=== PATIENT | female | born 1970 | race Two or more races ===

== ENCOUNTER → 2020-08-06 14:47 | Outpatient (BNVA) | payer MEDICARE, MEDICAID, SELFPAY | PROVIDERS: PCP Internal Medicine; Visit Provider Obstetrics & Gynecology | DX: Z76.89 Persons encountering health services in other specified circumstances (principal) ==

== ENCOUNTER 2021-05-04 13:27 | Outpatient (REF) | payer OTHER, SELFPAY ==
--- NOTE | ~2021-05-04 | XR_ITS ---
EXAMINATION: XR CHEST CLINICAL INFORMATION: Cough. COMPARISON: 09/19/2015 chest radiographs. TECHNIQUE: 2 views of the chest were obtained. FINDINGS: Mild linear markings are seen in the left midlung. The lungs otherwise clear. The heart and mediastinal structures are unremarkable. XR/XR chest 2V IMPRESSION: Mild linear atelectasis versus scarring in the left midlung.
[2021-05-04 16:30] LABS: MANUAL DIFF FLAG NO
[2021-05-04 16:41] LABS: Basophils Percent Auto 0.3 % (0-2); Eosinophils Absolute Auto 0.1 X10*3/uL (0.0-0.4); Eosinophils Percent Auto 1.8 % (0-4); Hematocrit 34.9 % (37-47); Hemoglobin 11.1 g/dl (12.0-16.0); Imm Gran Abs Auto 0.03 X10*3/uL (0.00-0.03); Imm Gran Pct Auto 0.4 % (0.0-0.4); Lymphocytes Absolute Auto 1.5 X10*3/uL (1.2-4.9); Lymphocytes Percent Auto 21.8 % (20-40); Mean Corpuscular HGB Conc 31.8 g/dl (31.0-35.0); Mean Corpuscular Hemoglobin 28.9 pg (27.0-33.0); Mean Corpuscular Volume 90.9 fL (80-98); Mean Platelet Volume 10.5 fL (9.4-12.3); Monocytes Absolute Auto 0.9 X10*3/uL (0.1-1.2); Monocytes Percent Auto 12.7 % (2-11); Neutrophils Absolute Auto 4.5 X10*3/uL (2.0-8.3); Platelet Count 225 X10*3/uL (160-400); Red Blood Count 3.84 X10*6/uL (4.20-5.50); White Blood Count 7.1 X10*3/uL (4.8-10.8)
[2021-05-04 16:56] LABS: Glucose Urine UA NEG (NEG); Leukocyte Esterase Urine NEG (NEG); Nitrite Urine NEG (NEG); Specific Gravity - Urine >= 1.030 (1.005-1.025); Urine Blood 1+ (NEG); Urine Ketones NEG (NEG); Urine Protein 2+ MG/DL (NEG-TRACE)
[2021-05-04 17:01] LABS: Color Urine YELLOW
[2021-05-04 17:02] LABS: Appearance Urine HAZY
[2021-05-04 17:06] LABS: Alanine Aminotransferase 13 U/L (0-31); Albumin Level 4.6 g/dL (3.5-5.0); Alkaline Phosphatase 77 U/L (39-117); Anion Gap 14 (12-20); Aspartate Amino Transferase 12 U/L (5-31); Bilirubin Total 0.3 mg/dL (0.0-1.0); Blood Urea Nitrogen 29 mg/dL (9-16); Calcium 9.2 mg/dL (8.4-10.2); Carbon Dioxide 22 mmol/L (22-29); Chloride 109 mmol/L (96-108); Cholesterol 184 mg/dL; Estimated Glomerular Filt Rate 31; Glucose Fasting 106 mg/dL (60-99); HDL Cholesterol 38 mg/dL; LDL Cholesterol Calculated 103 mg/dl; Potassium 4.3 mmol/L (3.3-5.1); Sodium 141 mmol/L (135-145); Total Protein 8.1 g/dL (6.5-8.0); Triglycerides 218 mg/dL
[2021-05-04 17:22] LABS: Bacteria Urine 3+ /LPF; Granular Casts Urine 0-2 /LPF; Mucus Urine TRACE /LPF; Squamous Epithelial Cell Urine 2+ /LPF
[2021-05-04 17:27] LABS: TSH reflex Free T4 1.08 uIU/mL (0.32-4.0); Vitamin D 25-OH Total 22.6 ng/mL (>30)
== END 2021-05-04 13:28 | disposition home or self-care (01) ==
LOC: HO.HMGCX 13:27
PROVIDERS: PCP Internal Medicine; Visit Provider Nurse Practitioner Family
DX: Z00.00 Encounter for general adult medical examination without abnormal findings (principal); R05 Cough; I10 Essential (primary) hypertension; E55.9 Vitamin D deficiency, unspecified; E78.2 Mixed hyperlipidemia
CPT/HCPCS: 36415; 71046; 80053; 80061; 81001; 81003; 82306; 84443; 85025

== ENCOUNTER 2021-05-06 11:16 | Outpatient (REF) | payer OTHER, SELFPAY | END 2021-05-06 11:17 | disposition home or self-care (01) | LOC: HO.LAB 11:16 | PROVIDERS: Visit Provider Nurse Practitioner Family | DX: Z20.822 Contact with and (suspected) exposure to COVID-19 (principal); R05 Cough; J02.9 Acute pharyngitis, unspecified | CPT/HCPCS: U0003; U0005 ==

== ENCOUNTER 2022-02-12 10:31 | Outpatient (REF) | payer OTHER, SELFPAY ==
[2022-02-12 15:19] LABS: CT PCR NOT DETECTED (Not Detect.); NG PCR NOT DETECTED (Not Detect.)
[2022-02-15 16:57] LABS: HPV mRNA E6/E7 rflx Not Detected (Not Detected)
== END 2022-02-12 10:32 | disposition home or self-care (01) ==
LOC: HO.LAB 10:31
PROVIDERS: Visit Provider Advanced Practice Midwife
DX: Z01.419 Encounter for gynecological examination (general) (routine) without abnormal findings (principal); Z11.51 Encounter for screening for human papillomavirus (HPV); Z20.2 Contact with and (suspected) exposure to infections with a predominantly sexual mode of transmission
CPT/HCPCS: 87491; 87591; 87624; 88142

== ENCOUNTER 2022-03-07 14:57 | Outpatient (REF) | payer OTHER, SELFPAY ==
--- NOTE | ~2022-03-07 | MM_ITS ---
EXAMINATION: MM SCREENING DIGITAL BREAST TOMOSYNTHESIS, BILATERAL CLINICAL INFORMATION: Screening. Asymptomatic. The lifetime risk of breast cancer based on the Tyrer-Cuzick Model is 6%. COMPARISON: Mammography: 11/17/2018, and prior exams dating back to 06/17/2012. TECHNIQUE: Digital breast tomosynthesis is performed in both the craniocaudal and mediolateral oblique views along with computer-aided detection (CAD). Synthesized 2D images are generated from the tomosynthesis. Additional left cleavage view is provided. FINDINGS: There are scattered areas of fibroglandular density (ACR BI-RADS breast composition Category b). There are no significant masses, abnormal calcifications, or other abnormalities. Parenchymal pattern is similar to prior studies. No developing density. MM/MM tomosynthesis screening BI IMPRESSION: No mammographic evidence of malignancy. ASSESSMENT: BI-RADS 1: Negative RECOMMENDATION: Routine annual mammography screening. This patient's information was entered into a reminder system with a target due date for their next mammogram.
== END 2022-03-07 14:58 | disposition home or self-care (01) ==
LOC: HO.MAMMO 14:57
PROVIDERS: Visit Provider Internal Medicine
DX: Z12.31 Encounter for screening mammogram for malignant neoplasm of breast (principal)
CPT/HCPCS: 77063; 77067

== ENCOUNTER 2022-03-29 09:44 | Outpatient (REF) | payer OTHER, SELFPAY ==
[2022-03-29 09:52] LABS: MANUAL DIFF FLAG NO
[2022-03-29 10:46] LABS: Basophils Absolute Auto 0.1 X10*3/uL (0.0-0.2); Basophils Percent Auto 0.6 % (0-2); Eosinophils Absolute Auto 0.3 X10*3/uL (0.0-0.4); Eosinophils Percent Auto 2.9 % (0-4); Hematocrit 31.9 % (37.0-47.0); Imm Gran Abs Auto 0.05 X10*3/uL (0.00-0.03); Imm Gran Pct Auto 0.5 % (0.0-0.4); Lymphocytes Absolute Auto 2.6 X10*3/uL (1.2-4.9); Mean Corpuscular HGB Conc 31.3 g/dl (31.0-35.0); Mean Corpuscular Hemoglobin 27.5 pg (27.0-33.0); Mean Corpuscular Volume 87.6 fL (80.0-98.0); Mean Platelet Volume 10.1 fL (9.4-12.3); Monocytes Absolute Auto 0.8 X10*3/uL (0.1-1.2); Monocytes Percent Auto 8.4 % (2-11); Neutrophils Absolute Auto 5.8 x10*3/uL (2.0-8.3); Neutrophils Percent Auto 60.6 % (45-73); Platelet Count 268 X10*3/uL (160-400); Red Blood Count 3.64 X10*6/uL (4.20-5.50); Red Cell Distribution Width 14.6 % (11.0-16.0); White Blood Count 9.5 X10*3/uL (4.8-10.8)
[2022-03-29 10:51] LABS: Appearance Urine HAZY; Color Urine YELLOW; Glucose Urine UA NEG (NEG); Leukocyte Esterase Urine NEG (NEG); Nitrite Urine NEG (NEG); PH 5.5 (5.0-8.0); Specific Gravity - Urine >= 1.030 (1.005-1.025); UACC Culture Trigger NO; Urine Blood 1+ (NEG); Urine Ketones NEG (NEG); Urine Protein 2+ MG/DL (NEG-TRACE)
[2022-03-29 11:06] LABS: Bacteria Urine TRACE /LPF; Squamous Epithelial Cell Urine 2+ /LPF; WBC Urine 0-2 /HPF (0-4)
[2022-03-29 11:23] LABS: Alanine Aminotransferase 16 U/L (0-31); Albumin Level 4.2 g/dL (3.5-5.0); Alkaline Phosphatase 88 U/L (39-117); Anion Gap 13 (12-20); Aspartate Amino Transferase 12 U/L (5-31); Bilirubin Total < 0.2 mg/dL (0.0-1.0); Blood Urea Nitrogen 39 mg/dL (9-16); Calcium 8.9 mg/dL (8.4-10.2); Carbon Dioxide 18 mmol/L (22-29); Chloride 113 mmol/L (96-108); Cholesterol 174 mg/dL; Estimated Glomerular Filt Rate 36; Glucose Fasting 125 mg/dL (60-99); HDL Cholesterol 40 mg/dL; LDL Cholesterol Calculated 74 mg/dl; Potassium 4.1 mmol/L (3.3-5.1); Sodium 140 mmol/L (135-145); Total Protein 7.3 g/dL (6.5-8.0); Triglycerides 303 mg/dL
[2022-03-29 11:23] LABS: Creatinine Urine 133.97 mg/dL
[2022-03-29 11:38] LABS: Microalbum/Creatinine Ratio Ur 971.1 ug/mg cr
[2022-03-29 11:43] LABS: TSH reflex Free T4 2.44 uIU/mL (0.32-4.0); Vitamin D 25-OH Total 15.2 ng/mL (>30)
== END 2022-03-29 09:45 | disposition home or self-care (01) ==
LOC: HO.LAB 09:44
PROVIDERS: PCP Internal Medicine; Visit Provider Internal Medicine
DX: Z00.00 Encounter for general adult medical examination without abnormal findings (principal); I12.9 Hypertensive chronic kidney disease with stage 1 through stage 4 chronic kidney disease, or unspecified chronic kidney disease; N18.9 Chronic kidney disease, unspecified; E55.9 Vitamin D deficiency, unspecified; E78.00 Pure hypercholesterolemia, unspecified
CPT/HCPCS: 36415; 80053; 80061; 81001; 82043; 82306; 84443; 85025

== ENCOUNTER 2022-09-09 15:47 | Emergency (ER) | payer OTHER, SELFPAY ==
[2022-09-09 19:09] VITALS: BP 151/71; PULSE 74; RESP 19; TEMP 36.4; O2SAT 96; BMI 43.2
[2022-09-09 20:31] VITALS: BP 158/85; PULSE 70; RESP 18; TEMP 36.4; O2SAT 95
--- NOTE | 2022-09-09 20:35 | PC.NURSE ---
pt retriaged, cont'd left eye swelling, pt reports left eye is also itchy and has been watery. denies any pain at this time.
--- NOTE | 2022-09-09 21:11 | ED.EYEPROB ---
HPI - Eye Problem General Chief complaint: Eye Problems Stated complaint: L eye swelling Time Seen by Provider: 09/09/22 20:48 Source: patient Mode of arrival: ambulatory Limitations: no limitations History of Present Illness HPI Narrative: 52-year-old female past pertinent medical history of morbid obesity, vitamin-D deficiency, hypertension since to the emergency department today with left eye swelling this for the past 5 days. Patient notices swelling 1st thing on Thursday morning associated symptoms include ocular pruritus, headache ( no dizziness, vision changes, trauma, not on thinners, feels like typical, frontal pressure), watery discharge, and chills. Patient reports blurry vision in the morning only when she has watery and crusty discharge from her eyes. Patient reports left eyelid feels stuck shut in the morning. No other visual changes, no pain w/ eye movements. No known sick contacts. Has been using tea bags and warm compresses on left eye, has helped with sense of relief. Patient denies insect bites or trauma. Denies chance of intra-ocular foreign body. No history of glaucoma. Denies chest pain, shortness of breath, sore throat, cough, otorrhea, otalgia, nausea, vomiting, diarrhea, lumbar back pain, weakness, numbness or tingling in the extremities. Has never experienced anything like this before. Patient doesnt wear contacts only reading glasses Related Data Previous Rx's Medication Instructions Recorded blood pressure monitor (Blood #1 ea 01/15/22 Pressure Kit) hydrocortisone-pramoxine 1 %-1 % 1 appl CO BID-TID PRN itching #30 01/15/22 rectal cream grams witch timmy 50 % topical pads 1 pad topical BID-TID PRN skin 01/15/22 (Hemorrhoidal (witch timmy)) irritation #100 ea calcium carbonate 600 mg-vitamin 2 tab PO DAILY #180 tabs 01/16/22 D3 10 mcg (400 unit) tablet amlodipine 10 mg tablet 10 mg PO DAILY 90 days #90 tabs 03/28/22 hydrochlorothiazide 25 mg tablet 25 mg PO QAM 90 days #90 tabs 03/28/22 losartan 100 mg tablet 100 mg PO DAILY 90 days #90 tabs 03/28/22 erythromycin 5 mg/gram (0.5 %) eye 1 appl ophthalmic (eye) DAILY #3.5 09/09/22 ointment grams Allergies Allergy/AdvReac Type Severity Reaction Status Date / Time No Known Allergies Allergy Verified 09/09/22 19:09 Review of Systems Review of Systems: Constitutional : No Weight loss, No Fever, No Chills, No Fatigue, No Malaise ENT/Mouth : No sore throat, No Rhinorrhea Eyes: No Eye Pain, + left eyelid swelling, + left eyelid erythema, - conjunctiva injection Cardiovascular : No Chest Pain, No SOB, No Dyspnea on Exertion, No Orthopnea, No Edema, No Palpitations Respiratory : No Cough, No Sputum, No Wheezing Gastrointestinal : No Nausea, No Vomiting, No Diarrhea, No Constipation, No abdominal Pain, No Hematochezia, No Melena Genitourinary : No Dysuria, No Urinary Frequency, No Hematuria, Musculoskeletal : No joint pain, No Myalgias, No Joint Swelling Skin : No Skin Lesions, No rash Neuro : No Weakness, No Numbness, No Dizziness, No Headache Psych : No Anxiety/Panic, No Depression All other systems reviewed and are negative Yes all other systems are reviewed and are negative [facility] Past Medical History Attestation statement: The following information was validated with the patient. Source: old records reviewed and nursing notes reviewed Medical History (Updated 09/09/22 @ 21:26 by SHAYY Cortez) Anxiety and depression Benign essential hypertension Hypertension Impaired fasting glucose Mixed hyperlipidemia Morbid obesity with BMI of 40.0-44.9, adult Sleep apnea Vitamin D deficiency Surgical History History of endometrial ablation History of tubal ligation Family History Family History Sister Cervical cancer Mother Hypertension Father History of stroke Diabetes Social History Social History Housing: Apartment Alcohol intake: current Alcohol intake frequency: a few times a month Patient Tobacco Use Status: Current someday Tobacco user Tobacco use type: Cigarette e-Cigarette/Vaping Use: Never Used Second Hand Smoke Exposure: No Advance Directives: No service: No Current occupational status: disabled Current occupational exposures/hazards: No Gender identity: Female Cognitive needs: No Hearing needs: No Vision needs: No Physical Exam Vital Signs: Vital Signs: Last Vital Signs Temp 97.6 F 09/09/22 20:31 Pulse 70 09/09/22 20:31 Resp 18 09/09/22 20:31 BP 158/85 H 09/09/22 20:31 Pulse Ox 95 09/09/22 20:31 O2 Del Method 09/09/22 20:31 BMI result Body Mass Index 43.2 vss Appearance: Alert.? Oriented X3.? No acute distress.? Head: Normocephalic, atraumatic, no step-offs or deformities Eyes: Pupils equal, round and reactive to light.? No injection of left conjunctiva. Extra ocular movements intact. Erythema and edema to left eyelid w/ tenderness. EOMI and painfree. Fluro stain: normal no uptake, negative sidels sign, no corneal ulcers or abrasions CVS: Normal heart rate and rhythm.? Pulses normal.? Respiratory: No respiratory distress.? Breath sounds normal.? Abdomen: Soft and nontender.? Skin: Skin warm and dry.? Normal skin color.? Normal skin turgor.? Extremities: No lower extremity edema.? No calf ttp. 5/5 strength to bilateral upper and lower extremities Neuro: Oriented X 3.? No motor deficit.? No sensory deficit. CN 2-12 intact. [id number], nose to finger intact. DTRs intact bilaterally. Ambulating normally with steady gait w/ normal coordination. NIH stroke scale 0. Course Reevaluation(s) Reevaluation #1: Normal visual acuity in fluorescein stain. Patient will be discharged home with erythromycin for likely hordeolum. Patient will be given follow-up with ophthalmology, advised to return with new or worsening symptoms. Comfortable discharge home. Educated on worrisome signs and symptoms and when to return. Stable for discharge Time: 21:49 Medications Administered Discontinued Medications Generic Name Dose Route Start Last Admin Trade Name Freq PRN Reason Stop Dose Admin Erythromycin 1 cm 09/09/22 21:31 09/09/22 21:37 Erythromycin Base 0.5% Oph Oin 1 Gm Tube EYE-LEFT 09/09/22 21:32 1 cm ONCE ONE Administration Fluorescein Sodium 1 strip 09/09/22 21:12 09/09/22 21:37 Fluorescein Sodium Strip EYE-BOTH 09/09/22 21:13 1 strip ONCE ONE Administration Tetracaine HCl 3 drop 09/09/22 21:12 09/09/22 21:37 Tetracaine Hcl/Pf 0.5% Oph Iris 4 Ml Drops EYE-BOTH 09/09/22 21:13 3 drop ONCE ONE Administration MDM - Eye Problem MDM Narrative Medical decision making narrative: 2120 52-year-old female presents to emergency department today with left eye swelling this for the past 5 days. No vision changes or painful vision PE - Pupils equal, round and reactive to light.?No injection of left conjunctiva. Erythema and edema to left eyelid w/ tenderness. Extraocular eye movements intact & painfree. Likely hordeolum vs. Blepharitis vs. chalazion vs viral conjunctivitis. Unlikely orbital cellulitis, periorbital cellulitis, acute closed angle glaucoma, or wet macular degeneration. Will do a stain to r/o ulcer, or abrasion to cornea non contact lense weare Plan at this time is to perform visual acuity screening and staining Medical Records Attestation: I reviewed the patient's medical records. Lab Data Attestation: I reviewed the patient's lab results. Critical Care Time Critical Care Time Critical Care Time: No Discharge Plan Discharge Clinical Impression: Hordeolum Patient Disposition: Home, Self-Care Instructions: Angelo (ED) Additional Instructions: Take your medications as prescribed. If you were prescribed antibiotics today, it is important that you take your medication to their entirety, do not skip any doses, do not finish them early. Follow-up with your primary care provider this week. 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 Return to the emergency department with new or worsening symptoms. Such as fevers, chills, chest pain, shortness of breath, nausea, vomiting, dizziness, headache, vision changes, lethargy, worsening vision, headache, pain with eye movement, urinary fecal incontinence. In case of emergency call 911 Please throw a all your eye make up! Apply warm compresses to the area Prescriptions: New erythromycin 5 mg/gram (0.5 %) ointment 1 appl ophthalmic (eye) DAILY Qty: 3.5 0RF No Action calcium carbonate-vitamin D3 600 mg-10 mcg (400 unit) tablet 2 tab PO DAILY Qty: 180 0RF (DME) blood pressure monitor [Blood Pressure Kit] Kit See Rx Instructions .Route Qty: 1 0RF Rx Instructions: As directed Hemorrhoidal (witch timmy) 50 % pads, medicated 1 pad topical BID-TID PRN (Reason: skin irritation) Qty: 100 0RF hydrocortisone-pramoxine 1-1 % cream 1 appl CO BID-TID PRN (Reason: itching) Qty: 30 0RF hydrochlorothiazide 25 mg tablet 25 mg PO QAM 90 Days Qty: 90 1RF amlodipine 10 mg tablet 10 mg PO DAILY 90 Days Qty: 90 1RF losartan 100 mg tablet 100 mg PO DAILY 90 Days Qty: 90 1RF Referrals: Taran Hood MD [Primary Care Provider] - 2 days Tawanda Solo [Physician] - 1 day Stand Alone Forms: Work/School Release
[2022-09-09] MEDS: Tetracaine HCl/PF 0.5% Oph Sol 4 ML DROPS 3 DROP EYE-BOTH (21:37)
[2022-09-09] MEDS: Fluorescein Sodium STRIP 1 STRIP EYE-BOTH (21:37)
[2022-09-09] MEDS: Erythromycin Base 0.5% Oph Oin 1 GM TUBE 1 CM EYE-LEFT (21:37)
== END 2022-09-09 22:12 | disposition home or self-care (01) ==
PROVIDERS: Emergency Provider Emergency Medicine; PCP Internal Medicine
DX: H00.016 Hordeolum externum left eye, unspecified eyelid (principal); Z79.899 Other long term (current) drug therapy
CPT/HCPCS: 99282; 99283

== ENCOUNTER 2022-11-18 12:30 | Outpatient (REF) | payer OTHER, SELFPAY ==
--- NOTE | ~2022-11-18 | XR_ITS ---
EXAMINATION: XR ANKLE, RIGHT CLINICAL INFORMATION: Right ankle pain. COMPARISON: Right foot radiographs dated 05/20/2019. TECHNIQUE: AP, lateral, and mortise views of the right ankle. FINDINGS: No acute fracture or dislocation. The ankle mortise is maintained. Tiny tibiotalar marginal osteophytes. No osseous erosion. Plantar and dorsal calcaneal spurs. Mild circumferential soft tissue swelling. Mild soft tissue prominence at the Achilles tendon insertion with opacity adjacent to the posterosuperior calcaneus. Findings could indicate chronic tendinopathy and retrocalcaneal bursitis. XR/XR ankle RT min 3V IMPRESSION: 1. Probable distal Achilles tendinosis and retrocalcaneal bursitis, new when compared to the prior examination. 2. Mild circumferential soft tissue swelling without acute osseous abnormality. 3. Minimal tibiotalar arthrosis. 4. Plantar and dorsal calcaneal spurs.
[2022-11-18 13:05] LABS: Appearance Urine Cloudy; Color Urine Yellow; Glucose Urine UA Negative (Negative); Leukocyte Esterase Urine Negative (Negative); Nitrite Urine Negative (Negative); PH 5.5 (5.0-9.0); Specific Gravity - Urine 1.015 (1.005-1.025); UMIC TRIGGER UACC YES; Urine Blood Trace (Negative); Urine Ketones Negative (Negative); Urine Protein 100 (2+) mg/dL (Neg-Trace)
[2022-11-18 13:08] LABS: Bacteria Urine 1+ (None Seen); WBC Urine 0-5 /HPF (0-5)
== END 2022-11-18 12:31 | disposition home or self-care (01) ==
LOC: HO.XRAY 12:30
PROVIDERS: PCP Internal Medicine; Visit Provider Internal Medicine
DX: M25.571 Pain in right ankle and joints of right foot (principal)
CPT/HCPCS: 73610; 81001; 81003

== ENCOUNTER 2023-03-15 16:44 | Inpatient (IN) | payer OTHER, SELFPAY ==
[2023-03-15] VITALS (7 sets, daily range): BP systolic 150–183; BP diastolic 61–93; PULSE 85–100; RESP 18–20; TEMP 36.8–37.2; O2SAT 94–99; BMI 44.4
--- NOTE | 2023-03-15 17:10 | ED_ITS ---
HPI - General Adult General Chief complaint: GI Bleed Stated complaint: bleeding in rectum Time Seen by Provider: 03/15/23 21:15 Source: patient, family, RN notes reviewed and old records reviewed Mode of arrival: ambulatory Limitations: no limitations History of Present Illness HPI narrative: 52-year-old female with past medical history significant for hypertension, obesity presents for evaluation of rectal bleeding. Patient reports on and off rectal bleeding for the last few months. Increased rectal bleeding for the last 2 weeks She states the blood is dark red Patient is not on any anticoagulation. She reports that she was due for routine colonoscopy 4 years ago but never followed up on her appointment and did not have the colonoscopy Denies any abdominal pain, rectal pain. She does endorse shortness of breath with exertion Related Data Home Medications Medication Instructions Recorded Confirmed multivitamin 1 tab PO DAILY 03/16/23 03/16/23 Previous Rx's Medication Instructions Recorded blood pressure monitor (Blood #1 ea 01/15/22 Pressure Kit) amlodipine 10 mg tablet 10 mg PO DAILY 90 days #90 tabs 01/20/23 losartan 100 mg tablet 100 mg PO DAILY 90 days #90 tabs 01/20/23 Allergies Allergy/AdvReac Type Severity Reaction Status Date / Time No Known Allergies Allergy Verified 03/15/23 17:07 Review of Systems Constitutional: Constitutional: Reports as per HPI, Denies chills, Denies fever(s) and Denies headache(s) ENT: Denies headache(s) Cardiovascular: Cardiovascular: Denies chest pain and Denies dyspnea Respiratory: Respiratory: Denies cough and Denies dyspnea Gastrointestinal: Gastrointestinal: Denies abdominal pain, Reports hematochezia, Denies constipation and Denies vomiting Genitourinary: Genitourinary: Denies dysuria Neurologic: Denies headache(s) and Denies focal weakness [facility] Past Medical History Medical History Anxiety and depression Benign essential hypertension Hypertension Impaired fasting glucose Mixed hyperlipidemia Morbid obesity with BMI of 40.0-44.9, adult Sleep apnea Vitamin D deficiency Surgical History History of endometrial ablation History of tubal ligation Family History Family History Sister Cervical cancer Mother Hypertension Father History of stroke Diabetes Social History Social History Household Members: Children Housing: Apartment Do you presently have visiting nurse or other home services: No (pt states daughter helps) Alcohol intake: current Alcohol intake frequency: a few times a week Patient Tobacco Use Status: Current someday Tobacco user Tobacco use type: Cigarette Smoked in Last 30 Days: No e-Cigarette/Vaping Use: Never Used Second Hand Smoke Exposure: No Use of substances other than those prescribed or required for medical reasons: No Currently Displaying Signs/Symptoms of Drug Intoxication Withdrawal: No Have you been hit, kicked, punched, or otherwise hurt by someone within the past year? If so, by whom?: No Do you feel safe in your current relationship?: No Current Relationship Is there a partner from a previous relationship who is making you feel unsafe now?: No Are you made to feel afraid or neglected: No Advance Directives: No Advance Directives Information Provided: No Do you have thoughts of harming others: None Do you have a plan to hurt others: No Plan Nutrition Risks: No Nutritional Risk Patient : No : No Poor oral hygiene: No service: No Current occupational status: disabled Current occupational exposures/hazards: No Gender identity: Female Cognitive needs: No Hearing needs: No Vision needs: No Physical Exam ED Vital Signs: Vital Signs - 24 hr 03/15/23 17:07 03/15/23 18:39 03/15/23 20:14 Temperature 98.3 F 98.7 F Pulse Rate 100 90 91 Respiratory Rate 18 20 20 Blood Pressure 179/93 H 179/90 H 150/78 H Pulse Oximetry 94 99 97 Oxygen Delivery Method Room Air Room Air Room Air 03/15/23 21:57 03/15/23 22:01 03/15/23 22:09 Temperature 98.4 F 98.4 F Pulse Rate 91 85 Respiratory Rate 20 18 Blood Pressure 183/86 H 176/86 H 176/86 H Pulse Oximetry 96 Oxygen Delivery Method Room Air 03/15/23 22:24 Temperature 98.9 F Pulse Rate 88 Respiratory Rate 20 Blood Pressure 152/61 H Pulse Oximetry Oxygen Delivery Method BMI result Body Mass Index 44.4 Const General: healthy appearing, comfortable, no acute distress, alert and awake Nutritional Appearance: well nourished Orientation/consciousness: patient oriented x3 HENMT Head: Yes normocephalic and Yes atraumatic Eyes Eyelids: Yes eyelids normal Conjunctivae: conjunctivae normal Sclerae: sclerae normal Corneas: corneas normal Pupils: Equal, round and reactive pupils present EOM: EOMs intact bilaterally Neck Neck: Yes full ROM Resp Effort & Inspection: normal respiratory effort, able to speak in complete sentences and not labored Cardio Rate: regular rate Rhythm: regular rhythm GI Inspection: No distended Palpation (GI): Soft to palpation, not firm, nontender, no guarding and not rigid Auscultation: normoactive bowel sounds Rectal Exam - Female: normal sphincter tone and No fecal impaction Skin General skin exam: no rashes or lesions noted and elasticity normal Neuro General: patient oriented x3 Cranial nerves: Yes Equal, round and reactive pupils present and Yes Bilaterally intact EOM present Cognition (Neuro): normal cognition Extrem Other: Moving all extremities well without any obvious deformities Course Course Course Narrative: RME: 52 yold female presents to the ED rectal bleeding for the past 3 days as bright red, but has had intermittent rectal bleeding for months. Patient states no abdominal pain. labs ordered Reevaluation(s) Reevaluation #1: Patient was heme negative, though I do feel was a poor sample as there was not a lot of stool on the cart. Time: 22:05 Medications Administered Generic Name Dose Route Start Last Admin Trade Name Freq PRN Reason Stop Dose Admin Multivitamins/Vitamin C 1 tab 03/16/23 10:30 03/16/23 12:15 Multivitamin Tablet PO 1 tab DAILY CORNELL Administration Pantoprazole Sodium 40 mg 03/16/23 06:30 03/16/23 06:10 Pantoprazole Sodium 40 Mg/10 Ml Vial IVPUSH 40 mg BID@0630,1630 CORNELL Administration Sodium Chloride 3 ml 03/16/23 00:00 03/16/23 11:14 0.9 % Sodium Chloride Flush 3 Ml Syringe IVFLUSH 3 ml QSHIFT CORNELL Administration Discontinued Medications Generic Name Dose Route Start Last Admin Trade Name Freq PRN Reason Stop Dose Admin Pantoprazole Sodium 40 mg 03/15/23 22:14 03/15/23 22:21 Pantoprazole Sodium 40 Mg/10 Ml Vial IVPUSH 03/15/23 22:15 40 mg ONCE ONE Administration Medical Decision Making Medical Decision Making [facility] Narrative: He 52-year-old female presents for evaluation of rectal bleeding. Her hemoglobin is 6.6. Discussed risks and benefits of blood transfusion. She accepts and consent to blood transfusion. Rectal exam was performed no marko blood. Occult blood testing sent. Patient reports bleeding x2. She will likely require admission for colonoscopy. Differential Diagnosis Differential Diagnoses: The differential diagnosis associated with the presentation includes GI bleed Upper GI bleed Lower GI bleed Diverticular bleed Blood loss anemia Microcytic anemia Lab Data MDM Lab Attestation statement: I reviewed the patient's lab results. 03/15/23 18:05 03/15/23 18:05 Labs: Lab Results 03/15/23 03/15/23 03/15/23 Range/Units 18:05 18:05 18:05 WBC 10.6 (4.8-10.8) X10*3/uL RBC 2.85 L D (4.20-5.50) X10*6/uL Hgb 6.6 L* D (12.0-16.0) g/dl Hct 22.7 L D (37.0-47.0) % MCV 79.6 L (80.0-98.0) fL MCH 23.2 L (27.0-33.0) pg MCHC 29.1 L (31.0-35.0) g/dl RDW 17.4 H (11.0-16.0) % Plt Count 259 (160-400) X10*3/uL MPV 8.9 L (9.4-12.3) fL Immature Gran % (Auto) 0.8 H (0.0-0.4) % Neut % (Auto) 71.4 (45-73) % Lymph % (Auto) 18.0 L (20-40) % [place] % (Auto) 7.7 (2-11) % Eos % (Auto) 1.7 (0-4) % Baso % (Auto) 0.4 (0-2) % Lymph # (Auto) 1.9 (1.2-4.9) X10*3/uL [place] # (Auto) 0.8 (0.1-1.2) X10*3/uL Eos # (Auto) 0.2 (0.0-0.4) X10*3/uL Baso # (Auto) 0.0 (0.0-0.2) X10*3/uL Abs Immat Gran (auto) 0.08 H (0.00-0.03) X10*3/uL Absolute Neuts (auto) 7.6 (2.0-8.3) x10*3/uL Absolute Nucleated RBC 0.000 (0.0-0.012) X10*3/uL Nucleated RBC % (auto) 0.0 (0.0-0.2) /100WBC Smear Path Review SEE NOTE PT 10.9 (10.0-13.1) SEC INR 1.0 (0.9-1.1) APTT 28.7 (26.0-36.4) SEC Sodium 146 H (135-145) mmol/L Potassium 4.2 (3.3-5.1) mmol/L Chloride 114 H (96-108) mmol/L Carbon Dioxide 21 L (22-29) mmol/L Anion Gap 15 (12-20) BUN 31 H (9-16) mg/dL Creatinine 1.57 H (0.5-1.4) mg/dL Estim Creat Clear Calc 57.1 Estimated GFR 34 Random Glucose 125 H (60-115) mg/dL Calcium 8.9 (8.4-10.2) mg/dL Total Bilirubin 0.2 (0.0-1.0) mg/dL AST 12 (5-31) U/L ALT 22 (0-31) U/L Alkaline Phosphatase 93 (39-117) U/L Total Protein 6.9 (6.5-8.0) g/dL Albumin 3.8 (3.5-5.0) g/dL Beta HCG, Quant mIU/mL Urine Color Urine Appearance Urine pH (5.0-9.0) Ur Specific [place] (1.005-1.025) Urine Protein (Neg-Trace) mg/dL Urine Glucose (UA) (Negative) mg/dL Urine Ketones (Negative) mg/dL Urine Blood (Negative) Urine Nitrite (Negative) Ur Leukocyte Esterase (Negative) Urine RBC (0-2) /HPF Urine WBC (0-5) /HPF Ur Squamous Epith Cells (0-2) /HPF Urine Bacteria (None Seen) Hyaline Casts (0-2) /LPF Stool Occult Blood (NEGATIVE) Blood Type Antibody Screen Crossmatch 03/15/23 03/15/23 03/15/23 Range/Units 18:05 18:05 18:44 WBC (4.8-10.8) X10*3/uL RBC (4.20-5.50) X10*6/uL Hgb (12.0-16.0) g/dl Hct (37.0-47.0) % MCV (80.0-98.0) fL MCH (27.0-33.0) pg MCHC (31.0-35.0) g/dl RDW (11.0-16.0) % Plt Count (160-400) X10*3/uL MPV (9.4-12.3) fL Immature Gran % (Auto) (0.0-0.4) % Neut % (Auto) (45-73) % Lymph % (Auto) (20-40) % [place] % (Auto) (2-11) % Eos % (Auto) (0-4) % Baso % (Auto) (0-2) % Lymph # (Auto) (1.2-4.9) X10*3/uL [place] # (Auto) (0.1-1.2) X10*3/uL Eos # (Auto) (0.0-0.4) X10*3/uL Baso # (Auto) (0.0-0.2) X10*3/uL Abs Immat Gran (auto) (0.00-0.03) X10*3/uL Absolute Neuts (auto) (2.0-8.3) x10*3/uL Absolute Nucleated RBC (0.0-0.012) X10*3/uL Nucleated RBC % (auto) (0.0-0.2) /100WBC Smear Path Review PT (10.0-13.1) SEC INR (0.9-1.1) APTT (26.0-36.4) SEC Sodium (135-145) mmol/L Potassium (3.3-5.1) mmol/L Chloride (96-108) mmol/L Carbon Dioxide (22-29) mmol/L Anion Gap (12-20) BUN (9-16) mg/dL Creatinine (0.5-1.4) mg/dL Estim Creat Clear Calc Estimated GFR Random Glucose (60-115) mg/dL Calcium (8.4-10.2) mg/dL Total Bilirubin (0.0-1.0) mg/dL AST (5-31) U/L ALT (0-31) U/L Alkaline Phosphatase (39-117) U/L Total Protein (6.5-8.0) g/dL Albumin (3.5-5.0) g/dL Beta HCG, Quant < 2 mIU/mL Urine Color Yellow Urine Appearance Clear Urine pH 5.5 (5.0-9.0) Ur Specific [place] 1.015 (1.005-1.025) Urine Protein 100 (2+) H (Neg-Trace) mg/dL Urine Glucose (UA) Negative (Negative) mg/dL Urine Ketones Negative (Negative) mg/dL Urine Blood Negative (Negative) Urine Nitrite Negative (Negative) Ur Leukocyte Esterase Negative (Negative) Urine RBC 3-5 H (0-2) /HPF Urine WBC 0-5 (0-5) /HPF Ur Squamous Epith Cells 3-5 (0-2) /HPF Urine Bacteria None Seen (None Seen) Hyaline Casts 0-2 (0-2) /LPF Stool Occult Blood (NEGATIVE) Blood Type O Positive Antibody Screen NEGATIVE Crossmatch See Detail 03/15/23 Range/Units 21:39 WBC (4.8-10.8) X10*3/uL RBC (4.20-5.50) X10*6/uL Hgb (12.0-16.0) g/dl Hct (37.0-47.0) % MCV (80.0-98.0) fL MCH (27.0-33.0) pg MCHC (31.0-35.0) g/dl RDW (11.0-16.0) % Plt Count (160-400) X10*3/uL MPV (9.4-12.3) fL Immature Gran % (Auto) (0.0-0.4) % Neut % (Auto) (45-73) % Lymph % (Auto) (20-40) % [place] % (Auto) (2-11) % Eos % (Auto) (0-4) % Baso % (Auto) (0-2) % Lymph # (Auto) (1.2-4.9) X10*3/uL [place] # (Auto) (0.1-1.2) X10*3/uL Eos # (Auto) (0.0-0.4) X10*3/uL Baso # (Auto) (0.0-0.2) X10*3/uL Abs Immat Gran (auto) (0.00-0.03) X10*3/uL Absolute Neuts (auto) (2.0-8.3) x10*3/uL Absolute Nucleated RBC (0.0-0.012) X10*3/uL Nucleated RBC % (auto) (0.0-0.2) /100WBC Smear Path Review PT (10.0-13.1) SEC INR (0.9-1.1) APTT (26.0-36.4) SEC Sodium (135-145) mmol/L Potassium (3.3-5.1) mmol/L Chloride (96-108) mmol/L Carbon Dioxide (22-29) mmol/L Anion Gap (12-20) BUN (9-16) mg/dL Creatinine (0.5-1.4) mg/dL Estim Creat Clear Calc Estimated GFR Random Glucose (60-115) mg/dL Calcium (8.4-10.2) mg/dL Total Bilirubin (0.0-1.0) mg/dL AST (5-31) U/L ALT (0-31) U/L Alkaline Phosphatase (39-117) U/L Total Protein (6.5-8.0) g/dL Albumin (3.5-5.0) g/dL Beta HCG, Quant mIU/mL Urine Color Urine Appearance Urine pH (5.0-9.0) Ur Specific [place] (1.005-1.025) Urine Protein (Neg-Trace) mg/dL Urine Glucose (UA) (Negative) mg/dL Urine Ketones (Negative) mg/dL Urine Blood (Negative) Urine Nitrite (Negative) Ur Leukocyte Esterase (Negative) Urine RBC (0-2) /HPF Urine WBC (0-5) /HPF Ur Squamous Epith Cells (0-2) /HPF Urine Bacteria (None Seen) Hyaline Casts (0-2) /LPF Stool Occult Blood NEGATIVE (NEGATIVE) Blood Type Antibody Screen Crossmatch Discharge Plan Discharge Clinical Impression: Bright red rectal bleeding Patient Disposition: Admitted As Inpatient Interventions: Admission Worksheet (ED) Last Done: 03/16/23 02:48 Discharge Date/Time: 03/16/23 03:00
[2023-03-15 18:10] LABS: MANUAL DIFF FLAG NO
[2023-03-15 18:13] LABS: Basophils Percent Auto 0.4 % (0-2); Eosinophils Absolute Auto 0.2 X10*3/uL (0.0-0.4); Eosinophils Percent Auto 1.7 % (0-4); Hematocrit 22.7 % (37.0-47.0); Imm Gran Abs Auto 0.08 X10*3/uL (0.00-0.03); Imm Gran Pct Auto 0.8 % (0.0-0.4); Lymphocytes Absolute Auto 1.9 X10*3/uL (1.2-4.9); Mean Corpuscular HGB Conc 29.1 g/dl (31.0-35.0); Mean Corpuscular Hemoglobin 23.2 pg (27.0-33.0); Mean Corpuscular Volume 79.6 fL (80.0-98.0); Mean Platelet Volume 8.9 fL (9.4-12.3); Monocytes Absolute Auto 0.8 X10*3/uL (0.1-1.2); Monocytes Percent Auto 7.7 % (2-11); Neutrophils Absolute Auto 7.6 x10*3/uL (2.0-8.3); Neutrophils Percent Auto 71.4 % (45-73); Platelet Count 259 X10*3/uL (160-400); Red Blood Count 2.85 X10*6/uL (4.20-5.50); Red Cell Distribution Width 17.4 % (11.0-16.0); White Blood Count 10.6 X10*3/uL (4.8-10.8)
[2023-03-15 18:26] LABS: Alanine Aminotransferase 22 U/L (0-31); Albumin Level 3.8 g/dL (3.5-5.0); Alkaline Phosphatase 93 U/L (39-117); Anion Gap 15 (12-20); Aspartate Amino Transferase 12 U/L (5-31); Bilirubin Total 0.2 mg/dL (0.0-1.0); Blood Urea Nitrogen 31 mg/dL (9-16); Calcium 8.9 mg/dL (8.4-10.2); Carbon Dioxide 21 mmol/L (22-29); Chloride 114 mmol/L (96-108); Creatinine Clr Calc Pharmacy 57.1; Estimated Glomerular Filt Rate 34; Glucose Random 125 mg/dL (60-115); Potassium 4.2 mmol/L (3.3-5.1); Sodium 146 mmol/L (135-145); Total Protein 6.9 g/dL (6.5-8.0)
[2023-03-15 18:32] LABS: Appearance Urine Clear; Color Urine Yellow; Glucose Urine UA Negative (Negative); Leukocyte Esterase Urine Negative (Negative); Nitrite Urine Negative (Negative); PH 5.5 (5.0-9.0); Specific Gravity - Urine 1.015 (1.005-1.025); UMIC TRIGGER UACC YES; Urine Blood Negative (Negative); Urine Ketones Negative (Negative); Urine Protein 100 (2+) mg/dL (Neg-Trace)
[2023-03-15 18:33] LABS: HCG Quantitative < 2 mIU/mL
[2023-03-15 18:37] LABS: Bacteria Urine None Seen (None Seen); Hyaline Casts Urine 0-2 /LPF (0-2); WBC Urine 0-5 /HPF (0-5)
[2023-03-15 18:51] LABS: Prothrombin Time 10.9 SEC (10.0-13.1)
[2023-03-15 18:53] LABS: Partial Thromboplastin Time 28.7 SEC (26.0-36.4)
[2023-03-15 20:38] LABS: Hemoglobin 6.6 g/dl (12.0-16.0)
--- NOTE | 2023-03-15 21:49 | PC.NURSE ---
blood bank called and blood is ready, priscila gama made aware.
[2023-03-15 22:00] LABS: OBS Int Ctl Valid YES; OBS1 NEGATIVE (NEGATIVE)
[2023-03-15] MEDS: Pantoprazole Sodium 40 MG/10 ML VIAL IVPUSH (22:21)
--- NOTE | 2023-03-15 23:04 | PC.NURSE ---
blood transfusion started @22:09. pt has two bilateral iv lines. patent and flushing well. 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 call rainey within reach. will CTM.
--- NOTE | 2023-03-15 23:09 | PC.NURSE ---
Pt ca&ox3, no signs of distress. Pt denies pain and sob. Pt resting comfortably. Will continue to monitor.
--- NOTE | 2023-03-15 23:48 | P.HPHOSP_ITS ---
History of Present Illness Date of Service: 03/15/23 Chief Complaint: Bleeding per rectum 52-year-old female past medical history of anxiety depression, HTN, HLD, vitamin-D deficiency, comes into the hospital complaints of intermittent bloody bowel movements. This been going on for 2 weeks. She has noticed bright red blood in the toilet bowl every time she moves her bowels, she has also noticed that sometimes it occurs even when she pees. It is large amount, bright blood, not associated with any abdominal pain. She reports that she has now progressively been feeling more tired, short of breath, and dizzy on ambulation. She denies any chest pain, no abdominal pain, no cough, no constipation, has some diarrhea, no urinary symptoms, no lower extremity edema currently. On arrival to the ED patient hemodynamically stable slightly elevated blood pressure Labs are significant for a for WBC count of 10.6, hemoglobin of 6.6 from a baseline of around 10.0, hematocrit 22.7, sodium of 146, creatinine of 1.57 which is around her recent baseline, UA negative for acute infection, Patient being transfused 1 unit of PRBC and will be admitted for further management Review of Systems Review of Systems: Yes all other systems are reviewed and are negative [facility] Medical History Anxiety and depression Benign essential hypertension Hypertension Impaired fasting glucose Mixed hyperlipidemia Morbid obesity with BMI of 40.0-44.9, adult Sleep apnea Vitamin D deficiency Family History Sister Cervical cancer Mother Hypertension Father History of stroke Diabetes Surgical History History of endometrial ablation History of tubal ligation Social History Household Members: Children Housing: Apartment Do you presently have visiting nurse or other home services: No (pt states daughter helps) Alcohol intake: current Alcohol intake frequency: a few times a week Patient Tobacco Use Status: Current someday Tobacco user Tobacco use type: Cigarette Smoked in Last 30 Days: No e-Cigarette/Vaping Use: Never Used Second Hand Smoke Exposure: No Use of substances other than those prescribed or required for medical reasons: No Have you been hit, kicked, punched, or otherwise hurt by someone within the past year? If so, by whom?: No Do you feel safe in your current relationship?: No Current Relationship Is there a partner from a previous relationship who is making you feel unsafe now?: No Are you made to feel afraid or neglected: No Advance Directives: No Advance Directives Information Provided: No Do you have thoughts of harming others: None Do you have a plan to hurt others: No Plan Nutrition Risks: No Nutritional Risk Patient : No : No Poor oral hygiene: No service: No Current occupational status: disabled Current occupational exposures/hazards: No Gender identity: Female Cognitive needs: No Hearing needs: No Vision needs: No Meds Allergies Allergy/AdvReac Type Severity Reaction Status Date / Time No Known Allergies Allergy Verified 03/15/23 17:07 Physical Exam Vital Signs and Narrative: Vital Signs: Last Vital Signs Temp 98.9 F 03/15/23 22:24 Pulse 88 03/15/23 22:24 Resp 20 03/15/23 22:24 BP 152/61 H 03/15/23 22:24 Pulse Ox 96 03/15/23 21:57 O2 Del Method Room Air 03/15/23 21:57 BMI result Body Mass Index 44.4 Const: Other: Obese abdomen General: cooperative and no acute distress Orientation/consciousness: patient oriented x3 Eyes: General: appearance normal, both eyes and all related structures Resp: Effort & Inspection: normal respiratory effort Auscultation: clear to auscultation bilaterally Cardio: Rate: regular rate Rhythm: regular rhythm GI: Palpation (GI): Soft to palpation Auscultation: normal bowel sounds Skin: General skin exam: no rashes or lesions noted Neuro: General: patient oriented x3 Cognition (Neuro): normal cognition Extrem: General: Yes normal to inspection and Yes no pedal edema Results Labs 03/15/23 18:05 03/15/23 18:05 Labs: Laboratory Results - last 24 hr 03/15/23 03/15/23 03/15/23 18:05 18:05 18:05 MCV 79.6 L MCH 23.2 L MCHC 29.1 L RDW 17.4 H Plt Count 259 MPV 8.9 L Immature Gran % (Auto) 0.8 H Neut % (Auto) 71.4 Lymph % (Auto) 18.0 L [place] % (Auto) 7.7 Eos % (Auto) 1.7 Baso % (Auto) 0.4 Lymph # (Auto) 1.9 [place] # (Auto) 0.8 Eos # (Auto) 0.2 Baso # (Auto) 0.0 Abs Immat Gran (auto) 0.08 H Absolute Neuts (auto) 7.6 Absolute Nucleated RBC 0.000 Nucleated RBC % (auto) 0.0 PT 10.9 INR 1.0 APTT 28.7 Anion Gap 15 Estim Creat Clear Calc 57.1 Estimated GFR 34 Random Glucose 125 H Calcium 8.9 Total Bilirubin 0.2 AST 12 ALT 22 Alkaline Phosphatase 93 Total Protein 6.9 Albumin 3.8 Beta HCG, Quant Urine Color Urine Appearance Urine pH Ur Specific [place] Urine Protein Urine Glucose (UA) Urine Ketones Urine Blood Urine Nitrite Ur Leukocyte Esterase Urine RBC Urine WBC Ur Squamous Epith Cells Urine Bacteria Hyaline Casts Stool Occult Blood Blood Type Antibody Screen Crossmatch 03/15/23 03/15/23 03/15/23 18:05 18:05 18:44 MCV MCH MCHC RDW Plt Count MPV Immature Gran % (Auto) Neut % (Auto) Lymph % (Auto) [place] % (Auto) Eos % (Auto) Baso % (Auto) Lymph # (Auto) [place] # (Auto) Eos # (Auto) Baso # (Auto) Abs Immat Gran (auto) Absolute Neuts (auto) Absolute Nucleated RBC Nucleated RBC % (auto) PT INR APTT Anion Gap Estim Creat Clear Calc Estimated GFR Random Glucose Calcium Total Bilirubin AST ALT Alkaline Phosphatase Total Protein Albumin Beta HCG, Quant < 2 Urine Color Yellow Urine Appearance Clear Urine pH 5.5 Ur Specific [place] 1.015 Urine Protein 100 (2+) H Urine Glucose (UA) Negative Urine Ketones Negative Urine Blood Negative Urine Nitrite Negative Ur Leukocyte Esterase Negative Urine RBC 3-5 H Urine WBC 0-5 Ur Squamous Epith Cells 3-5 Urine Bacteria None Seen Hyaline Casts 0-2 Stool Occult Blood Blood Type O Positive Antibody Screen NEGATIVE Crossmatch See Detail 03/15/23 21:39 MCV MCH MCHC RDW Plt Count MPV Immature Gran % (Auto) Neut % (Auto) Lymph % (Auto) [place] % (Auto) Eos % (Auto) Baso % (Auto) Lymph # (Auto) [place] # (Auto) Eos # (Auto) Baso # (Auto) Abs Immat Gran (auto) Absolute Neuts (auto) Absolute Nucleated RBC Nucleated RBC % (auto) PT INR APTT Anion Gap Estim Creat Clear Calc Estimated GFR Random Glucose Calcium Total Bilirubin AST ALT Alkaline Phosphatase Total Protein Albumin Beta HCG, Quant Urine Color Urine Appearance Urine pH Ur Specific [place] Urine Protein Urine Glucose (UA) Urine Ketones Urine Blood Urine Nitrite Ur Leukocyte Esterase Urine RBC Urine WBC Ur Squamous Epith Cells Urine Bacteria Hyaline Casts Stool Occult Blood NEGATIVE Blood Type Antibody Screen Crossmatch Assessment and Plan (1) Bright red rectal bleeding: Status: Acute (2) Acute on chronic anemia: Status: Acute Plan 52-year-old female past medical history of hypertension, hyperlipidemia, depression anxiety, presents the hospital with complaints of bright red blood per rectum # acute bright red blood rectal bleeding - possibly diverticular versus hemorrhoidal - denies use of NSAID or aspirin - no prior history - case was discussed with rn occupational health, plan for colonoscopy on Thursday - recommended clear liquid diet until then and PPI IV b.i.d. - follow CBC # acute on chronic anemia -secondary to GI bleed - patient receiving 1 unit of PRBC - follow CBC post transfusion - transfuse accordingly # hypertension - stable - will resume amlodipine - pending other med reconciliation by pharmacy DVT prophylaxis: SCDs Given patient's need further evaluation for GI bleed that is symptomatic with a hemoglobin of less than 7 patient require minimum 2 nights inpatient hospital stay for further management and monitoring Time Spent With Patient Time: Total time managing care of this patient today ____ minutes. Quality Stroke Does the patient have a stroke diagnosis?: No VTE Prior VTE?: No VTE Risk Level:: Medical - moderate - high VTE Device Contraindication: N/A - Device Ordered VTE Drug Contraindication: Treatment Not Indicated
[2023-03-16] VITALS (9 sets, daily range): BP systolic 134–167; BP diastolic 63–80; PULSE 75–86; RESP 16–20; TEMP 36.1–37.2; O2SAT 93–100; BMI 44.7
--- NOTE | 2023-03-16 00:51 | PC.NURSE ---
Pt ca&ox3, no signs of distress. Pt denies pain and sob. Family member at bedside. Pt resting comfortably. Will continue to monitor.
--- NOTE | 2023-03-16 01:07 | PC.NURSE ---
Pt ca&ox3, no signs of distress. Vitals stable. Family member at bedside. Pt requesting to use the bathroom. Will continue to monitor.
[2023-03-16 06:04] LABS: MANUAL DIFF FLAG NO
[2023-03-16] MEDS: Pantoprazole Sodium 40 MG/10 ML VIAL IVPUSH ×2 (06:10→17:53)
[2023-03-16 06:37] LABS: Anion Gap 13 (12-20); Blood Urea Nitrogen 28 mg/dL (9-16); Calcium 8.8 mg/dL (8.4-10.2); Carbon Dioxide 19 mmol/L (22-29); Chloride 116 mmol/L (96-108); Creatinine Clr Calc Pharmacy 64.3; Estimated Glomerular Filt Rate 39; Glucose Random 111 mg/dL (60-115); Sodium 144 mmol/L (135-145)
[2023-03-16 06:56] LABS: Basophils Percent Auto 0.3 % (0-2); Eosinophils Absolute Auto 0.2 X10*3/uL (0.0-0.4); Eosinophils Percent Auto 2.1 % (0-4); Hematocrit 24.2 % (37.0-47.0); Hemoglobin 7.1 g/dl (12.0-16.0); Imm Gran Abs Auto 0.06 X10*3/uL (0.00-0.03); Imm Gran Pct Auto 0.6 % (0.0-0.4); Lymphocytes Absolute Auto 2.5 X10*3/uL (1.2-4.9); Lymphocytes Percent Auto 24.2 % (20-40); Mean Corpuscular HGB Conc 29.3 g/dl (31.0-35.0); Mean Corpuscular Hemoglobin 23.7 pg (27.0-33.0); Mean Corpuscular Volume 80.9 fL (80.0-98.0); Mean Platelet Volume 9.7 fL (9.4-12.3); Monocytes Absolute Auto 0.8 X10*3/uL (0.1-1.2); Monocytes Percent Auto 7.8 % (2-11); Neutrophils Absolute Auto 6.6 x10*3/uL (2.0-8.3); Platelet Count 263 X10*3/uL (160-400); Red Blood Count 2.99 X10*6/uL (4.20-5.50); Red Cell Distribution Width 18.2 % (11.0-16.0); White Blood Count 10.2 X10*3/uL (4.8-10.8)
--- NOTE | 2023-03-16 08:12 | MHC.CM.PN ---
CM met with Patient at bedside and addressed IMM with her, providing Patient with the original and placing a copy on the chart. Patient lives in an apartment with her 6 year old Grandson and she uses a cane at times to assist with mobility. 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 Patient has received no Covid vax and her PCP is Dr. Taran Hood.
--- NOTE | 2023-03-16 08:51 | PHA.MEDREC ---
Pharmacy Consult ? Medication Reconciliation Pharmacy has completed the medication reconciliation. spoke with patient. She says she takes 3 blood pressure medications but does not know the name of the third one and claims that a refill was never sent for it. When asked if it was hydrochlorothiazide, she says no, she no longer takes it.
--- NOTE | 2023-03-16 09:21 | P.CNGI_ITS ---
History of Present Illness Data of Consult Service Date: 03/16/23 Requesting physician: Lazaro Arrington Primary Care Provider: Taran Hood MD HPI Reason for consult: Anemia, GIB This is a 52 y.o F with PMH of obesity, HTN, HLD, hx of hemorrhoidectomy 2013 (Dr Coreas) who presented to the hospital for x2 weeks of rectal bleeding and was found to have acute on chronic anemia. Pt reports that she has had intermittent rectal bleeding x a few years now. Was recommended a colonoscopy by her PCP however was hesitant to pursue due to prep needed prior to it. This particular episode has been ongoing for 2 weeks now. Reports fresh to maroon blood per rectum sometimes with clots as well that she sees even she has not passed a BM, night time sx +. Not assoc with abd pain, hearburn, nausea, vomiting or diarrhea. Stool color itself is brown as far as pt can recall. Has been noticing incfreasing fatigue, shortness of breath on exertion, lightheadedness x 2 weeks which prompted arrival to ER where she was found to be profoundly anemic. Vitally stable. Has received 1u PRBC overnight. Review of Systems Review of Systems: Yes all other systems are reviewed and are negative PMFSH Past Medical History Medical History Anxiety and depression Benign essential hypertension Hypertension Impaired fasting glucose Mixed hyperlipidemia Morbid obesity with BMI of 40.0-44.9, adult Sleep apnea Vitamin D deficiency Family History Family History Sister Cervical cancer Mother Hypertension Father History of stroke Diabetes Surgical History Surgical History History of endometrial ablation History of tubal ligation Social History Social History Household Members: Children Housing: Apartment Do you presently have visiting nurse or other home services: No (pt states daughter helps) Alcohol intake: current Alcohol intake frequency: a few times a week Patient Tobacco Use Status: Current someday Tobacco user Tobacco use type: Cigarette Smoked in Last 30 Days: No e-Cigarette/Vaping Use: Never Used Second Hand Smoke Exposure: No Use of substances other than those prescribed or required for medical reasons: No Have you been hit, kicked, punched, or otherwise hurt by someone within the past year? If so, by whom?: No Do you feel safe in your current relationship?: No Current Relationship Is there a partner from a previous relationship who is making you feel unsafe now?: No Are you made to feel afraid or neglected: No Advance Directives: No Advance Directives Information Provided: No Do you have thoughts of harming others: None Do you have a plan to hurt others: No Plan Nutrition Risks: No Nutritional Risk Patient : No : No Poor oral hygiene: No service: No Current occupational status: disabled Current occupational exposures/hazards: No Gender identity: Female Cognitive needs: No Hearing needs: No Vision needs: No Meds Allergies Allergy/AdvReac Type Severity Reaction Status Date / Time No Known Allergies Allergy Verified 03/15/23 17:07 Active Medications: Current Medications Acetaminophen (Acetaminophen 325 Mg Tablet) 650 mg PO Q6H PRN PRN Reason: Pain, Mild (Pain Scale 1-3) Ondansetron HCl (Ondansetron Hcl 4 Mg/2 Ml Vial) 4 mg IVPUSH Q8H PRN PRN Reason: Nausea and Vomiting Pantoprazole Sodium (Pantoprazole Sodium 40 Mg/10 Ml Vial) 40 mg IVPUSH BID@0630,1630 [facility] Last Admin: 03/16/23 06:10 Dose: 40 mg Pharmacy Consult (Consult Rx Perform Med Rec) 1 each MISCELLANE ONCE PRN PRN Reason: Consult order Sodium Chloride (0.9 % Sodium Chloride Flush 3 Ml Syringe) 3 ml IVFLUSH QSHIFT [facility] Last Admin: 03/16/23 00:00 Dose: Not Given Home Medications Medication Instructions Recorded Confirmed Last Taken Type multivitamin 1 tab PO DAILY 03/16/23 03/16/23 Unknown History Physical Exam Vital Signs: Vital Signs: Last Vital Signs Temp 97.7 F 03/16/23 07:16 Pulse 86 03/16/23 07:16 Resp 20 03/16/23 07:16 BP 134/63 03/16/23 07:16 Pulse Ox 93 03/16/23 07:16 O2 Del Method Room Air 03/16/23 07:16 BMI result Body Mass Index 44.7 Gen appear: NAD HEENT: nonicteric, no cervical lymphadenopathy Chest: CTA CVS: Regular S1/S2 Abd: soft, nontender, nondistended, bowel sounds + Ext: no peripheral edema Neuro: A/Ox3, noted to move all extremities spontaneously Psych: interacting appropriately Results Labs 03/16/23 05:24 03/16/23 05:24 Labs: Short CBC 03/15/23 03/16/23 Range/Units 18:05 05:24 WBC 10.6 10.2 (4.8-10.8) X10*3/uL Hgb 6.6 L* D 7.1 L (12.0-16.0) g/dl Hct 22.7 L D 24.2 L (37.0-47.0) % Plt Count 259 263 (160-400) X10*3/uL BMP 03/15/23 03/16/23 18:05 05:24 Sodium 146 H 144 Potassium 4.2 4.0 Chloride 114 H 116 H Carbon Dioxide 21 L 19 L BUN 31 H 28 H Creatinine 1.57 H 1.40 Calcium 8.9 8.8 Liver Function 03/15/23 Range/Units 18:05 Total Bilirubin 0.2 (0.0-1.0) mg/dL AST 12 (5-31) U/L ALT 22 (0-31) U/L Alkaline Phosphatase 93 (39-117) U/L Albumin 3.8 (3.5-5.0) g/dL Urine 03/15/23 Range/Units 18:05 Urine Color Yellow Urine Appearance Clear Urine pH 5.5 (5.0-9.0) Ur Specific [place] 1.015 (1.005-1.025) Urine Protein 100 (2+) H (Neg-Trace) mg/dL Urine Glucose (UA) Negative (Negative) mg/dL Assessment and Plan (1) Acute on chronic anemia: Status: Acute (2) Bright red rectal bleeding: Status: Acute (3) External hemorrhoids: Status: Acute (4) Morbid obesity with BMI of 40.0-44.9, adult: Status: Acute Plan Rectal bleeding likely secondary to hemorrhoidal bleeding however given the significant blood loss and night time sx, will need a diagnostic colonoscopy. She will also be booked for an upper endoscopy due to extent of drop in H/H and background of chronic anemia x years. Ddx include hemorrhoidal bleeding, SURS, large friable polyp/mass, IBD. Recommendations: - Clear liquids today - Golytely prep, total 6L will be given - NPO after midnight for EGD/colonoscopy tomorrow Thank you for allowing me to participate in her care. Please do not hesitate to reach out for any questions or concerns. Time Spent With Patient Time: Total time managing care of this patient today ____ minutes. Procedures Date of Service Date of Service: 03/16/23
[2023-03-16 10:42] LABS: Hematocrit 25.9 % (37.0-47.0); Hemoglobin 7.7 g/dl (12.0-16.0)
[2023-03-16] MEDS: 0.9 % Sodium Chloride Flush 3 ML SYRINGE IVFLUSH ×2 (11:14→17:53)
[2023-03-16] MEDS: Multivitamin TABLET 1 TAB PO (12:15)
--- NOTE | 2023-03-16 15:36 | P.PNIM_ITS ---
Subjective Subjective Date of Service: 03/16/23 Interval History: Acute on chronic anemia Review of Systems This morning patient is resting well, denies any new bleeding episode so far. Denies any abdominal pain or nausea vomiting Physical Exam Vital Signs: Vital Signs: Last Vital Signs Temp 97.8 F 03/16/23 14:57 Pulse 79 03/16/23 14:57 Resp 16 03/16/23 14:57 BP 154/76 H 03/16/23 14:57 Pulse Ox 93 03/16/23 07:16 O2 Del Method Room Air 03/16/23 07:16 BMI result Body Mass Index 44.7 Appearance: Alert.? Oriented X3.? not in distress.? cvs: rrr, [id number]. res: clear to auscultation ,no rhonchii or wheezing abd: no rebound or guarding ,nt, bs present. ext pulses present , no cyanosis . neuro: axo3 , nonfocal. Objective Data Active Medications Acetaminophen (Acetaminophen 325 Mg Tablet) 650 mg PO Q6H PRN PRN Reason: Pain, Mild (Pain Scale 1-3) Multivitamins/Vitamin C (Multivitamin Tablet) 1 tab PO DAILY [facility] Last Admin: 03/16/23 12:15 Dose: 1 tab Documented By: IFTIKHAR Ondansetron HCl (Ondansetron Hcl 4 Mg/2 Ml Vial) 4 mg IVPUSH Q8H PRN PRN Reason: Nausea and Vomiting Pantoprazole Sodium (Pantoprazole Sodium 40 Mg/10 Ml Vial) 40 mg IVPUSH BID@0630,1630 [facility] Last Admin: 03/16/23 06:10 Dose: 40 mg Documented By: MATEO Pharmacy Consult (Consult Rx Perform Med Rec) 1 each MISCELLANE ONCE PRN PRN Reason: Consult order Sodium Chloride (0.9 % Sodium Chloride Flush 3 Ml Syringe) 3 ml IVFLUSH QSHIFT [facility] Last Admin: 03/16/23 11:14 Dose: 3 ml Documented By: SHAHIDA Labs 03/16/23 10:33 03/16/23 05:24 Labs: Laboratory Results - last 24 hr 03/15/23 03/15/23 03/15/23 18:05 18:05 18:05 MCV 79.6 L MCH 23.2 L MCHC 29.1 L RDW 17.4 H Plt Count 259 MPV 8.9 L Immature Gran % (Auto) 0.8 H Neut % (Auto) 71.4 Lymph % (Auto) 18.0 L Tyrrell % (Auto) 7.7 Eos % (Auto) 1.7 Baso % (Auto) 0.4 Lymph # (Auto) 1.9 Tyrrell # (Auto) 0.8 Eos # (Auto) 0.2 Baso # (Auto) 0.0 Abs Immat Gran (auto) 0.08 H Absolute Neuts (auto) 7.6 Absolute Nucleated RBC 0.000 Nucleated RBC % (auto) 0.0 Smear Path Review SEE NOTE PT 10.9 INR 1.0 APTT 28.7 Anion Gap 15 Estim Creat Clear Calc 57.1 Estimated GFR 34 Random Glucose 125 H Calcium 8.9 Total Bilirubin 0.2 AST 12 ALT 22 Alkaline Phosphatase 93 Total Protein 6.9 Albumin 3.8 Beta HCG, Quant Urine Color Urine Appearance Urine pH Ur Specific [place] Urine Protein Urine Glucose (UA) Urine Ketones Urine Blood Urine Nitrite Ur Leukocyte Esterase Urine RBC Urine WBC Ur Squamous Epith Cells Urine Bacteria Hyaline Casts Stool Occult Blood Blood Type Antibody Screen Crossmatch 03/15/23 03/15/23 03/15/23 18:05 18:05 18:44 MCV MCH MCHC RDW Plt Count MPV Immature Gran % (Auto) Neut % (Auto) Lymph % (Auto) Tyrrell % (Auto) Eos % (Auto) Baso % (Auto) Lymph # (Auto) Tyrrell # (Auto) Eos # (Auto) Baso # (Auto) Abs Immat Gran (auto) Absolute Neuts (auto) Absolute Nucleated RBC Nucleated RBC % (auto) Smear Path Review PT INR APTT Anion Gap Estim Creat Clear Calc Estimated GFR Random Glucose Calcium Total Bilirubin AST ALT Alkaline Phosphatase Total Protein Albumin Beta HCG, Quant < 2 Urine Color Yellow Urine Appearance Clear Urine pH 5.5 Ur Specific [place] 1.015 Urine Protein 100 (2+) H Urine Glucose (UA) Negative Urine Ketones Negative Urine Blood Negative Urine Nitrite Negative Ur Leukocyte Esterase Negative Urine RBC 3-5 H Urine WBC 0-5 Ur Squamous Epith Cells 3-5 Urine Bacteria None Seen Hyaline Casts 0-2 Stool Occult Blood Blood Type O Positive Antibody Screen NEGATIVE Crossmatch See Detail 03/15/23 03/16/23 03/16/23 21:39 05:24 05:24 MCV 80.9 MCH 23.7 L MCHC 29.3 L RDW 18.2 H Plt Count 263 MPV 9.7 Immature Gran % (Auto) 0.6 H Neut % (Auto) 65.0 Lymph % (Auto) 24.2 Tyrrell % (Auto) 7.8 Eos % (Auto) 2.1 Baso % (Auto) 0.3 Lymph # (Auto) 2.5 Tyrrell # (Auto) 0.8 Eos # (Auto) 0.2 Baso # (Auto) 0.0 Abs Immat Gran (auto) 0.06 H Absolute Neuts (auto) 6.6 Absolute Nucleated RBC 0.000 Nucleated RBC % (auto) 0.0 Smear Path Review PT INR APTT Anion Gap 13 Estim Creat Clear Calc 64.3 Estimated GFR 39 Random Glucose 111 Calcium 8.8 Total Bilirubin AST ALT Alkaline Phosphatase Total Protein Albumin Beta HCG, Quant Urine Color Urine Appearance Urine pH Ur Specific [place] Urine Protein Urine Glucose (UA) Urine Ketones Urine Blood Urine Nitrite Ur Leukocyte Esterase Urine RBC Urine WBC Ur Squamous Epith Cells Urine Bacteria Hyaline Casts Stool Occult Blood NEGATIVE Blood Type Antibody Screen Crossmatch Assessment and Plan (1) Acute on chronic anemia: Status: Acute Assessment and Plan: 52-year-old female past medical history of hypertension, hyperlipidemia, depression anxiety, presents the hospital with complaints of bright red blood per rectum acute bright red blood rectal bleeding- possibly diverticular versus hemorrhoidal denies use of NSAID or aspirin,no prior history received 1prbc , h/h aroun 7.7 ,ordered another prbc recommended clear liquid diet until then and PPI IV b.i.d. Gi eval-also need colonoscopy/egd in am. follow CBC acute on chronic anemia-secondary to GI bleed received1 unit of PRBC-h/h7.7 -added 2 nd prbc follow CBC post transfusion hypertension- bp boderline hold amlodipine DVT prophylaxis:? SCDs inpatient need:acute bright red blood rectal bleeding- possibly diverticular versus hemorrhoidal-moniter h/h ,ppi ,Gi eval-also need colonoscopy/egd in am. Time Spent With Patient Time: Total time managing care of this patient today ____ minutes. Quality Stroke Does the patient have a stroke diagnosis?: No VTE Prior VTE?: No VTE Risk Level:: Medical - moderate - high VTE Device Contraindication: N/A - Device Ordered VTE Drug Contraindication: Treatment Not Indicated
[2023-03-16] MEDS: PEG 3350/Na Sulf,Bicarb,Cl/KCL 4,000 ML SOLN.RECON 4000 ML PO (17:56)
[2023-03-16 18:28] LABS: Hematocrit 29.2 % (37.0-47.0); Hemoglobin 8.9 g/dl (12.0-16.0)
[2023-03-17] VITALS (12 sets, daily range): BP systolic 132–174; BP diastolic 69–90; PULSE 74–100; RESP 13–20; TEMP 36.2–36.8; O2SAT 93–100
[2023-03-17] MEDS: 0.9 % Sodium Chloride Flush 3 ML SYRINGE IVFLUSH ×2 (00:52→09:40)
[2023-03-17] MEDS: Pantoprazole Sodium 40 MG/10 ML VIAL IVPUSH (05:44)
[2023-03-17 09:35] LABS: Hematocrit 27.8 % (37.0-47.0); Hemoglobin 8.5 g/dl (12.0-16.0); Mean Corpuscular HGB Conc 30.6 g/dl (31.0-35.0); Mean Corpuscular Hemoglobin 24.7 pg (27.0-33.0); Mean Corpuscular Volume 80.8 fL (80.0-98.0); Mean Platelet Volume 9.1 fL (9.4-12.3); Platelet Count 256 X10*3/uL (160-400); Red Blood Count 3.44 X10*6/uL (4.20-5.50); Red Cell Distribution Width 18.6 % (11.0-16.0); White Blood Count 8.3 X10*3/uL (4.8-10.8)
--- NOTE | 2023-03-17 10:43 | HO.PM.IMPN ---
Subjective Subjective Date of Service: 03/17/23 Interval History: f/u on gib bleed, acute blood loss anemia interval history: no bleeding this morning, h/h is stable Physical Exam Vital Signs: Vital Signs: Last Vital Signs Temp 98.2 F 03/17/23 07:48 Pulse 82 03/17/23 07:48 Resp 18 03/17/23 07:48 BP 167/84 H 03/17/23 07:48 Pulse Ox 98 03/17/23 07:48 O2 Del Method Room Air 03/17/23 07:48 BMI result Body Mass Index 44.7 Const: Other: General: AO X 3, no acute distress Resp: CTA bilateral CVS: S1,S2,RRR GI: +BS, NT, no distention Skin: No rash Neuro: motor grossly intact Psych: appropriate affect Objective Data Active Medications Acetaminophen (Acetaminophen 325 Mg Tablet) 650 mg PO Q6H PRN PRN Reason: Pain, Mild (Pain Scale 1-3) Multivitamins/Vitamin C (Multivitamin Tablet) 1 tab PO DAILY [facility] Last Admin: 03/17/23 09:40 Dose: Not Given Documented By: MANJULA Non-Admin Reason: NPO Ondansetron HCl (Ondansetron Hcl 4 Mg/2 Ml Vial) 4 mg IVPUSH Q8H PRN PRN Reason: Nausea and Vomiting Pantoprazole Sodium (Pantoprazole Sodium 40 Mg/10 Ml Vial) 40 mg IVPUSH BID@0630,1630 [facility] Last Admin: 03/17/23 05:44 Dose: 40 mg Documented By: GANESH Pharmacy Consult (Consult Rx Perform Med Rec) 1 each MISCELLANE ONCE PRN PRN Reason: Consult order Sodium Chloride (0.9 % Sodium Chloride Flush 3 Ml Syringe) 3 ml IVFLUSH QSHIFT [facility] Last Admin: 03/17/23 09:40 Dose: 3 ml Documented By: MANJULA Labs 03/17/23 09:16 03/16/23 05:24 Labs: Laboratory Results - last 24 hr 03/15/23 03/15/23 03/17/23 18:05 18:44 09:16 MCV 80.8 MCH 24.7 L MCHC 30.6 L RDW 18.6 H Plt Count 256 MPV 9.1 L Absolute Nucleated RBC 0.000 Nucleated RBC % (auto) 0.0 Smear Path Review SEE NOTE Blood Type O Positive Antibody Screen NEGATIVE Crossmatch See Detail Assessment and Plan (1) Acute on chronic anemia: Status: Acute Assessment and Plan: 52-year-old female past medical history of hypertension, hyperlipidemia, depression anxiety, presents the hospital with complaints of bright red blood per rectum acute bright red blood rectal bleeding- possibly diverticular versus hemorrhoidal acute blood loss anemia denies use of NSAID or aspirin,no prior history received 1prbc , H/H stable from prior day recommended clear liquid diet until then and PPI IV b.i.d. for coloscopy today hypertension--restart losartan and norvasc DVT prophylaxis:? SCDs inpatient need: Gi bleed workup, inpt colonoscopy today Time Spent With Patient Time: Total time managing care of this patient today ____ minutes. Quality Stroke Does the patient have a stroke diagnosis?: No VTE Prior VTE?: No VTE Risk Level:: Medical - moderate - high VTE Device Contraindication: N/A - Device Ordered VTE Drug Contraindication: Treatment Not Indicated
--- NOTE | 2023-03-17 10:47 | MHC.SHP ---
Pre-Procedural Eval Section A Date of Service: 03/17/23 The patient is an INPATIENT: Yes The History & Physical has been completed within 30 days and I have reviewed it.: Yes Section B Chief Complaint: GI Bleed Allergies: Allergies Allergy/AdvReac Type Severity Reaction Status Date / Time No Known Allergies Allergy Verified 03/15/23 17:07 Plan Diagnosis/Plan: Unchanged I have reviewed the history and physical and performed a pertinent physical examination on my patient. No changes have occurred unless specified. Time Spent With Patient Time: Total time managing care of this patient today ____ minutes.
--- NOTE | 2023-03-17 11:39 | P.CONAN_ITS ---
HPI - Anesthesia Eval Consult details Narrative: for EGD and colonoscopy PMFSH Active Problems Active Problems: All Active Problems (Updated 03/16/23 @ 05:10 by Lazaro Arrington MD) Acute on chronic anemia (Acute) Bright red rectal bleeding (Acute) Impaired fasting glucose (Acute) Right ankle pain (Acute) Viral upper respiratory illness (Acute) Fatigue (Acute) Annual physical exam (Acute) External hemorrhoids (Acute) Pharyngitis (Acute) Cough (Acute) Morbid obesity with BMI of 40.0-44.9, adult (Acute) Colon cancer screening (Acute) Annual physical exam (Acute) Vitamin D deficiency (Acute) Mixed hyperlipidemia (Acute) Benign essential hypertension (Acute) At risk for decreased bone density (Acute) Past Medical History Medical History Anxiety and depression Benign essential hypertension Hypertension Impaired fasting glucose Mixed hyperlipidemia Morbid obesity with BMI of 40.0-44.9, adult Sleep apnea Vitamin D deficiency Family History Family History Sister Cervical cancer Mother Hypertension Father History of stroke Diabetes Family history of problems with anesthesia: No Surgical History Surgical History History of endometrial ablation History of tubal ligation History of Problems with Anesthesia: No Social History Social History Household Members: Children Housing: Apartment Do you presently have visiting nurse or other home services: No (pt states daughter helps) Alcohol intake: current Alcohol intake frequency: a few times a week Patient Tobacco Use Status: Current someday Tobacco user Tobacco use type: Cigarette Smoked in Last 30 Days: No e-Cigarette/Vaping Use: Never Used Second Hand Smoke Exposure: No Use of substances other than those prescribed or required for medical reasons: No Currently Displaying Signs/Symptoms of Drug Intoxication Withdrawal: No Have you been hit, kicked, punched, or otherwise hurt by someone within the past year? If so, by whom?: No Do you feel safe in your current relationship?: No Current Relationship Is there a partner from a previous relationship who is making you feel unsafe now?: No Are you made to feel afraid or neglected: No Are you DNR?: No Advance Directives: No Advance Directives Information Provided: No Do you have thoughts of harming others: None Do you have a plan to hurt others: No Plan Recently lost weight without trying: No Nutrition Risks: No Nutritional Risk Patient : No : No Poor oral hygiene: No service: No Current occupational status: disabled Current occupational exposures/hazards: No Gender identity: Female Cognitive needs: No Hearing needs: No Vision needs: No Meds Allergies Allergy/AdvReac Type Severity Reaction Status Date / Time No Known Allergies Allergy Verified 03/15/23 17:07 Active Medications: Current Medications Acetaminophen (Acetaminophen 325 Mg Tablet) 650 mg PO Q6H PRN PRN Reason: Pain, Mild (Pain Scale 1-3) Multivitamins/Vitamin C (Multivitamin Tablet) 1 tab PO DAILY [facility] Last Admin: 03/17/23 09:40 Dose: Not Given Ondansetron HCl (Ondansetron Hcl 4 Mg/2 Ml Vial) 4 mg IVPUSH Q8H PRN PRN Reason: Nausea and Vomiting Pantoprazole Sodium (Pantoprazole Sodium 40 Mg/10 Ml Vial) 40 mg IVPUSH BID@0630,1630 [facility] Last Admin: 03/17/23 05:44 Dose: 40 mg Pharmacy Consult (Consult Rx Perform Med Rec) 1 each MISCELLANE ONCE PRN PRN Reason: Consult order Sodium Chloride (0.9 % Sodium Chloride Flush 3 Ml Syringe) 3 ml IVFLUSH QSHIFT [facility] Last Admin: 03/17/23 09:40 Dose: 3 ml Home Medications Medication Instructions Recorded Confirmed Last Taken Type multivitamin 1 tab PO DAILY 03/16/23 03/16/23 Unknown History Exam Exam Date and Time: March 17, 2023 1139 Height,Weight and Vital Signs: Height 5 ft 7 in Weight 129.4 kg Last Vital Signs Temp 97.8 F 03/17/23 11:25 Pulse 79 03/17/23 11:25 Resp 18 03/17/23 11:25 BP 170/88 H 03/17/23 11:25 Pulse Ox 96 03/17/23 11:25 O2 Del Method Room Air 03/17/23 11:25 Pertinent Lab Results Pertinent Lab Results: Laboratory Tests 03/15/23 03/15/23 03/15/23 18:05 18:05 18:05 WBC 10.6 RBC 2.85 L D Hgb 6.6 L* D Hct 22.7 L D MCV 79.6 L MCH 23.2 L MCHC 29.1 L RDW 17.4 H Plt Count 259 MPV 8.9 L Immature Gran % (Auto) 0.8 H Neut % (Auto) 71.4 Lymph % (Auto) 18.0 L [place] % (Auto) 7.7 Eos % (Auto) 1.7 Baso % (Auto) 0.4 Lymph # (Auto) 1.9 [place] # (Auto) 0.8 Eos # (Auto) 0.2 Baso # (Auto) 0.0 Abs Immat Gran (auto) 0.08 H Absolute Neuts (auto) 7.6 Absolute Nucleated RBC 0.000 Nucleated RBC % (auto) 0.0 Smear Path Review SEE NOTE PT 10.9 INR 1.0 APTT 28.7 Sodium 146 H Potassium 4.2 Chloride 114 H Carbon Dioxide 21 L Anion Gap 15 BUN 31 H Creatinine 1.57 H Estim Creat Clear Calc 57.1 Estimated GFR 34 Random Glucose 125 H Calcium 8.9 Total Bilirubin 0.2 AST 12 ALT 22 Alkaline Phosphatase 93 Total Protein 6.9 Albumin 3.8 Beta HCG, Quant Urine Color Urine Appearance Urine pH Ur Specific [place] Urine Protein Urine Glucose (UA) Urine Ketones Urine Blood Urine Nitrite Ur Leukocyte Esterase Urine RBC Urine WBC Ur Squamous Epith Cells Urine Bacteria Hyaline Casts Stool Occult Blood Blood Type Antibody Screen Crossmatch 03/15/23 03/15/23 03/15/23 18:05 18:05 18:44 WBC RBC Hgb Hct MCV MCH MCHC RDW Plt Count MPV Immature Gran % (Auto) Neut % (Auto) Lymph % (Auto) [place] % (Auto) Eos % (Auto) Baso % (Auto) Lymph # (Auto) [place] # (Auto) Eos # (Auto) Baso # (Auto) Abs Immat Gran (auto) Absolute Neuts (auto) Absolute Nucleated RBC Nucleated RBC % (auto) Smear Path Review PT INR APTT Sodium Potassium Chloride Carbon Dioxide Anion Gap BUN Creatinine Estim Creat Clear Calc Estimated GFR Random Glucose Calcium Total Bilirubin AST ALT Alkaline Phosphatase Total Protein Albumin Beta HCG, Quant < 2 Urine Color Yellow Urine Appearance Clear Urine pH 5.5 Ur Specific [place] 1.015 Urine Protein 100 (2+) H Urine Glucose (UA) Negative Urine Ketones Negative Urine Blood Negative Urine Nitrite Negative Ur Leukocyte Esterase Negative Urine RBC 3-5 H Urine WBC 0-5 Ur Squamous Epith Cells 3-5 Urine Bacteria None Seen Hyaline Casts 0-2 Stool Occult Blood Blood Type O Positive Antibody Screen NEGATIVE Crossmatch See Detail 03/15/23 03/16/23 03/16/23 21:39 05:24 05:24 WBC 10.2 RBC 2.99 L Hgb 7.1 L Hct 24.2 L MCV 80.9 MCH 23.7 L MCHC 29.3 L RDW 18.2 H Plt Count 263 MPV 9.7 Immature Gran % (Auto) 0.6 H Neut % (Auto) 65.0 Lymph % (Auto) 24.2 [place] % (Auto) 7.8 Eos % (Auto) 2.1 Baso % (Auto) 0.3 Lymph # (Auto) 2.5 [place] # (Auto) 0.8 Eos # (Auto) 0.2 Baso # (Auto) 0.0 Abs Immat Gran (auto) 0.06 H Absolute Neuts (auto) 6.6 Absolute Nucleated RBC 0.000 Nucleated RBC % (auto) 0.0 Smear Path Review PT INR APTT Sodium 144 Potassium 4.0 Chloride 116 H Carbon Dioxide 19 L Anion Gap 13 BUN 28 H Creatinine 1.40 Estim Creat Clear Calc 64.3 Estimated GFR 39 Random Glucose 111 Calcium 8.8 Total Bilirubin AST ALT Alkaline Phosphatase Total Protein Albumin Beta HCG, Quant Urine Color Urine Appearance Urine pH Ur Specific [place] Urine Protein Urine Glucose (UA) Urine Ketones Urine Blood Urine Nitrite Ur Leukocyte Esterase Urine RBC Urine WBC Ur Squamous Epith Cells Urine Bacteria Hyaline Casts Stool Occult Blood NEGATIVE Blood Type Antibody Screen Crossmatch 03/16/23 03/16/23 03/17/23 10:33 17:45 09:16 WBC 8.3 RBC 3.44 L Hgb 7.7 L 8.9 L 8.5 L Hct 25.9 L 29.2 L 27.8 L MCV 80.8 MCH 24.7 L MCHC 30.6 L RDW 18.6 H Plt Count 256 MPV 9.1 L Immature Gran % (Auto) Neut % (Auto) Lymph % (Auto) [place] % (Auto) Eos % (Auto) Baso % (Auto) Lymph # (Auto) [place] # (Auto) Eos # (Auto) Baso # (Auto) Abs Immat Gran (auto) Absolute Neuts (auto) Absolute Nucleated RBC 0.000 Nucleated RBC % (auto) 0.0 Smear Path Review PT INR APTT Sodium Potassium Chloride Carbon Dioxide Anion Gap BUN Creatinine Estim Creat Clear Calc Estimated GFR Random Glucose Calcium Total Bilirubin AST ALT Alkaline Phosphatase Total Protein Albumin Beta HCG, Quant Urine Color Urine Appearance Urine pH Ur Specific [place] Urine Protein Urine Glucose (UA) Urine Ketones Urine Blood Urine Nitrite Ur Leukocyte Esterase Urine RBC Urine WBC Ur Squamous Epith Cells Urine Bacteria Hyaline Casts Stool Occult Blood Blood Type Antibody Screen Crossmatch Airway Mallampati Class: IV TM Dist: <=3cm Neck ROM: Full Loose/Missing/Broken Teeth: No Heart: ok Lungs: ok Assessment and Plan Assessment Anesthesia Assessment: Anesthesia Plan Discussed and Chart Reviewed Final Anesthetic Review Family History of Problems with Anesthesia: No History of Problems with Anesthesia: No NPO: Yes ASA Class: III Final Preanesthetic Review: No Changes in Pt Med Stat, Meds/Allgs Chart Reviewed, Consent Obtained/Reviewed and Anes Risks/Benef Reviewed Patient Risk: High Procedure Risk: Intermediate Anesthetic Plan Anesthetic Plan: MAC:, Epidural and Agree w/ Assess. and Plan Disposition: Standard PACU
--- NOTE | 2023-03-17 12:09 | P.OP_ITS ---
Operative Note Operative Note Date of Service: 03/17/23 Narrative: Procedure: Esophagogastroduodenoscopy and colonoscopy Endoscopist: Deann Hinojosa MD Indication: Anemia, GI bleeding Anesthesia Provider: Dr Juliocesar Thomas ? Anesthesia Type: MAC ?-> GEA Instrument: Olympus [id number]-[id number] and [id number] EGD Procedure:?? The procedure, indications, preparation and potential complications were reviewed with the patient, who indicated understanding and gave written informed consent to proceed. A physical exam was performed. The endoscope was introduced through the mouth, and advanced to the second part of duodenum. Due to significant difficulty with sedation, decision was made to intubate her. The endoscope was withdrawn and then reintroduce after she was converted to general anesthesia. The mucosa was carefully examined on slow withdrawal of the endoscope. The patient tolerated the procedure well. There were no immediate complications.? EGD Findings:? * Esophagus:? Normal mucosa noted in the entire esophagus. The Z line was at 44 cm irregular up to at 42 cm.? Cold forceps biopsies were taken to r/o Andrews's. * Stomach:? Spontaneously but minimally oozing Dieulafoy's was seen in the body of the stomach, this was ablated with the tip of hot snare on soft coag settings. * Duodenum:? Redness and congestion was noted in the duodenal bulb. Cold forceps biopsies were taken to r/ peptic duodenitis. Cold forceps biopsies were taken from the second portion of the duodenum to r/o celiac disease. Colonoscopy Procedure:? The patient was then turned for the colonoscopy. A digital rectal exam was performed which was abnormal due to finding of large external hemorrhoids.? A distal attachment cap was affixed to the tip of the scope and the colonoscope was then inserted through the anus and advanced through the colon to the cecum at 80 cm,and terminal ileum.? Appendiceal orifice and ileocecal valve were identified.? Mucosa was carefully examined under high definition white light as the instrument was slowly withdrawn in a retrograde panoramic fashion. Retroflexion was performed in rectum. The procedure was not difficult. There were no immediate obvious complications. The quality of the prep was BBPS: 2+2+3 = adequate Withdrawal time 12 minutes. Limitations: No limitations.? Findings: Mucosa: Blood was noted in anorectum which was suctioned, no fresh bleeding noted at the time of evaluation. Normal mucosa noted to cecum and terminal ileum. Protruding lesions: * Large internal hemorrhoids with stigmata of recent bleeding. Impression: 1. Irregular Z line (biopsy) 2. Gastric Dieulafoy (s/p thermal therapy) 3. Peptic duodenitis (biopsy) 4. Bleeding internal hemorrhoids 5. External hemorrhoids Recommendations:?? * GI bleeding most likely from bleeding hemorrhoids as Dieulafoy lesion was small and oozing minimally. * Recommend surgery consultation for definitive management. * Check CBC daily and transfuse as needed for Hb < 7 * Repeat colonoscopy in 5-7 years for crc screening due to prep. * Add fiber supplementation
--- NOTE | 2023-03-17 14:05 | PM.CNGS ---
History of Present Illness Consult details Consult date: 03/17/23 Narrative: 52-year-old female referred for bright blood per rectum. She was admitted hospital on 03/15/2023 because passes of bright blood per rectum on and off for about 2 weeks. She was noted to have anemia at 6 0.6 in the ER so she was admitted and given packed RBCs. Her baseline hemoglobin was around 10. She therefore underwent EGD and colonoscopy today because of this anemia. She was noted to have large internal external hemorrhoids with stigmata of recent bleeding. She also had Dieulafoy's lesion and ulcer in the stomach without any bleeding. She denies pain with bowel movements. She denies any constipation. Review of her records show she had a bulky hemorrhoids which were removed in 2013. She had 200 cc of blood loss at that time in view of the large size of the hemorrhoids along with sclerosis. She was instructed to see me thereafter because she had additional hemorrhoids but she that she was too scared to follow-up. Review of Systems Constitutional: Constitutional: Denies chills and Denies fever(s) Cardiovascular: Cardiovascular: Denies chest pain, Denies dyspnea and Denies dyspnea on exertion Respiratory: Respiratory: Denies cough, Denies dyspnea and Denies dyspnea on exertion Gastrointestinal: Gastrointestinal: Reports hematochezia and Denies change in bowel habits Genitourinary: Genitourinary: Denies hematuria Musculoskeletal: Musculoskeletal: Denies back pain and Denies limited range of motion Neurologic: Denies focal weakness and Denies convulsions Psychiatric: Psychiatric: Denies depression and Denies mood swings PMFSH Past Medical History Medical History Anxiety and depression Benign essential hypertension Bleeding hemorrhoids Hypertension Impaired fasting glucose Mixed hyperlipidemia Morbid obesity with BMI of 40.0-44.9, adult Sleep apnea Vitamin D deficiency Family History Family History Sister Cervical cancer Mother Hypertension Father History of stroke Diabetes Surgical History Surgical History History of endometrial ablation History of tubal ligation Social History Social History Household Members: Children Housing: Apartment Do you presently have visiting nurse or other home services: No (pt states daughter helps) Alcohol intake: current Alcohol intake frequency: a few times a week Patient Tobacco Use Status: Current someday Tobacco user Tobacco use type: Cigarette e-Cigarette/Vaping Use: Never Used Second Hand Smoke Exposure: No service: No Current occupational status: disabled Current occupational exposures/hazards: No Gender identity: Female Cognitive needs: No Hearing needs: No Vision needs: No Meds Allergies Allergy/AdvReac Type Severity Reaction Status Date / Time No Known Allergies Allergy Verified 03/23/23 14:32 Active Medications: Current Medications Acetaminophen (Acetaminophen 325 Mg Tablet) 650 mg PO Q6H PRN PRN Reason: Pain, Mild (Pain Scale 1-3) Acetaminophen (Acetaminophen 325 Mg Tablet) 650 mg PO ONCE PRN PRN Reason: Pain, Mild (Pain Scale 1-3) Multivitamins/Vitamin C (Multivitamin Tablet) 1 tab PO DAILY [facility] Last Admin: 03/17/23 09:40 Dose: Not Given Ondansetron HCl (Ondansetron Hcl 4 Mg/2 Ml Vial) 4 mg IVPUSH Q8H PRN PRN Reason: Nausea and Vomiting Ondansetron HCl (Ondansetron Hcl 4 Mg/2 Ml Vial) 4 mg IVPUSH ONCE PRN PRN Reason: Nausea and Vomiting Pantoprazole Sodium (Pantoprazole Sodium 40 Mg/10 Ml Vial) 40 mg IVPUSH BID@0630,1630 [facility] Last Admin: 03/17/23 05:44 Dose: 40 mg Pharmacy Consult (Consult Rx Perform Med Rec) 1 each MISCELLANE ONCE PRN PRN Reason: Consult order Sodium Chloride (0.9 % Sodium Chloride Flush 3 Ml Syringe) 3 ml IVFLUSH QSHIFT [facility] Last Admin: 03/17/23 09:40 Dose: 3 ml Home Medications Medication Instructions Recorded Confirmed Last Taken Type multivitamin 1 tab PO DAILY 03/16/23 03/23/23 Unknown History Physical Exam Vital Signs: Vital Signs: Last Vital Signs Temp 97.2 F 03/17/23 13:30 Pulse 93 03/17/23 13:35 Resp 13 03/17/23 13:35 BP 151/81 H 03/17/23 13:35 Pulse Ox 93 03/17/23 13:35 O2 Del Method Nasal Cannula wit h Capnography 03/17/23 13:35 O2 Flow Rate 2 03/17/23 13:35 BMI result Body Mass Index 44.7 Const: Other: Appears obese General: comfortable and no acute distress Orientation/consciousness: patient oriented x3 Neck: Neck: Yes no lymphadenopathy Resp: Auscultation: clear to auscultation bilaterally Cardio: Rhythm: regular rhythm GI: Other: Rectal exam shows bulky hemorrhoids which appeared to be a mix of internal and external, no active bleeding at this Palpation (GI): Soft to palpation, nontender and no guarding Neuro: General: patient oriented x3 Results Labs 03/17/23 09:16 03/16/23 05:24 Labs: Abnormal lab results 03/16/23 03/17/23 Range/Units 17:45 09:16 RBC 3.44 L (4.20-5.50) X10*6/uL Hgb 8.9 L 8.5 L (12.0-16.0) g/dl Hct 29.2 L 27.8 L (37.0-47.0) % MCH 24.7 L (27.0-33.0) pg MCHC 30.6 L (31.0-35.0) g/dl RDW 18.6 H (11.0-16.0) % MPV 9.1 L (9.4-12.3) fL Short CBC 03/16/23 03/17/23 Range/Units 17:45 09:16 WBC 8.3 (4.8-10.8) X10*3/uL Hgb 8.9 L 8.5 L (12.0-16.0) g/dl Hct 29.2 L 27.8 L (37.0-47.0) % Plt Count 256 (160-400) X10*3/uL Urine 03/15/23 Range/Units 18:05 Urine Color Yellow Urine Appearance Clear Urine pH 5.5 (5.0-9.0) Ur Specific [place] 1.015 (1.005-1.025) Urine Protein 100 (2+) H (Neg-Trace) mg/dL Urine Glucose (UA) Negative (Negative) mg/dL All other labs normal. Assessment and Plan (1) Acute on chronic anemia: Status: Acute She has had passes of bright blood per rectum past 2 weeks. She had a colonoscopy today showing large hemorrhoids were stigmata of recent bleeding. This is likely source of her rectal bleeding. She is known to have had hemorrhoids in the past and had actually undergone hemorrhoidectomy before with note of residual large hemorrhoids. In view of the large hemorrhoids along with bleeding, explained to her that in proceed with hemorrhoidectomy. I reviewed her the technique of this procedure. I explained the risks, benefits, and alternatives. She says that she is still familiar with the procedure. She however did not want to have this done during this current admission. She says that she would see me in the office for follow-up. I will however follow will along while she is in the hospital. (2) Bleeding hemorrhoids: Status: Acute Time Spent With Patient Time: Total time managing care of this patient today ____ minutes. Procedures Date of Service Date of Service: 03/24/23
--- NOTE | 2023-03-17 15:31 | P.DS_ITS ---
DS: Providers Provider Date of Service: 03/17/23 Date of admission: 03/15/23 23:46 Primary care physician: Taran Hood MD Consults: 03/15/23 23:46 Consult to Gastroenterology Routine Consulting Provider: Deann Hinojosa Reason for consultation: GI bleed Has provider been notified: Yes DS: Diagnosis Discharge Diagnosis (1) Acute on chronic anemia: Status: Acute (2) Bleeding hemorrhoids: Status: Acute DS: Summary Hospital Course Hospital Course: Chief Complaint: Bleeding per rectum 52-year-old female past medical history of anxiety depression, HTN, HLD, vitamin-D deficiency, comes into the hospital complaints of intermittent bloody bowel movements.? This been going on for 2 weeks.? She has noticed bright red blood in the toilet bowl every time she moves her bowels, she has also noticed that sometimes it occurs even when she pees.? It is large amount, bright blood, not associated with any abdominal pain.? She reports that she has now progr essively been feeling more tired, short of breath, and dizzy on ambulation.? She denies any chest pain, no abdominal pain, no cough, no constipation, has some diarrhea, no urinary symptoms, no lower extremity edema currently.? On arrival to the ED patient hemodynamically stable slightly elevated blood pressure Labs are significant for a for WBC count of 10.6, hemoglobin of 6.6 from a baseline of around 10.0, hematocrit 22.7, sodium of 146, creatinine of 1.57 which is around her recent baseline, UA negative for acute infection, Patient being transfused 1 unit of PRBC and will be admitted for further management Hospital course: She presented with rectal bleeding and acute on chronic anemia with hemoglobin 6.6 and hematocrit of 22, she was transfused 1 unit of RBC with good effect with hemoglobin now. She had EGD and colonoscopy on 03/17/[address] Zacarias and with the following finding and recommendations: 1. Irregular Z line (biopsy) 2. Gastric Dieulafoy (s/p thermal therapy) 3. Peptic duodenitis (biopsy) 4. Bleeding internal hemorrhoids 5. External hemorrhoids Recommendations:?? * GI bleeding most likely from bleeding hemorrhoids as Dieulafoy lesion was small and oozing minimally. * Recommend surgery consultation for definitive management. * Check CBC daily and transfuse as needed for Hb < 7 * Repeat colonoscopy in 5-7 years for crc screening due to prep. * Add fiber supplementation She was evauated by Dr. Coreas for hemorrhoid surgery and she prefers to have this done on outpatient basis. I will prescribed irion, preparation H and PPI. Time Spent with Patient Time attestation: Total time managing care of this patient today ____ minutes. Discharge coordination time: Greater than 30 minutes Quality: Safe Use of Opioids Does Pt have an Active Cancer Diagnosis on the Problem List?: No Quality: Stroke Does the patient have a stroke diagnosis?: No Physical Exam Vital Signs: Vital Signs: Last Vital Signs Temp 97.8 F 03/17/23 14:56 Pulse 94 03/17/23 14:56 Resp 20 03/17/23 14:56 BP 137/90 H 03/17/23 14:56 Pulse Ox 100 03/17/23 14:56 O2 Del Method Room Air 03/17/23 14:56 O2 Flow Rate 2 03/17/23 14:37 BMI result Body Mass Index 44.7 DS: Data Data Completed and Pending Pending studies at discharge: Pending at discharge 03/17/23 12:19 Surgical [PTH] Routine Labs on day of discharge: Laboratory Results - last 24 hr 03/16/23 03/17/23 17:45 09:16 WBC 8.3 RBC 3.44 L Hgb 8.9 L 8.5 L Hct 29.2 L 27.8 L MCV 80.8 MCH 24.7 L MCHC 30.6 L RDW 18.6 H Plt Count 256 MPV 9.1 L Absolute Nucleated RBC 0.000 Nucleated RBC % (auto) 0.0 Discharge Plan Discharge Anticipated Discharge Date/Time: 03/17/23 15:19 Patient Disposition: Home, Self-Care Discharge Diagnosis: Rectal bleeding, acute anemia, hemorrhoid Referrals: Taran Hood MD [Primary Care Provider] - 1 Week Ashok Coreas MD [Physician] - 1 Week Discharge Medications: New Preparation H 0.25-14-74.9 % ointment 1 appl [place] BID PRN (Reason: Apply to Hemorrhoid) Qty: 57 0RF ferrous sulfate 325 mg (65 mg iron) tablet 325 mg PO DAILY Qty: 30 0RF omeprazole 40 mg capsule,delayed release(DR/EC) 40 mg PO DAILY Qty: 60 0RF Continued amlodipine 10 mg tablet 10 mg PO DAILY 90 Days Qty: 90 1RF losartan 100 mg tablet 100 mg PO DAILY 90 Days Qty: 90 1RF multivitamin Tablet 1 tab PO DAILY (DME) blood pressure monitor [Blood Pressure Kit] Kit See Rx Instructions .Route Qty: 1 0RF Rx Instructions: As directed Discharge Orders: Discharge Order (Routine); Ordered 03/17/23 Ordered By: Allen Causey Diet: Advance to usual diet Activity on Discharge: As tolerated Stand Alone Forms: Patient Portal Discharge page Care Plan Goals: Resolution of gi bleeding and hemorrhoid Health Concerns: hemorrhoid and rectal bleeding Plan of Treatment: Follow up with Dr. Coreas to have appointment to fix hemorrhoid, take iron table and use preparation H for hemorrhoid H take omeprazole for duodenitis Avoid Aspirin, Motrin and other NSAID (check with pharmacist) for over the counter pain medications Assessment: As above
--- NOTE | 2023-03-18 14:37 | HO.POSTANES ---
Post Anesthesia Evaluation Post Anesthesia Evaluation Date of Service: 03/18/23 Anesthesia: General Endotracheal-GETA Mental Status: Awake Pain Control: Satisfactory Nausea/Vomiting: None Hydration: Adequate Anesthesia-Related Issues: No Anes. Related Issues
== END 2023-03-17 16:34 | disposition home or self-care (01) | DRG 377 ==
LOC: HO.ED 22:05 → HO.EDOVER 23:51 → HO.IMC 03-16 02:27 → HO.S3 03-16 23:49
PROVIDERS: Internal Medicine; Physician Assistant; Admitting Provider Internal Medicine; Emergency Provider Emergency Medicine; PCP Internal Medicine; Visit Provider Internal Medicine
PROC: 0DB98ZX Excision of Duodenum, Via Natural or Artificial Opening Endoscopic, Diagnostic (ICD-10-PCS; principal; 2023-03-17 11:30)
DX: K31.82 Dieulafoy lesion (hemorrhagic) of stomach and duodenum (principal); K29.81 Duodenitis with bleeding; D62 Acute posthemorrhagic anemia; Z68.41 Body mass index [BMI] 40.0-44.9, adult; K64.4 Residual hemorrhoidal skin tags; K64.8 Other hemorrhoids; E66.01 Morbid (severe) obesity due to excess calories; I10 Essential (primary) hypertension; E78.2 Mixed hyperlipidemia; F17.210 Nicotine dependence, cigarettes, uncomplicated; Z71.6 Tobacco abuse counseling; Z79.899 Other long term (current) drug therapy
CPT/HCPCS: 36415; 80048; 80053; 81001; 82272; 84702; 85014; 85018; 85025; 85027; 85610; 85730; 86850; 86900; 86901; 86923; 88305; 99285; J3010; P9016

== ENCOUNTER → 2023-03-23 14:20 | Outpatient (BNVA) | payer OTHER, SELFPAY | PROVIDERS: PCP Internal Medicine; Referring Provider Surgery; Visit Provider Surgery | DX: K64.9 Unspecified hemorrhoids (principal); D64.9 Anemia, unspecified | CPT/HCPCS: 46600; 99212 ==

== ENCOUNTER 2023-05-08 07:27 | Day surgery (SDC) | payer OTHER, SELFPAY ==
[2023-05-05 15:58] VITALS: BMI 43.4
--- NOTE | 2023-05-07 09:28 | HO.ANESPROP2 ---
Documented by User: Pat Barragan NP 05/07/23 09:29 HPI - Anesthesia Eval Consult details Narrative: 53yo F for EUA,Hemorrhoidectomy,Rubber band ligation, PMFSH Active Problems Active Problems: All Active Problems (Updated 03/17/23 @ 14:08 by Ashok Coreas MD) Bleeding hemorrhoids (Acute) Acute on chronic anemia (Acute) Bright red rectal bleeding (Acute) Impaired fasting glucose (Acute) Right ankle pain (Acute) Viral upper respiratory illness (Acute) Fatigue (Acute) Annual physical exam (Acute) External hemorrhoids (Acute) Pharyngitis (Acute) Cough (Acute) Morbid obesity with BMI of 40.0-44.9, adult (Acute) Colon cancer screening (Acute) Annual physical exam (Acute) Vitamin D deficiency (Acute) Mixed hyperlipidemia (Acute) Benign essential hypertension (Acute) At risk for decreased bone density (Acute) Past Medical History Medical History Anxiety and depression Benign essential hypertension Bleeding hemorrhoids Hypertension Impaired fasting glucose Mixed hyperlipidemia Morbid obesity with BMI of 40.0-44.9, adult Sleep apnea Vitamin D deficiency Family History Family History Sister Cervical cancer Mother Hypertension Father History of stroke Diabetes Family history of problems with anesthesia: No Surgical History Surgical History History of endometrial ablation History of tubal ligation History of Problems with Anesthesia: No Social History Social History Household Members: Children Housing: Apartment Do you presently have visiting nurse or other home services: No (pt states daughter helps) Alcohol intake: current Alcohol intake frequency: a few times a week Patient Tobacco Use Status: Current someday Tobacco user Tobacco use type: Cigarette e-Cigarette/Vaping Use: Never Used Second Hand Smoke Exposure: No Use of substances other than those prescribed or required for medical reasons: No Are you DNR?: No Advance Directives: No Advance Directives Information Provided: Yes service: No Current occupational status: disabled Current occupational exposures/hazards: No Gender identity: Female Cognitive needs: No Hearing needs: No Vision needs: No Meds Allergies Allergy/AdvReac Type Severity Reaction Status Date / Time No Known Allergies Allergy Verified 04/01/23 16:50 Home Medications Medication Instructions Recorded Confirmed Last Taken Type multivitamin 1 tab PO DAILY 03/16/23 05/08/23 Unknown History Exam Exam Date and Time: May 07, 2023 0928 Height,Weight and Vital Signs: Height 5 ft 7 in Weight 125.645 kg Pertinent Lab Results Pertinent Lab Results: Laboratory Tests 03/16/23 03/17/23 05:24 09:16 WBC 8.3 Hgb 8.5 L Hct 27.8 L Plt Count 256 Sodium 144 Potassium 4.0 Chloride 116 H Carbon Dioxide 19 L BUN 28 H Creatinine 1.40 Assessment and Plan Assessment Anesthesia Assessment: Chart Reviewed Final Anesthetic Review Family History of Problems with Anesthesia: No History of Problems with Anesthesia: No Documented by User: Lucero Hernandez MD 05/08/23 09:19 [facility] Past Medical History Medical History Anxiety and depression Benign essential hypertension Bleeding hemorrhoids Hypertension Impaired fasting glucose Mixed hyperlipidemia Morbid obesity with BMI of 40.0-44.9, adult Sleep apnea Vitamin D deficiency Family History Family History Sister Cervical cancer Mother Hypertension Father History of stroke Diabetes Surgical History Surgical History History of endometrial ablation History of tubal ligation Social History Social History Household Members: Children Housing: Apartment Do you presently have visiting nurse or other home services: No (pt states daughter helps) Alcohol intake: current Alcohol intake frequency: a few times a week Patient Tobacco Use Status: Current someday Tobacco user Tobacco use type: Cigarette e-Cigarette/Vaping Use: Never Used Second Hand Smoke Exposure: No Use of substances other than those prescribed or required for medical reasons: No Are you DNR?: No Advance Directives: No Advance Directives Information Provided: Yes service: No Current occupational status: disabled Current occupational exposures/hazards: No Gender identity: Female Cognitive needs: No Hearing needs: No Vision needs: No Meds Allergies Allergy/AdvReac Type Severity Reaction Status Date / Time No Known Allergies Allergy Verified 04/01/23 16:50 Home Medications Medication Instructions Recorded Confirmed Last Taken Type multivitamin 1 tab PO DAILY 03/16/23 05/08/23 Unknown History Exam Airway Mallampati Class: III TM Dist: <=3cm Neck ROM: Limited Heart: rrr Lungs: cta Assessment and Plan Assessment Anesthesia Assessment: Anesthesia Plan Discussed and Smoking Cess. Discussed Final Anesthetic Review NPO: Yes ASA Class: III Final Preanesthetic Review: No Changes in Pt Med Stat, Meds/Allgs Chart Reviewed, Consent Obtained/Reviewed and Anes Risks/Benef Reviewed Patient Risk: Intermediate Procedure Risk: Low Anesthetic Plan Anesthetic Plan: GA Disposition: Standard PACU
[2023-05-08] VITALS (8 sets, daily range): BP systolic 125–190; BP diastolic 67–79; PULSE 78–100; RESP 14–19; TEMP 36.6–36.9; O2SAT 92–98; BMI 43.4
[2023-05-08] MEDS: Lactated Ringers 1,000 ML 100 ML IVCONT (08:52)
--- NOTE | 2023-05-08 09:24 | MHC.SHP ---
Pre-Procedural Eval Section A Date of Service: 05/08/23 Section B Chief Complaint: Unspecified hemorrhoids Details of Present Illness: has had a long history of bleeding hemorrhoids; had previous hemorrhoidectomy in 2013 Relevant Family History (Specify if Yes): No Relevant Social History: None Present Medications: see Short Stay Collaborative assessment Medical History: Significant History ( anemia, impaired fasting glucose, morbid obesity, hyperlipidemia, hypertension) Allergies: Allergies Allergy/AdvReac Type Severity Reaction Status Date / Time No Known Allergies Allergy Verified 04/01/23 16:50 Review of Systems Sugical H&P ROS: Negative: Constitution, Cardiovascular, Respiratory, Neurological, Psychiatric, Hem-Onc, Allergic/Immunologic, Gastrointestinal, Genitourinary, Musculoskeletal, Integumentary, Endocrine and Eyes/Ears/Nose/Throat Exam Surgical H&P Exam: Normal: HEENT, Normal: Heart, Normal: Lungs, Normal: Extremities, Normal: Abdomen, Normal: Skin and Normal: Neurological Plan Diagnosis/Plan: Unchanged I have reviewed the history and physical and performed a pertinent physical examination on my patient. No changes have occurred unless specified. Time Spent With Patient Time: Total time managing care of this patient today ____ minutes.
--- NOTE | 2023-05-08 10:57 | P.OP_ITS ---
Operative Note Operative Note Date of Service: 05/08/23 Narrative: Preop diagnosis: Bleeding hemorrhoids, internal and external Postop diagnosis: Bleeding hemorrhoids, internal and external Procedure: Exam under anesthesia hemorrhoidectomy x3 columns Surgeon: Ashok Coreas MD The patient is a 53-year-old female, was the long history of frequent bleeding of her hemorrhoids with subsequent anemia. A previous hemorrhoidectomy in 2013. She she understood the technique of the procedure. She was aware of the risks, benefits, and alternatives. She was brought to the operating room placed in prone rowan-knife position under general anesthesia via endotracheal tube. The buttocks were retracted with wide tape laterally. The perianal area is prepped and draped in the usual sterile fashion. A surgical time-out was done. The patient received Cefotan 3 g preoperatively Examination of the anal orifice revealed bulky external hemorrhoids, and the right side. I infiltrated the perianal area with lidocaine 1%. I inserted the Sidra Rojo retractor and examined the anal canal circumferentially. Again, these external hemorrhoids were noted extended to internal hemorrhoids on both the left and right side. Most of these hemorrhoids were prominently external however There were no other lesions. There was no bleeding I applied a Herring grasper at a large hemorrhoidal column on the left. I made a figure of 8 stitch at the pedicle past the dentate line using chromic 3- 0. I made an incision around this hemorrhoidal column to the perianal skin with a blade 15. I excised this hemorrhoidal column above the plane of the sphincters along this incision. I then closed this incision with a running chromic 3-0 stitch. Multiple [id number] chromic 3-0 sutures were placed for hemostasis as there was note of significant fibrotic changes causing bleeding The same procedure was duplicated on hemorrhoidal column on the right side. This was mostly an external hemorrhoid. Again I made an incision around this hemorrhoidal column using blade 15. After retraction with Herring graspers. I excised this hemorrhoidal column above the plane of sphincters along this incision using scissors and I closed this incision with a running chromic 3-0 stitch. Multiple additional hemostatic sutures were placed as well. There was 1 additional external hemorrhoid on the right anterior that was removed in a similar fashion and closed with a running chromic 3-0 stitch as well. I observed for hemostasis. Examination of the anal orifice revealed residual hemorrhoidal columns but in view of the large hemorrhoid columns of the head removed, I did not remove the rest of this hemorrhoids in view of the risk of stenosis I applied a Gelfoam packing into the anal canal. I infiltrated the area with Marcaine 0.5% for postop analgesia. Once hemostasis was confirmed, the procedure was completed The patient tolerated procedure well. There were no immediate complications. Initial and final counts of sponges and instruments were correct. Estimated bl ood loss was about 75 cc. The patient was extubated without difficulty and transferred to the recovery room with stable vital signs.
[2023-05-08] MEDS: fentaNYL citrate/PF 100 MCG/2 ML VIAL 25 MCG IVPUSH (11:20)
[2023-05-08] MEDS: oxyCODONE HCl Immed Release 5 MG TABLET PO (11:20)
== END 2023-05-08 12:25 | disposition home or self-care (01) ==
PROVIDERS: PCP Internal Medicine; Visit Provider Surgery
PROC: (CPT 46260; principal; 2023-05-08 09:30)
DX: K64.8 Other hemorrhoids (principal); K64.4 Residual hemorrhoidal skin tags; D64.9 Anemia, unspecified; I10 Essential (primary) hypertension; E78.5 Hyperlipidemia, unspecified; R73.01 Impaired fasting glucose; E66.01 Morbid (severe) obesity due to excess calories; Z68.41 Body mass index [BMI] 40.0-44.9, adult; G47.30 Sleep apnea, unspecified; Z79.899 Other long term (current) drug therapy; Z98.890 Other specified postprocedural states; F17.210 Nicotine dependence, cigarettes, uncomplicated
CPT/HCPCS: 46260; 88304; J0330; J1100; J2250; J2405; J2795; J3010

== ENCOUNTER → 2023-05-08 07:27 | Outpatient (BNV) | payer OTHER, SELFPAY | PROVIDERS: PCP Internal Medicine; Visit Provider Surgery | DX: K64.8 Other hemorrhoids (principal); K64.4 Residual hemorrhoidal skin tags | CPT/HCPCS: 46260 ==

== ENCOUNTER 2023-05-29 21:37 | Emergency (ER) | payer OTHER, SELFPAY ==
--- NOTE | ~2023-05-29 | CT_ITS ---
EXAMINATION: CT ABDOMEN AND PELVIS WITHOUT CONTRAST CLINICAL INFORMATION: Left lower quadrant pain COMPARISON: 10/15/2006 TECHNIQUE: Multidetector volumetric imaging was performed from the superior aspect of the liver through the pubic symphysis. Sagittal and coronal reformatted images were obtained on the technologist's workstation. This CT examination was performed using dose optimization techniques as appropriate, variously including the following: *Automated exposure control *Adjustment of mA and/or kV according to patient size (this includes techniques or standardized protocols for targeted exams where dose is matched to indication/reason for exam; i.e. extremities or head) *Use of iterative reconstruction technique DLP: 961 mGy-cm FINDINGS: LUNG BASES: Linear left basilar atelectasis. Prominent heart. Small pericardial effusion. LIVER, GALLBLADDER, AND BILIARY TREE: The liver is normal in size and shape with decreased attenuation. No focal hepatic lesion or biliary ductal dilatation is present. Small stone in the gallbladder lumen. No wall thickening or adjacent inflammation. PANCREAS: Unremarkable. SPLEEN: Unremarkable. ADRENAL GLANDS: Unremarkable. KIDNEYS AND URETERS: The kidneys are normal in size, shape, and attenuation. Mild left hydronephrosis with a 0.4 cm calculus near the left ureteropelvic junction. There is a left lower pole 0.7 cm calculus which is 17 cm from the posterior axillary line. This measures 743 Hounsfield units. BLADDER: Unremarkable. GASTROINTESTINAL TRACT: The small and large bowel are unremarkable. The appendix is unremarkable. ABDOMINAL WALL: No significant hernia is appreciated. LYMPH NODES: Normal. VASCULAR: Normal caliber aorta with mild atherosclerotic calcifications. PELVIC VISCERA: The uterus and adnexa are unremarkable. OSSEOUS STRUCTURES: No acute or suspicious osseous abnormality mild degenerative changes in the spine. CT/CT abdomen pelvis wo IV con IMPRESSION: 1. Mild left hydronephrosis with a 0.4 cm calculus near the left ureteropelvic junction. Additional nonobstructing left lower pole renal calculus. 2. Hepatic steatosis. 3. Cholelithiasis. Fleischner guidelines were followed.
[2023-05-29 22:04] VITALS: BP 185/100; PULSE 88; RESP 18; TEMP 37.4; O2SAT 98; BMI 44.1
[2023-05-29 22:29] LABS: MANUAL DIFF FLAG NO
[2023-05-29 22:32] LABS: Basophils Percent Auto 0.3 % (0-2); Eosinophils Absolute Auto 0.2 X10*3/uL (0.0-0.4); Eosinophils Percent Auto 1.5 % (0-4); Hemoglobin 10.7 g/dl (12.0-16.0); Imm Gran Abs Auto 0.06 X10*3/uL (0.00-0.03); Imm Gran Pct Auto 0.5 % (0.0-0.4); Lymphocytes Absolute Auto 1.8 X10*3/uL (1.2-4.9); Lymphocytes Percent Auto 15.5 % (20-40); Mean Corpuscular HGB Conc 31.5 g/dl (31.0-35.0); Mean Corpuscular Hemoglobin 25.8 pg (27.0-33.0); Mean Corpuscular Volume 81.9 fL (80.0-98.0); Mean Platelet Volume 9.4 fL (9.4-12.3); Monocytes Absolute Auto 0.9 X10*3/uL (0.1-1.2); Neutrophils Absolute Auto 8.6 x10*3/uL (2.0-8.3); Neutrophils Percent Auto 74.2 % (45-73); Platelet Count 263 X10*3/uL (160-400); Red Blood Count 4.15 X10*6/uL (4.20-5.50); Red Cell Distribution Width 17.2 % (11.0-16.0); White Blood Count 11.6 X10*3/uL (4.8-10.8)
[2023-05-29 22:33] LABS: UPreg QC Valid YES; Urine Pregnancy NEGATIVE (NEGATIVE)
[2023-05-29 22:34] LABS: Appearance Urine Clear; Color Urine Yellow; Glucose Urine UA Negative (Negative); Leukocyte Esterase Urine Negative (Negative); Nitrite Urine Negative (Negative); PH 5.5 (5.0-9.0); Specific Gravity - Urine 1.015 (1.005-1.025); UMIC TRIGGER UACC YES; Urine Blood Small (1+) (Negative); Urine Ketones Negative (Negative); Urine Protein 300 (3+) mg/dL (Neg-Trace)
[2023-05-29 22:38] LABS: Bacteria Urine None Seen (None Seen); Hyaline Casts Urine 0-2 /LPF (0-2); WBC Urine 0-5 /HPF (0-5)
[2023-05-29 22:45] LABS: Anion Gap 14 (12-20); Blood Urea Nitrogen 31 mg/dL (9-16); Carbon Dioxide 22 mmol/L (22-29); Chloride 111 mmol/L (96-108); Creatinine Clr Calc Pharmacy 39.4; Estimated Glomerular Filt Rate 24; Glucose Random 124 mg/dL (60-115); Potassium 3.6 mmol/L (3.3-5.1); Sodium 143 mmol/L (135-145)
[2023-05-30] VITALS: BP 197/110; PULSE 92; RESP 21; TEMP 37.3; O2SAT 96
[2023-05-30 00:11] VITALS: BP 208/107; PULSE 73; RESP 16; O2SAT 97
--- NOTE | 2023-05-30 00:49 | PC.NURSE ---
Pt presents to ER with lower left abd pain. Pt noted to have elevated BP, PA is aware. Pt is A&Ox4, GCS 15, with warm, dry skin. Pt is on the director of cardiac cath lab and a 20g IV was placed in the left AC.
[2023-05-30] MEDS: 0.9 % Sodium Chloride 1,000 ML 999 ML IV (01:08)
[2023-05-30] MEDS: ondansetron HCL 4 MG/2 ML VIAL IVPUSH (01:08)
[2023-05-30] MEDS: Morphine Sulfate 4 MG/ML CARTRIDGE IVPUSH ×2 (01:09→02:19)
--- NOTE | 2023-05-30 01:09 | PC.NURSE ---
Scanner in pt's room is broken, I am unable to scan barcodes for medications. Medications manually documented per MAR.
--- NOTE | 2023-05-30 01:13 | ED.GENADULT ---
HPI - General Adult General Chief complaint: Abdominal Pain Stated complaint: Lower left abd pain Time Seen by Provider: 05/30/23 00:38 Source: patient, RN notes reviewed and old records reviewed Mode of arrival: ambulatory Limitations: no limitations History of Present Illness HPI narrative: 53-year-old female with past medical history significant for obesity, hypertension, hyperlipidemia, GI bleed, hemorrhoids presents for evaluation of left lower quadrant abdominal pain. Patient reports abdominal pain since last night, about 20 hours ago She complains of some nausea vomiting, chills and constipation Patient reports that she had an internal hemorrhoidectomy on 05/08/2023 She reports that she has had mild GI bleeding with bowel movements ever since She has spoken to her GI doctor who reassured her this was normal after the procedure She rates her pain as 05/21 Related Data Home Medications Medication Instructions Recorded Confirmed multivitamin 1 tab PO DAILY 03/16/23 05/08/23 Previous Rx's Medication Instructions Recorded blood pressure monitor (Blood #1 ea 01/15/22 Pressure Kit) amlodipine 10 mg tablet 10 mg PO DAILY 90 days #90 tabs 01/20/23 losartan 100 mg tablet 100 mg PO DAILY 90 days #90 tabs 01/20/23 omeprazole 40 mg capsule,delayed 40 mg PO DAILY #60 caps 03/17/23 release phenylephrine 0.25 %-mineral oil 1 appl HI BID PRN Apply to 03/17/23 14 %-petrolatm 74.9 % rectal Hemorrhoid #57 grams ointment (Preparation H) ferrous sulfate 325 mg (65 mg 325 mg PO DAILY 90 days #90 tabs 04/01/23 iron) tablet docusate sodium 100 mg capsule 100 mg PO BID #60 caps 05/08/23 (Colace) ibuprofen 600 mg tablet 600 mg PO Q6H PRN pain #30 tabs 05/08/23 oxycodone-acetaminophen 5 mg-325 1 tab PO Q4-6H PRN pain #30 tabs 05/08/23 mg tablet (Percocet) ondansetron 4 mg disintegrating 4 mg PO Q8H PRN nausea and 05/30/23 tablet vomiting #20 tabs oxycodone 5 mg tablet 5 mg PO Q6H PRN severe pain (scale 05/30/23 score 7-10) #14 tabs tamsulosin 0.4 mg capsule (Flomax) 0.4 mg PO DAILY #7 caps 05/30/23 Allergies Allergy/AdvReac Type Severity Reaction Status Date / Time No Known Allergies Allergy Verified 04/01/23 16:50 Review of Systems Constitutional: Constitutional: Reports chills and Denies fever(s) ENT: Denies sore throat Cardiovascular: Cardiovascular: Denies chest pain and Denies dyspnea Respiratory: Respiratory: Denies cough and Denies dyspnea Gastrointestinal: Gastrointestinal: Reports abdominal pain, Denies melena, Reports hematochezia, Reports constipation, Reports GI cramping, Reports nausea and Reports vomiting Genitourinary: Genitourinary: Denies difficulty voiding Musculoskeletal: Musculoskeletal: Denies back pain Integumentary/Breasts: Skin/Breast: Denies rash Psychiatric: Psychiatric: Denies anxiety [facility] Past Medical History Medical History (Updated 05/30/23 @ 02:07 by Chadd Russell) Anxiety and depression Benign essential hypertension Bleeding hemorrhoids Hypertension Impaired fasting glucose Mixed hyperlipidemia Morbid obesity with BMI of 40.0-44.9, adult Sleep apnea Vitamin D deficiency Surgical History (Updated 05/29/23 @ 15:05 by GELY Gonzalez) History of endometrial ablation History of hemorrhoidectomy (05/08/23) History of tubal ligation Family History Family History Sister Cervical cancer Mother Hypertension Father History of stroke Diabetes Social History Social History Household Members: Children Housing: Apartment Do you presently have visiting nurse or other home services: No (pt states daughter helps) Alcohol intake: current Alcohol intake frequency: a few times a month Patient Tobacco Use Status: Current someday Tobacco user Tobacco use type: Cigarette Smoked in Last 30 Days: No e-Cigarette/Vaping Use: Never Used Second Hand Smoke Exposure: No Use of substances other than those prescribed or required for medical reasons: No Advance Directives: No Advance Directives Information Provided: No Patient : No service: No Current occupational status: disabled Current occupational exposures/hazards: No Gender identity: Female Cognitive needs: No Hearing needs: No Vision needs: No Physical Exam ED Vital Signs: Vital Signs - 24 hr 05/29/23 22:04 05/30/23 00:11 05/30/23 00:00 Temperature 99.4 F 99.2 F Pulse Rate 88 73 92 Respiratory Rate 18 16 21 H Blood Pressure 185/100 H 208/107 H 197/110 H Pulse Oximetry 98 97 96 Oxygen Delivery Method Room Air Room Air Room Air BMI result Body Mass Index 44.1 Const General: healthy appearing, comfortable, no acute distress, alert and awake Nutritional Appearance: well nourished Orientation/consciousness: patient oriented x3 HENMT Head: Yes normocephalic and Yes atraumatic Eyes Eyelids: Yes eyelids normal Conjunctivae: conjunctivae normal Sclerae: sclerae normal Corneas: corneas normal Pupils: Equal, round and reactive pupils present EOM: EOMs intact bilaterally Resp Effort & Inspection: normal respiratory effort, able to speak in complete sentences and not labored GI Inspection: No distended Palpation (GI): Soft to palpation, not firm, Tenderness to palpation present (GI) in the LLQ and suprapubicly; not in the RLQ, not in the LUQ, not in the RUQ and with no rebound tenderness, Guarding due to palpation present (GI) and not rigid Skin General skin exam: elasticity normal Neuro General: patient oriented x3 Cranial nerves: Yes Equal, round and reactive pupils present and Yes Bilaterally intact EOM present Cognition (Neuro): normal cognition Extrem Other: Moving all extremities well without any obvious deformities Course Reevaluation(s) Time: 02:02 Consultations Consultation #1: Patient has a mild left hydronephrosis due to obstructive uropathy, 4 mm stone at the left UPJ. Her creatinine is slightly elevated but only about 30% above baseline, she was treat with IV fluids. She does have a slight leukocytosis which is likely reactive to her pain level but her urine does not appear to show acute infection. Will discharge her with oxycodone, tamsulosin, Flomax. All results were discussed with the patient Medications Administered Discontinued Medications Generic Name Dose Route Start Last Admin Trade Name Freq PRN Reason Stop Dose Admin Sodium Chloride 1,000 mls @ 999 mls/hr 05/30/23 01:00 05/30/23 01:08 Ns IV 05/30/23 02:00 999 mls/hr .Q1H1M CORNELL Administration Morphine Sulfate 4 mg 05/30/23 00:54 05/30/23 01:09 Morphine Sulfate 4 Mg/Ml Cartridge IVPUSH 05/30/23 00:55 4 mg ONCE ONE Administration Protocol Ondansetron HCl 4 mg 05/30/23 00:54 05/30/23 01:08 Ondansetron Hcl 4 Mg/2 Ml Vial IVPUSH 05/30/23 00:55 4 mg ONCE ONE Administration Medical Decision Making Medical Decision Making [facility] Narrative: 53-year-old female presents for evaluation of left lower quadrant abdominal pain. She is quite tender on exam and guarding. There is no rebound tenderness, the abdomen is soft nondistended. No peritoneal signs. She does have GI and symptoms. Concern for obstructive uropathy versus diverticulitis. She does have a slight leukocytosis of 11.6k. She has a mild RAMOS which will be treated with IV fluids. CT scan of the abdomen pelvis will be obtained Differential Diagnosis Differential Diagnoses: The differential diagnosis associated with the presentation includes Obstructive uropathy Diverticulitis Colitis Acute abdominal pain Constipation Hemorrhoids Lab Data [facility] Lab Attestation statement: I reviewed the patient's lab results. Mild leukocytosis of 11.6 K, left shift present. Mild anemia that is actually improved from recent baseline. Patient's baseline renal function is around 1.5, her creatinine today is 2.17. Electrolytes within normal limits except for chloride that is just above normal. BUN is also elevated to 31. 05/29/23 22:23 05/29/23 22:23 Labs: Lab Results 05/29/23 05/29/23 05/29/23 Range/Units 22:23 22:23 22:23 WBC 11.6 H (4.8-10.8) X10*3/uL RBC 4.15 L D (4.20-5.50) X10*6/uL Hgb 10.7 L D (12.0-16.0) g/dl Hct 34.0 L D (37.0-47.0) % MCV 81.9 (80.0-98.0) fL MCH 25.8 L (27.0-33.0) pg MCHC 31.5 (31.0-35.0) g/dl RDW 17.2 H (11.0-16.0) % Plt Count 263 (160-400) X10*3/uL MPV 9.4 (9.4-12.3) fL Immature Gran % (Auto) 0.5 H (0.0-0.4) % Neut % (Auto) 74.2 H (45-73) % Lymph % (Auto) 15.5 L (20-40) % Fleming % (Auto) 8.0 (2-11) % Eos % (Auto) 1.5 (0-4) % Baso % (Auto) 0.3 (0-2) % Lymph # (Auto) 1.8 (1.2-4.9) X10*3/uL Fleming # (Auto) 0.9 (0.1-1.2) X10*3/uL Eos # (Auto) 0.2 (0.0-0.4) X10*3/uL Baso # (Auto) 0.0 (0.0-0.2) X10*3/uL Abs Immat Gran (auto) 0.06 H (0.00-0.03) X10*3/uL Absolute Neuts (auto) 8.6 H (2.0-8.3) x10*3/uL Absolute Nucleated RBC 0.000 (0.0-0.012) X10*3/uL Nucleated RBC % (auto) 0.0 (0.0-0.2) /100WBC Sodium 143 (135-145) mmol/L Potassium 3.6 (3.3-5.1) mmol/L Chloride 111 H (96-108) mmol/L Carbon Dioxide 22 (22-29) mmol/L Anion Gap 14 (12-20) BUN 31 H (9-16) mg/dL Creatinine 2.17 H (0.5-1.4) mg/dL Estim Creat Clear Calc 39.4 Estimated GFR 24 Random Glucose 124 H (60-115) mg/dL Calcium 10.0 D (8.4-10.2) mg/dL Urine Color Yellow Urine Appearance Clear Urine pH 5.5 (5.0-9.0) Ur Specific [place] 1.015 (1.005-1.025) Urine Protein 300 (3+) H (Neg-Trace) mg/dL Urine Glucose (UA) Negative (Negative) mg/dL Urine Ketones Negative (Negative) mg/dL Urine Blood Small (1+) H (Negative) Urine Nitrite Negative (Negative) Ur Leukocyte Esterase Negative (Negative) Urine RBC 11-20 H (0-2) /HPF Urine WBC 0-5 (0-5) /HPF Ur Squamous Epith Cells 3-5 (0-2) /HPF Urine Bacteria None Seen (None Seen) Hyaline Casts 0-2 (0-2) /LPF Urine Test (NEGATIVE) 05/29/23 Range/Units 22:23 WBC (4.8-10.8) X10*3/uL RBC (4.20-5.50) X10*6/uL Hgb (12.0-16.0) g/dl Hct (37.0-47.0) % MCV (80.0-98.0) fL MCH (27.0-33.0) pg MCHC (31.0-35.0) g/dl RDW (11.0-16.0) % Plt Count (160-400) X10*3/uL MPV (9.4-12.3) fL Immature Gran % (Auto) (0.0-0.4) % Neut % (Auto) (45-73) % Lymph % (Auto) (20-40) % Fleming % (Auto) (2-11) % Eos % (Auto) (0-4) % Baso % (Auto) (0-2) % Lymph # (Auto) (1.2-4.9) X10*3/uL Fleming # (Auto) (0.1-1.2) X10*3/uL Eos # (Auto) (0.0-0.4) X10*3/uL Baso # (Auto) (0.0-0.2) X10*3/uL Abs Immat Gran (auto) (0.00-0.03) X10*3/uL Absolute Neuts (auto) (2.0-8.3) x10*3/uL Absolute Nucleated RBC (0.0-0.012) X10*3/uL Nucleated RBC % (auto) (0.0-0.2) /100WBC Sodium (135-145) mmol/L Potassium (3.3-5.1) mmol/L Chloride (96-108) mmol/L Carbon Dioxide (22-29) mmol/L Anion Gap (12-20) BUN (9-16) mg/dL Creatinine (0.5-1.4) mg/dL Estim Creat Clear Calc Estimated GFR Random Glucose (60-115) mg/dL Calcium (8.4-10.2) mg/dL Urine Color Urine Appearance Urine pH (5.0-9.0) Ur Specific [place] (1.005-1.025) Urine Protein (Neg-Trace) mg/dL Urine Glucose (UA) (Negative) mg/dL Urine Ketones (Negative) mg/dL Urine Blood (Negative) Urine Nitrite (Negative) Ur Leukocyte Esterase (Negative) Urine RBC (0-2) /HPF Urine WBC (0-5) /HPF Ur Squamous Epith Cells (0-2) /HPF Urine Bacteria (None Seen) Hyaline Casts (0-2) /LPF Urine Test NEGATIVE (NEGATIVE) Radiology Impression Discussion of test interpretation with radiology: I have reviewed the radiologist's reading. Radiologist Impression: 4 mm left UPJ stone with mild left hydronephrosis Prescription Management I considered prescription management with: Pain Medication Chronic Conditions Patient?s care impacted by: Hypertension (And likely partial noted to the amount of pain she is in, she was treated with analgesia) Discharge Plan Discharge Clinical Impression: Hydronephrosis due to obstruction of ureter, RAMOS (acute kidney injury), Hypertension Patient Disposition: Home, Self-Care Instructions: Kidney Stones (ED) Additional Instructions: You have a small kidney stone on the left side that should pass on its own. Use Flomax daily to help facilitate passing of the stone Use oxycodone for severe, breakthrough pain Use Zofran as needed for nausea or vomiting Follow-up with your primary doctor Return for new or worsening symptoms, especially fever or severe, intractable pain Prescriptions: New tamsulosin [Flomax] 0.4 mg capsule 0.4 mg PO DAILY Qty: 7 0RF ondansetron 4 mg tablet,disintegrating 4 mg PO Q8H PRN (Reason: nausea and vomiting) Qty: 20 0RF oxycodone 5 mg tablet 5 mg PO Q6H PRN (Reason: severe pain (scale score 7-10)) Qty: 14 0RF Rx Instructions: Partial Fill upon patient request. No Action amlodipine 10 mg tablet 10 mg PO DAILY 90 Days Qty: 90 1RF losartan 100 mg tablet 100 mg PO DAILY 90 Days Qty: 90 1RF multivitamin Tablet 1 tab PO DAILY Preparation H 0.25-14-74.9 % ointment 1 appl HI BID PRN (Reason: Apply to Hemorrhoid) Qty: 57 0RF omeprazole 40 mg capsule,delayed release(DR/EC) 40 mg PO DAILY Qty: 60 0RF docusate sodium [Colace] 100 mg capsule 100 mg PO BID Qty: 60 2RF ibuprofen 600 mg tablet 600 mg PO Q6H PRN (Reason: pain) Qty: 30 0RF oxycodone-acetaminophen [Percocet] 5-325 mg tablet 1 tab PO Q4-6H PRN (Reason: pain) Qty: 30 0RF Rx Instructions: Partial Fill upon patient request. (DME) blood pressure monitor [Blood Pressure Kit] Kit See Rx Instructions .Route Qty: 1 0RF Rx Instructions: As directed ferrous sulfate 325 mg (65 mg iron) tablet 325 mg PO DAILY 90 Days Qty: 90 1RF
[2023-05-30 02:00] VITALS: BP 191/103; PULSE 91; RESP 15; TEMP 37.1; O2SAT 96
== END 2023-05-30 02:21 | disposition home or self-care (01) ==
PROVIDERS: Emergency Provider Internal Medicine; PCP Internal Medicine
DX: N13.2 Hydronephrosis with renal and ureteral calculous obstruction (principal); N17.9 Acute kidney failure, unspecified; I10 Essential (primary) hypertension; R10.32 Left lower quadrant pain; E78.2 Mixed hyperlipidemia; F17.210 Nicotine dependence, cigarettes, uncomplicated; E66.9 Obesity, unspecified; Z68.41 Body mass index [BMI] 40.0-44.9, adult; Z79.899 Other long term (current) drug therapy
CPT/HCPCS: 36415; 74176; 80048; 81001; 81025; 85025; 96361; 96374; 96375; 96376; 99284; J2270; J2405

== ENCOUNTER 2023-06-01 15:51 | Outpatient (AMB) | payer OTHER, SELFPAY ==
--- NOTE | 2023-06-01 15:52 | MHC.OFFVIS ---
Intake Vital Signs 06/01/23 15:57 Height 5 ft 6 in Weight 275 lb BMI 44.4 BP 223/97 H Blood Pressure Location Lt brachial Position Sitting Pulse 89 Intake Visit Reasons: S/P hemorrhoidectomy, rubber band ligation Intake Note: Patient is seen in office for post o assessment post hemorrhoidectomy/rubber band ligation. Patient c/o: denies any pain, admits to constipation, straining, and bleeding Elastic Attacher Overlock Required: No Accompanied by: Self / Same As Patient Allergies No Known Allergies Allergy (Verified 06/01/23 15:59) HPI S/P hemorrhoidectomy, rubber band ligation HPI Details She underwent hemorrhoidectomy x3 columns last 05/08/2023. She tolerated procedure well. She currently denies significant complaints. She does admit to occasional constipation now since the surgery. She says her pain has improved significantly and she says he feels well overall. [facility] Medical History Anxiety and depression Benign essential hypertension Bleeding hemorrhoids Hypertension Impaired fasting glucose Mixed hyperlipidemia Morbid obesity with BMI of 40.0-44.9, adult Sleep apnea Vitamin D deficiency Surgical History History of endometrial ablation History of hemorrhoidectomy (05/08/23) History of tubal ligation Family History Sister Cervical cancer Mother Hypertension Father History of stroke Diabetes Social History Household Members: Children Housing: Apartment Do you presently have visiting nurse or other home services: No (pt states daughter helps) Alcohol intake: current Alcohol intake frequency: a few times a month Patient Tobacco Use Status: Current someday Tobacco user Tobacco use type: Cigarette e-Cigarette/Vaping Use: Never Used Second Hand Smoke Exposure: No service: No Current occupational status: disabled Current occupational exposures/hazards: No Gender identity: Female Cognitive needs: No Hearing needs: No Vision needs: No Female Reproductive History Menstrual Age of Menarche: 15 Review of Systems Const Denies chills and Denies fever(s) Card Denies chest pain, Denies dyspnea and Denies dyspnea on exertion Resp Denies cough, Denies dyspnea and Denies dyspnea on exertion GI Denies hematochezia and Denies change in bowel habits Denies hematuria Musc Denies back pain and Denies limited range of motion Neuro Denies focal weakness and Denies convulsions Psych Denies depression and Denies mood swings Physical Exam Const General: comfortable and no acute distress Resp Effort & Inspection: normal respiratory effort GI Other: Rectal exam shows hemorrhoidectomy sites to be healing well, no induration, no cellulitis, no discharge Assessment & Plan Assessment & Plan (1) Bleeding hemorrhoids: Code(s): K64.9 - Unspecified hemorrhoids Plan: Status post hemorrhoidectomy x3 columns. Her hemorrhoidectomy sites are healing well. Her path report shows hemorrhoids. She still has some residual edema on hemorrhoidectomy sites. I instructed her to continue hot Sitz baths I also advised her to continue taking fiber supplements and stool softeners as she says she gets constipated periodically. She can follow up on a p.r.n. basis. Coding Level of Care Code Global (47331) Diagnoses Bleeding hemorrhoids K64.9
[2023-06-01 15:57] VITALS: BP 223/97; PULSE 89; BMI 44.4
== END 2023-06-01 16:08 | disposition home or self-care (01) ==
PROVIDERS: PCP Internal Medicine; Visit Provider Surgery
DX: K64.9 Unspecified hemorrhoids (principal)
CPT/HCPCS: 99024

== ENCOUNTER → 2023-06-01 15:51 | Outpatient (BNVA) | payer OTHER, SELFPAY | PROVIDERS: PCP Internal Medicine; Visit Provider Surgery ==

== ENCOUNTER 2023-07-15 13:14 | Outpatient (REF) | payer OTHER, SELFPAY | END 2023-07-15 13:15 | disposition home or self-care (01) | LOC: HO.MAMMO 13:14 | PROVIDERS: PCP Internal Medicine; Visit Provider Internal Medicine | DX: Z12.31 Encounter for screening mammogram for malignant neoplasm of breast (principal) | CPT/HCPCS: 77063; 77067 ==

== ENCOUNTER → 2023-07-15 13:15 | Outpatient (BNV) | payer OTHER, SELFPAY | PROVIDERS: PCP Internal Medicine; Visit Provider Radiology Diagnostic Radiology | DX: Z12.31 Encounter for screening mammogram for malignant neoplasm of breast (principal) | CPT/HCPCS: 77063; 77067 ==

== ENCOUNTER 2023-09-18 14:41 | Outpatient (AMB) | payer OTHER, SELFPAY ==
[2023-09-18 14:53] VITALS: BP 132/80; PULSE 87; O2SAT 95; BMI 44.6
--- NOTE | 2023-09-18 14:53 | MHC.PC.OV ---
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 Accompanied by: Self / Same As Patient Allergies No Known Allergies Allergy (Verified 09/18/23 15:30) Medication List - Last Reconciled 09/18/23 by Taran Hood MD amlodipine 10 mg PO DAILY 90 days blood pressure monitor (Blood Pressure Kit) As directed docusate sodium (Colace) 100 mg PO BID ferrous sulfate 325 mg PO DAILY 90 days [INCONTINENCE PADS As directed] losartan 100 mg PO DAILY 90 days multivitamin 1 tab PO DAILY omeprazole 40 mg PO DAILY ondansetron 4 mg PO Q8H PRN phenyleph-min oil-petrolatum 0.25-14-74.9 % (Preparation H) 1 appl AR BID PRN tamsulosin (Flomax) 0.4 mg PO DAILY Tobacco use date assessed: 09/18/23 Dental Screening Dental Screen Date: 09/18/23 Did you have a dental visit in the last 12 months?: No Did you have a dental problem in the last 6 months where you did not have access to dental care?: No Was dental information given to patient?: No HPI 3M FU HTN, anemia, hemorrhoids, hyperlipidemia HPI Details Patient comes in today for her follow up visit States that she feels okay She went to the ER back in May 2023 for increasing left lower abdominal pain and left flank pain Work ups done in the ER revealed the presence then of mild left hydronephrosis with a 0.4 cm calculus near the left UP junction and an additional non-obstructing left lower pole renal calculus was seen as well She appears to have since passed the stone as she states that her symptoms improved promptly in a couple of days with no recurrence since She denies any headaches or dizziness Denies any chest pains, no SOB No nausea/vomiting, no abdominal pain No change in bowel habits noted Adds that she has been experiencing some blurring of her vision lately States that she called up Dr. Rolon's office to schedule an appointment recently but states that they have scheduled her out to sometime late next year and was told that they are currently booking out more than a year in advance lately Was not able to get her follow up labs done prior to her visit today - states that she will try to get them done as soon as she can within the next few days [facility] Medical History (Updated 09/20/23 @ 16:58 by Taran Hood MD) Chronic kidney disease, stage III (moderate) Bleeding hemorrhoids Impaired fasting glucose Morbid obesity with BMI of 40.0-44.9, adult Vitamin D deficiency Mixed hyperlipidemia Benign essential hypertension Sleep apnea Anxiety and depression Hypertension Surgical History History of hemorrhoidectomy (05/08/23) History of endometrial ablation History of tubal ligation Family History Sister Cervical cancer Mother Hypertension Father History of stroke Diabetes Social History Household Members: Children Housing: Apartment Do you presently have visiting nurse or other home services: No (pt states daughter helps) Alcohol intake: current Alcohol intake frequency: a few times a month Patient Tobacco Use Status: Current someday Tobacco user Tobacco use type: Cigarette e-Cigarette/Vaping Use: Never Used Second Hand Smoke Exposure: No service: No Current occupational status: disabled Current occupational exposures/hazards: No Gender identity: Female Cognitive needs: No Hearing needs: No Vision needs: No Female Reproductive History Menstrual Age of Menarche: 15 Questionnaire PHQ-9 Over the last 2 weeks, how often have you been bothered by any of the following problems? 1. Little interest or pleasure in doing things: several days 2. Feeling down, depressed, or hopeless: several days 3. Trouble falling or staying asleep, or sleeping too much: not at all 4. Feeling tired or having little energy: not at all 5. Poor appetite or overeating: not at all 6. Feeling bad about yourself - or that you are a failure or have let yourself or your family down: not at all 7. Trouble concentrating on things, such as reading the newspaper or watching television: not at all 8. Moving or speaking so slowly that other people could have noticed. Or the opposite - being so fidgety or restless that you have been moving around a lot more than usual: not at all 9. Thoughts that you would be better off or of hurting yourself in some way: not at all Total score: 2 Depression Screening Interpretation: Negative Depression Screening Done: Yes 40471 - PHQ-9 Billing: Yes Source: Developed by Drs. Lucsa Hi, Zahira Keith, Derrick Abarca and colleagues, with an educational dwayne from [employer]. Thrive Questionnaire Date Thrive assessed: 09/18/23 I am a: Patient What is your living situation today?: I have a steady place to live Within the past 12 months, did the food you bought not last and you didn't have the money to get more?: Never true Within the past 12 months, did you worry whether your food would run out before you got money to buy more?: Never true Do you have trouble paying for medicines?: No Do you have trouble getting transportation to medical appointments?: No Do you have trouble paying your heating and electricity bill?: No Do you have trouble taking care of your child, family member or friend?: No Do you have trouble with day-to-day activities such as bathing, preparing meals, shopping, managing finances, etc.?: No Are you currently unemployed and looking for a job?: No Are you interested in more education?: No Please select the resources that you would like help with: None Currently or been in a relationship where the following occur: no concerns reported AUDIT C Alcohol Use Questionnaire (AUDIT-C) 1. How often do you have a drink containing alcohol?: 2-3 times a week 2. How many drinks containing alcohol do you have on a typical day when you are drinking?: 1 or 2 3. How often do you have six or more drinks on one occasion?: Never Total Score: 3 Score Reviewed/Action Taken: Yes MILEY-7 AMB Questionnaire MILEY-7 Date MILEY - 7 assessed: 09/18/23 Feeling nervous, anxious, or on edge: 0 = Not at all Not being able to stop or control worryin = Not at all Worrying too much about different things: 0 = Not at all Trouble relaxin = Not at all Being so restless that it is hard to sit still: 0 = Not at all Becoming easily annoyed or irritable: 0 = Not at all Feeling afraid as if something awful might happen: 0 = Not at all Total MILEY-7 score (0-4 normal; 5-9 mild; 10-14 moderate; 15-21 severe): 0 Source: Developed by Drs. Lucas Hi, Zahira Keith, Derrick Abarca and colleagues, with an educational dwayne from [employer]. Review of Systems Const Denies chills, Denies fatigue, Denies fever(s) and Denies headache(s) Eyes Denies blurry vision ENT Denies dysphagia, Denies dizziness, Denies otalgia, Denies headache(s), Denies neck pain, Denies odynophagia and Denies sore throat Card Denies chest pain, Denies rapid heart rate, Denies irregular heart rhythm, Denies palpitations and Denies dyspnea Resp Denies chest congestion, Denies cough, Denies dyspnea and Denies wheezing GI Denies abdominal pain, Denies hematochezia (no issues since hemorrhoid surgery a few months ago), Denies constipation, Denies dysphagia, Denies heartburn, Denies diarrhea, Denies nausea, Denies odynophagia and Denies vomiting Musc Denies back pain and Denies neck pain Skin/Breast Denies rash Neuro Denies dizziness, Denies headache(s) and Denies paresthesias Psych Denies anxiety and Denies depression Endo Denies fatigue and Denies palpitations Gucci/Lymph Denies easy bruising Aller/Immun Denies wheezing Physical exam (Primary Care) Vital Signs: Last Vital Signs Pulse 87 09/18/23 14:53 BP 132/80 09/18/23 14:53 Pulse Ox 95 09/18/23 14:53 Oxygen Delivery Method Room Air 09/18/23 14:53 BMI result Body Mass Index 44.6 Tobacco/Smoking Status: Tobacco use Status Tobacco use date assessed 09/18/23 09/18/23 14:54 Patient Tobacco Use Status Current someday Tobacco 09/18/23 14:54 Tobacco use type Cigarette 09/18/23 14:54 e-Cigarette/Vaping Use Never Used 09/18/23 14:54 PHQ-9: PHQ-9 Score PHQ-9: Total score 2 09/20/23 16:46 Depression Screening Interpretation: Negative Thrive Assessment: Date of Thrive Assessment Date Thrive assessed 09/18/23 09/18/23 14:54 Currently or been in a relationship where the following occur: no concerns reported Const General: no acute distress and alert HENMT Ears: TM's normal bilaterally and EAC's normal Throat: Yes posterior oropharynx normal and Yes tonsils normal (no TP congestion) Neck Neck: Yes no lymphadenopathy and Yes supple Thyroid: Thyroid normal Resp Auscultation: clear to auscultation bilaterally, no rales and no wheezes Cardio Rate: regular rate Rhythm: regular rhythm Heart sounds: no murmurs GI Palpation (GI): Soft to palpation and nontender Auscultation: normal bowel sounds General: Yes no CVA tenderness Back/Spine/Pelvis Back: no CVA tenderness Thoracic/Lumbar Spine: thoracic and lumbar spine normal to inspection Skin Rashes: no rashes Extrem General: Yes no clubbing, cyanosis or edema Assessment and Plan Assessment & Plan (1) Benign essential hypertension: Code(s): I10 - Essential (primary) hypertension Plan: Reinforced low-sodium diet - goal is systolic BP of 120 to 130 mm or less Continue Losartan 100 mg QD and Amlodipine 10 mg QD (2) Bleeding hemorrhoids: Code(s): K64.9 - Unspecified hemorrhoids Plan: Resolved - S/P hemorrhoid surgery with Dr. Coreas on 05/08/23 Patient states that she's had no issues with her hemorrhoids and has not seen any blood in her stool since (3) Acute on chronic anemia: Code(s): D64.9 - Anemia, unspecified Plan: Improving; her anemia was previously made worse by her recurrent hematochezia due to her bleeding hemorrhoids, which have since been surgically addressed, and she has not needed any blood transfusions lately Her H/H was most recently at 10.7/34.0 on 05/29/23 Continue Ferrous Sulfate 325 mg QD Will recheck her CBC LETICIA for follow up (4) Mixed hyperlipidemia: Code(s): E78.2 - Mixed hyperlipidemia Plan: Reinforced low-cholesterol diet Serum triglyceride level was elevated at 303 mg/dl on her labs done back in March 2022, but total and LDL cholesterol levels were normal Patient has not been able to get her cholesterol levels rechecked since Will have her go get her labs, including her fasting lipid profile, checked LETICIA for follow up Will have her recheck her labs again in a few months for follow up and she is reminded to try getting these done BEFORE she comes back in for her next follow up appt in 3 months (5) Chronic kidney disease, stage III (moderate): Code(s): N18.30 - Chronic kidney disease, stage 3 unspecified Qualifiers: Chronic kidney disease stage 3 subtype: stage 3b (GFR 30-44) Qualified Code(s): N18.32 - Chronic kidney disease, stage 3b Plan: Have cautioned patient that her renal function appears to have declined significantly when her labs were last checked in May 2023 at the ER when she presented there with kidney stones Advised that she appears to have a baseline CKD stage 3B but she was actually in stage 4 based on her labs done in the ER in May 2023 and she has not had any follow up labs done since She is urged to try to get her follow up labs done LETICIA She is also cautioned to completely avoid taking any NSAIDs (OTC and Rx alike) for any reason so as not to further compromise her renal function Will send her for renal US for further evaluation and advised that depending on how her follow up labs and renal US come out, will need to consider referring her to nephrology for further evaluation and management (6) Impaired fasting glucose: Code(s): R73.01 - Impaired fasting glucose Plan: FBS was elevated at 125 mg/dl back in March 2022; her in-office HgbA1c was at 5.9% when last checked in August 2022 Reinforced low calorie diet/exercise as tolerated Will recheck her FBS and HgbA1c [facility] for follow up (7) Renal calculi: Code(s): N20.0 - Calculus of kidney Plan: No recurrence of symptoms since May 2023 Will send her for repeat renal US for follow up She is encouraged to continue to increase her oral fluids (8) Vitamin D deficiency: Code(s): E55.9 - Vitamin D deficiency, unspecified Plan: Continue Vitamin D3 1000 units QD (9) Blurry vision, bilateral: Code(s): H53.8 - Other visual disturbances Plan: Will try sending her to a different rotary adjuster for further evaluation and management as Dr. Rolon is not able to see her until sometime late next year (10) Morbid obesity with BMI of 40.0-44.9, adult: Code(s): E66.01 - Morbid (severe) obesity due to excess calories; Z68.41 - Body mass index [BMI] 40.0-44.9, adult Plan: Reinforced diet/exercise as tolerated /lose weight Plan Follow up in 3 months Orders: Orders US renal BI 09/18/23 N17.9 - Acute kidney failure, unspecified, N20.0 - Calculus of kidney Complete Blood Count Auto Diff 3 Months D64.9 - Anemia, unspecified, I10 - Essential (primary) hypertension, N18.30 - Chronic kidney disease, stage 3 unspecified IRON PROFILE 3 Months D50.9 - Iron deficiency anemia, unspecified [facility]. Panel Fast 3 Months E78.00 - Pure hypercholesterolemia, unspecified, N18.30 - Chronic kidney disease, stage 3 unspecified Microalbumin, Random (w Creat) 3 Months E11.9 - Type 2 diabetes mellitus without complications, N18.30 - Chronic kidney disease, stage 3 unspecified UA CC w/rflx Micro + Cult 3 Months N18.30 - Chronic kidney disease, stage 3 unspecified, R30.0 - Dysuria TSH reflex Free T4 3 Months E78.00 - Pure hypercholesterolemia, unspecified, N18.30 - Chronic kidney disease, stage 3 unspecified Hemoglobin A1c 3 Months R73.01 - Impaired fasting glucose Complete Blood Count Auto Diff 09/18/23 I10 - Essential (primary) hypertension, N17.9 - Acute kidney failure, unspecified Lipid Panel 09/18/23 E78.00 - Pure hypercholesterolemia, unspecified, N17.9 - Acute kidney failure, unspecified [facility]. Panel Fast 09/18/23 E78.00 - Pure hypercholesterolemia, unspecified, N17.9 - Acute kidney failure, unspecified TSH reflex Free T4 09/18/23 E78.00 - Pure hypercholesterolemia, unspecified, N17.9 - Acute kidney failure, unspecified UA CC w/rflx Micro + Cult 09/18/23 N17.9 - Acute kidney failure, unspecified, R30.0 - Dysuria Vitamin D 25-OH Total 09/18/23 E55.9 - Vitamin D deficiency, unspecified, N17.9 - Acute kidney failure, unspecified Microalbumin, Random (w Creat) 09/18/23 E11.9 - Type 2 diabetes mellitus without complications, N17.9 - Acute kidney failure, unspecified Hemoglobin A1c 09/18/23 R73.01 - Impaired fasting glucose Lipid Panel 3 Months E78.00 - Pure hypercholesterolemia, unspecified, N18.30 - Chronic kidney disease, stage 3 unspecified Vitamin D 25-OH Total 3 Months E55.9 - Vitamin D deficiency, unspecified, N18.30 - Chronic kidney disease, stage 3 unspecified Referrals Ophthalmology Referral H53.8 - Other visual disturbances Coding Level of Care Code Est Pt Level 4 (12687) Diagnoses Benign essential hypertension I10 Bleeding hemorrhoids K64.9 Acute on chronic anemia D64.9 Mixed hyperlipidemia E78.2 Stage 3b chronic kidney disease N18.32 Chronic kidney disease stage 3 subtype: stage 3b (GFR 30-44) Impaired fasting glucose R73.01 Renal calculi N20.0 Vitamin D deficiency E55.9 Blurry vision, bilateral H53.8 Morbid obesity with BMI of 40.0-44.9, adult E66.01; Z68.41
== END 2023-09-18 15:37 | disposition home or self-care (01) ==
PROVIDERS: PCP Internal Medicine; Visit Provider Internal Medicine
DX: I12.9 Hypertensive chronic kidney disease with stage 1 through stage 4 chronic kidney disease, or unspecified chronic kidney disease (principal); N18.32 Chronic kidney disease, stage 3b; D64.9 Anemia, unspecified; K64.9 Unspecified hemorrhoids; E78.2 Mixed hyperlipidemia; R73.01 Impaired fasting glucose; N20.0 Calculus of kidney; E55.9 Vitamin D deficiency, unspecified; H53.8 Other visual disturbances
CPT/HCPCS: 99214

== ENCOUNTER 2023-09-21 09:37 | Outpatient (REF) | payer OTHER, SELFPAY ==
[2023-09-21 09:51] LABS: MANUAL DIFF FLAG NO
[2023-09-21 10:04] LABS: Basophils Percent Auto 0.5 % (0-2); Eosinophils Absolute Auto 0.2 X10*3/uL (0.0-0.4); Eosinophils Percent Auto 2.7 % (0-4); Hematocrit 33.7 % (37.0-47.0); Hemoglobin 10.5 g/dl (12.0-16.0); Imm Gran Abs Auto 0.04 X10*3/uL (0.00-0.03); Imm Gran Pct Auto 0.5 % (0.0-0.4); Lymphocytes Absolute Auto 2.3 X10*3/uL (1.2-4.9); Lymphocytes Percent Auto 26.7 % (20-40); Mean Corpuscular HGB Conc 31.2 g/dl (31.0-35.0); Mean Corpuscular Hemoglobin 27.5 pg (27.0-33.0); Mean Corpuscular Volume 88.2 fL (80.0-98.0); Mean Platelet Volume 9.5 fL (9.4-12.3); Monocytes Absolute Auto 0.7 X10*3/uL (0.1-1.2); Monocytes Percent Auto 8.4 % (2-11); Neutrophils Absolute Auto 5.2 x10*3/uL (2.0-8.3); Neutrophils Percent Auto 61.2 % (45-73); Platelet Count 236 X10*3/uL (160-400); Red Blood Count 3.82 X10*6/uL (4.20-5.50); Red Cell Distribution Width 15.4 % (11.0-16.0); White Blood Count 8.6 X10*3/uL (4.8-10.8)
[2023-09-21 10:48] LABS: Alanine Aminotransferase 17 U/L (0-31); Alkaline Phosphatase 91 U/L (39-117); Anion Gap 13 (12-20); Aspartate Amino Transferase 13 U/L (5-31); Bilirubin Total 0.2 mg/dL (0.0-1.0); Blood Urea Nitrogen 27 mg/dL (9-16); Calcium 9.3 mg/dL (8.4-10.2); Carbon Dioxide 24 mmol/L (22-29); Chloride 111 mmol/L (96-108); Cholesterol 162 mg/dL (<200); Estimated Glomerular Filt Rate 38; Glucose Fasting 108 mg/dL (60-99); HDL Cholesterol 41 mg/dL (>40); Iron 52 mcg/dL (30-160); LDL Cholesterol Calculated 74 mg/dL (<100); Percent Iron Saturation 15 % (15-50); Potassium 3.7 mmol/L (3.3-5.1); Sodium 144 mmol/L (135-145); Total Iron Binding Capacity 338 mcg/dL (228-428); Total Protein 7.5 g/dL (6.5-8.0); Triglycerides 238 mg/dL (<150); Unsaturated Iron Binding 286 ug/dL
[2023-09-21 11:07] LABS: TSH reflex Free T4 2.24 uIU/mL (0.32-4.0)
[2023-09-21 11:10] LABS: Estimated Average Glucose 128 mg/dL; Hemoglobin A1c % 6.1 % (<6.0)
[2023-09-21 11:11] LABS: Appearance Urine Cloudy; Color Urine Yellow; Glucose Urine UA Negative (Negative); Leukocyte Esterase Urine Small (1+) (Negative); Nitrite Urine Negative (Negative); PH 5.5 (5.0-9.0); UMIC TRIGGER UACC YES; Urine Blood Large (3+) (Negative); Urine Ketones Negative (Negative); Urine Protein 300 (3+) mg/dL (Neg-Trace)
[2023-09-21 11:14] LABS: Bacteria Urine 1+ (None Seen); Hyaline Casts Urine 0-2 /LPF (0-2); RBC Urine >20 /HPF (0-2); UACC Culture Trigger YES; WBC Urine 21-50 /HPF (0-5)
[2023-09-21 12:48] LABS: Creatinine Urine 125.87 mg/dL
[2023-09-21 13:15] LABS: Microalbum/Creatinine Ratio Ur 1588.9 ug/mg cr (<30); Microalbumin Urine > 2000.0 mg/L
== END 2023-09-21 09:38 | disposition home or self-care (01) ==
LOC: HO.LAB 09:37
PROVIDERS: PCP Internal Medicine; Visit Provider Internal Medicine
DX: Z00.00 Encounter for general adult medical examination without abnormal findings (principal); I10 Essential (primary) hypertension; E78.00 Pure hypercholesterolemia, unspecified; E55.9 Vitamin D deficiency, unspecified; N17.9 Acute kidney failure, unspecified; E11.9 Type 2 diabetes mellitus without complications; D50.9 Iron deficiency anemia, unspecified; R30.0 Dysuria
CPT/HCPCS: 36415; 80053; 80061; 81001; 82043; 82306; 82570; 83036; 83540; 84443; 85025; 87086; 87147

== ENCOUNTER 2023-10-07 12:48 | Outpatient (REF) | payer OTHER, SELFPAY ==
--- NOTE | ~2023-10-07 | US_ITS ---
EXAMINATION: US RETROPERITONEAL LIMITED (RENAL ONLY) CLINICAL INFORMATION: Calculus of kidney. COMPARISON: CT abdomen and pelvis without contrast 05/30/2023. TECHNIQUE: Real-time imaging of the kidneys. Limited visualization due to bowel gas. FINDINGS: RIGHT KIDNEY: 10.5 x 5.0 x 6.3 cm (SAG x AP x TRV). Jal-dn-nefzb pole 0.6 cm cortical cyst with peripheral echogenicity characteristic of calcification. No hydronephrosis. No renal calculi. Renal cortical thickness is normal. Limited visualization. LEFT KIDNEY: 10.8 x 5.3 x 5.4 cm (SAG x AP x TRV). No hydronephrosis. No renal calculi. Renal cortical thickness is normal. Limited visualization. There is a 1.2 x 0.8 x 1.1 cm upper pole cyst with benign features. There is no indication for follow-up imaging. US/US renal BI IMPRESSION: 1. Right renal 0.6 cm ubl-ho-uttfp pole cyst with peripheral calcification. 2. Left renal 1.2 cm upper pole cyst with benign features.
== END 2023-10-07 12:49 | disposition home or self-care (01) ==
LOC: HO.US 12:48
PROVIDERS: PCP Internal Medicine; Visit Provider Internal Medicine
DX: N20.0 Calculus of kidney (principal); N17.9 Acute kidney failure, unspecified
CPT/HCPCS: 76775

== ENCOUNTER 2024-01-06 11:27 | Outpatient (REF) | payer OTHER, SELFPAY | END 2024-01-06 11:28 | disposition home or self-care (01) | LOC: HO.LNP 11:27 | PROVIDERS: PCP Internal Medicine; Visit Provider Advanced Practice Midwife | DX: R10.9 Unspecified abdominal pain (principal) | CPT/HCPCS: 81003 ==

== ENCOUNTER 2024-01-06 11:27 | Outpatient (AMB) | payer OTHER, SELFPAY ==
--- NOTE | 2024-01-06 11:29 | A.OFFVIS_ITS ---
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 She is doing well with concerns: lower pelvic pain for several months, off and on, sharp and quick. No urinary symptoms, diarhea, has constipation. Hemorrhoid surgery last year, reports more constipation, stool softeners not helpful. Attempting to eat a better, no regular exercise. Currently not sexually active. Denies any vaginal dryness or irritation. STI testing offered; she declines. Last pap smear; 2021. Last mammogram; 2022. Colonoscopy is UTD. Denies any family history of breast, ovarian or colon cancer. [facility] Medical History Chronic kidney disease, stage III (moderate) Bleeding hemorrhoids Impaired fasting glucose Morbid obesity with BMI of 40.0-44.9, adult Vitamin D deficiency Mixed hyperlipidemia Benign essential hypertension Sleep apnea Anxiety and depression Hypertension Surgical History History of hemorrhoidectomy (05/08/23) History of endometrial ablation History of tubal ligation Family History Sister Cervical cancer Mother Hypertension Father History of stroke Diabetes Social History Household Members: Children Housing: Apartment Do you presently have visiting nurse or other home services: No (pt states daughter helps) Alcohol intake: current Alcohol intake frequency: a few times a month Patient Tobacco Use Status: Current someday Tobacco user Tobacco use type: Cigarette e-Cigarette/Vaping Use: Never Used Second Hand Smoke Exposure: No service: No Current occupational status: disabled Current occupational exposures/hazards: No Gender identity: Female Cognitive needs: No Hearing needs: No Vision needs: No Female Reproductive History Menstrual Age of Menarche: 15 control method: permanent sterilization Permanent Sterilization: BTL Menopause type: surgical Total pregnancies: 5 Full term: 4 Number of Living Children: 4 Date of last pap smear: 02/12/22 (neg pap and hpv) History of abnormal pap smear: Yes (04/22 ascus neg hpv) Date of Mammogram: 07/15/23 (Birad 1) Review of Systems Const All systems reviewed & are unremarkable except as noted in HPI and below Reports as per HPI Eyes Reports no additional complaints ENT Reports no additional complaints Card Reports no additional complaints Resp Reports no additional complaints GI Reports as per HPI and Reports no additional complaints Reports as per HPI Musc Reports no additional complaints Skin/Breast Reports as per HPI Neuro Reports no additional complaints Psych Reports no additional complaints Endo Reports no additional complaints Gucci/Lymph Reports no additional complaints Aller/Immun Reports no additional complaints Physical Exam Vital Signs: Last Vital Signs BP 122/78 01/06/24 11:30 BMI result Body Mass Index 44.4 Const General: cooperative, healthy appearing, no acute distress, well developed and alert Orientation/consciousness: patient oriented x3 HEENT Head: Yes normal to inspection Eyes General: appearance normal, both eyes and all related structures Neck Neck: Yes normal visual inspection Thyroid: Thyroid normal Chest Chest palpation & inspection: normal inspection of the chest and other (no puckering, dimpling, peau de orange, retraction, discharge, masses) Breast/axilla inspection: normal inspection of the breasts Breast/axilla palpation: normal palpation of the breasts Resp Effort & Inspection: normal respiratory effort GI Inspection: Yes normal to inspection and Yes obesity Palpation (GI): Soft to palpation Rectal Exam - Female: deferred General: Yes bladder normal to palpation External Female Exam: normal external appearance and normal appearance of the urethra Speculum Exam - Vagina: normal appearance of the vagina, normal palpation, normal vaginal discharge and vagina atrophic Speculum Exam - Cervix: normal appearance of the cervix and normal palpation Bimanual exam- vagina & uterus: normal bimanual exam, normal palpation, uterine size normal, bladder normal to palpation, normal palpation and non-tender Bimanual Exam- Adnexa, other: no masses Skin General skin exam: no rashes or lesions noted Rashes: no rashes Neuro General: patient oriented x3 Cognition (Neuro): normal cognition Extrem General: Yes normal to inspection Psych Attitude: cooperative Thought process: Normal thought process present Results AMB Urinalysis, Automated UA Leukoctes 0 Gianni/uL Last Edit by GELY Javier on 01/06/24 12:08 UA Nitrite Negative Last Edit by Sayra Vasquez A on 01/06/24 12:08 UA Urobilinogen 0 mg/dL Last Edit by Sayra Vasquez A on 01/06/24 12:0 8 UA Protein 3 mg/dL Last Edit by Sayra Vasquez, A on 01/06/24 12:08 UA pH 5.5 Last Edit by Sayra Vasquez A on 01/06/24 12:08 UA Blood 3 Jerman/uL Last Edit by Sayra Vasquez A on 01/06/24 12:08 UA Specific [place] 1.025 Last Edit by Sayra Vasquez Marc on 01/06/24 12:08 UA Ketone Negative Last Edit by Sayra Vasquez Marc on 01/06/24 12:08 UA Bilirubin 0 mg/dL Last Edit by Sayra Vasquez Marc on 01/06/24 12:08 UA Glucose 0 mg/dL Last Edit by Sayra Vasquez A on 01/06/24 12:08 Assessment & Plan Assessment & Plan (1) Encounter for well woman exam with routine gynecological exam: Code(s): Z01.419 - Encounter for gynecological examination (general) (routine) without abnormal findings Plan Discussed: Current recommendations for pap smears per ASCCP guidelines. Breast awareness, periodic self breast exams and yearly mammogram. Maintain a healthy lifestyle, well balanced diet including Calcium 1,200 mg and Vitamin D 600 IU daily, and routine exercise. Additionally to add more fiber into her diet and fluids mostly water. Follow-up with her primary care for constipation concerns. Use of condoms for STI if indicated. Plan of care today for pelvic ultrasound, urinalysis, GC chlamydia and BV panel. Follow-up ultrasound results in person. If any severe pain or pain that persists she should go to the emergency room for immediate evaluation. Contact the office with any postmenopausal bleeding. Patient verbalizes understanding and agrees to the plan of care. She was given opportunity to ask questions and all questions were answered to the best of my ability. 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 This note is constructed using voice recognition software. While every effort has been made to ensure accuracy, hand miter operator errors may have been included. Orders: Orders US pelvic and transvaginal Today R10.2 - Pelvic and perineal pain AMB Urinalysis Automated Today R10.2 - Pelvic and perineal pain CT NG by PCR Today R10.2 - Pelvic and perineal pain Urine Culture Today R10.2 - Pelvic and perineal pain, R31.9 - Hematuria, unspecified Bacterial Vaginosis Panel Today R10.2 - Pelvic and perineal pain Coding Level of Care Code Est Pt Prev Care 40-64y(43018) Diagnoses Encounter for well woman exam with routine gynecological exam Z01.419
[2024-01-06 11:30] VITALS: BP 122/78; BMI 44.4
== END 2024-01-06 12:46 | disposition home or self-care (01) ==
LOC: HO.HWS 11:27
PROVIDERS: PCP Internal Medicine; Visit Provider Advanced Practice Midwife
DX: Z01.419 Encounter for gynecological examination (general) (routine) without abnormal findings (principal); R10.2 Pelvic and perineal pain
CPT/HCPCS: 99396

== ENCOUNTER 2024-01-06 11:57 | Outpatient (REF) | payer OTHER, SELFPAY ==
[2024-01-06 18:33] LABS: CT PCR NOT DETECTED (Not Detect.); NG PCR NOT DETECTED (Not Detect.)
[2024-01-07 11:31] LABS: BV Int Neg Control Negative (Negative); BV Int Pos Control Positive (Positive)
== END 2024-01-06 11:58 | disposition home or self-care (01) ==
LOC: HO.LAB 11:57
PROVIDERS: Visit Provider Advanced Practice Midwife
DX: R10.2 Pelvic and perineal pain (principal); R31.9 Hematuria, unspecified
CPT/HCPCS: 0353U; 87086; 87147; 87480; 87510; 87660

== ENCOUNTER 2024-01-18 15:57 | Outpatient (REF) | payer OTHER, SELFPAY ==
--- NOTE | ~2024-01-18 | US_ITS ---
EXAMINATION: US PELVIS CLINICAL INFORMATION: Pelvic and perineal pain COMPARISON: Previous pelvic ultrasound January [address] January 2023 TECHNIQUE: Ultrasound of the pelvis is performed using both transabdominal and transvaginal transducers along with Doppler. Transvaginal imaging is performed due to inadequate visualization transabdominally. FINDINGS: The uterus is anteverted and measures 8.3 x 3.4 x 3.8 cm in dimension. Uterine echotexture is heterogeneous. No focal uterine lesion is seen. Endometrial thickness is normal measuring 0.4 cm. There are nabothian cysts in the cervix. The right ovary is not seen. The left ovary is normal-appearing and measures 1.6 x 1.1 x 0.9 cm. There is no fluid in the pelvis. US/US pelvic and transvaginal IMPRESSION: Heterogeneous uterus. Right ovary not seen. Normal-appearing left ovary.
== END 2024-01-18 15:58 | disposition home or self-care (01) ==
LOC: HO.US 15:57
PROVIDERS: PCP Internal Medicine; Visit Provider Advanced Practice Midwife
DX: R10.2 Pelvic and perineal pain (principal)
CPT/HCPCS: 76830; 76856

== ENCOUNTER 2024-04-07 12:46 | Outpatient (AMB) | payer OTHER, SELFPAY ==
--- NOTE | 2024-04-07 12:50 | A.OFFVIS_ITS ---
Vital Signs 04/07/24 12:54 Height 5 ft 6 in Weight 272 lb 4 oz BMI 43.9 BP 142/88 H Blood Pressure Location Lt radial Position Sitting Intake Visit Reasons: Ultra sound follow up Hot Pipe Gauger: Hot Pipe Gauger Present Allergies No Known Allergies Allergy (Verified 01/06/24 11:30) Is last menstrual period known: No Post menopausal: No Patient : No HPI Comments Details: Patient is here today for a follow up pelvic ultrasound with a history of pelvic pain at our last visit. Her cervical cultures were all negative. She admits to still having low abdominal cramping at times. She admits to history of constipation with hard stool painful to pass. She reports hydrating well but often feels tired she sleeps in late but goes to bed late. Currently not exercising. And she has products at home to take to increase her fiber. [facility] Medical History Chronic kidney disease, stage III (moderate) Bleeding hemorrhoids Impaired fasting glucose Morbid obesity with BMI of 40.0-44.9, adult Vitamin D deficiency Mixed hyperlipidemia Benign essential hypertension Sleep apnea Anxiety and depression Hypertension Surgical History History of hemorrhoidectomy (05/08/23) History of endometrial ablation History of tubal ligation Family History Sister Cervical cancer Mother Hypertension Father History of stroke Diabetes Social History Household Members: Children Housing: Apartment Do you presently have visiting nurse or other home services: No (pt states daughter helps) Alcohol intake: current Alcohol intake frequency: a few times a month Patient Tobacco Use Status: Current someday Tobacco user Tobacco use type: Cigarette e-Cigarette/Vaping Use: Never Used Second Hand Smoke Exposure: No service: No Current occupational status: disabled Current occupational exposures/hazards: No Gender identity: Female Cognitive needs: No Hearing needs: No Vision needs: No Female Reproductive History Menstrual Age of Menarche: 15 Review of Systems Const All systems reviewed & are unremarkable except as noted in HPI and below Endo Reports no additional complaints Physical Exam Vital Signs: Last Vital Signs BP 142/88 H 04/07/24 12:54 BMI result Body Mass Index 43.9 Const General: cooperative, healthy appearing and no acute distress Psych Appearance: well kempt Attitude: cooperative Thought process: Normal thought process present Results Reviewed Results Reviewed: [address] [address] Ultrasound Report Signed Patient: Faustina Ansari I MR#: [id number] : 1970 Acct:[id number] Age/Sex: 53 / F ADM Date: 01/18/24 Loc: HO.US Attending Dr: Caroline Devlin CNM Ordering Physician: Caroline Devlin CNM Date of Service: 01/18/24 Procedure(s): US pelvic and transvaginal Accession Number(s): [id number] cc: Taran Hood MD; Caroline Devlin CNM~ EXAMINATION: US PELVIS CLINICAL INFORMATION: Pelvic and perineal pain COMPARISON: Previous pelvic ultrasound January [address] January 2023 TECHNIQUE: Ultrasound of the pelvis is performed using both transabdominal and transvaginal transducers along with Doppler. Transvaginal imaging is performed due to inadequate visualization transabdominally. FINDINGS: The uterus is anteverted and measures 8.3 x 3.4 x 3.8 cm in dimension. Uterine echotexture is heterogeneous. No focal uterine lesion is seen. Endometrial thickness is normal measuring 0.4 cm. There are nabothian cysts in the cervix. The right ovary is not seen. The left ovary is normal-appearing and measures 1.6 x 1.1 x 0.9 cm. There is no fluid in the pelvis. US/US pelvic and transvaginal IMPRESSION: Heterogeneous uterus. Right ovary not seen. Normal-appearing left ovary. Dictated By: Bobbi Florian MD Signed By: <Electronically signed by Bobbi Florian MD in OV> 01/20/24 0935 DD/ 1618 TD/TT: Deputy Jailer: TATI Assessment & Plan Assessment & Plan (1) Encounter to discuss test results: Code(s): Z71.2 - Person consulting for explanation of examination or test findings Plan Discussed: Ultrasound findings were within normal limits with 1 ovary not seen, reassured her that it often happens due to gas and bowel. If she does have any pain on that right side she should report to the office along with any postmenopausal bleeding for immediate evaluation. Strongly encouraged her to daily exercise in the a.m., increase her fluid intake 10 glasses of water 8 oz each a day at least, increase fiber with her diet and take a an extra [id number] products if needed per review of her primary care for any specific instructions. Report to her primary care her concerns of her constipation for review at her next visit in 04/30/2024. All of her questions and concerns were addressed to the best of my ability and shared decision making. She is agreeable to the plan of care. She has her annual scheduled for January of 2025. This note is constructed using voice recognition software. While every effort has been made to ensure accuracy, dry food products mixer errors may have been included. Medications: Refilled tamsulosin (Flomax) 0.4 mg PO DAILY 7 caps 0RF Coding Level of Care Code Est Pt Level 3 (64964) Diagnoses Encounter to discuss test results Z71.2
[2024-04-07 12:54] VITALS: BP 142/88; BMI 43.9
== END 2024-04-07 13:31 | disposition home or self-care (01) ==
LOC: HO.HWS 12:46
PROVIDERS: PCP Internal Medicine; Visit Provider Advanced Practice Midwife
DX: Z71.2 Person consulting for explanation of examination or test findings (principal)
CPT/HCPCS: 99213

== ENCOUNTER → 2024-04-07 12:46 | Outpatient (BNVA) | payer OTHER, SELFPAY | PROVIDERS: PCP Internal Medicine; Visit Provider Advanced Practice Midwife | DX: Z71.2 Person consulting for explanation of examination or test findings (principal) | CPT/HCPCS: 99212 ==

== ENCOUNTER 2024-05-10 13:36 | Outpatient (AMB) | payer OTHER, SELFPAY ==
[2024-05-10 13:41] VITALS: BP 142/80; PULSE 81; O2SAT 98; BMI 44.1
--- NOTE | 2024-05-10 13:41 | MHC.PC.OV ---
Vital Signs 05/10/24 13:41 Height 5 ft 6 in Weight 273 lb BMI 44.1 BP 142/80 H Blood Pressure Location Lt brachial Position Sitting Pulse 81 Pulse Source Pulse Oximeter Pulse Oximetry (%) 98 Oxygen Delivery Method Room Air Intake Visit Reasons: annual exam Allergies No Known Allergies Allergy (Verified 05/10/24 14:33) Medication List - Last Reconciled 05/10/24 by Taran Hood MD amlodipine 10 mg PO DAILY 90 days blood pressure monitor (Blood Pressure Kit) As directed cholecalciferol (vitamin D3) 50 mcg PO DAILY 90 days [INCONTINENCE PADS As directed] losartan 100 mg PO DAILY 90 days multivitamin 1 tab PO DAILY omeprazole 40 mg PO DAILY phenyleph-min oil-petrolatum 0.25-14-74.9 % (Preparation H) 1 appl AK BID PRN polyethylene glycol 3350 (Miralax) 17 grams PO DAILY 30 days sennosides (Senna Laxative) 8.6 mg PO BEDTIME PRN 90 days tamsulosin (Flomax) 0.4 mg PO DAILY Tobacco use date assessed: 05/10/24 Dental Screening Dental Screen Date: 05/10/24 Did you have a dental visit in the last 12 months?: No Did you have a dental problem in the last 6 months where you did not have access to dental care?: No Was dental information given to patient?: Patient has dentist HPI annual exam HPI Details Patient comes in today for her annual physical examination States that she feels okay She denies any headaches or dizziness Denies any chest pains, no SOB No nausea/vomiting, no abdominal pain States that she is still experiencing frequent constipation - she has been taking some OTC stool softeners for a while now but feels that they do not really help She denies any acute urinary symptoms Patient adds that she stopped taking her iron supplements a while back as they were making her very constipated She had her screening colonoscopy done last year on 03/17/2023 - was recommended to get repeat colonoscopy in 5 to 7 years She is scheduled for her annual mammogram in July 2024 and for her annual gynecology exam and pap smear on 01/10/2025 Adds that she has several skin tags around her neck and shoulder areas and she would like to have them removed if possible [facility] Medical History Chronic kidney disease, stage III (moderate) Bleeding hemorrhoids Impaired fasting glucose Morbid obesity with BMI of 40.0-44.9, adult Vitamin D deficiency Mixed hyperlipidemia Benign essential hypertension Sleep apnea Anxiety and depression Hypertension Surgical History History of hemorrhoidectomy (05/08/23) History of endometrial ablation History of tubal ligation Family History Sister Cervical cancer Mother Hypertension Father History of stroke Diabetes Social History Household Members: Children Housing: Apartment Do you presently have visiting nurse or other home services: No (pt states daughter helps) Alcohol intake: current Alcohol intake frequency: a few times a month Patient Tobacco Use Status: Current someday Tobacco user Tobacco use type: Cigarette Cigarettes Per Day: 10 e-Cigarette/Vaping Use: Never Used Second Hand Smoke Exposure: No service: No Current occupational status: disabled Current occupational exposures/hazards: No Gender identity: Female Cognitive needs: No Hearing needs: No Vision needs: Yes Female Reproductive History Menstrual Age of Menarche: 15 Questionnaire PHQ-9 Over the last 2 weeks, how often have you been bothered by any of the following problems? 1. Little interest or pleasure in doing things: more than half the days 2. Feeling down, depressed, or hopeless: more than half the days 3. Trouble falling or staying asleep, or sleeping too much: more than half the days 4. Feeling tired or having little energy: nearly every day 5. Poor appetite or overeating: several days 6. Feeling bad about yourself - or that you are a failure or have let yourself or your family down: several days 7. Trouble concentrating on things, such as reading the newspaper or watching television: not at all 8. Moving or speaking so slowly that other people could have noticed. Or the opposite - being so fidgety or restless that you have been moving around a lot more than usual: not at all 9. Thoughts that you would be better off or of hurting yourself in some way: not at all Total score: 11 Depression Screening Interpretation: Positive Depression Screening Follow-up: Existing condition Depression Screening Done: Yes 74361 - PHQ-9 Billing: Yes Source: Developed by Drs. Lucas Hi, Zahira Keith, Derrick Abarca and colleagues, with an educational dwayne from [employer]. Thrive Questionnaire Date Thrive assessed: 05/10/24 I am a: Patient What is your living situation today?: I have a steady place to live Within the past 12 months, did the food you bought not last and you didn't have the money to get more?: Never true Within the past 12 months, did you worry whether your food would run out before you got money to buy more?: Never true Do you have trouble paying for medicines?: No Do you have trouble getting transportation to medical appointments?: No Do you have trouble paying your heating and electricity bill?: No Do you have trouble taking care of your child, family member or friend?: No Do you have trouble with day-to-day activities such as bathing, preparing meals, shopping, managing finances, etc.?: No Are you currently unemployed and looking for a job?: No Are you interested in more education?: No Please select the resources that you would like help with: None Currently or been in a relationship where the following occur: No concerns reported THRIVE Score: 0 AUDIT C Alcohol Use Questionnaire (AUDIT-C) 1. How often do you have a drink containing alcohol?: 2-3 times a week 2. How many drinks containing alcohol do you have on a typical day when you are drinking?: 3 or 4 3. How often do you have six or more drinks on one occasion?: Never Total Score: 4 Score Reviewed/Action Taken: Yes MILEY-7 AMB Questionnaire MILEY-7 Date MILEY - 7 assessed: 05/10/24 Feeling nervous, anxious, or on edge: 1 = Several days Not being able to stop or control worryin = Several days Worrying too much about different things: 1 = Several days Trouble relaxin = Several days Being so restless that it is hard to sit still: 0 = Not at all Becoming easily annoyed or irritable: 1 = Several days Feeling afraid as if something awful might happen: 1 = Several days Total MILEY-7 score (0-4 normal; 5-9 mild; 10-14 moderate; 15-21 severe): 6 Source: Developed by Drs. Lucas Hi, Zahira Keith, Derrick Abarca and colleagues, with an educational dwayne from [employer]. Review of Systems Const Denies chills, Denies fatigue, Denies fever(s), Denies headache(s) and Denies malaise Eyes Denies blurry vision, Denies change in vision, Denies irritation and Denies itchy eyes ENT Denies dysphagia, Denies dizziness, Denies otalgia, Denies headache(s), Denies nasal congestion, Denies neck pain, Denies odynophagia, Denies sinus pain and Denies sore throat Card Denies chest pain, Denies rapid heart rate, Denies irregular heart rhythm, Denies palpitations and Denies dyspnea Resp Denies chest congestion, Denies cough, Denies dyspnea and Denies wheezing GI Denies abdominal pain, Denies bloating, Reports constipation (frequent), Denies dysphagia, Denies heartburn, Denies diarrhea, Denies nausea, Denies odynophagia and Denies vomiting Denies hematuria, Denies urinary frequency, Denies dysuria, Denies urinary incontinence and Denies urinary urgency Musc Denies back pain, Denies arthralgias, Denies joint swelling, Denies muscle weakness and Denies neck pain Skin/Breast Details: (+) multiple skin tags around the neck and shoulder areas Denies breast pain, Denies breast mass, Denies change in pigmentation, Denies rash and Denies unusual bruising Neuro Denies dizziness, Denies headache(s) and Denies paresthesias Psych Denies anxiety and Denies depression Endo Denies fatigue and Denies palpitations Gucci/Lymph Denies easy bruising Aller/Immun Denies itchy eyes and Denies wheezing Physical exam (Primary Care) Vital Signs: Last Vital Signs Pulse 81 05/10/24 13:41 BP 142/80 H 05/10/24 13:41 Pulse Ox 98 05/10/24 13:41 Oxygen Delivery Method Room Air 05/10/24 13:41 BMI result Body Mass Index 44.1 Tobacco/Smoking Status: Tobacco use Status Tobacco use date assessed 05/10/24 05/10/24 13:43 Patient Tobacco Use Status Current someday Tobacco 05/10/24 13:50 Tobacco use type Cigarette 05/10/24 13:43 e-Cigarette/Vaping Use Never Used 05/10/24 13:43 PHQ-9: PHQ-9 Score PHQ-9: Total score 11 05/10/24 14:28 Depression Screening Interpretation: Positive Depression Screening Follow-up: Existing condition Thrive Assessment: Date of Thrive Assessment Date Thrive assessed 05/10/24 05/10/24 13:43 Currently or been in a relationship where the following occur: No concerns reported Const General: no acute distress, alert and awake Orientation/consciousness: patient oriented x3 HENMT Head: Yes normocephalic and Yes atraumatic Ears: external ears normal, TM's normal bilaterally and EAC's normal General nose exam: No nasal discharge present Face and sinus: Yes normal facial exam and Yes sinuses nontender Teeth and gingiva: dentition normal Throat: Yes posterior oropharynx normal and Yes tonsils normal (no TP congestion) Eyes Eyelids: Yes eyelids normal Conjunctivae: conjunctivae normal Pupils: Equal, round and reactive pupils present EOM: EOMs intact bilaterally Neck Neck: Yes no lymphadenopathy and Yes supple Thyroid: Thyroid normal Resp Auscultation: clear to auscultation bilaterally, no rales and no wheezes Cardio Rate: regular rate Rhythm: regular rhythm Heart sounds: no murmurs GI Palpation (GI): Soft to palpation, nontender and No hepatosplenomegaly present Auscultation: normal bowel sounds General: Yes no CVA tenderness Back/Spine/Pelvis Back: no CVA tenderness Thoracic/Lumbar Spine: thoracic and lumbar spine normal to inspection Skin Other: (+) multiple skin tags around the neck and over her shoulder areas Rashes: no rashes Neuro General: patient oriented x3, moves all extremities, no focal motor deficits and CN's II-XI intact bilaterally Cranial nerves: Yes Equal, round and reactive pupils present Cognition (Neuro): normal cognition Gait exam (Neuro): Normal gait present Extrem General: Yes no clubbing, cyanosis or edema Assessment and Plan Assessment & Plan (1) Annual physical exam: Code(s): Z00.00 - Encounter for general adult medical examination without abnormal findings Plan: Check labs She is up-to-date with all of her cancer screenings (2) Benign essential hypertension: Code(s): I10 - Essential (primary) hypertension Plan: Reinforced low-sodium diet - goal is systolic BP of 120 to 130 mm or less Continue Losartan 100 mg QD and Amlodipine 10 mg QD (3) Acute on chronic anemia: Code(s): D64.9 - Anemia, unspecified Plan: Improving; her anemia was previously made worse by her recurrent hematochezia due to her bleeding hemorrhoids, which have since been surgically addressed, and she has not needed any blood transfusions since Her H/H was most recently at 10.5/33.7 on 09/21/23 Continue Ferrous Sulfate 325 mg QD Will recheck her CBC LETICIA for follow up (4) Mixed hyperlipidemia: Code(s): E78.2 - Mixed hyperlipidemia Plan: Reinforced low-cholesterol diet Serum triglyceride level was elevated at 238 mg/dl on her labs done back 0n 09/21/2023; her total and LDL cholesterol levels were normal Will have her go get her labs, including her fasting lipid profile, checked LETICIA for follow up (5) Chronic kidney disease, stage III (moderate): Code(s): N18.30 - Chronic kidney disease, stage 3 unspecified Qualifiers: Chronic kidney disease stage 3 subtype: stage 3b (GFR 30-44) Qualified Code(s): N18.32 - Chronic kidney disease, stage 3b Plan: Her renal function declined significantly when her labs were last checked in May 2023 at the ER when she presented there with kidney stones - she was actually in stage 4 based on her labs then Her repeat labs done in September 2023 showed that renal function appears to have returned to her baseline, which is stage III CKD She is again cautioned to completely avoid taking any NSAIDs (OTC and Rx alike) for any reason so as not to further compromise her renal function Renal US done in September 2023 revealed normal kidneys bilaterally, with (+) right renal 0.6 cm emi-lj-vivst pole cyst with peripheral calcification and left renal 1.2 cm upper pole cyst with benign features (6) Impaired fasting glucose: Code(s): R73.01 - Impaired fasting glucose Plan: FBS was slightly elevated at 108 mg/dl back and HgbA1c was at 6.1% on her labs done back in September 2023; her in-office HgbA1c was at 5.9% when last checked in August 2022 Reinforced low calorie diet/exercise as tolerated Will recheck her FBS and HgbA1c LETICIA for follow up (7) Chronic constipation: Code(s): K59.09 - Other constipation Plan: She is encouraged to increase her oral fluids and dietary fiber intake Will start her back on Miralax 17 gm QD and Senna 8.6 mg QD PRN (8) Renal calculi: Code(s): N20.0 - Calculus of kidney Plan: No recurrence of symptoms since May 2023 Repeat renal US done in September 2023 revealed normal kidneys bilaterally, with (+) right renal 0.6 cm [id number] pole cyst with peripheral calcification and left renal 1.2 cm upper pole cyst with benign features She is encouraged to continue to increase her oral fluids (9) Multiple acquired skin tags: Code(s): L91.8 - Other hypertrophic disorders of the skin Plan: Will refer her to dermatology for further evaluation and management, and for consideration for excision of the skin tags around her neck (10) Vitamin D deficiency: Code(s): E55.9 - Vitamin D deficiency, unspecified Plan: Will start her back on Vitamin D3 2000 units QD (11) Morbid obesity with BMI of 40.0-44.9, adult: Code(s): E66.01 - Morbid (severe) obesity due to excess calories; Z68.41 - Body mass index [BMI] 40.0-44.9, adult Plan: Reinforced diet/exercise as tolerated /lose weight Plan Follow up in 3 months Orders: Orders Comprehensive [place]. Panel Fast 05/10/24 E78.00 - Pure hypercholesterolemia, unspecified, Z00.00 - Encounter for general adult medical examination without abnormal findings IRON PROFILE 05/10/24 D50.9 - Iron deficiency anemia, unspecified, Z00.00 - Encounter for general adult medical examination without abnormal findings Hemoglobin A1c 05/10/24 E11.9 - Type 2 diabetes mellitus without complications, Z00.00 - Encounter for general adult medical examination without abnormal findings Complete Blood Count Auto Diff 05/10/24 D64.9 - Anemia, unspecified, Z00.00 - Encounter for general adult medical examination without abnormal findings Lipid Panel 05/10/24 E78.00 - Pure hypercholesterolemia, unspecified, Z00.00 - Encounter for general adult medical examination without abnormal findings UA CC w/rflx Micro + Cult 05/10/24 R30.0 - Dysuria, Z00.00 - Encounter for general adult medical examination without abnormal findings TSH reflex Free T4 05/10/24 E78.00 - Pure hypercholesterolemia, unspecified, Z00.00 - Encounter for general adult medical examination without abnormal findings Vitamin D 25-OH Total 05/10/24 E55.9 - Vitamin D deficiency, unspecified, Z00.00 - Encounter for general adult medical examination without abnormal findings Referrals Dermatology Referral L91.8 - Other hypertrophic disorders of the skin Medications: New cholecalciferol (vitamin D3) 50 mcg PO DAILY 90 days 90 caps 3RF E55.9 - Vitamin D deficiency, unspecified polyethylene glycol 3350 (Miralax) 17 grams PO DAILY 30 days 510 grams 12RF constipation sennosides (Senna Laxative) 8.6 mg PO BEDTIME 90 days PRN 90 tabs 3RF constipation Coding Level of Care Code Est Pt Prev Care 40-64y(28083) Diagnoses Annual physical exam Z00.00 Benign essential hypertension I10 Acute on chronic anemia D64.9 Mixed hyperlipidemia E78.2 Stage 3b chronic kidney disease N18.32 Chronic kidney disease stage 3 subtype: stage 3b (GFR 30-44) Impaired fasting glucose R73.01 Chronic constipation K59.09 Renal calculi N20.0 Multiple acquired skin tags L91.8 Vitamin D deficiency E55.9 Morbid obesity with BMI of 40.0-44.9, adult E66.01; Z68.41
== END 2024-05-10 14:35 | disposition home or self-care (01) ==
PROVIDERS: PCP Internal Medicine; Visit Provider Internal Medicine
DX: Z00.00 Encounter for general adult medical examination without abnormal findings (principal); I12.9 Hypertensive chronic kidney disease with stage 1 through stage 4 chronic kidney disease, or unspecified chronic kidney disease; N18.32 Chronic kidney disease, stage 3b; D64.9 Anemia, unspecified; E78.2 Mixed hyperlipidemia; R73.01 Impaired fasting glucose; K59.09 Other constipation; N20.0 Calculus of kidney; L91.8 Other hypertrophic disorders of the skin; E55.9 Vitamin D deficiency, unspecified; E66.01 Morbid (severe) obesity due to excess calories; Z68.41 Body mass index [BMI] 40.0-44.9, adult
CPT/HCPCS: 99396

== ENCOUNTER 2024-05-16 11:46 | Outpatient (REF) | payer OTHER, SELFPAY ==
[2024-05-16 12:12] LABS: MANUAL DIFF FLAG NO
[2024-05-16 12:53] LABS: Basophils Absolute Auto 0.1 X10*3/uL (0.0-0.2); Basophils Percent Auto 0.5 % (0-2); Eosinophils Absolute Auto 0.3 X10*3/uL (0.0-0.4); Eosinophils Percent Auto 2.7 % (0-4); Hematocrit 31.5 % (37.0-47.0); Hemoglobin 10.1 g/dl (12.0-16.0); Imm Gran Abs Auto 0.08 X10*3/uL (0.00-0.03); Imm Gran Pct Auto 0.8 % (0.0-0.4); Lymphocytes Absolute Auto 2.2 X10*3/uL (1.2-4.9); Lymphocytes Percent Auto 22.7 % (20-40); Mean Corpuscular HGB Conc 32.1 g/dl (31.0-35.0); Mean Corpuscular Hemoglobin 28.4 pg (27.0-33.0); Mean Corpuscular Volume 88.5 fL (80.0-98.0); Mean Platelet Volume 9.9 fL (9.4-12.3); Monocytes Absolute Auto 0.7 X10*3/uL (0.1-1.2); Monocytes Percent Auto 6.9 % (2-11); Neutrophils Absolute Auto 6.4 x10*3/uL (2.0-8.3); Neutrophils Percent Auto 66.4 % (45-73); Platelet Count 246 X10*3/uL (160-400); Red Blood Count 3.56 X10*6/uL (4.20-5.50); Red Cell Distribution Width 14.2 % (11.0-16.0); White Blood Count 9.6 X10*3/uL (4.8-10.8)
[2024-05-16 12:55] LABS: Appearance Urine Cloudy; Color Urine Yellow; Glucose Urine UA Negative (Negative); Leukocyte Esterase Urine Moderate (2+) (Negative); Nitrite Urine Negative (Negative); PH 5.5 (5.0-9.0); Specific Gravity - Urine 1.015 (1.005-1.025); UMIC TRIGGER UACC YES; Urine Blood Negative (Negative); Urine Ketones Negative (Negative); Urine Protein 100 (2+) mg/dL (Neg-Trace)
[2024-05-16 12:59] LABS: Bacteria Urine 2+ (None Seen); RBC Urine 0-2 /HPF (0-2); UACC Culture Trigger YES; WBC Urine 21-50 /HPF (0-5)
[2024-05-16 13:23] LABS: Estimated Average Glucose 128 mg/dL; Hemoglobin A1c % 6.1 % (<6.0)
[2024-05-16 13:53] LABS: Alanine Aminotransferase 13 U/L (0-31); Albumin Level 4.1 g/dL (3.5-5.0); Alkaline Phosphatase 89 U/L (39-117); Anion Gap 13 (12-20); Aspartate Amino Transferase 13 U/L (5-31); Bilirubin Total 0.2 mg/dL (0.0-1.0); Blood Urea Nitrogen 45 mg/dL (9-16); Calcium 8.6 mg/dL (8.4-10.2); Carbon Dioxide 18 mmol/L (22-29); Chloride 113 mmol/L (96-108); Cholesterol 149 mg/dL (<200); Estimated Glomerular Filt Rate 33; Glucose Fasting 121 mg/dL (60-99); HDL Cholesterol 39 mg/dL (>40); Iron 62 mcg/dL (30-160); LDL Cholesterol Calculated 53 mg/dL (<100); Percent Iron Saturation 19 % (15-50); Potassium 3.8 mmol/L (3.3-5.1); Sodium 140 mmol/L (135-145); Total Iron Binding Capacity 322 mcg/dL (228-428); Total Protein 7.4 g/dL (6.5-8.0); Triglycerides 285 mg/dL (<150); Unsaturated Iron Binding 260 ug/dL
[2024-05-16 13:55] LABS: Creatinine Urine 122.15 mg/dL; Microalbum/Creatinine Ratio Ur 685.2 ug/mg cr (<30)
[2024-05-16 14:12] LABS: TSH reflex Free T4 1.61 uIU/mL (0.32-4.0); Vitamin D 25-OH Total 18.6 ng/mL (>30)
== END 2024-05-16 11:47 | disposition home or self-care (01) ==
LOC: HO.LAB 11:46
PROVIDERS: PCP Internal Medicine; Visit Provider Internal Medicine
DX: Z00.00 Encounter for general adult medical examination without abnormal findings (principal); E78.00 Pure hypercholesterolemia, unspecified; I12.9 Hypertensive chronic kidney disease with stage 1 through stage 4 chronic kidney disease, or unspecified chronic kidney disease; N18.30 Chronic kidney disease, stage 3 unspecified; D50.9 Iron deficiency anemia, unspecified; E11.22 Type 2 diabetes mellitus with diabetic chronic kidney disease; E55.9 Vitamin D deficiency, unspecified; R30.0 Dysuria; R82.79 Other abnormal findings on microbiological examination of urine
CPT/HCPCS: 36415; 80053; 80061; 81001; 82043; 82306; 82570; 83036; 83540; 84443; 85025; 87086; 87147

== ENCOUNTER → 2024-07-14 11:53 | Outpatient (BNVA) | payer OTHER, SELFPAY | PROVIDERS: PCP Internal Medicine ==

== ENCOUNTER 2024-08-18 14:36 | Outpatient (REF) | payer OTHER, SELFPAY ==
--- NOTE | ~2024-08-18 | MM_ITS ---
EXAMINATION: MM SCREENING DIGITAL BREAST TOMOSYNTHESIS, BILATERAL CLINICAL INFORMATION: Screening. Asymptomatic. COMPARISON: Mammography: Comparison is made with available priors TECHNIQUE: Digital breast mammography with tomosynthesis is performed in both the craniocaudal and mediolateral oblique views along with computer-aided detection (CAD). FINDINGS: There are scattered areas of fibroglandular density (ACR BI-RADS breast composition Category b). There are no significant masses, abnormal calcifications, or other abnormalities. MM/MM tomosynthesis screening BI IMPRESSION: No mammographic evidence of malignancy. ASSESSMENT: BI-RADS BI-RADS 1 - Negative RECOMMENDATION: Routine annual mammography screening. 1 year F/U This examination should not preclude the clinical evaluation of a suspicious palpable abnormality. This patient's information was entered into a reminder system with a target due date for their next mammogram. Electronically signed by: Karie Sweet DO 08/26/2024 04:08 PM ABHIJIT
== END 2024-08-18 14:37 | disposition home or self-care (01) ==
LOC: HO.MAMMO 14:36
PROVIDERS: PCP Internal Medicine; Visit Provider Internal Medicine
DX: Z12.31 Encounter for screening mammogram for malignant neoplasm of breast (principal)
CPT/HCPCS: 77063; 77067

== ENCOUNTER → 2024-08-18 14:45 | Outpatient (BNV) | payer OTHER, SELFPAY | PROVIDERS: PCP Internal Medicine; Visit Provider Internal Medicine | DX: Z12.31 Encounter for screening mammogram for malignant neoplasm of breast (principal) | CPT/HCPCS: 77063; 77067 ==

== ENCOUNTER 2024-12-29 08:28 | Inpatient (IN) | payer OTHER, SELFPAY ==
[2024-12-29] VITALS (12 sets, daily range): BP systolic 129–177; BP diastolic 60–88; PULSE 67–90; RESP 16–20; TEMP 36.3–37.2; O2SAT 92–99; BMI 42.1
--- NOTE | ~2024-12-29 | CT_ITS ---
EXAMINATION: CT ABDOMEN PELVIS WITHOUT IV CONTRAST HISTORY: L flank pain, acute kidney injury hx of stones COMPARISON: Comparison is made with the prior examination dated 05/30/2023. TECHNIQUE: CT scan of the abdomen and pelvis was performed without contrast using standard departmental protocol. Coronal and sagittal reformatted images were generated and reviewed. Oral contrast material was not administered per department protocol. This CT exam was performed with one or more of the following dose reduction techniques: automated exposure control, adjustment of the mA and/or kV according to patient size, use of iterative reconstruction technique. DLP: 891 mGy-cm FINDINGS: LOWER CHEST: The visualized lung bases are clear. There is no pleural effusion. CARDIOVASCULATURE: The heart is normal in size. There is no pericardial effusion. LIVER: The liver is normal in size and contour. The liver demonstrates diffusely decreased attenuation, consistent with steatosis. There is focal fatty sparing adjacent to the gallbladder. GALLBLADDER / BILE DUCTS: There is cholelithiasis. There is no intra or extrahepatic biliary ductal dilatation. SPLEEN: The spleen is normal in size and has an unremarkable unenhanced appearance. PANCREAS: The pancreas has an unremarkable unenhanced appearance. ADRENAL GLANDS: Unremarkable. KIDNEYS/RETROPERITONEUM: The right kidney demonstrates a lobulated contour compatible with scarring. No renal calculi are identified. There is moderate left hydronephrosis secondary to a 10 mm UPJ calculus. The distal ureters are collapsed. LYMPH NODES: No retroperitoneal lymphadenopathy is identified in the abdomen or pelvis. VASCULATURE: The abdominal aorta demonstrates atherosclerotic calcification, but is normal in caliber. MESENTERY/PERITONEUM: No free fluid. No masses. There is no free intraperitoneal gas. STOMACH: The stomach is collapsed, limiting evaluation. SMALL BOWEL: The small bowel is normal in caliber. COLON: The colon is unremarkable. APPENDIX: Normal. URINARY BLADDER/PELVIC ORGANS: The urinary bladder is unremarkable. The uterus and ovaries have an unremarkable unenhanced appearance. BONES / SOFT TISSUES: No suspicious bony or soft tissue abnormalities. CT/CT abdomen pelvis wo IV con IMPRESSION: 1. Moderate left hydronephrosis secondary to a 10 mm UPJ calculus. 2. Hepatic steatosis. Cholelithiasis. Electronically signed by: Lucas Guajardo MD 12/29/2024 11:02 AM EDT RP
--- NOTE | ~2024-12-29 | FL_ITS ---
EXAMINATION: FL GUIDANCE ONLY HISTORY: stent left COMPARISON: Correlation is made with an unenhanced CT of the abdomen and pelvis dated 12/29/2024. TECHNIQUE: Fluoroscopy time: 11.9 seconds. Cumulative Dose: 8.26 mGy. Images: 4. FINDINGS: Images demonstrate opacification of the left ureter. A filling defect is seen in the proximal ureter with a meniscus, consistent with the calculus noted on CT. Final images demonstrate a nephroureteral stent in place. FL/FL guidance in OR IMPRESSION: Fluoroscopy during procedure. Please see procedure report for additional information. Electronically signed by: Lucas Guajardo MD 12/30/2024 06:59 AM EDT
[2024-12-29 09:06] LABS: MANUAL DIFF FLAG NO
[2024-12-29 09:09] LABS: Basophils Percent Auto 0.4 % (0-2); Eosinophils Absolute Auto 0.1 X10*3/uL (0.0-0.4); Eosinophils Percent Auto 0.8 % (0-4); Hematocrit 30.7 % (37.0-47.0); Hemoglobin 10.4 g/dl (12.0-16.0); Imm Gran Abs Auto 0.06 X10*3/uL (0.00-0.03); Imm Gran Pct Auto 0.5 % (0.0-0.4); Lymphocytes Absolute Auto 1.9 X10*3/uL (1.2-4.9); Lymphocytes Percent Auto 16.5 % (20-40); Mean Corpuscular HGB Conc 33.9 g/dl (31.0-35.0); Mean Corpuscular Volume 85.5 fL (80.0-98.0); Mean Platelet Volume 9.3 fL (9.4-12.3); Monocytes Absolute Auto 0.8 X10*3/uL (0.1-1.2); Monocytes Percent Auto 7.4 % (2-11); Neutrophils Absolute Auto 8.5 x10*3/uL (2.0-8.3); Neutrophils Percent Auto 74.4 % (45-73); Platelet Count 212 X10*3/uL (160-400); Red Blood Count 3.59 X10*6/uL (4.20-5.50); Red Cell Distribution Width 13.7 % (11.0-16.0); White Blood Count 11.4 X10*3/uL (4.8-10.8)
[2024-12-29 09:23] LABS: Alanine Aminotransferase 11 U/L (0-31); Albumin Level 3.9 g/dL (3.5-5.0); Alkaline Phosphatase 82 U/L (39-117); Anion Gap 11 (12-20); Aspartate Amino Transferase 17 U/L (5-31); Bilirubin Direct 0.1 mg/dL (0.0-0.5); Bilirubin Total 0.4 mg/dL (0.0-1.0); Blood Urea Nitrogen 38 mg/dL (9-16); Calcium 9.2 mg/dL (8.4-10.2); Carbon Dioxide 20 mmol/L (22-29); Chloride 113 mmol/L (96-108); Creatinine Clr Calc Pharmacy 33.1; Estimated Glomerular Filt Rate 19; Glucose Random 106 mg/dL (60-115); Lipase 26 U/L (8-78); Potassium 3.9 mmol/L (3.3-5.1); Sodium 140 mmol/L (135-145); Total Protein 7.6 g/dL (6.5-8.0)
--- NOTE | 2024-12-29 09:41 | ED_ITS ---
HPI - Abdominal Pain General Chief Complaint: Abdominal Pain Stated Complaint: abd back and side pain Time Seen by Provider: 12/29/24 09:30 Source: patient and old records reviewed Mode of arrival: ambulatory Limitations: no limitations History of Present Illness ED Provider: JOANNE HPI narrative: 54 yo female with PMH of CKD, kidney stones, anemia, HTN here with c/o L flank pain initially Thursday but it went away then last night became more uncomfortable tried tylenol with no relief. She is able to urinate. Denies n/v/d, fevers. She thinks it might be a kidney stone. She has not had to have surgery in the past with her stones. MD elicited complaint: flank pain Pertinent past history: kidney stones Onset (ago): day(s) (5) Pain Consistency: intermittent Location: L flank Severity: severe Quality: stabbing Radiation: LLQ Migration to: L flank Exacerbating factors: nothing Relieving factors: nothing Associated symptoms: nausea Related Data Home Medications ?Medication ?Instructions ?Recorded ?Confirmed multivitamin 1 tab PO DAILY 03/16/23 05/10/24 Previous Rx's ?Medication ?Instructions ?Recorded blood pressure monitor (Blood #1 ea 01/15/22 Pressure Kit) omeprazole 40 mg capsule,delayed 40 mg PO DAILY #60 caps 03/17/23 release phenylephrine 0.25 %-mineral oil 1 appl [place] BID PRN Apply to 03/17/23 14 %-petrolatm 74.9 % rectal Hemorrhoid #57 grams ointment (Preparation H) INCONTINENCE PADS #90 ea 06/09/23 tamsulosin 0.4 mg capsule (Flomax) 0.4 mg PO DAILY #7 caps 04/07/24 cholecalciferol (vitamin D3) 50 50 mcg PO DAILY 90 days #90 caps 05/10/24 mcg (2,000 unit) capsule polyethylene glycol 3350 17 17 g PO DAILY constipation 30 days 05/10/24 gram/dose oral powder (Miralax) #510 grams sennosides 8.6 mg tablet (Senna 8.6 mg PO BEDTIME PRN constipation 05/10/24 Laxative) 90 days #90 tabs losartan 100 mg tablet 100 mg PO DAILY 90 days #90 tabs 11/15/24 amlodipine 10 mg tablet 10 mg PO DAILY 90 days #90 tabs 11/29/24 Allergies Allergy/AdvReac Type Severity Reaction Status Date / Time No Known Allergies Allergy Verified 12/29/24 08:54 Review of Systems Review of Systems Constitutional : No Weight loss, No Fever, No Chills ENT/Mouth : No sore throat, No Rhinorrhea Eyes: No Swelling, No Redness Cardiovascular : No Chest Pain, No SOB, No edema Respiratory : No Cough, No Sputum, No Wheezing Gastrointestinal : Positive Nausea, no Vomiting, no Diarrhea, positive abdominal Pain, No Hematochezia, No Melena Genitourinary : No Dysuria, No Urinary Frequency, No Hematuria, No Urgency Musculoskeletal : No joint pain, No Myalgias, No Joint Swelling Skin : No Skin Lesions, No rash Neuro : No Weakness, No Numbness, No Dizziness, No Headache All other systems reviewed and are negative. [facility] Past Medical History Attestation statement: The following information was validated with the patient. Source: old records reviewed Medical History Chronic kidney disease, stage III (moderate) Bleeding hemorrhoids Impaired fasting glucose Morbid obesity with BMI of 40.0-44.9, adult Vitamin D deficiency Mixed hyperlipidemia Benign essential hypertension Sleep apnea Anxiety and depression Hypertension Surgical History History of hemorrhoidectomy (05/08/23) History of endometrial ablation History of tubal ligation Family History Family History Sister Cervical cancer Mother Hypertension Father History of stroke Diabetes Social History Social History Household Members: Children Housing: Apartment Do you presently have visiting nurse or other home services: No (pt states daughter helps) Alcohol intake: current Alcohol intake frequency: a few times a month Patient Tobacco Use Status: Current someday Tobacco user Tobacco use type: Cigarette Cigarettes Per Day: 10 Smoked in Last 30 Days: Yes e-Cigarette/Vaping Use: Never Used Second Hand Smoke Exposure: No Use of substances other than those prescribed or required for medical reasons: No Advance Directives: No Advance Directives Information Provided: Yes service: No Current occupational status: disabled Current occupational exposures/hazards: No Gender identity: Female Cognitive needs: No Hearing needs: No Vision needs: Yes Physical Exam ED Vital Signs: Vital Signs - 24 hr 03/20/25 08:51 12/29/24 09:59 Temperature 98.7 F Pulse Rate 84 Respiratory Rate 18 18 Blood Pressure 177/87 H Pulse Oximetry 96 Oxygen Delivery Method Room Air BMI result Body Mass Index 42.1 Appearance: Alert. Oriented X3. No acute distress. Eyes: Pupils equal, round and reactive to light. ENT: Pharynx normal. Neck: Normal inspection. Neck supple. CVS: Normal heart rate and rhythm. Pulses normal. Respiratory: No respiratory distress. Breath sounds normal. Abdomen: Soft and nontender. mild L CVA ttp Skin: Skin warm and dry. Normal skin color. Normal skin turgor. Extremities: No lower extremity edema. No calf ttp Neuro: Oriented X 3. No motor deficit. No sensory deficit. CN2-12 intact Medical Decision Making Medical Decision Making [facility] Narrative: 54 yo female with PMH of CKD, kidney stones, anemia, HTN here with c/o L flank pain and nausea at this time will need basic labs, UA, CT scan for renal colic. I have ordered fluids and IV dilaudid for pain. She has RAMOS from baseline Cr 1.5 today it is 2.5. If stone present will discuss with Urology/medicine for admission and repeat labs/procedure Differential Diagnosis Differential Diagnoses: The differential diagnosis associated with the presentation includes renal colic, obstruction, dehydration Admission/Observation Consideration of admission/observation: Escalation of care including admission/observation considered given RAMOS and stone needs admit for fluids/repeat labs/stent Consult Healthcare Provider Management of the patient was discussed with: Hospitalist (will admit) and Marketing Content Coordinator (Dr. Kinney aware will need stent) Lab Data [facility] Lab Attestation statement: I reviewed the patient's lab results. 12/29/24 09:03 12/29/24 09:03 Labs: Lab Results 12/29/24 Range/Units 09:03 WBC 11.4 H (4.8-10.8) X10*3/uL RBC 3.59 L (4.20-5.50) X10*6/uL Hgb 10.4 L (12.0-16.0) g/dl Hct 30.7 L (37.0-47.0) % MCV 85.5 (80.0-98.0) fL MCH 29.0 (27.0-33.0) pg MCHC 33.9 (31.0-35.0) g/dl RDW 13.7 (11.0-16.0) % Plt Count 212 (160-400) X10*3/uL MPV 9.3 L (9.4-12.3) fL Immature Gran % (Auto) 0.5 H (0.0-0.4) % Neut % (Auto) 74.4 H (45-73) % Lymph % (Auto) 16.5 L (20-40) % [place] % (Auto) 7.4 (2-11) % Eos % (Auto) 0.8 (0-4) % Baso % (Auto) 0.4 (0-2) % Lymph # (Auto) 1.9 (1.2-4.9) X10*3/uL [place] # (Auto) 0.8 (0.1-1.2) X10*3/uL Eos # (Auto) 0.1 (0.0-0.4) X10*3/uL Baso # (Auto) 0.0 (0.0-0.2) X10*3/uL Abs Immat Gran (auto) 0.06 H (0.00-0.03) X10*3/uL Absolute Neuts (auto) 8.5 H (2.0-8.3) x10*3/uL Absolute Nucleated RBC 0.000 (0.0-0.012) X10*3/uL Nucleated RBC % (auto) 0.0 (0.0-0.2) /100WBC Sodium 140 (135-145) mmol/L Potassium 3.9 (3.3-5.1) mmol/L Chloride 113 H (96-108) mmol/L Carbon Dioxide 20 L (22-29) mmol/L Anion Gap 11 L (12-20) BUN 38 H (9-16) mg/dL Creatinine 2.57 H (0.5-1.4) mg/dL Estim Creat Clear Calc 33.1 Estimated GFR 19 Random Glucose 106 (60-115) mg/dL Calcium 9.2 D (8.4-10.2) mg/dL Total Bilirubin 0.4 (0.0-1.0) mg/dL Direct Bilirubin 0.1 (0.0-0.5) mg/dL AST 17 (5-31) U/L ALT 11 (0-31) U/L Alkaline Phosphatase 82 (39-117) U/L Total Protein 7.6 (6.5-8.0) g/dL Albumin 3.9 (3.5-5.0) g/dL Lipase 26 (8-78) U/L Independent Interpretation I performed an independent interpretation of an: CT Scan (large obstructing stone) Radiology Impression Discussion of test interpretation with radiology: I have reviewed the radiologist's reading. External Record Review External record reviewed: Inpatient record, Outpatient record and Prior outpatient labs Medications Administered Discontinued Medications Generic Name Dose Route Start Last Admin Trade Name Freq PRN Reason Stop Dose Admin Hydromorphone HCl 1 mg 12/29/24 09:49 12/29/24 09:59 Hydromorphone Hcl 1 Mg/Ml Syringe IVPUSH 12/29/24 09:50 1 mg ONCE ONE Administration Protocol Lactated Ringer's 1,000 mls @ 999 mls/hr 12/29/24 09:49 12/29/24 11:08 Lr IV 12/29/24 10:49 Infused .Q1H1M ONE Infusion Ondansetron HCl 4 mg 12/29/24 09:49 12/29/24 09:57 Ondansetron Hcl 4 Mg/2 Ml Vial IVPUSH 12/29/24 09:50 4 mg ONCE ONE Administration Discharge Plan Discharge Clinical Impression: RAMOS (acute kidney injury), Ureterolithiasis Patient Disposition: Admitted As Inpatient Prescriptions: No Action (DME) INCONTINENCE PADS See Rx Instructions .Route .MEDSUPPLY Qty: 90 12RF Rx Instructions: As directed losartan 100 mg tablet 100 mg PO DAILY 90 Days Qty: 90 0RF amlodipine 10 mg tablet 10 mg PO DAILY 90 Days Qty: 90 1RF multivitamin Tablet 1 tab PO DAILY Preparation H 0.25-14-74.9 % ointment 1 appl [place] BID PRN (Reason: Apply to Hemorrhoid) Qty: 57 0RF omeprazole 40 mg capsule,delayed release(DR/EC) 40 mg PO DAILY Qty: 60 0RF cholecalciferol (vitamin D3) 50 mcg (2,000 unit) capsule 50 mcg PO DAILY 90 Days Qty: 90 3RF polyethylene glycol 3350 [Miralax] 17 gram/dose powder 17 g PO DAILY 30 Days Qty: 510 12RF sennosides [Senna Laxative] 8.6 mg tablet 8.6 mg PO BEDTIME PRN (Reason: constipation) 90 Days Qty: 90 3RF (DME) blood pressure monitor [Blood Pressure Kit] Kit See Rx Instructions .Route Qty: 1 0RF Rx Instructions: As directed tamsulosin [Flomax] 0.4 mg capsule 0.4 mg PO DAILY Qty: 7 0RF Print Language: Citizen Of [place]
[2024-12-29] MEDS: ondansetron HCL 4 MG/2 ML VIAL IVPUSH (09:57)
[2024-12-29] MEDS: HYDROmorphone HCl 1 MG/ML SYRINGE IVPUSH (09:59)
[2024-12-29] MEDS: Lactated Ringers 1,000 ML 999 ML IV (09:59)
[2024-12-29 11:34] LABS: Appearance Urine Cloudy; Color Urine Yellow; Glucose Urine UA Negative (Negative); Leukocyte Esterase Urine Small (1+) (Negative); Nitrite Urine Negative (Negative); PH 5.5 (5.0-9.0); Specific Gravity - Urine 1.015 (1.005-1.025); UMIC TRIGGER UACC YES; Urine Blood Moderate (2+) (Negative); Urine Ketones Negative (Negative); Urine Protein 300 (3+) mg/dL (Neg-Trace)
[2024-12-29 11:39] LABS: Bacteria Urine Trace (None Seen); Hyaline Casts Urine 0-2 /LPF (0-2); UACC Culture Trigger YES
--- NOTE | 2024-12-29 12:11 | PHA.MEDREC ---
Addendum entered by Reina Amaya [facility] 12/29/24 12:26: Reviewed by pharmacist Original Note: Pharmacy Consult ? Medication Reconciliation Pharmacy has completed the medication reconciliation. Spoke with patient and she was able to confirm she is only taking Amlodipine 10mg tabs once daily and Losartan 100mg tab once daily and takes nothing else. She states she last took them yesterday.
--- NOTE | 2024-12-29 12:45 | P.HPHOSP_ITS ---
History of Present Illness Date of Service: 12/29/24 Attending physician on admission: Danilo Eisenberg Chief Complaint: Left flank pain This is a 54-year-old female who presents to the emergency department with complaints of left flank pain. Her pain initially began Thursday evening but resolved after taking Tylenol. The pain returned last night and did not respond to oral medication. Her pain is associated with nausea but no vomiting or diarrhea. She denies any dysuria. In the emergency department she had a CT scan which showed a 10 mm UPJ stone with moderate hydronephrosis. Serum creatinine was elevated at 2.57 which is baseline. The case was discussed with Urology who felt the patient should be admitted to medical service. Review of Systems 2 Review of Systems: Yes all other systems are reviewed and are negative Constitutional: Constitutional: Denies chills and Denies fever(s) [facility] Medical History Chronic kidney disease, stage III (moderate) Bleeding hemorrhoids Impaired fasting glucose Morbid obesity with BMI of 40.0-44.9, adult Vitamin D deficiency Mixed hyperlipidemia Benign essential hypertension Sleep apnea Anxiety and depression Hypertension Family History Sister Cervical cancer Mother Hypertension Father History of stroke Diabetes Surgical History History of hemorrhoidectomy (05/08/23) History of endometrial ablation History of tubal ligation Social History Household Members: Children Housing: Apartment Do you presently have visiting nurse or other home services: No (pt states daughter helps) Alcohol intake: current Alcohol intake frequency: a few times a month Patient Tobacco Use Status: Current someday Tobacco user Tobacco use type: Cigarette Cigarettes Per Day: 10 Smoked in Last 30 Days: Yes e-Cigarette/Vaping Use: Never Used Second Hand Smoke Exposure: No Use of substances other than those prescribed or required for medical reasons: No Advance Directives: No Advance Directives Information Provided: Yes service: No Current occupational status: disabled Current occupational exposures/hazards: No Gender identity: Female Cognitive needs: No Hearing needs: No Vision needs: Yes Meds Allergies Allergy/AdvReac Type Severity Reaction Status Date / Time No Known Allergies Allergy Verified 12/29/24 08:54 Active Medications: Current Medications Lactated Ringer's (Lr) 1,000 mls @ 100 mls/hr IVCONT .Q10H [place] Physical Exam 2 Vital Signs and Narrative: Vital Signs: Last Vital Signs Temp 98.4 F 12/29/24 12:08 Pulse 80 12/29/24 12:08 Resp 20 12/29/24 12:08 BP 129/67 12/29/24 12:08 Pulse Ox 96 12/29/24 12:08 O2 Del Method Room Air 12/29/24 12:08 BMI result Body Mass Index 42.1 Const: General: alert and awake Nutritional Appearance: obese O rientation/consciousness: patient oriented x3 Resp: Effort & Inspection: normal respiratory effort, able to speak in complete sentences, no respiratory distress and no use of accessory muscles A uscultation: clear to auscultation bilaterally Cardio: Rate: regular rate GI: Palpation (GI): Soft to palpation : General: Yes no CVA tenderness Back/Spine/Pelvis: Back: no CVA tenderness Neuro: General: patient oriented x3 Results Labs 12/29/24 09:03 12/29/24 09:03 Labs: Laboratory Results - last 24 hr 12/29/24 12/29/24 09:03 11:27 MCV 85.5 MCH 29.0 MCHC 33.9 RDW 13.7 Plt Count 212 MPV 9.3 L Immature Gran % (Auto) 0.5 H Neut % (Auto) 74.4 H Lymph % (Auto) 16.5 L [place] % (Auto) 7.4 Eos % (Auto) 0.8 Baso % (Auto) 0.4 Lymph # (Auto) 1.9 [place] # (Auto) 0.8 Eos # (Auto) 0.1 Baso # (Auto) 0.0 Abs Immat Gran (auto) 0.06 H Absolute Neuts (auto) 8.5 H Absolute Nucleated RBC 0.000 Nucleated RBC % (auto) 0.0 Anion Gap 11 L Estim Creat Clear Calc 33.1 Estimated GFR 19 Random Glucose 106 Calcium 9.2 D Total Bilirubin 0.4 Direct Bilirubin 0.1 AST 17 ALT 11 Alkaline Phosphatase 82 Total Protein 7.6 Albumin 3.9 Lipase 26 Urine Color Yellow Urine Appearance Cloudy Urine pH 5.5 Ur Specific [place] 1.015 Urine Protein 300 (3+) H Urine Glucose (UA) Negative Urine Ketones Negative Urine Blood Moderate (2+) H Urine Nitrite Negative Ur Leukocyte Esterase Small (1+) H Urine RBC 6-10 H Urine WBC 6-10 H Ur Squamous Epith Cells 6-10 Urine Bacteria Trace Hyaline Casts 0-2 Imaging Radiologist's Impressions: Impressions Abdomen/Pelvis CT 12/29/24 10:16 IMPRESSION: 1. Moderate left hydronephrosis secondary to a 10 mm UPJ calculus. 2. Hepatic steatosis. Cholelithiasis. Electronically signed by: Lucas Guajardo MD 12/29/2024 11:02 AM EDT RP Assessment and Plan (1) RAMOS (acute kidney injury): Status: Acute (2) Ureterolithiasis: Status: Acute Plan This is a 54-year-old female with history of hypertension, CKD 3 who presents to emergency department with left flank pain found to 10 mm UPJ stone with hydronephrosis and associated RAMOS Left UPJ stone with moderate hydronephrosis Urology consult for possible stent placement Empiric antibiotics-follow urine culture Pain management RAMOS on CKD 3 Above likely contributing Hold losartan IV fluid Follow renal function Hypertension Hold losartan for RAMOS Continue Norvasc Chronic normocytic anemia H/H at baseline Morbid obesity BMI 42.1 Weight loss encouraged DVT prophylaxis-mechanical devices due to possible surgical intervention Code status-full code Patient will likely require 2 midnight stay in the hospital for management of kidney stone requiring intervention and IV pain management and acute kidney injury requiring IV fluid and close monitoring Quality Stroke Does the patient have a stroke diagnosis?: No VTE Prior VTE?: No VTE Risk Level:: Medical - moderate - high VTE Device Contraindication: N/A - Device Ordered VTE Drug Contraindication: Treatment Not Indicated
[2024-12-29] MEDS: cefTRIAXone sodium 1 GM VIAL IVPUSH (13:17)
[2024-12-29] MEDS: Lactated Ringers 1,000 ML 100 ML IVCONT ×3 (13:18→23:45)
--- NOTE | 2024-12-29 14:29 | PC.NURSE ---
Call placed to [facility] and spoke with ZEYNEP Chavez. RN to RN report completed. Celeste given opportunity for questions and all questions answered to satisfaction. Celeste reports Pt will be picked up at approx. [phone] but will update with any changes. Pt is NPO status and has been made aware she may not eat or drink anything at this time.
--- NOTE | 2024-12-29 16:12 | P.CNUR_ITS ---
History of Present Illness Consult details Consult date: 12/29/24 Narrative: CC: Left renal stone 54-year-old female Presents to emergency department with left flank pain Pain started on Thursday and has not resolved Associated nausea but no vomiting Creatinine 2.6 Hemoglobin A1c prior elevation Imaging - CT There is moderate left hydronephrosis secondary to a 10 mm UPJ calculus. The distal ureters are collapsed Given size of stone and location low probability of passage Recommend cystoscopy, left retrograde, left stent placement Review of Systems 2 Constitutional: Constitutional: Reports as per HPI and Reports no additional constitutional complaints Cardiovascular: Cardiovascular: Reports as per HPI and Reports no additional cardiovascular complaints Respiratory: Respiratory: Reports as per HPI and Reports no additional respiratory complaints Gastrointestinal: Gastrointestinal: Reports as per HPI and Reports no additional gastrointestinal complaints Genitourinary: Genitourinary: Reports as per HPI Musculoskeletal: Musculoskeletal: Reports no additional musculoskeletal complaints and Reports as per HPI Neurologic: Reports system reviewed and no additional complaints, except as documented and Reports as per HPI [facility] Past Medical History Medical History (Updated 12/29/24 @ 16:09 by Celeste Chavez RN) Chronic kidney disease, stage III (moderate) Bleeding hemorrhoids Impaired fasting glucose Morbid obesity with BMI of 40.0-44.9, adult Vitamin D deficiency Mixed hyperlipidemia Benign essential hypertension Sleep apnea Anxiety and depression Hypertension Family History Family History Sister Cervical cancer Mother Hypertension Father History of stroke Diabetes Surgical History Surgical History History of hemorrhoidectomy (05/08/23) History of endometrial ablation History of tubal ligation Social History Social History Household Members: Children Housing: Apartment Do you presently have visiting nurse or other home services: No (pt states daughter helps) Alcohol intake: current Alcohol intake frequency: a few times a month Patient Tobacco Use Status: Current someday Tobacco user Tobacco use type: Cigarette Cigarettes Per Day: 10 e-Cigarette/Vaping Use: Never Used Second Hand Smoke Exposure: No service: No Current occupational status: disabled Current occupational exposures/hazards: No Gender identity: Female Cognitive needs: No Hearing needs: No Vision needs: Yes Meds Allergies Allergy/AdvReac Type Severity Reaction Status Date / Time No Known Allergies Allergy Verified 12/29/24 16:09 Active Medications: Current Medications Acetaminophen (Acetaminophen 325 Mg Tablet) 650 mg PO Q6H PRN PRN Reason: Pain, Mild 1-3,fever,headache Amlodipine Besylate (Amlodipine Besylate 10 Mg Tablet) 10 mg PO DAILY [facility]; Protocol Calcium Carbonate (Calcium Carbonate 750 Mg Tab.Chew) 750 mg PO Q4H PRN PRN Reason: Heartburn Ceftriaxone Sodium (Ceftriaxone Sodium 1 Gm Vial) 1 gm IVPUSH Q24H [facility] Last Admin: 12/29/24 13:17 Dose: 1 gm Lactated Ringer's (Lr) 1,000 mls @ 100 mls/hr IVCONT .Q10H [facility] Last Admin: 12/29/24 13:18 Dose: 100 mls/hr Melatonin (Melatonin 3 Mg Tablet) 6 mg PO BEDTIME PRN PRN Reason: Insomnia Morphine Sulfate (Morphine Sulfate 4 Mg/Ml Cartridge) 2 mg IVPUSH Q4H PRN; Protocol PRN Reason: Pain, Severe (Pain Scale 7-10) Polyethylene Glycol (Polyethylene Glycol 3350 17 Gm Powd.Pack) 17 gm PO DAILY PRN PRN Reason: Constipation Sodium Chloride (0.9 % Sodium Chloride Flush 3 Ml Syringe) 3 ml IVFLUSH QSHIFT [facility] Physical Exam 2 Vital Signs: Vital Signs: Last Vital Signs Temp 99.0 F 12/29/24 14:24 Pulse 83 12/29/24 14:24 Resp 18 12/29/24 14:24 BP 137/71 12/29/24 14:24 Pulse Ox 92 12/29/24 14:24 O2 Del Method Room Air 12/29/24 14:24 BMI result Body Mass Index 42.1 Const: General: cooperative, healthy appearing, comfortable and no acute distress Orientation/consciousness: patient oriented x3 HEENT: Face and sinus: Yes normal facial exam Mouth: moist mucous membranes Neck: Neck: Yes normal visual inspection, Yes full ROM and Yes trachea midline Chest: Chest palpation & inspection: normal inspection of the chest Resp: Effort & Inspection: normal respiratory effort, able to speak in complete sentences and no respiratory distress GI: Inspection: Yes normal to inspection Back/Spine/Pelvis: Cervical Spine: normal cervical lordosis Thoracic/Lumbar Spine: thoracic and lumbar spine normal to inspection Skin: General skin exam: no rashes or lesions noted Neuro: General: patient oriented x3, tone normal and moves all extremities Extrem: General: Yes normal to inspection and Yes capillary refill normal Results Labs 12/29/24 09:03 12/29/24 09:03 Labs: Abnormal lab results 12/29/24 12/29/24 Range/Units 09:03 11:27 WBC 11.4 H (4.8-10.8) X10*3/uL RBC 3.59 L (4.20-5.50) X10*6/uL Hgb 10.4 L (12.0-16.0) g/dl Hct 30.7 L (37.0-47.0) % MPV 9.3 L (9.4-12.3) fL Immature Gran % (Auto) 0.5 H (0.0-0.4) % Neut % (Auto) 74.4 H (45-73) % Lymph % (Auto) 16.5 L (20-40) % Abs Immat Gran (auto) 0.06 H (0.00-0.03) X10*3/uL Absolute Neuts (auto) 8.5 H (2.0-8.3) x10*3/uL Chloride 113 H (96-108) mmol/L Carbon Dioxide 20 L (22-29) mmol/L Anion Gap 11 L (12-20) BUN 38 H (9-16) mg/dL Creatinine 2.57 H (0.5-1.4) mg/dL Urine Protein 300 (3+) H (Neg-Trace) mg/dL Urine Blood Moderate (2+) H (Negative) Ur Leukocyte Esterase Small (1+) H (Negative) Urine RBC 6-10 H (0-2) /HPF Urine WBC 6-10 H (0-5) /HPF Short CBC 12/29/24 Range/Units 09:03 WBC 11.4 H (4.8-10.8) X10*3/uL Hgb 10.4 L (12.0-16.0) g/dl Hct 30.7 L (37.0-47.0) % Plt Count 212 (160-400) X10*3/uL BMP 12/29/24 09:03 Sodium 140 Potassium 3.9 Chloride 113 H Carbon Dioxide 20 L BUN 38 H Creatinine 2.57 H Calcium 9.2 D Liver Function 12/29/24 Range/Units 09:03 Total Bilirubin 0.4 (0.0-1.0) mg/dL Direct Bilirubin 0.1 (0.0-0.5) mg/dL AST 17 (5-31) U/L ALT 11 (0-31) U/L Alkaline Phosphatase 82 (39-117) U/L Albumin 3.9 (3.5-5.0) g/dL Urine 12/29/24 Range/Units 11:27 Urine Color Yellow Urine Appearance Cloudy Urine pH 5.5 (5.0-9.0) Ur Specific [place] 1.015 (1.005-1.025) Urine Protein 300 (3+) H (Neg-Trace) mg/dL Urine Glucose (UA) Negative (Negative) mg/dL All other labs normal. Assessment and Plan (1) Renal calculi: Status: Acute (2) RAMOS (acute kidney injury): Status: Acute Plan Risks, benefits and alternatives to therapy were discussed. These include but are not limited to infection, bleeding, damage to local organs and tissues, need for further interventions. Anesthetic risks regarding cardiac arrhythmia, blood clots, and potential mortality were discussed. The patient understands the typical recovery time and the outpatient nature of the procedure. After consideration of these risks the patient gives full informed consent and they wish to move ahead with the procedure. Cystoscopy, left retrograde, left stent placement Procedures Date of Service Date of Service: 12/29/24
--- NOTE | 2024-12-29 16:31 | HO.ANESPROP2 ---
HPI - Anesthesia Eval Consult details Narrative: 54 yo F presenting for cystoscopy with stent placement - left side PMFSH Active Problems Active Problems: All Active Problems Ureterolithiasis (Acute) RAMOS (acute kidney injury) (Acute) Chronic constipation (Acute) Multiple acquired skin tags (Acute) Renal calculi (Acute) Blurry vision, bilateral (Acute) Acute on chronic anemia (Acute) Bright red rectal bleeding (Acute) Right ankle pain (Acute) Viral upper respiratory illness (Acute) Fatigue (Acute) Annual physical exam (Acute) External hemorrhoids (Acute) Pharyngitis (Acute) Cough (Acute) Colon cancer screening (Acute) Annual physical exam (Acute) At risk for decreased bone density (Acute) Chronic kidney disease, stage III (moderate) (Acute) Bleeding hemorrhoids (Acute) Impaired fasting glucose (Acute) Morbid obesity with BMI of 40.0-44.9, adult (Acute) Vitamin D deficiency (Acute) Mixed hyperlipidemia (Acute) Benign essential hypertension (Acute) Past Medical History Medical History (Updated 12/29/24 @ 16:09 by Celeste Chavez RN) Chronic kidney disease, stage III (moderate) Bleeding hemorrhoids Impaired fasting glucose Morbid obesity with BMI of 40.0-44.9, adult Vitamin D deficiency Mixed hyperlipidemia Benign essential hypertension Sleep apnea Anxiety and depression Hypertension Family History Family History Sister Cervical cancer Mother Hypertension Father History of stroke Diabetes Family history of problems with anesthesia: No Surgical History Surgical History History of hemorrhoidectomy (05/08/23) History of endometrial ablation History of tubal ligation History of Problems with Anesthesia: No Social History Social History Household Members: Children Housing: Apartment Are you a primary care assistant to a significant other at home: No Do you presently have visiting nurse or other home services: No Alcohol intake: current Alcohol intake frequency: a few times a month Patient Tobacco Use Status: Current someday Tobacco user Tobacco use type: Cigarette Cigarettes Per Day: 1 e-Cigarette/Vaping Use: Never Used Second Hand Smoke Exposure: No service: No Current occupational status: disabled Current occupational exposures/hazards: No Gender identity: Female Cognitive needs: No Hearing needs: No Vision needs: Yes Meds Allergies Allergy/AdvReac Type Severity Reaction Status Date / Time No Known Allergies Allergy Verified 12/29/24 16:09 Active Medications: Current Medications Acetaminophen (Acetaminophen 325 Mg Tablet) 650 mg PO Q6H PRN PRN Reason: Pain, Mild 1-3,fever,headache Amlodipine Besylate (Amlodipine Besylate 10 Mg Tablet) 10 mg PO DAILY [facility]; Protocol Calcium Carbonate (Calcium Carbonate 750 Mg Tab.Chew) 750 mg PO Q4H PRN PRN Reason: Heartburn Ceftriaxone Sodium (Ceftriaxone Sodium 1 Gm Vial) 1 gm IVPUSH Q24H [facility] Last Admin: 12/29/24 13:17 Dose: 1 gm Lactated Ringer's (Lr) 1,000 mls @ 100 mls/hr IVCONT .Q10H [facility] Last Admin: 12/29/24 13:18 Dose: 100 mls/hr Melatonin (Melatonin 3 Mg Tablet) 6 mg PO BEDTIME PRN PRN Reason: Insomnia Morphine Sulfate (Morphine Sulfate 4 Mg/Ml Cartridge) 2 mg IVPUSH Q4H PRN; Protocol PRN Reason: Pain, Severe (Pain Scale 7-10) Polyethylene Glycol (Polyethylene Glycol 3350 17 Gm Powd.Pack) 17 gm PO DAILY PRN PRN Reason: Constipation Sodium Chloride (0.9 % Sodium Chloride Flush 3 Ml Syringe) 3 ml IVFLUSH QSHIFT [facility] Exam Exam Date and Time: 12/29/24 1620 Height,Weight and Vital Signs: Height 5 ft 7 in Weight 122 kg Last Vital Signs Temp 98.2 F 12/29/24 16:11 Pulse 77 12/29/24 16:11 Resp 16 12/29/24 16:11 BP 176/88 H 12/29/24 16:11 Pulse Ox 96 12/29/24 16:11 O2 Del Method Room Air 12/29/24 16:11 Pertinent Lab Results Pertinent Lab Results: Laboratory Tests 12/29/24 12/29/24 09:03 11:27 WBC 11.4 H RBC 3.59 L Hgb 10.4 L Hct 30.7 L MCV 85.5 MCH 29.0 MCHC 33.9 RDW 13.7 Plt Count 212 MPV 9.3 L Immature Gran % (Auto) 0.5 H Neut % (Auto) 74.4 H Lymph % (Auto) 16.5 L [place] % (Auto) 7.4 Eos % (Auto) 0.8 Baso % (Auto) 0.4 Lymph # (Auto) 1.9 [place] # (Auto) 0.8 Eos # (Auto) 0.1 Baso # (Auto) 0.0 Abs Immat Gran (auto) 0.06 H Absolute Neuts (auto) 8.5 H Absolute Nucleated RBC 0.000 Nucleated RBC % (auto) 0.0 Sodium 140 Potassium 3.9 Chloride 113 H Carbon Dioxide 20 L Anion Gap 11 L BUN 38 H Creatinine 2.57 H Estim Creat Clear Calc 33.1 Estimated GFR 19 Random Glucose 106 Calcium 9.2 D Total Bilirubin 0.4 Direct Bilirubin 0.1 AST 17 ALT 11 Alkaline Phosphatase 82 Total Protein 7.6 Albumin 3.9 Lipase 26 Urine Color Yellow Urine Appearance Cloudy Urine pH 5.5 Ur Specific [place] 1.015 Urine Protein 300 (3+) H Urine Glucose (UA) Negative Urine Ketones Negative Urine Blood Moderate (2+) H Urine Nitrite Negative Ur Leukocyte Esterase Small (1+) H Urine RBC 6-10 H Urine WBC 6-10 H Ur Squamous Epith Cells 6-10 Urine Bacteria Trace Hyaline Casts 0-2 Airway Mallampati Class: III TM Dist: <=3cm Neck ROM: Full Loose/Missing/Broken Teeth: No (patient denies any loose or broken teeth) Heart: S1S2 Lungs: CTAB Assessment and Plan Assessment Anesthesia Assessment: Anesthesia Plan Discussed and Chart Reviewed Final Anesthetic Review Family History of Problems with Anesthesia: No History of Problems with Anesthesia: No NPO: Yes ASA Class: III and Emergency Final Preanesthetic Review: No Changes in Pt Med Stat, Meds/Allgs Chart Reviewed, Consent Obtained/Reviewed and Anes Risks/Benef Reviewed Patient Risk: Intermediate Procedure Risk: Low Anesthetic Plan Anesthetic Plan: GA and Agree w/ Assess. and Plan Disposition: Standard PACU
--- NOTE | 2024-12-29 16:41 | MHC.SHP ---
Pre-Procedural Eval Section A - 24 Hr Update-Section A only Date of Service: 12/29/24 The patient is an INPATIENT: Yes Changes since office visit: No Cold of Flu in the past 2 weeks, No New Medical Problems, No Changes in Medication and No Patient answered all questions The patient has been examined within 24 hours of the surgical procedure. The History & Physical has been completed within 30 days and I have reviewed it.: Yes Section B - Complete if H&P > 30 days Chief Complaint: kidney stone, RAMOS Details of Present Illness: cystoscopy, left retrograde, left stent placement Allergies: Allergies Allergy/AdvReac Type Severity Reaction Status Date / Time No Known Allergies Allergy Verified 12/29/24 16:09 Plan I have reviewed the history and physical and performed a pertinent physical examination on my patient. No changes have occurred unless specified. Time Spent With Patient Time: Total time managing care of this patient today ____ minutes.
--- NOTE | 2024-12-29 16:58 | PC.NURSE ---
Pt arrived room 362 at 1530 from ED. Pt sortly therafter transported to OR for cyctoscopy and L sfent placement. Admission will be completed upon pt return from surgery.
--- NOTE | 2024-12-29 17:16 | W.PM.OPN ---
Operative Note Operative Note Date of Service: 12/29/24 Narrative: PreOperative Diagnosis: Left obstructing stone with acute kidney injury and hydro uretero nephrosis Post Operative Diagnosis: Left proximal obstructing stone with acute kidney injury and hydro uretero nephrosis Procedure: Cystoscopy, left retrograde, left stent placement Surgeon: Dr Jaime Kinney Anesthesia: LMA Indications for procedure: 9 mm upper UPJ obstructing stone with renal pelvis dilatation and acute kidney injury Procedure: After informed consent was verified the patient was brought to the operating room and placed in a supine position. Anesthesia was administered per protocol. The patient was placed in modified dorsal lithotomy position and prepped and draped in a sterile fashion. A safety pause time-out was performed. Laterality of procedure and antibiotics were confirmed, appropriate imaging was available A 22 Sammarinese cystoscope was introduced per urethra. No abnormality was noted of urethra or bladder. Both ureteric orifices were seen in a normal position. The left ureter was cannulated with an open ended catheter and a retrograde examination was performed. Obstruction at proximal portion with hydro nephrosis . A Sensor guidewire was placed under fluoroscopy and a good coil was seen within the renal pelvis. A 6 Sammarinese by 26 cm double J stent was advanced over the wire and up to the level of the renal pelvis under fluoroscopic and direct visualization. The stent was seen with appropriate coil within the renal pelvis and in the bladder after deployment. Castro catheter placed to allow renal drainage The patient tolerated the procedure well and was transferred in a stable condition to the recovery area. Pathology: Drains: as above
[2024-12-29] MEDS: Phenazopyridine HCL 100 MG TABLET PO (17:46)
[2024-12-30 03:15] VITALS: BP 162/80; PULSE 78; RESP 18; TEMP 36.4; O2SAT 97
[2024-12-30 06:07] LABS: Anion Gap 13 (12-20); Blood Urea Nitrogen 40 mg/dL (9-16); Carbon Dioxide 21 mmol/L (22-29); Chloride 114 mmol/L (96-108); Creatinine Clr Calc Pharmacy 33.7; Estimated Glomerular Filt Rate 20; Glucose Random 123 mg/dL (60-115); Potassium 4.7 mmol/L (3.3-5.1); Sodium 143 mmol/L (135-145)
--- NOTE | 2024-12-30 06:10 | PC.NURSE ---
Pt seen alert and oriented, no c/o pain all night, Qureshi cath with adequate orangy urine output, qureshi cath pulled out at 0600 and pt tolerated well.
[2024-12-30 07:02] VITALS: BP 168/79; PULSE 79; RESP 16; TEMP 36.7; O2SAT 92
[2024-12-30] MEDS: amLODIPine Besylate 10 MG TABLET PO (07:50)
[2024-12-30] MEDS: Acetaminophen 325 MG TABLET 650 MG PO (07:50)
[2024-12-30 08:15] LABS: Hematocrit 29.5 % (37.0-47.0); Hemoglobin 9.8 g/dl (12.0-16.0); Mean Corpuscular HGB Conc 33.2 g/dl (31.0-35.0); Mean Corpuscular Hemoglobin 29.3 pg (27.0-33.0); Mean Corpuscular Volume 88.1 fL (80.0-98.0); Mean Platelet Volume 10.3 fL (9.4-12.3); Platelet Count 201 X10*3/uL (160-400); Red Blood Count 3.35 X10*6/uL (4.20-5.50); Red Cell Distribution Width 13.7 % (11.0-16.0); White Blood Count 8.4 X10*3/uL (4.8-10.8)
--- NOTE | 2024-12-30 09:38 | MHC.CM.PN ---
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 PT IS FUNCTIONALLY INDEPENDENT. PT HAS [employer] 2 HRS/DAY VIA [employer]. +HCP PCP DR. BARAJAS DP: HOME, NO SERVICES ANTICIPATED. PT HAS OWN RIDE HOME. CM WILL CONTINUE TO FOLLOW FOR ANY CHANGE TO DC PLAN.
[2024-12-30] MEDS: Lactated Ringers 1,000 ML 100 ML IVCONT ×2 (10:41→21:04)
--- NOTE | 2024-12-30 13:07 | P.CONNP_ITS ---
History of Present Illness Reason for Consult Consult date: 12/30/24 Reason for consult: RAMOS Chief Complaint Chief complaint: kidney stone, RAMOS History of Present Illness Narrative: 54-year-old female who presented to the emergency department with left flank pain with associated nausea but no vomiting or diarrhea. She denies any dysuria. She has been on ARB. In the emergency department she had a CT scan which showed a 10 mm UPJ stone with moderate hydronephrosis. Serum creatinine was elevated at 2.57. She was admitted for further management. Nephrology has been consulted to assist in her clinical care during her current hospital stay. Review of Systems Review of Systems Yes all other systems are reviewed and are negative PMFSH Past Medical History Medical History (Updated 12/29/24 @ 16:09 by Celeste Chavez RN) Chronic kidney disease, stage III (moderate) Bleeding hemorrhoids Impaired fasting glucose Morbid obesity with BMI of 40.0-44.9, adult Vitamin D deficiency Mixed hyperlipidemia Benign essential hypertension Sleep apnea Anxiety and depression Hypertension Family History Family History Sister Cervical cancer Mother Hypertension Father History of stroke Diabetes Surgical History Surgical History History of hemorrhoidectomy (05/08/23) History of endometrial ablation History of tubal ligation Social History Social History Household Members: Family Housing: Apartment Are you a primary animal care assistant to a significant other at home: No Do you presently have visiting nurse or other home services: No Alcohol intake: current Alcohol intake frequency: a few times a month Patient Tobacco Use Status: Current someday Tobacco user Tobacco use type: Cigarette Cigarettes Per Day: 1 e-Cigarette/Vaping Use: Never Used Second Hand Smoke Exposure: No service: No Current occupational status: disabled Current occupational exposures/hazards: No Gender identity: Female Cognitive needs: No Hearing needs: No Vision needs: Yes Meds Allergies Allergy/AdvReac Type Severity Reaction Status Date / Time No Known Allergies Allergy Verified 12/29/24 16:09 Active Medications: Current Medications Acetaminophen (Acetaminophen 325 Mg Tablet) 650 mg PO Q6H PRN PRN Reason: Pain, Mild 1-3,fever,headache Last Admin: 12/30/24 07:50 Dose: 650 mg Amlodipine Besylate (Amlodipine Besylate 10 Mg Tablet) 10 mg PO DAILY [facility]; Protocol Last Admin: 12/30/24 07:50 Dose: 10 mg Calcium Carbonate (Calcium Carbonate 750 Mg Tab.Chew) 750 mg PO Q4H PRN PRN Reason: Heartburn Ceftriaxone Sodium (Ceftriaxone Sodium 1 Gm Vial) 1 gm IVPUSH Q24H [facility] Last Admin: 12/29/24 13:17 Dose: 1 gm Lactated Ringer's (Lr) 1,000 mls @ 100 mls/hr IVCONT .Q10H [facility] Last Admin: 12/30/24 10:41 Dose: 100 mls/hr Melatonin (Melatonin 3 Mg Tablet) 6 mg PO BEDTIME PRN PRN Reason: Insomnia Morphine Sulfate (Morphine Sulfate 4 Mg/Ml Cartridge) 2 mg IVPUSH Q4H PRN; Protocol PRN Reason: Pain, Severe (Pain Scale 7-10) Naloxone HCl (Naloxone Hcl 0.4 Mg/Ml Vial) 0.04 mg IVPUSH Q5M PRN PRN Reason: Excessive sedation or RR < 8 Polyethylene Glycol (Polyethylene Glycol 3350 17 Gm Powd.Pack) 17 gm PO DAILY PRN PRN Reason: Constipation Sodium Chloride (0.9 % Sodium Chloride Flush 3 Ml Syringe) 3 ml IVFLUSH QSHIFT [facility] Last Admin: 12/30/24 07:46 Dose: Not Given Physical Exam Vital Signs: Last Vital Signs Temp 98.0 F 12/30/24 07:02 Pulse 79 12/30/24 07:02 Resp 16 12/30/24 07:02 BP 168/79 H 12/30/24 07:02 Pulse Ox 92 12/30/24 07:02 O2 Del Method Room Air 12/30/24 07:02 O2 Flow Rate 4 12/29/24 17:33 BMI result Body Mass Index 42.1 Const General: comfortable and no acute distress Orientation/consciousness: patient oriented x3 HEENT Head: Yes normocephalic Mouth: Normal oral and palatal mucosa present Eyes EOM: EOMs intact bilaterally Neck Neck: Yes supple Resp Auscultation: clear to auscultation bilaterally Cardio Jugular venous distension: no JVD Rate: regular rate GI Palpation (GI): Soft to palpation Auscultation: normal bowel sounds General: Yes no CVA tenderness Back/Spine/Pelvis Back: no CVA tenderness Skin General skin exam: no rashes or lesions noted Neuro General: patient oriented x3 and moves all extremities Extrem General: Yes no pedal edema Results Lab Results 12/30/24 05:04 12/30/24 05:04 Lab results: Chemistry 12/29/24 12/30/24 09:03 05:04 Sodium 140 143 Potassium 3.9 4.7 D Carbon Dioxide 20 L 21 L BUN 38 H 40 H Creatinine 2.57 H 2.52 H Calcium 9.2 D 9.0 Hematology 12/29/24 12/30/24 09:03 05:04 WBC 11.4 H 8.4 Hgb 10.4 L 9.8 L Plt Count 212 201 Urinalysis 12/29/24 11:27 Urine Color Yellow Urine Appearance Cloudy Urine pH 5.5 Ur Specific [place] 1.015 Urine Protein 300 (3+) H Urine Glucose (UA) Negative Urine Ketones Negative Urine Blood Moderate (2+) H Urine Nitrite Negative Ur Leukocyte Esterase Small (1+) H Urine RBC 6-10 H Urine WBC 6-10 H Ur Squamous Epith Cells 6-10 Hyaline Casts 0-2 Assessment and Plan (1) RAMOS (acute kidney injury): Status: Acute Plan RAMOS on CKD due to obstructive uropathy as well as tubular injury Had been on ARB which has been on hold since admission Urology follow up. Amlodipine for hypertension Continue rest of current management for now Labs AM. Shall closely follow up Procedures Date of Service Date of Service: 12/30/24
--- NOTE | 2024-12-30 13:44 | HO.PM.IMPN ---
Subjective Subjective Date of Service: 12/30/24 Interval History: seen and examined this morning Follow-up for left kidney stone with hydro and RAMOS s/p left stent placement. No flank pain, no fever no dysuria Review of Systems Review of Systems: Yes all other systems are reviewed and are negative Constitutional Constitutional: Denies chills and Denies fever(s) Gastrointestinal Gastrointestinal: Denies abdominal pain, Denies nausea and Denies vomiting Physical Exam Vital Signs: Vital Signs: Last Vital Signs Temp 98.0 F 12/30/24 07:02 Pulse 79 12/30/24 07:02 Resp 16 12/30/24 07:02 BP 168/79 H 12/30/24 07:02 Pulse Ox 92 12/30/24 07:02 O2 Del Method Room Air 12/30/24 07:02 O2 Flow Rate 4 12/29/24 17:33 BMI result Body Mass Index 42.1 Const: General: alert and awake Nutritional Appearance: obese Orientation/consciousness: patient oriented x3 Resp: Effort & Inspection: normal respiratory effort, able to speak in complete sentences, no respiratory distress and no use of accessory muscles Auscultation: clear to auscultation bilaterally Cardio: Rate: regular rate GI: Palpation (GI): Soft to palpation : General: Yes no CVA tenderness Back/Spine/Pelvis: Back: no CVA tenderness Neuro: General: patient oriented x3 Objective Data Active Medications Acetaminophen (Acetaminophen 325 Mg Tablet) 650 mg PO Q6H PRN PRN Reason: Pain, Mild 1-3,fever,headache Last Admin: 12/30/24 07:50 Dose: 650 mg Documented By: ANDRES Amlodipine Besylate (Amlodipine Besylate 10 Mg Tablet) 10 mg PO DAILY [facility]; Protocol Last Admin: 12/30/24 07:50 Dose: 10 mg Documented By: ANDRES Calcium Carbonate (Calcium Carbonate 750 Mg Tab.Chew) 750 mg PO Q4H PRN PRN Reason: Heartburn Ceftriaxone Sodium (Ceftriaxone Sodium 1 Gm Vial) 1 gm IVPUSH Q24H [facility] Last Admin: 12/29/24 13:17 Dose: 1 gm Documented By: DONNA Lactated Ringer's (Lr) 1,000 mls @ 100 mls/hr IVCONT .Q10H [facility] Last Admin: 12/30/24 10:41 Dose: 100 mls/hr Documented By: ANDRES Melatonin (Melatonin 3 Mg Tablet) 6 mg PO BEDTIME PRN PRN Reason: Insomnia Morphine Sulfate (Morphine Sulfate 4 Mg/Ml Cartridge) 2 mg IVPUSH Q4H PRN; Protocol PRN Reason: Pain, Severe (Pain Scale 7-10) Naloxone HCl (Naloxone Hcl 0.4 Mg/Ml Vial) 0.04 mg IVPUSH Q5M PRN PRN Reason: Excessive sedation or RR < 8 Polyethylene Glycol (Polyethylene Glycol 3350 17 Gm Powd.Pack) 17 gm PO DAILY PRN PRN Reason: Constipation Sodium Chloride (0.9 % Sodium Chloride Flush 3 Ml Syringe) 3 ml IVFLUSH QSHIFT [facility] Last Admin: 12/30/24 07:46 Dose: Not Given Documented By: ANDRES Non-Admin Reason: IV Running Labs 12/30/24 05:04 12/30/24 05:04 Labs: Laboratory Results - last 24 hr 12/30/24 05:04 MCV 88.1 MCH 29.3 MCHC 33.2 RDW 13.7 Plt Count 201 MPV 10.3 Absolute Nucleated RBC 0.000 Nucleated RBC % (auto) 0.0 Hold Purple Top SEE NOTE Anion Gap 13 Estim Creat Clear Calc 33.7 Estimated GFR 20 Random Glucose 123 H Calcium 9.0 Microbiology Microbiology Results: Microbiology 12/29/24 Unknown Urine Culture - Final Urine clean catch - Clean Catch Midstream Strep agalactiae (Grp B) Assessment and Plan (1) RAMOS (acute kidney injury): Status: Acute (2) Ureterolithiasis: Status: Acute Plan This is a 54-year-old female with history of hypertension, CKD 3 who presents to emergency department with left flank pain found to 10 mm UPJ stone with hydronephrosis and associated RAMOS Left UPJ stone with moderate hydronephrosis Urology consult s/p cystoscopy with left stent placement Empiric antibiotics- urine culture growing group b strep, continue IV ceftriaxone Pain management RAMOS on CKD 3 Creatinine persistently elevated due to obstructive uropathy and tubular injury Hold losartan continue IV fluid Nephrology following Follow renal function Hypertension Hold losartan for RAMOS Continue Norvasc Chronic normocytic anemia H/H at baseline Morbid obesity BMI 42.1 Weight loss encouraged DVT prophylaxis-mechanical devices Code status-full code Patient will likely require 2 midnight stay in the hospital for management of kidney stone requiring intervention and IV pain management and acute kidney injury requiring IV fluid and close monitoring Quality Stroke Does the patient have a stroke diagnosis?: No VTE Prior VTE?: No VTE Risk Level:: Medical - moderate - high VTE Device Contraindication: N/A - Device Ordered VTE Drug Contraindication: Treatment Not Indicated
[2024-12-30] MEDS: cefTRIAXone sodium 1 GM VIAL IVPUSH (14:29)
[2024-12-30] MEDS: polyethylene glycoL 3350 17 GM POWD.PACK PO (14:37)
[2024-12-30 15:03] VITALS: BP 152/82; PULSE 75; RESP 17; TEMP 36.5; O2SAT 96
[2024-12-30 19:06] VITALS: BP 142/70; PULSE 84; RESP 18; TEMP 36.4; O2SAT 96
[2024-12-31 03:27] VITALS: BP 166/79; PULSE 82; RESP 18; TEMP 36.1; O2SAT 95
[2024-12-31 04:10] VITALS: BP 157/72
[2024-12-31] MEDS: Lactated Ringers 1,000 ML 100 ML IVCONT (07:12)
[2024-12-31 07:24] VITALS: BP 158/78; PULSE 75; RESP 18; TEMP 36.5; O2SAT 95
[2024-12-31 07:58] LABS: Anion Gap 10 (12-20); Blood Urea Nitrogen 37 mg/dL (9-16); Calcium 8.8 mg/dL (8.4-10.2); Carbon Dioxide 24 mmol/L (22-29); Chloride 113 mmol/L (96-108); Creatinine Clr Calc Pharmacy 41.8; Estimated Glomerular Filt Rate 25; Glucose Random 100 mg/dL (60-115); Potassium 4.1 mmol/L (3.3-5.1); Sodium 143 mmol/L (135-145)
[2024-12-31] MEDS: amLODIPine Besylate 10 MG TABLET PO (08:16)
--- NOTE | 2024-12-31 10:24 | PM.DS ---
DS: Providers Provider Date of Service: 12/31/24 Date of admission: 12/29/24 12:42 Date of discharge: 12/31/24 Primary care physician: Taran Hood MD Consults: 12/29/24 12:45 Consult to Urology Routine Consulting Provider: [facility] Reason for consultation: 10mm UPJ stone Has provider been notified: No 12/30/24 08:48 Consult to Nephrology Routine Consulting Provider: [facility] Reason for consultation: ramos vs progression of ckd Has provider been notified: No Attending physician on discharge: Tawanda Huang Discharging clinician: Ivania Tao DS: Diagnosis Discharge Diagnosis (1) RAMOS (acute kidney injury): Status: Acute (2) Ureterolithiasis: Status: Acute DS: Summary Hospital Course Hospital Course: From H&P on the day of admission This is a 54-year-old female who presents to the emergency department with complaints of left flank pain. Her pain initially began Thursday evening but resolved after taking Tylenol. The pain returned last night and did not respond to oral medication. Her pain is associated with nausea but no vomiting or diarrhea. She denies any dysuria. In the emergency department she had a CT scan which showed a 10 mm UPJ stone with moderate hydronephrosis. Serum creatinine was elevated at 2.57 which is baseline. The case was discussed with Urology who felt the patient should be admitted to medical service. Left UPJ stone with moderate hydronephrosis seen by Urology and underwent cystoscopy with left stent placement on12/29. She was treated with empiric antibiotics, urine culture growing group b strep, we will continue antibiotics upon discharge. She should call to schedule follow-up appointment with Urology for stent removal. Nausea resolved, no abdominal pain or flank pain, tolerating diet. RAMOS on CKD 3 Creatinine 2.57 on admission, remained elevated at 2.52 the following day following IV fluid. She was seen by Nephrology who recommended another 24 hours of IV fluid. Creatinine trended down to 2.03. elevation likely due to obstructive uropathy and tubular injury. Losartan has been on hold during hospitalization and will be discontinued upon discharge. Should follow-up with Nephrology as an outpatient. May need additional antihypertensive medication depending on trend of blood pressure. Time Attestation Discharge Coordination Time (in mins): 36 Quality: Safe Use of Opioids Does Pt have an Active Cancer Diagnosis on the Problem List?: No Quality: Stroke Does the patient have a stroke diagnosis?: No Physical Exam Vital Signs: Vital Signs: Last Vital Signs Temp 97.7 F 12/31/24 07:24 Pulse 75 12/31/24 07:24 Resp 18 12/31/24 07:24 BP 158/78 H 12/31/24 07:24 Pulse Ox 95 12/31/24 07:24 O2 Del Method Room Air 12/31/24 07:24 O2 Flow Rate 4 12/29/24 17:33 BMI result Body Mass Index 42.1 Const: General: alert and awake Nutritional Appearance: obese Orientation/consciousness: patient oriented x3 Resp: Effort & Inspection: normal respiratory effort, able to speak in complete sentences, no respiratory distress and no use of accessory muscles Auscultation: clear to auscultation bilaterally Cardio: Rate: regular rate GI: Palpation (GI): Soft to palpation : General: Yes no CVA tenderness Back/Spine/Pelvis: Back: no CVA tenderness Neuro: General: patient oriented x3 DS: Data Data Completed and Pending Completed studies during hospitalization [Text1]: Procedures Control Bleeding in Gastrointestinal Tract, Via Natural or Artificial Opening Endoscopic (03/15/23) Excision of Duodenum, Via Natural or Artificial Opening Endoscopic, Diagnostic (03/15/23) Excision of Esophagus, Via Natural or Artificial Opening Endoscopic, Diagnostic (03/15/23) Inspection of Lower Intestinal Tract, Via Natural or Artificial Opening Endoscopic (03/15/23) Transfusion of Nonautologous Red Blood Cells into Peripheral Vein, Percutaneous Approach (03/15/23) Labs on day of discharge: Laboratory Results - last 24 hr 12/31/24 07:29 Sodium 143 Potassium 4.1 Chloride 113 H Carbon Dioxide 24 Anion Gap 10 L BUN 37 H Creatinine 2.03 H Estim Creat Clear Calc 41.8 Estimated GFR 25 Random Glucose 100 Calcium 8.8 Discharge Plan Discharge Anticipated Discharge Date/Time: 12/31/24 10:58 Patient Disposition: Home, Self-Care Discharge Diagnosis: RAMOS on CKD3 Obstructive uropathy Referrals: Taran Hood MD [Primary Care Provider] - 1 Week Jaime Kinney MD [Physician] - 1 Week (stent removal ) Og Florentino MD [Physician] - 1 Week Discharge Medications: New cefuroxime axetil 250 mg tablet 250 mg PO Q12H Qty: 8 0RF Continued amlodipine 10 mg tablet 10 mg PO DAILY 90 Days Qty: 90 1RF Discontinued losartan 100 mg tablet 100 mg PO DAILY 90 Days Qty: 90 0RF No Action (DME) INCONTINENCE PADS See Rx Instructions .Route .MEDSUPPLY Qty: 90 12RF Rx Instructions: As directed (DME) blood pressure monitor [Blood Pressure Kit] Kit See Rx Instructions .Route Qty: 1 0RF Rx Instructions: As directed Discharge Orders: Discharge Order (Routine); Ordered 12/31/24 Ordered By: Ivania Tao Activity on Discharge: As tolerated Stand Alone Forms: Patient Portal Discharge page Print Language: Vincentian Care Plan Goals: See below Health Concerns: Obstructive uropathy with 10 mm UPJ stone and moderate hydronephrosis status post left stent placement RAMOS on CKD 3 Plan of Treatment: Complete course of antibiotics as prescribed Stopped taking losartan due to elevated kidney function Call to schedule follow-up appointment with Nephrology for close monitoring of blood pressure and kidney function Call urology office to schedule stent removal Assessment: See discharge summary
== END 2024-12-31 12:30 | disposition home or self-care (01) | DRG 660 ==
LOC: HO.ED 11:31 → HO.EDOVER 12:47 → HO.S3 14:59
PROVIDERS: Urology; Admitting Provider Physician Assistant Medical; Emergency Provider Emergency Medicine; PCP Internal Medicine; Visit Provider Physician Assistant Medical
PROC: 0T778DZ Dilation of Left Ureter with Intraluminal Device, Via Natural or Artificial Opening Endoscopic (ICD-10-PCS; principal; 2024-12-29 16:30)
DX: N13.0 Hydronephrosis with ureteropelvic junction obstruction (principal); Z68.41 Body mass index [BMI] 40.0-44.9, adult; N17.9 Acute kidney failure, unspecified; E78.2 Mixed hyperlipidemia; F17.210 Nicotine dependence, cigarettes, uncomplicated; Z71.6 Tobacco abuse counseling; Z79.899 Other long term (current) drug therapy; I12.9 Hypertensive chronic kidney disease with stage 1 through stage 4 chronic kidney disease, or unspecified chronic kidney disease; N18.30 Chronic kidney disease, stage 3 unspecified; D63.1 Anemia in chronic kidney disease; E66.01 Morbid (severe) obesity due to excess calories; Z71.3 Dietary counseling and surveillance
CPT/HCPCS: 36415; 74176; 80048; 80076; 81001; 83690; 85025; 85027; 87086; 87147; 99285; C1758; C1769; C2617; J0131; J0330; J0696; J1100; J1171; J1885; J2003; J2405; J2704; J3010; J7120; Q9967

== ENCOUNTER → 2024-12-29 09:49 | Outpatient (BNV) | payer OTHER, SELFPAY | PROVIDERS: Emergency Provider Emergency Medicine; PCP Internal Medicine; Visit Provider Radiology Diagnostic Radiology | DX: R10.9 Unspecified abdominal pain (principal); M54.9 Dorsalgia, unspecified | CPT/HCPCS: 74176 ==

== ENCOUNTER → 2024-12-29 12:42 | Outpatient (BNV) | payer OTHER, SELFPAY | PROVIDERS: Admitting Provider Physician Assistant Medical; Emergency Provider Emergency Medicine; PCP Internal Medicine; Visit Provider Internal Medicine Nephrology | DX: N17.9 Acute kidney failure, unspecified (principal) | CPT/HCPCS: 99223 ==

== ENCOUNTER → 2024-12-29 12:42 | Outpatient (BNV) | payer OTHER, SELFPAY | PROVIDERS: Admitting Provider Physician Assistant Medical; Emergency Provider Emergency Medicine; PCP Internal Medicine; Visit Provider Physician Assistant Medical | DX: N17.9 Acute kidney failure, unspecified (principal); N20.1 Calculus of ureter | CPT/HCPCS: 99232; 99239 ==

== ENCOUNTER → 2024-12-29 12:42 | Outpatient (BNV) | payer OTHER, SELFPAY | PROVIDERS: Admitting Provider Physician Assistant Medical; Emergency Provider Emergency Medicine; PCP Internal Medicine; Visit Provider Urology | DX: N20.0 Calculus of kidney (principal); N17.9 Acute kidney failure, unspecified | CPT/HCPCS: 52332; 74420; 99222 ==

== ENCOUNTER 2025-01-03 14:47 | Outpatient (AMB) | payer OTHER, SELFPAY ==
--- NOTE | 2025-01-03 14:47 | A.OFFVIS_ITS ---
Intake Visit Reasons: ESWL discussion Intake Note: Patient is present for ESWL DISCUSSION Urology Medication:NONE Antibiotic Allergy:NONE Blood Thinner:NONE Sales And Marketing Professional Required: No Allergies No Known Allergies Allergy (Verified 01/03/25 14:48) HPI Comments Details: Faustina is a pleasant Niuean-speaking female. She is a patient of . She is seen for the following urologic conditions. - nephrolithiasis Telemedicine Evaluation 15 min Consultation [employer] Abdullahi Video Niuean translation provided by qualified medical doctor Current indwelling left stent Plan for ESWL with cystoscopy and stent removal Nephrolithiasis Initial presentation 12/29/24 with left flank pain Elevated creatinine Cystoscopy with stent placement performed Imaging - CT There is moderate left hydronephrosis secondary to a 10 mm UPJ calculus. The distal ureters are collapsed Plan ESWL with cystoscopy and stent removal [facility] Medical History (Updated 12/29/24 @ 16:09 by Celeste Chavez RN) Chronic kidney disease, stage III (moderate) Bleeding hemorrhoids Impaired fasting glucose Morbid obesity with BMI of 40.0-44.9, adult Vitamin D deficiency Mixed hyperlipidemia Benign essential hypertension Sleep apnea Anxiety and depression Hypertension Surgical History History of hemorrhoidectomy (05/08/23) History of endometrial ablation History of tubal ligation Family History Sister Cervical cancer Mother Hypertension Father History of stroke Diabetes Social History Household Members: Family Housing: Apartment Are you a primary health care legal assistant to a significant other at home: No Do you presently have visiting nurse or other home services: No Alcohol intake: current Alcohol intake frequency: a few times a month Patient Tobacco Use Status: Current someday Tobacco user Tobacco use type: Cigarette Cigarettes Per Day: 1 e-Cigarette/Vaping Use: Never Used Second Hand Smoke Exposure: No service: No Current occupational status: disabled Current occupational exposures/hazards: No Gender identity: Female Cognitive needs: No Hearing needs: No Vision needs: Yes Female Reproductive History Menstrual Age of Menarche: 15 Review of Systems Const All systems reviewed & are unremarkable except as noted in HPI and below Reports no additional complaints Resp Reports no additional complaints GI Reports no additional complaints Reports as per HPI Musc Reports no additional complaints Physical Exam Telemedicine evaluation Appropriate responses Regular breathing rate and rhythm HEENT Head: Yes normal to inspection Ears: hearing grossly normal bilaterally Eyes General: appearance normal, both eyes and all related structures Neck Neck: Yes normal visual inspection Chest Chest palpation & inspection: normal inspection of the chest Resp Effort & Inspection: normal respiratory effort and able to speak in complete sentences Telehealth Telehealth Location of provider rendering services: practice address Location of patient: address on file Patient Identification confirmed using: Name, : Yes Telehealth method: voice only Patient verbally consented to treatment: Yes Patient verbally consented to billing insurance company: Yes Patient informed of any privacy concerns related to visit: Yes Assessment & Plan Assessment & Plan (1) Renal calculi: Code(s): N20.0 - Calculus of kidney Category: Medical Plan Extracorporeal Shock Wave Lithotripsy We discussed the nature of the decision and reasonable alternatives for performing the above surgery. Interventions include chemical dissolution, ESWL, ureteroscopy with laser lithotripsy and stent placement, PCNL. Options such as medical therapy were discussed. The relative uncertainties and benefits related to each alternate procedure were adequately discussed. General surgical risks including, but not limited to, pain, bleeding, infection, myocardial infarction, pulmonary embolus, deep vein thrombosis and cerebrovascular accident which may result in further hospitalization were discussed. Full disclosure of the procedure as well as all major risks, benefits and complications were discussed including but not limited to risks of bleeding, injury to the kidney with hematoma or silvio-hematoma, failure to fragments stone, potential for ureteric obstruction from stone passage and need for secondary procedures. There is a small long-term risk of hypertension and a question brittanie of diabetes. Success rate of fragmentation and passage is approximately 70- 75%. This is compared to the risks and benefits for ureteroscopy which has a higher success rate but is a more invasive procedure. The success rate of the procedure was discussed. Success of the procedure in the short-term does not necessarily guarantee that long-term success will be maintained. Suitable follow up will need to be maintained. The patient showed understanding of the discussion as well as the typical recovery time, and the outpatient nature of this procedure. Opportunity was given for questions. Repeat-back protocol used to confirm understanding. They wish to proceed with left ESWL with cystoscopy stent removal Patient Instructions: This note is constructed using voice recognition software. While every effort has been made to ensure accuracy folder taper operator errors may have been included. Imaging studies, laboratory and physical exam results were discussed and reviewed in detail. No major barriers to patient understanding were identified. An opportunity to ask questions regarding the treatment plan was provided. All questions were answered. The patient expressed understanding and agreement with the above treatment plan. The patient is aware they should contact our office by phone for worsening of their current condition or the appearance of new urologic symptoms. Compliance is encouraged with any medications and followup testing that is ordered. It is a privilege to participate in the urologic care of your patient. If you have any questions or concerns regarding treatment for the above conditions, or other urologic issues, please do not hesitate to contact me. The office teleph one contact is [phone]. Sincerely, Dr Jaime Kinney MD, [facility] - Urology Compassionate Specialist Care for the Genitourinary System Coding Level of Care Code Tele Est Pt Level 4 (84435) Diagnoses Renal calculi N20.0
--- OUTSIDE RECORDS SUMMARY | 2025-01-03 18:33 | XMS_ITS | Data Portability ---
Author Organization [employer] Address [address] [place] [address] Care Team Providers Care Guide Travel Name Role Phone HIM CCA OTHER Assessment Encounter Date Assessment Date Assessment LastModified by Organization Details LastModified Time 08/03/2024 08/03/2024 I provided real -time medical direction via phone for this encounter and was available for additional phone-based assistance as needed. I have reviewed and agree with the Assessment and Plan as documented by the History Faculty Member. Patient given the opportunity to ask questions. Our service contacted for an assessment of: Blood pressure check Patient missed her appointment with her PCP for her every other week blood pressure check. Called the service to have that done. BP systolic in the 160s which is about 10 points below what her baseline is. She is happy with the results and will be called her PCP. She has no complaint. [email or web address] Not available 08/03/2024 21:25:57 Plan of Treatment Reminders Order Date Submit Date Provider Last Modified By Organization Details Last Modified Time Details Appointments None record ed. Lab None record ed. Referral None record ed. Procedures None record ed. Surgeries None record ed. Imaging None record ed. Medication Orders None record ed. Patient TargetsNo targets recorded. Patient InstructionsNo instructions recorded. Reason for Referral None Reported. Medical Equipment None Reported. Medications Name Sig Start Date Stop Date Status Note LastModified by Organization Details LastModified Time amoxicillin 500 mg capsule TAKE ONE CAPSULE BY MOUTH THREE TIMES DAILY NEEDED FOR UTI FOR 5 DAYS active Not Available Not Available No t Available senna 8.6 mg tablet TAKE 1 TABLET BY MOUTH EVERY NIGHT AT BEDTIME NEEDED FOR CONSTIPATIO N active Not Available Not Available No t Available amlodipine 10 mg tablet TAKE 1 TABLET BY MOUTH DAILY active Not Available Not Available Not Available docusate sodium 100 mg capsule TAKE ONE CAPSULE BY MOUTH TWICE DAILY active Not Available Not Available No t Available polyethylene glycol 3350 17 gram/dose oral powder TAKE 17G BY MOUTH EVERY DAY FOR CONSTIPATIO N active Not Available Not Available No t Available losartan 100 mg tablet TAKE 1 TABLET BY MOUTH DAILY active Not Available Not Available Not Available FeroSul 325 mg (65 mg iron) tablet active Not Available Not Available Not Available cholecalcife rol (vitamin D3) 50 mcg (2,000 unit) capsule TAKE 1 CAPSULE BY MOUTH EVERY DAY active Not Available Not Available No t Available Vitals Date Recorded Oxygen saturation Oxygen saturation in Arterial blood by Pulse oximetry Respiratory rate Heart rate Systolic blood pressure Diastolic blood pressure Provider Name and Address Organization Details Last Updated DateTime 4 97 % 97 % 18 /min 82 /min 164 mm[Hg] 79 mm[Hg] Not Available [facility] production 17:16:08 Social History None recorded. Functional Status None recorded. Mental Status None recorded. Family History Nothing Reported. Medical History No medical history recorded. Gynecological HistoryNo gynecological history recorded. Obstetrics History GPAL:G 0 P 0 0 0 0 Past Encounters Encounter ID Performer Location Encounter Start Date Encounter Closed Date Diagnosis/Indication Diagnosis SNOMED-CT Code Diagnosis ICD10 Code Diagnosis Note [id number] Chanelle Mauricio MD [facility] - [facility] [address] [place] [address] [phone] 08/03/2024 17:04:39 08/04/2024 22:26:49 Essential hypertension [id number] I10 Health Concerns Section Related Observation LastModified by Organization Detai ls LastModified Time None Recorded Concern Status LastModified by Organization Details LastModified Time None Recorded Advance Directives Directive None Recorded Payers Encounter Date Sequence Insurance Name Policy Number Policy August Covered Member ID August Member ID Guarantor Name 08/03/2024 1 [facility] [place] - DOS ON OR AFTER 2023 - DUAL ELIGIBLE - [employer] OPTIONS AND ONE [employer] (MEDICARE REPLACEMENT/ADV ANTAGE - HMO) Faustina Ansari [id number] Faustina Ansari Notes Date Note Type Note Provider Name and Address Organization Details Recorded Time 08/03/2024 text/html HPI: Member is reporting increased BP and feeling unwell, had not taken her BP meds, encouraged to take them, and stated she was not able to go back to clinic for recheck due to feeling unwell and feels fatigued and short of breath. Member is a 54 YO, German speaking female, with hx of HTN, Generalized Anxiety, fatty liver, OA, SUNSHINE (not on Cpap), Hydronephrosis with renal and ureteral calculous obstruction and anemia. .................... .................... .................... .................... .................... .................... .................... . [facility] Nurse Triage Notes (Rafael Clark): Chief Complaints: Weakness/Lethargy PMH: Hypertension Comments: Reviewed HPI .................... .................... .................... .................... .................... .................... .................... . History Faculty Member Note From Karen Bates: Sent to a call for a pt complaining of hypertension. SC8 arrives on scene, pt is alert and oriented, airway is patent. Pt states she has chronic sob w/exertion and hypertension. Pt states she is supposed to have her BP evaluated every two weeks at PCP office, but missed her last appt. Last appt was approx 3 weeks ago. Pt states her BP is 170 systolic. Pt is prescribed Losartan 100mg daily and Amlodipine 10mg daily with no recent med changes. Pt has no new complaints or symptoms and is requesting her vitals be assessed. Pt denies riggs, dizziness, cp, n/v/d, abd pain, fever, or locBP:164/79, P:82, RR:18, SpO2:97% RA; Head: unremarkable; Lung sounds: clear bilaterally; Abdomen: soft, non-tender, no distention; Back: unremarkable; Extremities: unremarkable; Skin: pink, warm, dry; [facility] consulted and has no orders. Pt is advised to follow up with PCP for further treatment. Red flags discussed. Pt has no further questions. .................... .................... .................... .................... .................... .................... .................... . Disposition: Fulfilled Chanelle Mauricio MD [address] [place] [address],[address] [facility], [place], [phone], [facility] 08/03/2024 21:26:08 OBGyn Episode No OBEpisode recorded.
== END 2025-01-03 16:15 | disposition home or self-care (01) ==
LOC: HO.HUSH 14:47
PROVIDERS: PCP Internal Medicine; Visit Provider Urology
DX: N20.0 Calculus of kidney (principal)
CPT/HCPCS: 99214

== ENCOUNTER → 2025-01-03 14:47 | Outpatient (BNVA) | payer OTHER, SELFPAY | PROVIDERS: PCP Internal Medicine; Visit Provider Urology ==

== ENCOUNTER 2025-01-11 05:54 | Day surgery (SDC) | payer OTHER, SELFPAY ==
--- NOTE | 2025-01-10 09:41 | HO.ANESPROP2 ---
Documented by User: Pat Barragan NP 01/10/25 09:44 HPI - Anesthesia Eval Consult details Narrative: 54yo F for Left Lithotripsy ESW with cysto stent removal s/p cysto, stent 12/30/24 with GA-ETT [facility] [place] 12/29-12/31/24 Hospital Course Hospital Course: From H&P on the day of admission This is a 54-year-old female who presents to the emergency department with complaints of left flank pain. Her pain initially began Thursday evening but resolved after taking Tylenol. The pain returned last night and did not respond to oral medication. Her pain is associated with nausea but no vomiting or diarrhea. She denies any dysuria. In the emergency department she had a CT scan which showed a 10 mm UPJ stone with moderate hydronephrosis. Serum creatinine was elevated at 2.57 which is baseline. The case was discussed with Urology who felt the patient should be admitted to medical service. Left UPJ stone with moderate hydronephrosis seen by Urology and underwent cystoscopy with left stent placement on12/29. She was treated with empiric antibiotics, urine culture growing group b strep, we will continue antibiotics upon discharge. She should call to schedule follow-up appointment with Urology for stent removal. Nausea resolved, no abdominal pain or flank pain, tolerating diet. RAMOS on CKD 3 Creatinine 2.57 on admission, remained elevated at 2.52 the following day following IV fluid. She was seen by Nephrology who recommended another 24 hours of IV fluid. Creatinine trended down to 2.03. elevation likely due to obstructive uropathy and tubular injury. Losartan has been on hold during hospitalization and will be discontinued upon discharge. Should follow-up with Nephrology as an outpatient. May need additional antihypertensive medication depending on trend of blood pressure. PMF Active Problems Active Problems: All Active Problems Ureterolithiasis (Acute) RAMOS (acute kidney injury) (Acute) Chronic constipation (Acute) Multiple acquired skin tags (Acute) Renal calculi (Acute) Blurry vision, bilateral (Acute) Acute on chronic anemia (Acute) Bright red rectal bleeding (Acute) Right ankle pain (Acute) Viral upper respiratory illness (Acute) Fatigue (Acute) Annual physical exam (Acute) External hemorrhoids (Acute) Pharyngitis (Acute) Cough (Acute) Colon cancer screening (Acute) Annual physical exam (Acute) At risk for decreased bone density (Acute) Chronic kidney disease, stage III (moderate) (Acute) Bleeding hemorrhoids (Acute) Impaired fasting glucose (Acute) Morbid obesity with BMI of 40.0-44.9, adult (Acute) Vitamin D deficiency (Acute) Mixed hyperlipidemia (Acute) Benign essential hypertension (Acute) Past Medical History Medical History Chronic kidney disease, stage III (moderate) Bleeding hemorrhoids Impaired fasting glucose Morbid obesity with BMI of 40.0-44.9, adult Vitamin D deficiency Mixed hyperlipidemia Benign essential hypertension Sleep apnea Anxiety and depression Hypertension Family History Family History Sister Cervical cancer Mother Hypertension Father History of stroke Diabetes Family history of problems with anesthesia: No Surgical History Surgical History History of lithotripsy History of hemorrhoidectomy (05/08/23) History of endometrial ablation History of tubal ligation History of Problems with Anesthesia: No Social History Social History Household Members: Family Housing: Apartment Are you a primary child day care center worker to a significant other at home: No Do you presently have visiting nurse or other home services: No Alcohol intake: current Alcohol intake frequency: a few times a month Patient Tobacco Use Status: Current someday Tobacco user Tobacco use type: Cigarette Cigarettes Per Day: 1 Smoked in Last 30 Days: Yes e-Cigarette/Vaping Use: Never Used Second Hand Smoke Exposure: No Use of substances other than those prescribed or required for medical reasons: No Have you been hit, kicked, punched, or otherwise hurt by someone within the past year? If so, by whom?: No Are you DNR?: No Advance Directives: Yes Advance Directives Information Provided: Yes Advance Directives on File: Yes Advance Directives Date on File: 12/11/24 Patient : No : No Poor oral hygiene: No service: No Current occupational status: disabled Current occupational exposures/hazards: No Gender identity: Female Cognitive needs: No Hearing needs: No Vision needs: Yes Meds Allergies Allergy/AdvReac Type Severity Reaction Status Date / Time No Known Allergies Allergy Verified 01/03/25 14:48 Exam Pertinent Lab Results Pertinent Lab Results: Laboratory Tests 12/30/24 12/31/24 05:04 07:29 WBC 8.4 Hgb 9.8 L Hct 29.5 L Plt Count 201 Sodium 143 Potassium 4.1 Chloride 113 H Carbon Dioxide 24 BUN 37 H Creatinine 2.03 H Assessment and Plan Assessment Anesthesia Assessment: Chart Reviewed Final Anesthetic Review Family History of Problems with Anesthesia: No History of Problems with Anesthesia: No Documented by User: Kika Gamble MD 01/11/25 08:25 HPI - Anesthesia Eval Consult details Narrative: 54yo F for Left Lithotripsy ESW with cysto stent removal Left ureter s/p cysto, stent 12/30/24 with [facility] [place] 12/29-12/31/24 Hospital Course Hospital Course: From H&P on the day of admission This is a 54-year-old female who presents to the emergency department with complaints of left flank pain. Her pain initially began Thursday evening but resolved after taking Tylenol. The pain returned last night and did not respond to oral medication. Her pain is associated with nausea but no vomiting or diarrhea. She denies any dysuria. In the emergency department she had a CT scan which showed a 10 mm UPJ stone with moderate hydronephrosis. Serum creatinine was elevated at 2.57 which is baseline. The case was discussed with Urology who felt the patient should be admitted to medical service. Left UPJ stone with moderate hydronephrosis seen by Urology and underwent cystoscopy with left stent placement on12/29. She was treated with empiric antibiotics, urine culture growing group b strep, we will continue antibiotics upon discharge. She should call to schedule follow-up appointment with Urology for stent removal. Nausea resolved, no abdominal pain or flank pain, tolerating diet. RAMOS on CKD 3 Creatinine 2.57 on admission, remained elevated at 2.52 the following day following IV fluid. She was seen by Nephrology who recommended another 24 hours of IV fluid. Creatinine trended down to 2.03. elevation likely due to obstructive uropathy and tubular injury. Losartan has been on hold during hospitalization and will be discontinued upon discharge. Should follow-up with Nephrology as an outpatient. May need additional antihypertensive medication depending on trend of blood pressure. PMF Active Problems Active Problems: All Active Problems Ureterolithiasis (Acute) RAMOS (acute kidney injury) (Acute) Chronic constipation (Acute) Multiple acquired skin tags (Acute) Renal calculi (Acute) Blurry vision, bilateral (Acute) Acute on chronic anemia (Acute) Bright red rectal bleeding (Acute) Right ankle pain (Acute) Viral upper respiratory illness (Acute) Fatigue (Acute) Annual physical exam (Acute) External hemorrhoids (Acute) Pharyngitis (Acute) Cough (Acute) Colon cancer screening (Acute) Annual physical exam (Acute) At risk for decreased bone density (Acute) Chronic kidney disease, stage III (moderate) (Acute) Bleeding hemorrhoids (Acute) Impaired fasting glucose (Acute) Morbid obesity with BMI of 40.0-44.9, adult (Acute) Vitamin D deficiency (Acute) Mixed hyperlipidemia (Acute) Benign essential hypertension (Acute) SUNSHINE- was given CPAP machine several years ago but has not used Smoker- last cigarette 2 weeks ago Slight cough/ clearing of throat- states throat dry. Nasal stuffiness. Denies recent cough, cold, fever, malaise. Temperature this morning 98.3 Past Medical History Medical History Chronic kidney disease, stage III (moderate) Bleeding hemorrhoids Impaired fasting glucose Morbid obesity with BMI of 40.0-44.9, adult Vitamin D deficiency Mixed hyperlipidemia Benign essential hypertension Sleep apnea Anxiety and depression Hypertension Family History Family History Sister Cervical cancer Mother Hypertension Father History of stroke Diabetes Family history of problems with anesthesia: No Surgical History Surgical History History of lithotripsy History of hemorrhoidectomy (05/08/23) History of endometrial ablation History of tubal ligation History of Problems with Anesthesia: No Social History Social History Household Members: Family Housing: Apartment Are you a primary child day care center worker to a significant other at home: No Do you presently have visiting nurse or other home services: No Alcohol intake: current Alcohol intake frequency: a few times a month Patient Tobacco Use Status: Current someday Tobacco user Tobacco use type: Cigarette Cigarettes Per Day: 1 Smoked in Last 30 Days: Yes e-Cigarette/Vaping Use: Never Used Second Hand Smoke Exposure: No Use of substances other than those prescribed or required for medical reasons: No Have you been hit, kicked, punched, or otherwise hurt by someone within the past year? If so, by whom?: No Are you DNR?: No Advance Directives: Yes Advance Directives Information Provided: Yes Advance Directives on File: Yes Advance Directives Date on File: 12/11/24 Patient : No : No Poor oral hygiene: No service: No Current occupational status: disabled Current occupational exposures/hazards: No Gender identity: Female Cognitive needs: No Hearing needs: No Vision needs: Yes Meds Allergies Allergy/AdvReac Type Severity Reaction Status Date / Time No Known Allergies Allergy Verified 01/03/25 14:48 Exam Height,Weight and Vital Signs: Height 5 ft 7 in Weight 121.5 kg Vital Signs Temp Pulse Resp BP Pulse Ox O2 Del Method 01/11/25 06:41 98.3 F 82 16 189/93 H 97 Room Air Pertinent Lab Results Pertinent Lab Results: Laboratory Tests 12/30/24 12/31/24 05:04 07:29 WBC 8.4 Hgb 9.8 L Hct 29.5 L Plt Count 201 Sodium 143 Potassium 4.1 Chloride 113 H Carbon Dioxide 24 BUN 37 H Creatinine 2.03 H Airway Mallampati Class: III (Large tongue. Short fat neck. Large head. Possible DI) TM Dist: >3cm Neck ROM: Full Loose/Missing/Broken Teeth: Yes (Broken tooth bottom left. Missing some teeth. Denies loose teeth) Heart: RRR Lungs: CTAB. Diminished Assessment and Plan Assessment Anesthesia Assessment: Anesthesia Plan Discussed and Chart Reviewed Final Anesthetic Review Family History of Problems with Anesthesia: No History of Problems with Anesthesia: No NPO: Yes ASA Class: III Final Preanesthetic Review: No Changes in Pt Med Stat, Meds/Allgs Chart Reviewed, Consent Obtained/Reviewed and Anes Risks/Benef Reviewed Patient Risk: Intermediate Procedure Risk: Low Assessment/Block/Sedation in SS: Assess/Block/Sedation-SS Anesthetic Plan Anesthetic Plan: GA Disposition: Standard PACU
[2025-01-11] VITALS (8 sets, daily range): BP systolic 139–189; BP diastolic 75–93; PULSE 68–86; RESP 16–18; TEMP 36.1–36.8; O2SAT 91–97; BMI 41.9
--- NOTE | ~2025-01-11 | XR_ITS ---
CLINICAL HISTORY: pre left ESWL 1 view abdomen Comparison: None Findings: Nonobstructive bowel gas pattern. Left-sided double-J stent. 4 mm calcification in the vicinity of the pelvic portion of the stent may be due to ureter stone. A few small calcifications projecting at/in the vicinity of the superior pole of the left kidney due to questionable renal stones. No acute fractures. Spinal degenerative changes. IMPRESSION: Left-sided double-J stent. 4 mm calcification in the vicinity of the pelvic portion of the stent may be due to ureter stone. A few small calcifications projecting at/in the vicinity of the superior pole of the left kidney due to questionable renal stones. This document has been electronically signed by: Ani Wade MD on 01/11/2025 07:02:03
[2025-01-11] MEDS: Lactated Ringers 1,000 ML 100 ML IVCONT (06:54)
[2025-01-11] MEDS: Acetaminophen 1,000 MG/100 ML PIGGYBACK 400 MG IV (07:01)
--- NOTE | 2025-01-11 07:37 | W.PM.OPN ---
Operative Note Operative Note Date of Service: 01/11/25 Narrative: PreOperative Diagnosis:? ? Left proximal ureter/UPJ stone, left ureteral stent present Post Operative Diagnosis:?Left proximal ureter/UPJ stone, left ureteral stent present Procedure:?Left? ESWL, flexible cystoscopy left ureteral stent removal Surgeon:?Dr Sindhu Serrano Anesthesia:?General Disposible Flexible Cystoscope Used Indications for procedure: The patient understands there is a risk of bruising or hematoma to the kidney, infection, and stone migration following the procedure and subsequent intervention may be required.? - Imaging 7x 9 mm stone Procedure: After informed consent was verified the patient was brought to the operating room and placed in a supine position.? Anesthesia was performed per protocol. Safety pause time-out was performed. Imaging was displayed in the room and laterality confirmed. ESWL was performed.?The stone was visualized on fluoroscopy.? Shockwave lithotripsy was performed, with a maximum rate of 120 hertz. After the first 300 shocks a pause for 3 minutes was completed.? A total of 3000 shocks to a maximum of power of 20 with a maximum rate of 120 hertz.? Some fragmentation of the stone was appreciated. The patient was repositioned, lower extremities were positioned to allow visualization of the perineum, the genitalia was prepped, the disposable flexible cystoscope was passed into the bladder the stent was visualized using a grasper the stent was removed without difficulty. The patient tolerated the procedure well and was transferred to the recovery area upon completion. Complications: None
--- NOTE | 2025-01-11 07:38 | MHC.SHP ---
Pre-Procedural Eval Section A - 24 Hr Update-Section A only Date of Service: 01/11/25 The patient is an INPATIENT: No The patient has been examined within 24 hours of the surgical procedure. The History & Physical has been completed within 30 days and I have reviewed it.: Yes Section B - Complete if H&P > 30 days Chief Complaint: Calculus of ureter Allergies: Allergies Allergy/AdvReac Type Severity Reaction Status Date / Time No Known Allergies Allergy Verified 01/03/25 14:48 Plan Diagnosis/Plan: Unchanged I have reviewed the history and physical and performed a pertinent physical examination on my patient. No changes have occurred unless specified. Left ESWL. stent removal. Discussed risks to include but not limited to, blood in the urine, bruising to the skin, kidney hematoma, possible need for another procedure if a stone fragment obstructs the ureter while passing, possible need to repeat procedure if stone is not completely fragmented. Time Spent With Patient Time: Total time managing care of this patient today ____ minutes.
[2025-01-11] MEDS: Phenazopyridine HCL 200 MG TABLET PO (09:41)
== END 2025-01-11 10:15 | disposition home or self-care (01) ==
PROVIDERS: PCP Internal Medicine; Visit Provider Urology
PROC: (CPT 50590; principal; 2025-01-11 07:30)
DX: N20.1 Calculus of ureter (principal); Z96.0 Presence of urogenital implants; I12.9 Hypertensive chronic kidney disease with stage 1 through stage 4 chronic kidney disease, or unspecified chronic kidney disease; N18.30 Chronic kidney disease, stage 3 unspecified; R73.01 Impaired fasting glucose; E66.01 Morbid (severe) obesity due to excess calories; Z68.41 Body mass index [BMI] 40.0-44.9, adult; E55.9 Vitamin D deficiency, unspecified; G47.30 Sleep apnea, unspecified; F41.9 Anxiety disorder, unspecified; F17.210 Nicotine dependence, cigarettes, uncomplicated
CPT/HCPCS: 50590; 74018; J0131; J0690; J1100; J1596; J2003; J2371; J2405; J2704; J3010

== ENCOUNTER → 2025-01-11 05:54 | Outpatient (BNV) | payer OTHER, SELFPAY | PROVIDERS: PCP Internal Medicine; Visit Provider Urology | DX: N20.1 Calculus of ureter (principal); Z96.0 Presence of urogenital implants | CPT/HCPCS: 50590; 52310 ==

== ENCOUNTER → 2025-01-11 06:00 | Outpatient (BNV) | payer OTHER, SELFPAY | PROVIDERS: PCP Internal Medicine; Visit Provider Radiology Diagnostic Radiology | DX: M61.48 Other calcification of muscle, other site (principal) | CPT/HCPCS: 74018 ==

== ENCOUNTER 2025-01-13 13:23 | Outpatient (AMB) | payer OTHER, SELFPAY ==
--- NOTE | 2025-01-13 13:39 | HO.NEPHOV ---
Vital Signs 01/13/25 13:42 Height 5 ft 7 in Weight 273 lb 8 oz BMI 42.8 BP 164/82 H Blood Pressure Location Lt brachial Position Sitting Intake Visit Reasons: [facility] Milieu Counselor Required: No Accompanied by: Self / Same As Patient Allergies No Known Allergies Allergy (Verified 01/13/25 13:42) HPI Comments Details: 54-year-old female who presented to the emergency department with left flank pain with associated nausea but no vomiting or diarrhea. She denies any dysuria. She has been on ARB. In the emergency department she had a CT scan which showed a 10 mm UPJ stone with moderate hydronephrosis. Serum creatinine was elevated at 2.57. She was seen by Urology and underwent cystoscopy with left stent placement on12/29. She was treated with empiric antibiotics, urine culture growing group b strep, and was discharged on PO antibiotics upon discharge. Her Creatinine trended down to 2.03. Losartan had been on hold during hospitalization and was discontinued upon discharge. Her stent was removed 2 days ago. She is here in follow up [facility] Medical History Chronic kidney disease, stage III (moderate) Bleeding hemorrhoids Impaired fasting glucose Morbid obesity with BMI of 40.0-44.9, adult Vitamin D deficiency Mixed hyperlipidemia Benign essential hypertension Sleep apnea Anxiety and depression Hypertension Surgical History History of lithotripsy History of hemorrhoidectomy (05/08/23) History of endometrial ablation History of tubal ligation Family History Sister Cervical cancer Mother Hypertension Father History of stroke Diabetes Social History Household Members: Family Housing: Apartment Are you a primary career development manager to a significant other at home: No Do you presently have visiting nurse or other home services: No Alcohol intake: current Alcohol intake frequency: a few times a month Patient Tobacco Use Status: Current someday Tobacco user Tobacco use type: Cigarette Cigarettes Per Day: 1 e-Cigarette/Vaping Use: Never Used Second Hand Smoke Exposure: No Advance Directives Date on File: 12/11/24 service: No Current occupational status: disabled Current occupational exposures/hazards: No Gender identity: Female Cognitive needs: No Hearing needs: No Vision needs: Yes Female Reproductive History Menstrual Age of Menarche: 15 Review of Systems Const All systems reviewed & are unremarkable except as noted in HPI and below Physical Exam Const General: comfortable and no acute distress Orientation/consciousness: patient oriented x3 HEENT Head: Yes normocephalic Mouth: Normal oral and palatal mucosa present Eyes EOM: EOMs intact bilaterally Neck Neck: Yes supple Resp Auscultation: clear to auscultation bilaterally Cardio Jugular venous distension: no JVD Rate: regular rate GI Palpation (GI): Soft to palpation Auscultation: normal bowel sounds General: Yes no CVA tenderness Back/Spine/Pelvis Back: no CVA tenderness Skin General skin exam: no rashes or lesions noted Neuro General: patient oriented x3 and moves all extremities Extrem General: Yes no pedal edema Results Reviewed Nephrology Results: Hgb 9.8 g/dl (12.0-16.0) L 12/30/24 WBC 8.4 X10*3/uL (4.8-10.8) 12/30/24 Plt Count 201 X10*3/uL (160-400) 12/30/24 Sodium 143 mmol/L (135-145) 12/31/24 Potassium 4.1 mmol/L (3.3-5.1) 12/31/24 Chloride 113 mmol/L (96-108) H 12/31/24 Carbon Dioxide 24 mmol/L (22-29) 12/31/24 BUN 37 mg/dL (9-16) H 12/31/24 Creatinine 2.03 mg/dL (0.5-1.4) H 12/31/24 Calcium 8.8 mg/dL (8.4-10.2) 12/31/24 Urine Protein 300 (3+) mg/dL (Neg-Trace) H 12/29/24 Assessment & Plan Assessment & Plan (1) RAMOS (acute kidney injury): Code(s): N17.9 - Acute kidney failure, unspecified Category: Medical (2) Renal calculi: Code(s): N20.0 - Calculus of kidney Category: Medical (3) Chronic kidney disease, stage III (moderate): Code(s): N18.30 - Chronic kidney disease, stage 3 unspecified Category: Medical Qualifiers: Chronic kidney disease stage 3 subtype: stage 3b (GFR 30-44) Qualified Code(s): N18.32 - Chronic kidney disease, stage 3b (4) Benign essential hypertension: Code(s): I10 - Essential (primary) hypertension Category: Medical Plan RAMOS on CKD due to obstructive uropathy as well as tubular injury Had been on ARB which has been on hold; On Amlodipine Needs Urology follow up. Started Carvedilol 6.25 mg PO bid Continue rest of current management for now; Labs for F/U ordered Will benefit from weight loss; Shall closely follow up Orders: Orders Blood Urea Nitrogen 1 Month N17.9 - Acute kidney failure, unspecified, N20.0 - Calculus of kidney Creatinine 1 Month N17.9 - Acute kidney failure, unspecified, N20.0 - Calculus of kidney Electrolytes 1 Month N17.9 - Acute kidney failure, unspecified, N20.0 - Calculus of kidney Medications: New carvedilol must administer with a meal/food 6.25 mg PO BID 60 tabs 3RF Coding Level of Care Code Est Pt Level 4 (95121) Diagnoses RAMOS (acute kidney injury) N17.9 Renal calculi N20.0 Stage 3b chronic kidney disease N18.32 Chronic kidney disease stage 3 subtype: stage 3b (GFR 30-44) Benign essential hypertension I10
[2025-01-13 13:42] VITALS: BP 164/82; BMI 42.8
--- OUTSIDE RECORDS SUMMARY | 2025-01-13 15:15 | XMS_ITS | Data Portability ---
Author Organization [employer] [employer] [facility] [employer] Address [address] [place] [address] Care Team Providers Care Ward Assistant Name Role Phone HIM CCA OTHER Assessment Encounter Date Assessment Date Assessment LastModified by Organization Details LastModified Time 08/03/2024 08/03/2024 I provided real -time medical direction via phone for this encounter and was available for additional phone-based assistance as needed. I have reviewed and agree with the Assessment and Plan as documented by the Bench Press Operator. Patient given the opportunity to ask questions. [...] SNOMED-CT Code Diagnosis ICD10 Code Diagnosis Note [id number] Chanelle Mauricio MD Main - [facility] [address] [place] [phone] 08/03/2024 17:04:39 08/04/2024 22:26:49 Essential hypertension [id number] I10 Health Concerns Section Related Observation LastModified by Organization Detai ls LastModified Time None Recorded Concern Status LastModified by Organization Details LastModified Time None Recorded Advance Directives Directive None Recorded Payers Encounter Date Sequence Insurance Name Policy Number Policy August Covered Member ID August Member ID Guarantor Name 08/03/2024 1 [facility] - DOS ON OR AFTER 2023 - DUAL ELIGIBLE - LONG-TERM OPTIONS AND ONE CARE (MEDICARE REPLACEMENT/ADV ANTAGE - HMO) Faustina Ansari [id number] Faustina Ansari Notes Date Note Type Note [...] of breath. Member is a 54 YO, Chilean speaking female, with hx of HTN, Generalized Anxiety, fatty liver, OA, SUNSHINE (not on Cpap), Hydronephrosis with renal and ureteral calculous obstruction and anemia. .................... .................... .................... .................... .................... .................... .................... . [facility] Nurse Triage Notes (Rafael Clark): Chief Complaints: Weakness/Lethargy PMH: Hypertension Comments: Reviewed HPI .................... .................... .................... .................... .................... .................... .................... . Bench Press Operator Note From Karen Bates: Sent to a [...] .................... . Disposition: Fulfilled Chanelle Mauricio MD [address] [place] [address],[address] [facility], [place], [phone], [employer] 08/03/2024 21:26:08 OBGyn Episode No OBEpisode recorded.
== END 2025-01-13 13:58 | disposition home or self-care (01) ==
LOC: HO.HKA 13:24
PROVIDERS: PCP Internal Medicine; Visit Provider Internal Medicine Nephrology
DX: N17.9 Acute kidney failure, unspecified (principal); N20.0 Calculus of kidney; N18.32 Chronic kidney disease, stage 3b; I10 Essential (primary) hypertension
CPT/HCPCS: 99214

== ENCOUNTER → 2025-01-13 13:23 | Outpatient (BNVA) | payer OTHER, SELFPAY | PROVIDERS: PCP Internal Medicine; Visit Provider Internal Medicine Nephrology | DX: I12.9 Hypertensive chronic kidney disease with stage 1 through stage 4 chronic kidney disease, or unspecified chronic kidney disease (principal); N18.32 Chronic kidney disease, stage 3b; N17.9 Acute kidney failure, unspecified; N20.0 Calculus of kidney | CPT/HCPCS: 99212 ==

== ENCOUNTER 2025-01-20 15:43 | Outpatient (AMB) | payer OTHER, SELFPAY ==
--- NOTE | 2025-01-20 15:45 | MHC.PC.OV ---
Vital Signs 01/20/25 15:48 Height 5 ft 7 in Weight 268 lb 6 oz BMI 42.0 BP 132/72 Blood Pressure Location Lt brachial Position Sitting Pulse 66 Pulse Source Pulse Oximeter Temp 97.1 F Temp Source Temporal Artery Scan Pulse Oximetry (%) 95 Oxygen Delivery Method Room Air Intake Visit Reasons: TCM [facility] 12/31 Kidney Stones Intake Note: Patient is here for hospital discharge and TCM follow up. Patient was discharged from [facility] on 12/31/24. Cryogenics Repairer Required: No Bariatric Surgeon: Not Required per policy Accompanied by: Self / Same As Patient Allergies No Known Allergies Allergy (Verified 01/20/25 15:47) Tobacco use date assessed: 01/20/25 Dental Screening Dental Screen Date: 01/20/25 Did you have a dental visit in the last 12 months?: Yes Did you have a dental problem in the last 6 months where you did not have access to dental care?: No Was dental information given to patient?: Patient has dentist HPI TCM TCM Information Date of Discharge 12/31/24 Discharged From [facility] Interactive Contact Date (Reference documentation from this date) 01/02/25 HPI Comments History of Present Illness Details 54 y/o Female who presents to the clinic today for TCM. Pt was admitted at [facility] on 12/29 - 12/31 for Ureterolithiasis 10 mm UPJ Stone. 12/29 she had procedure Cystoscopy, left retrograde, and left stent placement by Dr. Kinney. 01/11 She had Procedure Left ESWL, flexible cystoscopy left ureteral stent removal by Dr. Serrano. She has F/U appointment with Urology on 02/24. Medication changes: Losartan was discontinued. Amlodipine 10 mg was started upon discharge. Pt reports Urinary Incontinence sometimes, and wondering if she can get Rx for Panty Liner. [facility] Medical History (Updated 01/20/25 @ 16:17 by Anila Onofre NP) Urinary incontinence Chronic kidney disease, stage III (moderate) Bleeding hemorrhoids Impaired fasting glucose Morbid obesity with BMI of 40.0-44.9, adult Vitamin D deficiency Mixed hyperlipidemia Benign essential hypertension Sleep apnea Anxiety and depression Hypertension Surgical History History of lithotripsy History of hemorrhoidectomy (05/08/23) History of endometrial ablation History of tubal ligation Family History Sister Cervical cancer Mother Hypertension Father History of stroke Diabetes Social History Household Members: Family Housing: Apartment Are you a primary manager progressive care to a significant other at home: No Do you presently have visiting nurse or other home services: No Alcohol intake: current Alcohol intake frequency: a few times a month Patient Tobacco Use Status: Current someday Tobacco user Tobacco use type: Cigarette Cigarette Packs Per Day: 0.25 Cigarettes Per Day: 4 e-Cigarette/Vaping Use: Never Used Second Hand Smoke Exposure: Yes Advance Directives Date on File: 12/11/24 service: No Current occupational status: disabled Current occupational exposures/hazards: No Gender identity: Female Cognitive needs: No Hearing needs: No Vision needs: Yes Female Reproductive History Menstrual Age of Menarche: 15 Questionnaire PHQ-9 Over the last 2 weeks, how often have you been bothered by any of the following problems? 1. Little interest or pleasure in doing things: not at all 2. Feeling down, depressed, or hopeless: not at all 3. Trouble falling or staying asleep, or sleeping too much: not at all 4. Feeling tired or having little energy: not at all 5. Poor appetite or overeating: not at all 6. Feeling bad about yourself - or that you are a failure or have let yourself or your family down: not at all 7. Trouble concentrating on things, such as reading the newspaper or watching television: not at all 8. Moving or speaking so slowly that other people could have noticed. Or the opposite - being so fidgety or restless that you have been moving around a lot more than usual: not at all 9. Thoughts that you would be better off or of hurting yourself in some way: not at all Total score: 0 Depression Screening Interpretation: Negative Depression Screening Done: Yes Source: Developed by Drs. Lucas Hi, Zahira Keith, Derrick Abarca and colleagues, with an educational dwayne from [employer]. Thrive Questionnaire Date Thrive assessed: 12/30/24 AUDIT C Alcohol Use Questionnaire (AUDIT-C) 1. How often do you have a drink containing alcohol?: 2-3 times a week 2. How many drinks containing alcohol do you have on a typical day when you are drinking?: 1 or 2 Total Score: 3 MILEY-7 AMB Questionnaire MILEY-7 Date MILEY - 7 assessed: 01/20/25 Feeling nervous, anxious, or on edge: 0 = Not at all Not being able to stop or control worryin = Not at all Worrying too much about different things: 0 = Not at all Trouble relaxin = Not at all Being so restless that it is hard to sit still: 0 = Not at all Becoming easily annoyed or irritable: 0 = Not at all Feeling afraid as if something awful might happen: 0 = Not at all Total MILEY-7 score (0-4 normal; 5-9 mild; 10-14 moderate; 15-21 severe): 0 Source: Developed by Drs. Lucas Hi, Zahira Keith, Derrick Abarca and colleagues, with an educational dwayne from [employer]. Review of Systems Const All systems reviewed & are unremarkable except as noted in HPI and below Physical exam (Primary Care) Vital Signs: Last Vital Signs Temp 97.1 F 01/20/25 15:48 Pulse 66 01/20/25 15:48 BP 132/72 01/20/25 15:48 Pulse Ox 95 01/20/25 15:48 Oxygen Delivery Method Room Air 01/20/25 15:48 BMI result Body Mass Index 42.0 Tobacco/Smoking Status: Tobacco use Status Tobacco use date assessed 01/20/25 01/20/25 15:54 Patient Tobacco Use Status Current someday Tobacco 01/20/25 15:54 Tobacco use type Cigarette 01/20/25 15:54 e-Cigarette/Vaping Use Never Used 01/20/25 15:54 PHQ-9: PHQ-9 Score PHQ-9: Total score 0 01/20/25 15:54 Depression Screening Interpretation: Negative Thrive Assessment: Date of Thrive Assessment Date Thrive assessed 12/30/24 01/20/25 15:54 Const General: no acute distress Nutritional Appearance: obese morbidly obese Orientation/consciousness: patient oriented x3 Resp Effort & Inspection: normal respiratory effort Cardio Heart sounds: S1 normal heart sound present and S2 normal heart sound present General: Yes no CVA tenderness Back/Spine/Pelvis Back: no CVA tenderness Neuro General: patient oriented x3, gait normal and moves all extremities Psych Speech and movement: Normal speech and movement present Coding Level of Care Code TCM Mod MDM <= 14 Days Diagnoses Ureterolithiasis N20.1 Renal calculi N20.0 Urge incontinence of urine N39.41 Urinary Incontinence type: urge incontinence Time Spent (min) 20 Assessment & Plan Assessment & Plan (1) Ureterolithiasis: Code(s): N20.1 - Calculus of ureter Category: Medical Plan: Managed by Urology. (2) Renal calculi: Code(s): N20.0 - Calculus of kidney Category: Medical Plan: Resolved. Managed by Urology. (3) Urinary incontinence: Code(s): R32 - Unspecified urinary incontinence Category: Medical Qualifiers: Urinary Incontinence type: urge incontinence Qualified Code(s): N39.41 - Urge incontinence Plan: Ordered Panty Liners, Rx Faxed Medications: New incontinence pad, liner, disp (Prevail Panty Liner pads) As directed 312 ea 0RF N20.1 - Calculus of ureter, R32 - Unspecified urinary incontinence
--- OUTSIDE RECORDS SUMMARY | 2025-01-20 15:46 | XMS_ITS | Data Portability ---
Author Organization [employer] [place] [facility] [employer] Address [address] [place] [address] Care Team Providers Care Commission Specialist Name Role Phone HIM CCA OTHER Assessment Encounter Date Assessment Date Assessment LastModified by Organization Details LastModified Time 08/03/2024 08/03/2024 I provided real -time medical direction via phone for this encounter and was available for additional phone-based assistance as needed. I have reviewed and agree with the Assessment and Plan as documented by the Outpatient Physical Therapist Assistant. Patient given the opportunity to ask questions. [...] SNOMED-CT Code Diagnosis ICD10 Code Diagnosis Note [id number] Chanelle Mauricio MD Main - [facility] [address] [place] [phone] 08/03/2024 17:04:39 08/04/2024 22:26:49 Essential hypertension [id number] I10 Health Concerns Section Related Observation LastModified by Organization Detai ls LastModified Time None Recorded Concern Status LastModified by Organization Details LastModified Time None Recorded Advance Directives Directive None Recorded Payers Encounter Date Sequence Insurance Name Policy Number Policy August Covered Member ID August Member ID Guarantor Name 08/03/2024 1 [facility] - DOS ON OR AFTER 2023 - DUAL ELIGIBLE - CORRECTION OPTIONS AND ONE CARE (MEDICARE REPLACEMENT/ADV ANTAGE - HMO) Faustina Ansari [id number] Faustina Ansari Notes Date Note Type Note [...] of breath. Member is a 54 YO, Hebrew speaking female, with hx of HTN, Generalized Anxiety, fatty liver, OA, SUNSHINE (not on Cpap), Hydronephrosis with renal and ureteral calculous obstruction and anemia. .................... .................... .................... .................... .................... .................... .................... . CRC Nurse Triage Notes (Rafael Clark): Chief Complaints: Weakness/Lethargy PMH: Hypertension Comments: Reviewed HPI .................... .................... .................... .................... .................... .................... .................... . Outpatient Physical Therapist Assistant Note From Karen Bates: Sent to a [...] .................... . Disposition: Fulfilled Chanelle Mauricio MD [address] [place] [address],[address] [facility], [place], [phone], [employer] 08/03/2024 21:26:08 OBGyn Episode No OBEpisode recorded.
[2025-01-20 15:48] VITALS: BP 132/72; PULSE 66; TEMP 36.2; O2SAT 95; BMI 42.0
== END 2025-01-20 16:12 | disposition home or self-care (01) ==
LOC: HO.HMCH 15:44
PROVIDERS: PCP Internal Medicine; Visit Provider Nurse Practitioner Family
DX: N20.1 Calculus of ureter (principal); N20.0 Calculus of kidney; N39.41 Urge incontinence

== ENCOUNTER → 2025-01-20 15:43 | Outpatient (BNVA) | payer OTHER, SELFPAY | PROVIDERS: PCP Internal Medicine; Visit Provider Nurse Practitioner Family | DX: N20.1 Calculus of ureter (principal); N20.0 Calculus of kidney; N39.41 Urge incontinence | CPT/HCPCS: 99495 ==

== ENCOUNTER 2025-02-06 14:48 | Outpatient (REF) | payer OTHER, SELFPAY ==
[2025-02-06 16:01] LABS: MANUAL DIFF FLAG NO
[2025-02-06 16:23] LABS: Basophils Absolute Auto 0.1 X10*3/uL (0.0-0.2); Basophils Percent Auto 0.7 % (0-2); Eosinophils Absolute Auto 0.2 X10*3/uL (0.0-0.4); Eosinophils Percent Auto 2.5 % (0-4); Hematocrit 31.9 % (37.0-47.0); Hemoglobin 10.2 g/dl (12.0-16.0); Imm Gran Abs Auto 0.05 X10*3/uL (0.00-0.03); Imm Gran Pct Auto 0.6 % (0.0-0.4); Lymphocytes Absolute Auto 2.2 X10*3/uL (1.2-4.9); Lymphocytes Percent Auto 24.8 % (20-40); Mean Corpuscular Hemoglobin 28.4 pg (27.0-33.0); Mean Corpuscular Volume 88.9 fL (80.0-98.0); Mean Platelet Volume 10.1 fL (9.4-12.3); Monocytes Absolute Auto 0.7 X10*3/uL (0.1-1.2); Monocytes Percent Auto 8.2 % (2-11); Neutrophils Absolute Auto 5.7 x10*3/uL (2.0-8.3); Neutrophils Percent Auto 63.2 % (45-73); Platelet Count 236 X10*3/uL (160-400); Red Blood Count 3.59 X10*6/uL (4.20-5.50); White Blood Count 8.9 X10*3/uL (4.8-10.8)
[2025-02-06 16:29] LABS: Estimated Average Glucose 126 mg/dL; Hemoglobin A1C 114.4603 umol/L; Total Hemoglobin (HGBA1C) 2712.3617 umol/L
[2025-02-06 16:44] LABS: Appearance Urine Clear; Color Urine Yellow; Glucose Urine UA Negative (Negative); Leukocyte Esterase Urine Negative (Negative); Nitrite Urine Negative (Negative); PH 5.5 (5.0-9.0); Specific Gravity - Urine 1.015 (1.005-1.025); UMIC TRIGGER UACC YES; Urine Blood Negative (Negative); Urine Ketones Negative (Negative); Urine Protein 100 (2+) mg/dL (Neg-Trace)
[2025-02-06 16:50] LABS: Bacteria Urine None Seen (None Seen); Hyaline Casts Urine 0-2 /LPF (0-2); RBC Urine 0-2 /HPF (0-2); Squamous Epithelial Cell Urine 0-2 /HPF (0-2); WBC Urine 0-5 /HPF (0-5)
[2025-02-06 17:01] LABS: Alanine Aminotransferase 17 U/L (0-31); Albumin Level 4.3 g/dL (3.5-5.0); Alkaline Phosphatase 99 U/L (39-117); Anion Gap 12 (12-20); Aspartate Amino Transferase 16 U/L (5-31); Bilirubin Total 0.1 mg/dL (0.0-1.0); Blood Urea Nitrogen 37 mg/dL (9-16); Calcium 9.4 mg/dL (8.4-10.2); Carbon Dioxide 21 mmol/L (22-29); Chloride 112 mmol/L (96-108); Estimated Glomerular Filt Rate 31; Glucose Random 100 mg/dL (60-115); Iron 44 mcg/dL (30-160); Percent Iron Saturation 14 % (15-50); Potassium 4.3 mmol/L (3.3-5.1); Sodium 141 mmol/L (135-145); Total Iron Binding Capacity 320 mcg/dL (228-428); Total Protein 7.7 g/dL (6.5-8.0); Unsaturated Iron Binding 276 ug/dL
[2025-02-06 17:17] LABS: TSH reflex Free T4 1.83 uIU/mL (0.32-4.0); Vitamin D 25-OH Total 15.5 ng/mL (>30)
== END 2025-02-06 14:49 | disposition home or self-care (01) ==
LOC: HO.LAB 14:48
PROVIDERS: Absent Provider Internal Medicine Nephrology; PCP Internal Medicine; Visit Provider Internal Medicine
DX: I12.9 Hypertensive chronic kidney disease with stage 1 through stage 4 chronic kidney disease, or unspecified chronic kidney disease (principal); N18.32 Chronic kidney disease, stage 3b; N17.9 Acute kidney failure, unspecified; N20.1 Calculus of ureter; E78.2 Mixed hyperlipidemia; R73.01 Impaired fasting glucose; E55.9 Vitamin D deficiency, unspecified; E66.01 Morbid (severe) obesity due to excess calories; Z68.41 Body mass index [BMI] 40.0-44.9, adult; Z79.899 Other long term (current) drug therapy; Z00.00 Encounter for general adult medical examination without abnormal findings; E78.00 Pure hypercholesterolemia, unspecified; R30.0 Dysuria; D64.9 Anemia, unspecified
CPT/HCPCS: 36415; 80053; 81001; 82306; 83036; 83540; 84100; 84443; 85025; 96127; 99212

== ENCOUNTER 2025-02-06 14:48 | Outpatient (AMB) | payer OTHER, SELFPAY ==
--- NOTE | 2025-02-06 14:56 | MHC.PC.OV ---
Vital Signs 02/06/25 14:57 Height 5 ft 7 in Weight 267 lb BMI 41.8 BP 138/80 Blood Pressure Location Lt brachial Position Sitting Pulse 70 Pulse Source Pulse Oximeter Pulse Oximetry (%) 97 Oxygen Delivery Method Room Air Intake Visit Reasons: 6 month f/u Physical Therapist Assistant Required: No Accompanied by: Self / Same As Patient Allergies No Known Allergies Allergy (Verified 02/07/25 04:26) Medication List - Last Reconciled 02/07/25 by Taran Hood MD amlodipine 10 mg PO DAILY 90 days blood pressure monitor (Blood Pressure Kit) As directed carvedilol 6.25 mg PO BID incontinence pad, liner, disp (Prevail Panty Liner pads) As directed [INCONTINENCE PADS As directed] Tobacco use date assessed: 02/06/25 Dental Screening Dental Screen Date: 02/06/25 Did you have a dental visit in the last 12 months?: No Did you have a dental problem in the last 6 months where you did not have access to dental care?: No Was dental information given to patient?: No HPI 6 month f/u HPI Details Patient comes in today for her follow-up visit States that she currently feels okay She was admitted to the hospital for a couple of days last month when she went to the ER complaining of left flank pain and nausea Workups done revealed the presence of a 10 mm UPJ stone with moderate hydronephrosis of the left kidney and RAMOS, with serum creatinine elevated at 2.57 Was admitted and underwent left stent placement and was given some IV fluids as well for hydration, with gradual improvement of her serum creatinine back to her baseline She does have underlying stage 3 chronic kidney disease and was instructed to follow up with Nephrology as soon as possible when she is discharged Her losartan was also held during her hospital stay due to her RAMOS; this was later discontinued and then patient was maintained on amlodipine instead She was seen by Nephrology earlier this month for follow-up and was continued on amlodipine 10 mg QD and started additionally on carvedilol 6.25 mg BID She also had her stent removed by Urology earlier this month and states that she has no further problems since She was supposed to get some follow-up labs done prior to her appointment with Nephrology later this week - states that she is going to get these labs done as soon as she leaves the office after her visit today Patient denies any headaches or dizziness Denies any chest pains, no shortness of breath No nausea/vomiting, no abdominal pain No change in bowel habits noted [facility] Medical History Urinary incontinence Chronic kidney disease, stage III (moderate) Bleeding hemorrhoids Impaired fasting glucose Morbid obesity with BMI of 40.0-44.9, adult Vitamin D deficiency Mixed hyperlipidemia Benign essential hypertension Sleep apnea Anxiety and depression Hypertension Surgical History History of lithotripsy History of hemorrhoidectomy (05/08/23) History of endometrial ablation History of tubal ligation Family History Sister Cervical cancer Mother Hypertension Father History of stroke Diabetes Social History Household Members: Family Housing: Apartment Are you a primary career development associate to a significant other at home: No Do you presently have visiting nurse or other home services: No Alcohol intake: current Alcohol intake frequency: a few times a month Patient Tobacco Use Status: Current someday Tobacco user Tobacco use type: Cigarette Cigarette Packs Per Day: 0.25 Cigarettes Per Day: 4 e-Cigarette/Vaping Use: Never Used Second Hand Smoke Exposure: Yes Advance Directives Date on File: 12/11/24 service: No Current occupational status: disabled Current occupational exposures/hazards: No Gender identity: Female Cognitive needs: No Hearing needs: No Vision needs: Yes Female Reproductive History Menstrual Age of Menarche: 15 Questionnaire PHQ-9 Over the last 2 weeks, how often have you been bothered by any of the following problems? 1. Little interest or pleasure in doing things: not at all 2. Feeling down, depressed, or hopeless: not at all 3. Trouble falling or staying asleep, or sleeping too much: nearly every day 4. Feeling tired or having little energy: nearly every day 5. Poor appetite or overeating: not at all 6. Feeling bad about yourself - or that you are a failure or have let yourself or your family down: nearly every day 7. Trouble concentrating on things, such as reading the newspaper or watching television: several days 8. Moving or speaking so slowly that other people could have noticed. Or the opposite - being so fidgety or restless that you have been moving around a lot more than usual: several days 9. Thoughts that you would be better off or of hurting yourself in some way: not at all Total score: 11 Depression Screening Interpretation: Positive Depression Screening Follow-up: Existing condition and Community Mental Health Worker F/U Depression Screening Done: Yes 06090 - PHQ-9 Billing: Yes Source: Developed by Drs. Lucas Hi, Zahira Keith, Derrick Abarca and colleagues, with an educational dwayne from [employer]. Thrive Questionnaire Date Thrive assessed: 02/06/25 I am a: Patient What is your living situation today?: I have a steady place to live Within the past 12 months, did the food you bought not last and you didn't have the money to get more?: Never true Within the past 12 months, did you worry whether your food would run out before you got money to buy more?: Never true Do you have trouble paying for medicines?: No Do you have trouble getting transportation to medical appointments?: No Do you have trouble paying your heating and electricity bill?: No Do you have trouble taking care of your child, family member or friend?: No Do you have trouble with day-to-day activities such as bathing, preparing meals, shopping, managing finances, etc.?: No Are you currently unemployed and looking for a job?: No Are you interested in more education?: No Please select the resources that you would like help with: None Currently or been in a relationship where the following occur: No concerns reported THRIVE Score: 0 AUDIT C Alcohol Use Questionnaire (AUDIT-C) 1. How often do you have a drink containing alcohol?: 2-3 times a week 2. How many drinks containing alcohol do you have on a typical day when you are drinking?: 1 or 2 3. How often do you have six or more drinks on one occasion?: Never Total Score: 3 Score Reviewed/Action Taken: Yes MILEY-7 AMB Questionnaire MILEY-7 Date MILEY - 7 assessed: 02/06/25 Feeling nervous, anxious, or on edge: 0 = Not at all Not being able to stop or control worryin = Not at all Worrying too much about different things: 0 = Not at all Trouble relaxin = Not at all Being so restless that it is hard to sit still: 0 = Not at all Becoming easily annoyed or irritable: 0 = Not at all Feeling afraid as if something awful might happen: 0 = Not at all Total MILEY-7 score (0-4 normal; 5-9 mild; 10-14 moderate; 15-21 severe): 0 Source: Developed by Drs. Lucas Hi, Zahira Keith, Derrick Abarca and colleagues, with an educational dwayne from [employer]. Review of Systems Const Denies chills, Denies fatigue, Denies fever(s) and Denies headache(s) ENT Denies dysphagia, Denies dizziness, Denies otalgia, Denies headache(s), Denies neck pain, Denies odynophagia and Denies sore throat Card Denies chest pain, Denies irregular heart rhythm, Denies palpitations and Denies dyspnea Resp Denies chest congestion, Denies cough and Denies dyspnea GI Denies abdominal pain, Reports constipation (frequent), Denies dysphagia, Denies heartburn, Denies diarrhea, Denies nausea, Denies odynophagia and Denies vomiting Denies hematuria, Denies difficulty voiding, Denies dysuria and Denies urinary urgency Musc Denies back pain, Denies arthralgias and Denies neck pain Skin/Breast Denies rash Neuro Denies dizziness, Denies headache(s) and Denies paresthesias Endo Denies fatigue and Denies palpitations Gucci/Lymph Denies easy bruising Physical exam (Primary Care) Vital Signs: Last Vital Signs Pulse 70 02/06/25 14:57 BP 138/80 02/06/25 14:57 Pulse Ox 97 02/06/25 14:57 Oxygen Delivery Method Room Air 02/06/25 14:57 BMI result Body Mass Index 41.8 Tobacco/Smoking Status: Tobacco use Status Tobacco use date assessed 02/06/25 02/06/25 15:04 Patient Tobacco Use Status Current someday Tobacco 02/06/25 15:04 Tobacco use type Cigarette 02/06/25 15:04 e-Cigarette/Vaping Use Never Used 02/06/25 15:04 PHQ-9: PHQ-9 Score PHQ-9: Total score 11 02/06/25 15:41 Depression Screening Interpretation: Positive Depression Screening Follow-up: Existing condition and Community Mental Health Worker F/U Thrive Assessment: Date of Thrive Assessment Date Thrive assessed 02/06/25 02/06/25 15:04 Currently or been in a relationship where the following occur: No concerns reported Const General: no acute distress and alert HENMT Ears: TM's normal bilaterally and EAC's normal Throat: Yes posterior oropharynx normal and Yes tonsils normal (no TP congestion) Neck Neck: Yes supple and No lymphadenopathy Thyroid: Thyroid normal Resp Auscultation: clear to auscultation bilaterally, no rales and no wheezes Cardio Rate: regular rate Rhythm: regular rhythm Heart sounds: no murmurs GI Palpation (GI): Soft to palpation and nontender Auscultation: normal bowel sounds General: Yes no CVA tenderness Back/Spine/Pelvis Back: no CVA tenderness Thoracic/Lumbar Spine: No lumbar spinal tenderness Skin Rashes: no rashes Extrem General: Yes no clubbing, cyanosis or edema Coding Level of Care Code Est Pt Level 4 (20352) Complex EM visit Add On G2211 Diagnoses Stage 3b chronic kidney disease N18.32 Chronic kidney disease stage 3 subtype: stage 3b (GFR 30-44) RAMOS (acute kidney injury) N17.9 Ureterolithiasis N20.1 Benign essential hypertension I10 Mixed hyperlipidemia E78.2 Impaired fasting glucose R73.01 Vitamin D deficiency E55.9 Morbid obesity with BMI of 40.0-44.9, adult E66.01; Z68.41 Additional Codes PHQ-9 - 35230 - PHQ-9 Billing: Yes ([id number]) Assessment & Plan Assessment & Plan (1) Chronic kidney disease, stage III (moderate): Code(s): N18.30 - Chronic kidney disease, stage 3 unspecified Category: Medical Qualifiers: Chronic kidney disease stage 3 subtype: stage 3b (GFR 30-44) Qualified Code(s): N18.32 - Chronic kidney disease, stage 3b Plan: Have cautioned patient that her baseline kidney function is already significantly compromised and quite low for her age and that she should do whatever she can, including keeping her blood pressure and blood sugar controlled as tightly as she can, to help keep her kidney function stable - goal is to try to keep her in CKD stage 3 for as long as possible She has also been reminded to avoid any NSAIDs at all cost, and these include OTC Advil, Motrin (Ibuprofen), Aleve (generic Naproxen), as well as Aspirin Have advised her that the only medication she can safely take for pain would be Tylenol or Acetaminophen Follow up with nephrology as scheduled (2) RAMOS (acute kidney injury): Code(s): N17.9 - Acute kidney failure, unspecified Category: Medical Plan: Patient apparently suffered RAMOS when she had left-sided hydronephrosis due to obstructive uropathy from a 10 mm left UPJ stone, which has since been removed when she had a stent inserted last month - stent has since been removed Patient was supposed to get some follow up labs done but she has not done so yet - states that she will go to the lab right after her visit today to get them done as she is aware of her upcoming follow up appointment with nephrology later this week She is also reminded to increase her oral fluid intake and stay hydrated as best as she can Follow up with nephrology as scheduled (3) Ureterolithiasis: Code(s): N20.1 - Calculus of ureter Category: Medical Plan: (+) 10 mm left UPJ stone was seen on abdominal CT when patient presented to the ER last month for left flank pain and recurrent nausea She has a stent inserted by urology, with gradual resolution/passage of her left UPJ stone, and her stent was removed earlier this month Patient states that she is currently asymptomatic and has not had any recurrence of her flank pain or other related symptoms since her discharge from [facility] late last month Follow up with urology as scheduled (4) Benign essential hypertension: Code(s): I10 - Essential (primary) hypertension Category: Medical Plan: Reinforced low sodium diet - goal is systolic BP of 120 mm or less, in light of her CKD Continue Amlodipine 10 mg QD and Carvedilol 6.25 mg BID; Losartan was discontinued due to her RAMOS and significant decline in her GFR during her hospital admission last month Patient is reminded to continue monitoring her blood pressure regularly Follow up with nephrology as scheduled (5) Mixed hyperlipidemia: Code(s): E78.2 - Mixed hyperlipidemia Category: Medical Plan: Reinforced low cholesterol diet Will recheck her labs and fasting lipids in 4 months for follow up - patient is reminded to get these done BEFORE she returns in early May 2025 for her annual physical exam (6) Impaired fasting glucose: Code(s): R73.01 - Impaired fasting glucose Category: Medical Plan: Reinforced low calorie/low carb diet Will recheck her FBS and HgbA1c in 4 months (7) Vitamin D deficiency: Code(s): E55.9 - Vitamin D deficiency, unspecified Category: Medical Plan: Will recheck her Vitamin D level today for follow up (8) Morbid obesity with BMI of 40.0-44.9, adult: Code(s): E66.01 - Morbid (severe) obesity due to excess calories; Z68.41 - Body mass index [BMI] 40.0-44.9, adult Category: Medical Plan: Reinforced diet/exercise as tolerated/lose weight Patient states that she has been able to lose about 10 pounds already since the beginning of the year Have advised her that losing a lot of weight can also help preserve her renal function Plan To return as scheduled in early May 2025 for her annual physical examination Orders: Orders Comprehensive Hammond. Panel Fast 05/06/25 E78.00 - Pure hypercholesterolemia, unspecified, Z00.00 - Encounter for general adult medical examination without abnormal findings Lipid Panel 05/06/25 E78.00 - Pure hypercholesterolemia, unspecified, Z00.00 - Encounter for general adult medical examination without abnormal findings UA CC w/rflx Micro + Cult 05/06/25 R30.0 - Dysuria, Z00.00 - Encounter for general adult medical examination without abnormal findings Vitamin D 25-OH Total 05/06/25 E55.9 - Vitamin D deficiency, unspecified, Z00.00 - Encounter for general adult medical examination without abnormal findings Vitamin B12 and Folate 05/06/25 E53.8 - Deficiency of other specified B group vitamins, Z00.00 - Encounter for general adult medical examination without abnormal findings Comprehensive Met. Panel 02/06/25 N17.9 - Acute kidney failure, unspecified Complete Blood Count Auto Diff 02/06/25 D64.9 - Anemia, unspecified, N17.9 - Acute kidney failure, unspecified Phosphorus 02/06/25 N17.9 - Acute kidney failure, unspecified, N18.30 - Chronic kidney disease, stage 3 unspecified Vitamin D 25-OH Total 02/06/25 E55.9 - Vitamin D deficiency, unspecified, N17.9 - Acute kidney failure, unspecified Complete Blood Count Auto Diff 05/06/25 D64.9 - Anemia, unspecified, Z00.00 - Encounter for general adult medical examination without abnormal findings Hemoglobin A1c 05/06/25 R73.01 - Impaired fasting glucose, Z00.00 - Encounter for general adult medical examination without abnormal findings TSH reflex Free T4 05/06/25 E78.00 - Pure hypercholesterolemia, unspecified, Z00.00 - Encounter for general adult medical examination without abnormal findings
[2025-02-06 14:57] VITALS: BP 138/80; PULSE 70; O2SAT 97; BMI 41.8
--- OUTSIDE RECORDS SUMMARY | 2025-02-06 17:38 | XMS_ITS | Data Portability ---
Author Organization [employer] [place] [facility] - [employer] Address [address] [place] [address] Care Team Providers Care Milk Treater Name Role Phone HIM CCA OTHER Assessment Encounter Date Assessment Date Assessment LastModified by Organization Details LastModified Time 08/03/2024 08/03/2024 I provided real -time medical direction via phone for this encounter and was available for additional phone-based assistance as needed. I have reviewed and agree with the Assessment and Plan as documented by the Food Mobile Driver. Patient given the opportunity to ask questions. [...] SNOMED-CT Code Diagnosis ICD10 Code Diagnosis Note [id number] Chanelle Mauricio MD Main - [facility] [address] [place] [phone] 08/03/2024 17:04:39 08/04/2024 22:26:49 Essential hypertension [id number] I10 Health Concerns Section Related Observation LastModified by Organization Detai ls LastModified Time None Recorded Concern Status LastModified by Organization Details LastModified Time None Recorded Advance Directives Directive None Recorded Payers Encounter Date Sequence Insurance Name Policy Number Policy August Covered Member ID August Member ID Guarantor Name 08/03/2024 1 [facility] - DOS ON OR AFTER 2023 - DUAL ELIGIBLE - HALF-WAY OPTIONS AND ONE CARE (MEDICARE REPLACEMENT/ADV ANTAGE - HMO) Faustina Ansari [id number] Faustina Ansari Notes Date Note Type Note [...] of breath. Member is a 54 YO, Divehi speaking female, with hx of HTN, Generalized Anxiety, fatty liver, OA, SUNSHINE (not on Cpap), Hydronephrosis with renal and ureteral calculous obstruction and anemia. .................... .................... .................... .................... .................... .................... .................... . [facility] Nurse Triage Notes (Rafael Clark): Chief Complaints: Weakness/Lethargy PMH: Hypertension Comments: Reviewed HPI .................... .................... .................... .................... .................... .................... .................... . Food Mobile Driver Note From Karen Bates: Sent to a [...] . Disposition: Fulfilled Chanelle Mauricio MD [address] [place] [address],[address] [facility], [place], [address], [employer] 08/03/2024 21:26:08 OBGyn Episode No OBEpisode recorded.
== END 2025-02-06 15:42 | disposition home or self-care (01) ==
LOC: HO.HMCH 14:48
PROVIDERS: PCP Internal Medicine; Visit Provider Internal Medicine
DX: I12.9 Hypertensive chronic kidney disease with stage 1 through stage 4 chronic kidney disease, or unspecified chronic kidney disease (principal); N18.32 Chronic kidney disease, stage 3b; E66.01 Morbid (severe) obesity due to excess calories; Z68.41 Body mass index [BMI] 40.0-44.9, adult; N17.9 Acute kidney failure, unspecified; N20.1 Calculus of ureter; E78.2 Mixed hyperlipidemia; R73.01 Impaired fasting glucose; E55.9 Vitamin D deficiency, unspecified

== ENCOUNTER 2025-02-10 15:53 | Outpatient (AMB) | payer OTHER, SELFPAY ==
--- OUTSIDE RECORDS SUMMARY | 2025-02-10 15:57 | XMS_ITS | Data Portability ---
Author Organization [employer] [place] [facility] [employer] Address [address] [place] [address] Care Team Providers Care Lock Assembler Name Role Phone HIM [facility] OTHER Assessment Encounter Date Assessment Date Assessment LastModified by Organization Details LastModified Time 08/03/2024 08/03/2024 I provided real -time medical direction via phone for this encounter and was available for additional phone-based assistance as needed. I have reviewed and agree with the Assessment and Plan as documented by the Secondary School Teacher. Patient given the opportunity to ask questions. [...] SNOMED-CT Code Diagnosis ICD10 Code Diagnosis Note [id number] Chanelle Mauricio MD Main - [facility] [address] [place] [phone] 08/03/2024 17:04:39 08/04/2024 22:26:49 Essential hypertension [id number] I10 Health Concerns Section Related Observation LastModified by Organization Detai ls LastModified Time None Recorded Concern Status LastModified by Organization Details LastModified Time None Recorded Advance Directives Directive None Recorded Payers Encounter Date Sequence Insurance Name Policy Number Policy August Covered Member ID August Member ID Guarantor Name 08/03/2024 1 [facility] - DOS ON OR AFTER 2023 - DUAL ELIGIBLE - USP OPTIONS AND ONE CARE (MEDICARE REPLACEMENT/ADV ANTAGE - HMO) Faustina Ansari [id number] Faustina Ansari Notes Date Note Type Note [...] of breath. Member is a 54 YO, Ukrainian speaking female, with hx of HTN, Generalized Anxiety, fatty liver, OA, SUNSHINE (not on Cpap), Hydronephrosis with renal and ureteral calculous obstruction and anemia. .................... .................... .................... .................... .................... .................... .................... . CRC Nurse Triage Notes (Rafael Clark): Chief Complaints: Weakness/Lethargy PMH: Hypertension Comments: Reviewed HPI .................... .................... .................... .................... .................... .................... .................... . Secondary School Teacher Note From Karen Bates: Sent to a [...] .................... . Disposition: Fulfilled Chanelle Mauricio MD [address] [place] [address],[address] [facility], [place], [phone], [employer] 08/03/2024 21:26:08 OBGyn Episode No OBEpisode recorded.
--- NOTE | 2025-02-10 16:11 | HO.NEPHOV ---
Vital Signs 02/10/25 16:12 Height 5 ft 7 in Weight 268 lb BMI 42.0 BP 138/84 Blood Pressure Location Lt brachial Position Sitting Intake Visit Reasons: 1 MO FU-Conf Color Weigher Required: No Accompanied by: Self / Same As Patient Allergies No Known Allergies Allergy (Verified 02/10/25 16:14) Do you need a note to return to daycare/school/sports/work: No HPI Comments Details: 54-year-old female who recently presented to the emergency department with left flank pain with associated nausea but no vomiting or diarrhea. She denies any dysuria. She has been on ARB. She had a CT scan which showed a 10 mm UPJ stone with moderate hydronephrosis. Serum creatinine was elevated at 2.57. She was seen by Urology and underwent cystoscopy with left stent placement on12/29. She was treated with empiric antibiotics, urine culture growing group b strep, and was discharged on PO antibiotics upon discharge. Her Creatinine trended down to 1.69. Losartan had been on hold during hospitalization and was discontinued upon discharge. She is here in follow up [facility] Medical History Urinary incontinence Chronic kidney disease, stage III (moderate) Bleeding hemorrhoids Impaired fasting glucose Morbid obesity with BMI of 40.0-44.9, adult Vitamin D deficiency Mixed hyperlipidemia Benign essential hypertension Sleep apnea Anxiety and depression Hypertension Surgical History History of lithotripsy History of hemorrhoidectomy (05/08/23) History of endometrial ablation History of tubal ligation Family History Sister Cervical cancer Mother Hypertension Father History of stroke Diabetes Social History Household Members: Family Housing: Apartment Are you a primary director of home care hospice to a significant other at home: No Do you presently have visiting nurse or other home services: No Alcohol intake: current Alcohol intake frequency: a few times a month Patient Tobacco Use Status: Current someday Tobacco user Tobacco use type: Cigarette Cigarette Packs Per Day: 0.25 Cigarettes Per Day: 4 e-Cigarette/Vaping Use: Never Used Second Hand Smoke Exposure: Yes Advance Directives Date on File: 12/11/24 service: No Current occupational status: disabled Current occupational exposures/hazards: No Gender identity: Female Cognitive needs: No Hearing needs: No Vision needs: Yes Female Reproductive History Menstrual Age of Menarche: 15 Review of Systems Const All systems reviewed & are unremarkable except as noted in HPI and below Physical Exam Vital Signs: Last Vital Signs BP 138/84 02/10/25 16:12 BMI result Body Mass Index 42.0 Const General: comfortable and no acute distress Orientation/consciousness: patient oriented x3 HEENT Head: Yes normocephalic Mouth: Normal oral and palatal mucosa present Eyes EOM: EOMs intact bilaterally Neck Neck: Yes supple Resp Auscultation: clear to auscultation bilaterally Cardio Jugular venous distension: no JVD Rate: regular rate GI Palpation (GI): Soft to palpation Auscultation: normal bowel sounds General: Yes no CVA tenderness Back/Spine/Pelvis Back: no CVA tenderness Skin General skin exam: no rashes or lesions noted Neuro General: patient oriented x3 and moves all extremities Extrem General: Yes no pedal edema Results Reviewed Nephrology Results: Hgb 10.2 g/dl (12.0-16.0) L 02/06/25 WBC 8.9 X10*3/uL (4.8-10.8) 02/06/25 Plt Count 236 X10*3/uL (160-400) 02/06/25 Sodium 141 mmol/L (135-145) 02/06/25 Potassium 4.3 mmol/L (3.3-5.1) 02/06/25 Chloride 112 mmol/L (96-108) H 02/06/25 Carbon Dioxide 21 mmol/L (22-29) L 02/06/25 BUN 37 mg/dL (9-16) H 02/06/25 Creatinine 1.69 mg/dL (0.5-1.4) H 02/06/25 Calcium 9.4 mg/dL (8.4-10.2) 02/06/25 Phosphorus 4.0 mg/dL (2.7-4.5) 02/06/25 Urine Protein 100 (2+) mg/dL (Neg-Trace) H 02/06/25 Assessment & Plan Assessment & Plan (1) CKD stage 3b, GFR 30-44 ml/min: Code(s): N18.32 - Chronic kidney disease, stage 3b Category: Medical (2) RAMOS (acute kidney injury): Code(s): N17.9 - Acute kidney failure, unspecified Category: Medical (3) Renal calculi: Code(s): N20.0 - Calculus of kidney Category: Medical (4) Benign essential hypertension: Code(s): I10 - Essential (primary) hypertension Category: Medical (5) Proteinuria: Code(s): R80.9 - Proteinuria, unspecified Category: Medical Qualifiers: Proteinuria type: other Qualified Code(s): R80.8 - Other proteinuria Plan RAMOS on CKD due to obstructive uropathy as well as tubular injury Had been on ARB which has been on hold; On Amlodipine/Carvedilol Needs Urology follow up. Shall restart ARB/Jardiance with time Continue rest of current management for now; Labs for F/U ordered Will benefit from weight loss; Shall closely follow up Orders: Orders Creatinine 6 Weeks N17.9 - Acute kidney failure, unspecified, N18.32 - Chronic kidney disease, stage 3b Blood Urea Nitrogen 6 Weeks N17.9 - Acute kidney failure, unspecified, N18.32 - Chronic kidney disease, stage 3b Electrolytes 6 Weeks N17.9 - Acute kidney failure, unspecified, N18.32 - Chronic kidney disease, stage 3b Coding Level of Care Code Est Pt Level 4 (96434) Diagnoses CKD stage 3b, GFR 30-44 ml/min N18.32 RAMOS (acute kidney injury) N17.9 Renal calculi N20.0 Benign essential hypertension I10 Other proteinuria R80.8 Proteinuria type: other
[2025-02-10 16:12] VITALS: BP 138/84; BMI 42.0
== END 2025-02-10 16:36 | disposition home or self-care (01) ==
LOC: HO.HKA 15:54
PROVIDERS: PCP Internal Medicine; Visit Provider Internal Medicine Nephrology
DX: N18.32 Chronic kidney disease, stage 3b (principal); N17.9 Acute kidney failure, unspecified; N20.0 Calculus of kidney; I10 Essential (primary) hypertension; R80.8 Other proteinuria
CPT/HCPCS: 99214

== ENCOUNTER → 2025-02-10 15:53 | Outpatient (BNVA) | payer OTHER, SELFPAY | PROVIDERS: PCP Internal Medicine; Visit Provider Internal Medicine Nephrology | DX: I12.9 Hypertensive chronic kidney disease with stage 1 through stage 4 chronic kidney disease, or unspecified chronic kidney disease (principal); N17.9 Acute kidney failure, unspecified; N20.0 Calculus of kidney; R80.8 Other proteinuria; N18.32 Chronic kidney disease, stage 3b | CPT/HCPCS: 99212 ==

== ENCOUNTER 2025-02-14 14:47 | Outpatient (REF) | payer OTHER, SELFPAY ==
--- NOTE | ~2025-02-14 | US_ITS ---
EXAMINATION: US KIDNEY BILATERAL HISTORY: N20.1 - Calculus of ureter TECHNIQUE: Real-time grayscale ultrasound imaging of the kidneys was performed and images were reviewed. COMPARISON: Comparison is made with the prior examination dated 10/07/2023. FINDINGS: Right kidney: The right kidney measures 11.7 x 4.4 x 5.1 cm. Renal parenchymal echotexture and thickness are normal. There are no masses. There is no hydronephrosis or renal calculi. Left Kidney: The left kidney measures 11.2 x 4.8 x 6.3 cm. Renal parenchymal echotexture and thickness are normal. There are no masses. There is a nonobstructing 4 mm calculus in the interpolar region. There is no hydronephrosis. US/US renal BI IMPRESSION: 4 mm nonobstructing left renal calculus. Otherwise unremarkable renal ultrasound. Electronically signed by: Lucas Guajardo MD 02/14/2025 03:22 PM EDT
--- OUTSIDE RECORDS SUMMARY | 2025-02-14 15:58 | XMS_ITS | Data Portability ---
Author Organization [employer] [place] Address [address] [place] [address] Care Team Providers Care Rn Case Mgr Name Role Phone HIM CCA OTHER Assessment Encounter Date Assessment Date Assessment LastModified by Organization Details LastModified Time 08/03/2024 08/03/2024 I provided real -time medical direction via phone for this encounter and was available for additional phone-based assistance as needed. I have reviewed and agree with the Assessment and Plan as documented by the Industrial Maintenance Repairer. Patient given the opportunity to ask questions. [...] SNOMED-CT Code Diagnosis ICD10 Code Diagnosis Note [id number] Chanelle Mauricio MD Main - [facility] [address] [place] [id number] 08/03/2024 17:04:39 08/04/2024 22:26:49 Essential hypertension 09914586 I10 Health Concerns Section Related Observation LastModified by Organization Detai ls LastModified Time None Recorded Concern Status LastModified by Organization Details LastModified Time None Recorded Advance Directives Directive None Recorded Payers Encounter Date Sequence Insurance Name Policy Number Policy August Covered Member ID August Member ID Guarantor Name 08/03/2024 1 [facility] - DOS ON OR AFTER 2023 - DUAL ELIGIBLE - PRISON OPTIONS AND ONE CARE (MEDICARE REPLACEMENT/ADV ANTAGE - HMO) Faustina Ansari [id number] Faustina Ansari Notes Date Note Type Note [...] of breath. Member is a 54 YO, Persian speaking female, with hx of HTN, Generalized Anxiety, fatty liver, OA, SUNSHINE (not on Cpap), Hydronephrosis with renal and ureteral calculous obstruction and anemia. .................... .................... .................... .................... .................... .................... .................... . [facility] Nurse Triage Notes (Rafael Clark): Chief Complaints: Weakness/Lethargy PMH: Hypertension Comments: Reviewed HPI .................... .................... .................... .................... .................... .................... .................... . Industrial Maintenance Repairer Note From Karen Bates: Sent to a [...] .................... . Disposition: Fulfilled Chanelle Mauricio MD [address] [place] [address],[address] [facility], [place], [phone], [facility] 08/03/2024 21:26:08 OBGyn Episode No OBEpisode recorded.
== END 2025-02-14 14:48 | disposition home or self-care (01) ==
LOC: HO.US 14:47
PROVIDERS: PCP Internal Medicine; Visit Provider Urology
DX: N20.0 Calculus of kidney (principal); N20.1 Calculus of ureter
CPT/HCPCS: 76775

== ENCOUNTER → 2025-02-14 14:48 | Outpatient (BNV) | payer OTHER, SELFPAY | PROVIDERS: PCP Internal Medicine; Visit Provider Radiology Diagnostic Radiology | DX: N20.0 Calculus of kidney (principal) | CPT/HCPCS: 76775 ==

== ENCOUNTER 2025-02-24 14:37 | Outpatient (AMB) | payer OTHER, SELFPAY ==
--- NOTE | 2025-02-24 14:38 | A.OFFVIS_ITS ---
Intake Visit Reasons: S/p Left ESWL Intake Note: Patient is present for ESWL follow up/renal US Urology Medication:NONE Antibiotic Allergy:NONE Blood Thinner:NONE Skidder Required: Yes Skidder Name: Shila [email or web address] Information Interpreted: non-clinical & clinical Allergies No Known Allergies Allergy (Verified 02/24/25 14:39) HPI Comments Details: 02/24/25--Faustina is a 54-year-old female who is status post left kidney stone ESWL and removal of left ureteral stent which was performed on 01/11/2025, the patient had a 10 mm obstructing proximal left ureteral stone and had a left ureteral stent placed initially for management.. The patient is followed by nephrology for chronic kidney disease. I have discussed results of post procedure ESWL there is a 4 mm left stone fragment remaining. The patient is currently asymptomatic. I have discussed further evaluation with 24 hour urine collection. Regarding remaining stone fragment discussed continue to monitor for now. FU with Leonela SOFTWARE DEVELOPMENT SPECIALIST to review 24 hour urine results and discuss diet management recommendations in further detail. Results: US Renal 02/10/25--4 mm nonobstructing left renal calculus. Otherwise unremarkable renal ultrasound. 01/03/25--Faustina is a pleasant Belgian-speaking female. She is a patient of . She is seen for the following urologic conditions. - nephrolithiasis Telemedicine Evaluation 15 min Consultation Doximity Abdullahi Video Belgian translation provided by qualified medical director of hospice Current indwelling left stent Plan for ESWL with cystoscopy and stent removal Nephrolithiasis Initial presentation 12/29/24 with left flank pain Elevated creatinine Cystoscopy with stent placement performed Imaging - CT There is moderate left hydronephrosis secondary to a 10 mm UPJ calculus. The distal ureters are collapsed Plan ESWL with cystoscopy and stent removal [facility] Medical History Urinary incontinence Chronic kidney disease, stage III (moderate) Bleeding hemorrhoids Impaired fasting glucose Morbid obesity with BMI of 40.0-44.9, adult Vitamin D deficiency Mixed hyperlipidemia Benign essential hypertension Sleep apnea Anxiety and depression Hypertension Surgical History History of lithotripsy History of hemorrhoidectomy (05/08/23) History of endometrial ablation History of tubal ligation Family History Sister Cervical cancer Mother Hypertension Father History of stroke Diabetes Social History Household Members: Family Housing: Apartment Are you a primary associate director career services to a significant other at home: No Do you presently have visiting nurse or other home services: No Alcohol intake: current Alcohol intake frequency: a few times a month Patient Tobacco Use Status: Current someday Tobacco user Tobacco use type: Cigarette Cigarette Packs Per Day: 0.25 Cigarettes Per Day: 4 e-Cigarette/Vaping Use: Never Used Second Hand Smoke Exposure: Yes Advance Directives Date on File: 12/11/24 service: No Current occupational status: disabled Current occupational exposures/hazards: No Gender identity: Female Cognitive needs: No Hearing needs: No Vision needs: Yes Female Reproductive History Menstrual Age of Menarche: 15 Review of Systems Const All systems reviewed & are unremarkable except as noted in HPI and below Reports no additional complaints Eyes Reports no additional complaints ENT Reports no additional complaints Card Reports no additional complaints Resp Reports no additional complaints GI Reports no additional complaints Reports as per HPI Musc Reports no additional complaints Skin/Breast Reports system reviewed and no additional complaints, except as documented Neuro Reports no additional complaints Psych Reports no additional complaints Endo Reports no additional complaints Gucci/Lymph Reports no additional complaints Aller/Immun Reports no additional complaints Telehealth Telehealth Telehealth Platform: Telephone Location of provider rendering services: practice address Location of patient: address on file Patient Identification confirmed using: Name, : Yes Telehealth method: video Patient verbally consented to treatment: Yes Patient verbally consented to billing insurance company: Yes Patient informed of any privacy concerns related to visit: Yes Minutes spent on Phone/Video with Pt.: 17 Results Reviewed Results Reviewed: Date of Service: 02/14/25 EXAMINATION: US KIDNEY BILATERAL HISTORY: N20.1 - Calculus of ureter TECHNIQUE: Real-time grayscale ultrasound imaging of the kidneys was performed and images were reviewed. COMPARISON: Comparison is made with the prior examination dated 10/07/2023. FINDINGS: Right kidney: The right kidney measures 11.7 x 4.4 x 5.1 cm. Renal parenchymal echotexture and thickness are normal. There are no masses. There is no hydronephrosis or renal calculi. Left Kidney: The left kidney measures 11.2 x 4.8 x 6.3 cm. Renal parenchymal echotexture and thickness are normal. There are no masses. There is a nonobstructing 4 mm calculus in the interpolar region. There is no hydronephrosis. IMPRESSION: 4 mm nonobstructing left renal calculus. Otherwise unremarkable renal ultrasound. Assessment & Plan Assessment & Plan (1) Renal calculi: Code(s): N20.0 - Calculus of kidney Category: Medical (2) CKD (chronic kidney disease): Code(s): N18.9 - Chronic kidney disease, unspecified Category: Medical (3) Kidney stone on left side: Code(s): N20.0 - Calculus of kidney Category: Medical Plan I have discussed further evaluation with 24 hour urine collection. Regarding remaining stone fragment discussed continue to monitor for now. FU with Leonela SOFTWARE DEVELOPMENT SPECIALIST to review 24 hour urine results and discuss diet management recommendations in further detail. Patient Instructions: The patient had an opportunity to ask questions regarding treatment plan. The patient expressed understanding and agreement with the above treatment plan. The patient is aware they should contact our office by phone for worsening of their current condition or the appearance of new symptoms. Compliance is encouraged with any medications and followup testing that is ordered. It is a privilege to be allowed the opportunity to participate in the urologic care of your patient. If you have any questions or concerns regarding treatment for the above conditions please do not hesitate to contact me. The office telephone contact is [phone]. This note is constructed in part using voice recognition software. While every effort has been made to ensure accuracy party supply specialist errors may have been included. Yours sincerely, Sindhu Serrano MD Coding Level of Care Code Tele Est Pt Level 3 (24526) Global (84525) Diagnoses Renal calculi N20.0 CKD (chronic kidney disease) N18.9 Kidney stone on left side N20.0
== END 2025-02-24 15:33 | disposition home or self-care (01) ==
LOC: HO.HUSH 14:37
PROVIDERS: PCP Internal Medicine; Visit Provider Urology
DX: N20.0 Calculus of kidney (principal); N18.9 Chronic kidney disease, unspecified
CPT/HCPCS: 99024

== ENCOUNTER → 2025-02-24 14:37 | Outpatient (BNVA) | payer OTHER, SELFPAY | PROVIDERS: PCP Internal Medicine; Visit Provider Urology | DX: N18.9 Chronic kidney disease, unspecified (principal); N20.0 Calculus of kidney; Z98.890 Other specified postprocedural states | CPT/HCPCS: 99212 ==

== ENCOUNTER 2025-03-24 15:43 | Outpatient (REF) | payer OTHER, SELFPAY ==
--- OUTSIDE RECORDS SUMMARY | 2025-03-24 15:47 | XMS_ITS | Data Portability ---
Author Organization [employer] [facility], [employer] [facility] Address [address] [place] [address] Care Team Providers Care Ecotherapist Name Role Phone HIM HUMPHREY OTHER Assessment Encounter Date Assessment Date Assessment LastModified by Organization Details LastModified Time 08/03/2024 08/03/2024 I provided real -time medical direction via phone for this encounter and was available for additional phone-based assistance as needed. I have reviewed and agree with the Assessment and Plan as documented by the Investigator Utility Bill Complaints. Patient given the opportunity to ask questions. [...] and Address Organization Details Last Updated DateTime 97 % 97 % 18 /min 82 [...] SNOMED-CT Code Diagnosis ICD10 Code Diagnosis Note [id number] Chanelle Mauricio MD Main - [facility] [address] [place] [phone] 08/03/2024 17:04:39 08/04/2024 22:26:49 Essential hypertension [id number] I10 Health Concerns Section Related Observation LastModified by Organization Detai ls LastModified Time None Recorded Concern Status LastModified by Organization Details LastModified Time None Recorded Advance Directives Directive None Recorded Payers Insurance Date Sequence Insurance Name Policy Number Policy August Covered Member ID August Member ID Guarantor Name 08/03/2024 1 [facility] - DOS ON OR AFTER 2023 - DUAL ELIGIBLE - RETIREMENT OPTIONS AND ONE CARE (MEDICARE REPLACEMENT/ADV ANTAGE - HMO) Faustina Ansari [id number] Faustina Ansari Notes Date Note Type Note [...] of breath. Member is a 54 YO, Tristanian speaking female, with hx of HTN, Generalized Anxiety, fatty liver, OA, SUNSHINE (not on Cpap), Hydronephrosis with renal and ureteral calculous obstruction and anemia. .................... .................... .................... .................... .................... .................... .................... . CRC Nurse Triage Notes (Rafael Clark): Chief Complaints: Weakness/Lethargy PMH: Hypertension Comments: Reviewed HPI .................... .................... .................... .................... .................... .................... .................... . Investigator Utility Bill Complaints Note From Karen Bates: Sent to a [...] .................... . Disposition: Fulfilled Chanelle Mauricio MD [address] [place] [address],[address], [place], [phone], [employer] 08/03/2024 21:26:08 OBGyn Episode No OBEpisode recorded.
[2025-03-24 17:19] LABS: Anion Gap 11 (12-20); Blood Urea Nitrogen 43 mg/dL (9-16); Carbon Dioxide 19 mmol/L (22-29); Chloride 116 mmol/L (96-108); Estimated Glomerular Filt Rate 29; Potassium 4.6 mmol/L (3.3-5.1); Sodium 141 mmol/L (135-145)
== END 2025-03-24 15:44 | disposition home or self-care (01) ==
LOC: HO.LAB 15:43
PROVIDERS: PCP Internal Medicine; Visit Provider Internal Medicine Nephrology
DX: N18.32 Chronic kidney disease, stage 3b (principal); N17.9 Acute kidney failure, unspecified
CPT/HCPCS: 36415; 80051; 82565; 84520

== ENCOUNTER 2025-03-29 15:59 | Outpatient (AMB) | payer OTHER, SELFPAY ==
--- NOTE | 2025-03-29 16:11 | HO.NEPHOV ---
Vital Signs 03/29/25 16:13 Height 5 ft 7 in Weight 265 lb 2 oz BMI 41.5 BP 146/82 H Blood Pressure Location Lt brachial Position Sitting Intake Visit Reasons: -[facility] Suture Polisher Required: No Accompanied by: Self / Same As Patient Allergies No Known Allergies Allergy (Verified 03/29/25 16:13) HPI Comments Details: 54-year-old female who recently presented to the emergency department with left flank pain with associated nausea but no vomiting or diarrhea. She denies any dysuria. She has been on ARB. She had a CT scan which showed a 10 mm UPJ stone with moderate hydronephrosis. Serum creatinine was elevated at 2.57. She was seen by Urology and underwent cystoscopy with left stent placement on12/29. She was treated with empiric antibiotics, urine culture growing group b strep, and was discharged on PO antibiotics upon discharge. Her Creatinine trended down to 1.69. Losartan had been on hold during hospitalization and was discontinued upon discharge. She is here in follow up [facility] Medical History Urinary incontinence Chronic kidney disease, stage III (moderate) Bleeding hemorrhoids Impaired fasting glucose Morbid obesity with BMI of 40.0-44.9, adult Vitamin D deficiency Mixed hyperlipidemia Benign essential hypertension Sleep apnea Anxiety and depression Hypertension Surgical History History of lithotripsy History of hemorrhoidectomy (05/08/23) History of endometrial ablation History of tubal ligation Family History Sister Cervical cancer Mother Hypertension Father History of stroke Diabetes Social History Household Members: Family Housing: Apartment Are you a primary care services manager to a significant other at home: No Do you presently have visiting nurse or other home services: No Alcohol intake: current Alcohol intake frequency: a few times a month Patient Tobacco Use Status: Current someday Tobacco user Tobacco use type: Cigarette Cigarette Packs Per Day: 0.25 Cigarettes Per Day: 4 e-Cigarette/Vaping Use: Never Used Second Hand Smoke Exposure: Yes Advance Directives Date on File: 12/11/24 service: No Current occupational status: disabled Current occupational exposures/hazards: No Gender identity: Female Cognitive needs: No Hearing needs: No Vision needs: Yes Female Reproductive History Menstrual Age of Menarche: 15 Review of Systems Const All systems reviewed & are unremarkable except as noted in HPI and below Physical Exam Vital Signs: Last Vital Signs BP 146/82 H 03/29/25 16:13 BMI result Body Mass Index 41.5 Const General: comfortable and no acute distress Orientation/consciousness: patient oriented x3 HEENT Head: Yes normocephalic Mouth: Normal oral and palatal mucosa present Eyes EOM: EOMs intact bilaterally Neck Neck: Yes supple Resp Auscultation: clear to auscultation bilaterally Cardio Jugular venous distension: no JVD Rate: regular rate GI Palpation (GI): Soft to palpation Auscultation: normal bowel sounds General: Yes no CVA tenderness Back/Spine/Pelvis Back: no CVA tenderness Skin General skin exam: no rashes or lesions noted Neuro General: patient oriented x3 and moves all extremities Extrem General: Yes no pedal edema Results Reviewed Nephrology Results: Hgb, (12.0-16.0) 10.2 g/dl L 02/06/25 WBC, (4.8-10.8) 8.9 X10*3/uL 02/06/25 Plt Count, (160-400) 236 X10*3/uL 02/06/25 Sodium, (135-145) 141 mmol/L 03/24/25 Potassium, (3.3-5.1) 4.6 mmol/L 03/24/25 Chloride, (96-108) 116 mmol/L H 03/24/25 Carbon Dioxide, (22-29) 19 mmol/L L 03/24/25 BUN, (9-16) 43 mg/dL H 03/24/25 Creatinine, (0.5-1.4) 1.79 mg/dL H 03/24/25 Calcium, (8.4-10.2) 9.4 mg/dL Δ 02/06/25 Phosphorus, (2.7-4.5) 4.0 mg/dL 02/06/25 Urine Protein, (Neg-Trace) 100 (2+) mg/dL H 02/06/25 Renal US 02/14/25 Assessment & Plan Assessment & Plan (1) Impaired fasting glucose: Code(s): R73.01 - Impaired fasting glucose Category: Medical (2) Benign essential hypertension: Code(s): I10 - Essential (primary) hypertension Category: Medical (3) Chronic kidney disease, stage III (moderate): Code(s): N18.30 - Chronic kidney disease, stage 3 unspecified Category: Medical Qualifiers: Chronic kidney disease stage 3 subtype: stage 3b (GFR 30-44) Qualified Code(s): N18.32 - Chronic kidney disease, stage 3b (4) Renal calculi: Code(s): N20.0 - Calculus of kidney Category: Medical Plan RAMOS on CKD due to obstructive uropathy as well as tubular injury-resolved Had been on ARB which has been on hold - plan to start @ next visit; Cr back to baseline On Amlodipine/Carvedilol ;Needs Urology follow up. Shall start Jardiance with time Continue rest of current management for now; Labs for F/U ordered Will benefit from medications for weight loss Shall closely follow up Orders: Orders Electrolytes 3 Months N18.32 - Chronic kidney disease, stage 3b Creatinine 3 Months N18.32 - Chronic kidney disease, stage 3b Protein Creatinine Ratio, Ur 3 Months N18.32 - Chronic kidney disease, stage 3b Blood Urea Nitrogen 3 Months N18.32 - Chronic kidney disease, stage 3b Coding Level of Care Code Est Pt Level 4 (27364) Diagnoses Impaired fasting glucose R73.01 Benign essential hypertension I10 Stage 3b chronic kidney disease N18.32 Chronic kidney disease stage 3 subtype: stage 3b (GFR 30-44) Renal calculi N20.0
[2025-03-29 16:13] VITALS: BP 146/82; BMI 41.5
--- OUTSIDE RECORDS SUMMARY | 2025-03-29 18:01 | XMS_ITS | Data Portability ---
Author Organization [facility], [facility] Address [address] [place] [address] Care Team Providers Care Creative/Art Director Name Role Phone HIM HUMPHREY OTHER Assessment Encounter Date Assessment Date Assessment LastModified by Organization Details LastModified Time 08/03/2024 08/03/2024 I provided real -time medical direction via phone for this encounter and was available for additional phone-based assistance as needed. I have reviewed and agree with the Assessment and Plan as documented by the [employer]. Patient given the opportunity to ask questions. [...] SNOMED-CT Code Diagnosis ICD10 Code Diagnosis Note [id number] Chanelle Mauricio MD Main - [facility] [address] [place] [address] [id number] 08/03/2024 17:04:39 08/04/2024 22:26:49 Essential hypertension [id number] I10 Health Concerns Section Related Observation LastModified by Organization Detai ls LastModified Time None Recorded Concern Status LastModified by Organization Details LastModified Time None Recorded Advance Directives Directive None Recorded Payers Insurance Date Sequence Insurance Name Policy Number Policy August Covered Member ID August Member ID Guarantor Name 08/03/2024 1 [facility] - DOS ON OR AFTER 2023 - DUAL ELIGIBLE - NURSING HOME OPTIONS AND ONE CARE (MEDICARE REPLACEMENT/ADV ANTAGE - HMO) Faustina Ansari [id number] Faustina Ansari Notes Date Note Type Note [...] of breath. Member is a 54 YO, Portuguese speaking female, with hx of HTN, Generalized Anxiety, fatty liver, OA, SUNSHINE (not on Cpap), Hydronephrosis with renal and ureteral calculous obstruction and anemia. .................... .................... .................... .................... .................... .................... .................... . [facility] Nurse Triage Notes (Rafael Clark): Chief Complaints: Weakness/Lethargy PMH: Hypertension Comments: Reviewed HPI .................... .................... .................... .................... .................... .................... .................... . [employer] Note From Karen Bates: Sent to a [...] .................... . Disposition: Fulfilled Chanelle Mauricio MD [address] [place] [address],[address], [place], [id number], [employer] 08/03/2024 21:26:08 OBGyn Episode No OBEpisode recorded.
== END 2025-03-29 16:33 | disposition home or self-care (01) ==
LOC: HO.HKA 16:00
PROVIDERS: PCP Internal Medicine; Visit Provider Internal Medicine Nephrology
DX: R73.01 Impaired fasting glucose (principal); I10 Essential (primary) hypertension; N18.32 Chronic kidney disease, stage 3b; N20.0 Calculus of kidney
CPT/HCPCS: 99214

== ENCOUNTER → 2025-03-29 15:59 | Outpatient (BNVA) | payer OTHER, SELFPAY | PROVIDERS: PCP Internal Medicine; Visit Provider Internal Medicine Nephrology | DX: N18.32 Chronic kidney disease, stage 3b (principal); R73.01 Impaired fasting glucose; I10 Essential (primary) hypertension; N20.0 Calculus of kidney | CPT/HCPCS: 99212 ==

== ENCOUNTER 2025-05-15 14:54 | Outpatient (AMB) | payer OTHER, SELFPAY ==
--- NOTE | 2025-05-15 14:59 | MHC.PC.OV ---
Vital Signs 05/15/25 15:00 Height 5 ft 7 in Weight 254 lb 2 oz BMI 39.8 BP 146/82 H Blood Pressure Location Lt brachial Position Sitting Pulse 65 Pulse Source Pulse Oximeter Pulse Oximetry (%) 96 Oxygen Delivery Method Room Air Intake Visit Reasons: Annual Exam Field Advisor Required: No Accompanied by: Self / Same As Patient Allergies No Known Allergies Allergy (Verified 05/15/25 15:56) Medication List - Last Reconciled 05/15/25 by Taran Hood MD amlodipine 10 mg PO DAILY 90 days blood pressure monitor (Blood Pressure Kit) As directed carvedilol 6.25 mg PO BID incontinence pad, liner, disp (Prevail Panty Liner pads) As directed [INCONTINENCE PADS As directed] lorazepam Take 1 tablet 30 minutes before boarding plane (as needed for anxiety). May repeat x 1 dose after 10 to 15 minutes if needed. 2 days Tobacco use date assessed: 05/15/25 Dental Screening Dental Screen Date: 05/15/25 Did you have a dental visit in the last 12 months?: No Did you have a dental problem in the last 6 months where you did not have access to dental care?: No Was dental information given to patient?: No HPI Annual Exam HPI Details Patient comes in today for her annual physical examination States that she feels okay Reports that she is feeling very tired and sleepy as she just got back from a 2 weeks' stay in [place] earlier this morning this morning so she was not able to get her follow-up labs done yet She denies any headaches or dizziness Denies any chest pains, no shortness of breath No nausea/vomiting, no abdominal pain No change in bowel habits noted She denies any acute urinary symptoms She is up-to-date with all of her cancer screenings Her colonoscopy was last done in March 2023 she was recommended to get a repeat colonoscopy in 5-7 years She had her annual mammogram done in August 2024 and is scheduled for her next one on 08/24/2025 She has her yearly gynecology exam and Pap smear scheduled for next week on 05/26/2025 [facility] Medical History Urinary incontinence Chronic kidney disease, stage III (moderate) Bleeding hemorrhoids Impaired fasting glucose Morbid obesity with BMI of 40.0-44.9, adult Vitamin D deficiency Mixed hyperlipidemia Benign essential hypertension Sleep apnea Anxiety and depression Hypertension Surgical History History of lithotripsy History of hemorrhoidectomy (05/08/23) History of endometrial ablation History of tubal ligation Family History Sister Cervical cancer Mother Hypertension Father History of stroke Diabetes Social History Household Members: Family Housing: Apartment Are you a primary manager respiratory care to a significant other at home: No Do you presently have visiting nurse or other home services: No Alcohol intake: current Alcohol intake frequency: a few times a month Patient Tobacco Use Status: Current someday Tobacco user Tobacco use type: Cigarette Cigarette Packs Per Day: 0.25 Cigarettes Per Day: 4 e-Cigarette/Vaping Use: Never Used Second Hand Smoke Exposure: Yes Advance Directives Date on File: 12/11/24 service: No Current occupational status: disabled Current occupational exposures/hazards: No Gender identity: Female Cognitive needs: No Hearing needs: No Vision needs: Yes Female Reproductive History Menstrual Age of Menarche: 15 Questionnaire PHQ-9 Over the last 2 weeks, how often have you been bothered by any of the following problems? 1. Little interest or pleasure in doing things: not at all 2. Feeling down, depressed, or hopeless: not at all 3. Trouble falling or staying asleep, or sleeping too much: nearly every day 4. Feeling tired or having little energy: nearly every day 5. Poor appetite or overeating: not at all 6. Feeling bad about yourself - or that you are a failure or have let yourself or your family down: nearly every day 7. Trouble concentrating on things, such as reading the newspaper or watching television: several days 8. Moving or speaking so slowly that other people could have noticed. Or the opposite - being so fidgety or restless that you have been moving around a lot more than usual: several days 9. Thoughts that you would be better off or of hurting yourself in some way: not at all Total score: 11 Depression Screening Interpretation: Positive Depression Screening Follow-up: Existing condition and Community Mental Health Worker F/U Depression Screening Done: Yes 57825 - PHQ-9 Billing: Yes Source: Developed by Drs. Lucas Hi, Zahira Keith, Derrick Abarca and colleagues, with an educational dwayne from [email or web address]. Thrive Questionnaire Date Thrive assessed: 05/15/25 I am a: Patient What is your living situation today?: I have a steady place to live Within the past 12 months, did the food you bought not last and you didn't have the money to get more?: Never true Within the past 12 months, did you worry whether your food would run out before you got money to buy more?: Never true Do you have trouble paying for medicines?: No Do you have trouble getting transportation to medical appointments?: No Do you have trouble paying your heating and electricity bill?: No Do you have trouble taking care of your child, family member or friend?: No Do you have trouble with day-to-day activities such as bathing, preparing meals, shopping, managing finances, etc.?: No Are you currently unemployed and looking for a job?: No Are you interested in more education?: No Please select the resources that you would like help with: None Currently or been in a relationship where the following occur: No concerns reported THRIVE Score: 0 AUDIT C Alcohol Use Questionnaire (AUDIT-C) 1. How often do you have a drink containing alcohol?: 2-3 times a week 2. How many drinks containing alcohol do you have on a typical day when you are drinking?: 1 or 2 3. How often do you have six or more drinks on one occasion?: Never Total Score: 3 Score Reviewed/Action Taken: Yes MILEY-7 AMB Questionnaire MILEY-7 Date MILEY - 7 assessed: 05/15/25 Feeling nervous, anxious, or on edge: 0 = Not at all Not being able to stop or control worryin = Not at all Worrying too much about different things: 0 = Not at all Trouble relaxin = Not at all Being so restless that it is hard to sit still: 0 = Not at all Becoming easily annoyed or irritable: 0 = Not at all Feeling afraid as if something awful might happen: 0 = Not at all Total MILEY-7 score (0-4 normal; 5-9 mild; 10-14 moderate; 15-21 severe): 0 Source: Developed by Drs. Lucas Hi, Zahira Keith, Derrick Abarca and colleagues, with an educational dwayne from [email or web address]. Review of Systems Const Denies chills, Denies fatigue, Denies fever(s), Denies headache(s) and Denies malaise Eyes Denies blurry vision, Denies change in vision, Denies irritation and Denies itchy eyes ENT Denies dysphagia, Denies dizziness, Denies otalgia, Denies headache(s), Denies nasal congestion, Denies neck pain, Denies odynophagia, Denies sinus pain and Denies sore throat Card Denies chest pain, Denies rapid heart rate, Denies irregular heart rhythm, Denies palpitations and Denies dyspnea Resp Denies chest congestion, Denies cough, Denies dyspnea and Denies wheezing GI Denies abdominal pain, Denies bloating, Denies constipation, Denies dysphagia, Denies heartburn, Denies diarrhea, Denies nausea, Denies odynophagia and Denies vomiting Denies hematuria, Denies urinary frequency, Denies dysuria, Denies urinary incontinence and Denies urinary urgency Musc Denies back pain, Denies arthralgias, Denies joint swelling, Denies muscle weakness and Denies neck pain Skin/Breast Denies breast pain, Denies breast mass, Denies change in pigmentation, Denies lesions, Denies rash and Denies unusual bruising Neuro Denies dizziness, Denies headache(s) and Denies paresthesias Psych Denies anxiety and Denies depression Endo Denies fatigue and Denies palpitations Gucci/Lymph Denies easy bruising Aller/Immun Denies itchy eyes and Denies wheezing Physical exam (Primary Care) Vital Signs: Last Vital Signs Pulse 65 05/15/25 15:00 BP 146/82 H 05/15/25 15:00 Pulse Ox 96 05/15/25 15:00 Oxygen Delivery Method Room Air 05/15/25 15:00 BMI result Body Mass Index 39.8 Tobacco/Smoking Status: Tobacco use Status Tobacco use date assessed 05/15/25 05/15/25 15:02 Patient Tobacco Use Status Current someday Tobacco 05/15/25 15:02 Tobacco use type Cigarette 08/04/25 15:02 e-Cigarette/Vaping Use Never Used 05/15/25 15:02 PHQ-9: PHQ-9 Score PHQ-9: Total score 11 05/15/25 15:56 Depression Screening Interpretation: Positive Depression Screening Follow-up: Existing condition and Community Mental Health Worker F/U Thrive Assessment: Date of Thrive Assessment Date Thrive assessed 05/15/25 05/15/25 15:02 Currently or been in a relationship where the following occur: No concerns reported Const General: no acute distress, alert and awake Orientation/consciousness: patient oriented x3 HENMT Head: Yes normocephalic and Yes atraumatic Ears: external ears normal, TM's normal bilaterally and EAC's normal General nose exam: No nasal discharge present Face and sinus: Yes normal facial exam and Yes sinuses nontender Teeth and gingiva: dentition normal Throat: Yes posterior oropharynx normal and Yes tonsils normal (no TP congestion) Eyes Eyelids: Yes eyelids normal Conjunctivae: conjunctivae normal Pupils: Equal, round and reactive pupils present EOM: EOMs intact bilaterally Neck Neck: Yes no lymphadenopathy and Yes supple Thyroid: Thyroid normal Resp Auscultation: clear to auscultation bilaterally, no rales and no wheezes Cardio Rate: regular rate Rhythm: regular rhythm Heart sounds: no murmurs GI Palpation (GI): Soft to palpation, nontender and No hepatosplenomegaly present Auscultation: normal bowel sounds General: Yes no CVA tenderness Back/Spine/Pelvis Back: no CVA tenderness Thoracic/Lumbar Spine: thoracic and lumbar spine normal to inspection Skin Lesions: no lesions Rashes: no rashes Neuro General: patient oriented x3, moves all extremities, no focal motor deficits and CN's II-XI intact bilaterally Cranial nerves: Yes Equal, round and reactive pupils present Cognition (Neuro): normal cognition Gait exam (Neuro): Normal gait present Extrem General: Yes no clubbing, cyanosis or edema Coding Level of Care Code Est Pt Prev Care 40-64y(25732) Diagnoses Annual physical exam Z00.00 Stage 3b chronic kidney disease N18.32 Chronic kidney disease stage 3 subtype: stage 3b (GFR 30-44) RAMOS (acute kidney injury) N17.9 Ureterolithiasis N20.1 Benign essential hypertension I10 Mixed hyperlipidemia E78.2 Impaired fasting glucose R73.01 Vitamin D deficiency E55.9 Morbid obesity with BMI of 40.0-44.9, adult E66.01; Z68.41 Additional Codes PHQ-9 - 96385 - PHQ-9 Billing: Yes ([id number]) Assessment & Plan Assessment & Plan (1) Annual physical exam: Code(s): Z00.00 - Encounter for general adult medical examination without abnormal findings Category: Medical Plan: Check labs LETICIA to complete her annual exam She is up-to-date with all of her cancer screenings Her colonoscopy was last done in March 2023 she was recommended to get a repeat colonoscopy in 5-7 years She had her annual mammogram done in August 2024 and is scheduled for her next one on 08/24/2025 She has her yearly gynecology exam and Pap smear scheduled for next week on 05/26/2025 (2) Chronic kidney disease, stage III (moderate): Code(s): N18.30 - Chronic kidney disease, stage 3 unspecified Category: Medical Qualifiers: Chronic kidney disease stage 3 subtype: stage 3b (GFR 30-44) Qualified Code(s): N18.32 - Chronic kidney disease, stage 3b Plan: Have cautioned patient again that her baseline kidney function is already significantly compromised and quite low for her age and that she should do whatever she can, including keeping her blood pressure and blood sugar controlled as tightly as she can, to help keep her kidney function stable - goal is to try to keep her in CKD stage 3 for as long as possible She has also been reminded to avoid any NSAIDs at all cost, and these include OTC Advil, Motrin (Ibuprofen), Aleve (generic Naproxen), as well as Aspirin Have advised her that the only medication she can safely take for pain would be Tylenol or Acetaminophen Follow up with nephrology as scheduled (3) RAMOS (acute kidney injury): Code(s): N17.9 - Acute kidney failure, unspecified Category: Medical Plan: Patient apparently suffered RAMOS when she had left-sided hydronephrosis due to obstructive uropathy from a 10 mm left UPJ stone, which has since been removed when she had a stent inserted back in December 2024 - stent has since been removed She is also reminded to increase her oral fluid intake and stay hydrated as best as she can Follow up with nephrology as scheduled (4) Ureterolithiasis: Code(s): N20.1 - Calculus of ureter Category: Medical Plan: (+) 10 mm left UPJ stone was seen on abdominal CT when patient presented to the ER earlier this year for left flank pain and recurrent nausea She has a stent inserted by urology, with gradual resolution/passage of her left UPJ stone, and her stent was removed in early January 2025 Patient states that she is currently asymptomatic and has not had any recurrence of her flank pain or other related symptoms since [place] [facility] [place] up with urology as scheduled (5) Benign essential hypertension: Code(s): I10 - Essential (primary) hypertension Category: Medical Plan: Reinforced low sodium diet - goal is systolic BP of 120 mm or less, in light of her CKD Continue Amlodipine 10 mg QD and Carvedilol 6.25 mg BID; Losartan was discontinued due to her RAMOS and significant decline in her GFR during her hospital admission last month Patient is reminded to continue monitoring her blood pressure regularly Follow up with nephrology as scheduled (6) Mixed hyperlipidemia: Code(s): E78.2 - Mixed hyperlipidemia Category: Medical Plan: Will recheck her labs and fasting lipids LETICIA for follow up Reinforce low-cholesterol diet Will recheck her lab in fasting lipids in 4 months for follow-up (7) Impaired fasting glucose: Code(s): R73.01 - Impaired fasting glucose Category: Medical Plan: Reinforced low calorie/low carb diet Will recheck her FBS and HgbA1c LETICIA (8) Vitamin D deficiency: Code(s): E55.9 - Vitamin D deficiency, unspecified Category: Medical Plan: Will recheck her Vitamin D level for follow up as well (9) Morbid obesity with BMI of 40.0-44.9, adult: Code(s): E66.01 - Morbid (severe) obesity due to excess calories; Z68.41 - Body mass index [BMI] 40.0-44.9, adult Category: Medical Plan: Reinforced diet/exercise as tolerated/lose weight Have advised her that losing a lot of weight can also help preserve her renal function Plan Follow-up in 4 months Orders: Orders Complete Blood Count Auto Diff 4 Months D64.9 - Anemia, unspecified Comprehensive Gilbert. Panel Fast 4 Months E78.00 - Pure hypercholesterolemia, unspecified Lipid Panel 4 Months E78.00 - Pure hypercholesterolemia, unspecified UA CC w/rflx Micro + Cult 4 Months R30.0 - Dysuria
[2025-05-15 15:00] VITALS: BP 146/82; PULSE 65; O2SAT 96; BMI 39.8
== END 2025-05-15 16:03 | disposition home or self-care (01) ==
LOC: HO.HMCH 14:55
PROVIDERS: PCP Internal Medicine; Visit Provider Internal Medicine
DX: Z00.00 Encounter for general adult medical examination without abnormal findings (principal); N18.32 Chronic kidney disease, stage 3b; N17.9 Acute kidney failure, unspecified; N20.1 Calculus of ureter; I10 Essential (primary) hypertension; E78.2 Mixed hyperlipidemia; R73.01 Impaired fasting glucose; E55.9 Vitamin D deficiency, unspecified; E66.01 Morbid (severe) obesity due to excess calories; Z68.41 Body mass index [BMI] 40.0-44.9, adult

== ENCOUNTER → 2025-05-15 14:54 | Outpatient (BNVA) | payer OTHER, SELFPAY | PROVIDERS: PCP Internal Medicine; Visit Provider Internal Medicine | DX: Z00.00 Encounter for general adult medical examination without abnormal findings (principal); I12.9 Hypertensive chronic kidney disease with stage 1 through stage 4 chronic kidney disease, or unspecified chronic kidney disease; N18.32 Chronic kidney disease, stage 3b; N17.9 Acute kidney failure, unspecified; E78.2 Mixed hyperlipidemia; R73.01 Impaired fasting glucose; E55.9 Vitamin D deficiency, unspecified; E66.01 Morbid (severe) obesity due to excess calories; R30.0 Dysuria; Z68.41 Body mass index [BMI] 40.0-44.9, adult | CPT/HCPCS: 96127; 99396 ==

== ENCOUNTER 2025-05-23 13:12 | Outpatient (REF) | payer OTHER, SELFPAY ==
[2025-05-23 13:29] LABS: MANUAL DIFF FLAG NO
[2025-05-23 14:18] LABS: Appearance Urine Clear; Glucose Urine UA Negative (Negative); PH 5.5 (5.0-9.0); Specific Gravity - Urine 1.015 (1.005-1.025); UMIC TRIGGER UACC YES
[2025-05-23 14:20] LABS: UACC Culture Trigger YES
[2025-05-23 14:22] LABS: Hematocrit 31.5 % (37.0-47.0); Hemoglobin 10.2 g/dl (12.0-16.0); Imm Gran Abs Auto 0.02 X10*3/uL (0.00-0.03); Imm Gran Pct Auto 0.3 % (0.0-0.4); Lymphocytes Absolute Auto 2.0 X10*3/uL (1.2-4.9); Mean Corpuscular HGB Conc 32.4 g/dl (31.0-35.0); Mean Corpuscular Hemoglobin 28.3 pg (27.0-33.0); Mean Corpuscular Volume 87.5 fL (80.0-98.0); NRBC Abs Auto 0.000 X10*3/uL (0.0-0.012); NRBC Pct Auto 0.0 /100WBC (0.0-0.2); Platelet Count 216 X10*3/uL (160-400); Red Blood Count 3.60 X10*6/uL (4.20-5.50); White Blood Count 7.4 X10*3/uL (4.8-10.8)
[2025-05-23 14:42] LABS: Hemoglobin A1C 214.7569 umol/L; Total Hemoglobin (HGBA1C) 4938.9685 umol/L
[2025-05-23 14:58] LABS: Alanine Aminotransferase 18 U/L (0-31); Albumin Level 4.4 g/dL (3.5-5.0); Alkaline Phosphatase 88 U/L (39-117); Anion Gap 13 (12-20); Aspartate Amino Transferase 20 U/L (5-31); Blood Urea Nitrogen 47 mg/dL (9-16); Calcium 9.3 mg/dL (8.4-10.2); Carbon Dioxide 19 mmol/L (22-29); Chloride 115 mmol/L (96-108); Cholesterol 136 mg/dL (<200); Estimated Glomerular Filt Rate 26; HDL Cholesterol 37 mg/dL (>40); Potassium 3.7 mmol/L (3.3-5.1); Sodium 143 mmol/L (135-145); Total Protein 7.5 g/dL (6.5-8.0); Triglycerides 231 mg/dL (<150)
[2025-05-23 15:32] LABS: Folate 11.4 ng/mL (> or = 4.0); Vitamin B12 325 pg/mL (200-900)
== END 2025-05-23 13:13 | disposition home or self-care (01) ==
LOC: HO.LAB 13:12
PROVIDERS: PCP Internal Medicine; Visit Provider Internal Medicine
DX: Z00.00 Encounter for general adult medical examination without abnormal findings (principal); I12.9 Hypertensive chronic kidney disease with stage 1 through stage 4 chronic kidney disease, or unspecified chronic kidney disease; N18.30 Chronic kidney disease, stage 3 unspecified; D63.1 Anemia in chronic kidney disease; E78.00 Pure hypercholesterolemia, unspecified; R73.01 Impaired fasting glucose; E55.9 Vitamin D deficiency, unspecified; E53.8 Deficiency of other specified B group vitamins; N17.9 Acute kidney failure, unspecified; R30.0 Dysuria
CPT/HCPCS: 36415; 80053; 80061; 81001; 82306; 82607; 82746; 83036; 84443; 85025; 87086

== ENCOUNTER 2025-06-01 15:11 | Outpatient (AMB) | payer OTHER, SELFPAY ==
--- NOTE | 2025-06-01 15:13 | MHC.OFFVIS ---
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 No vaginal bleeding, urinary symptoms. Urine dip is negative. Currently not sexually active. Denies any vaginal dryness or irritation. STI testing offered; she accepts. Attempting to eat a healthy diet with calcium and vitamin D and stays active with some exercise. Last pap smear; 2021, negative. Last mammogram; 2023. Colonoscopy is UTD. Denies any family history of breast, ovarian or colon cancer. [facility] Medical History (Updated 06/01/25 @ 15:50 by Caroline Devlin CNM) Pelvic pain Urinary incontinence Chronic kidney disease, stage III (moderate) Bleeding hemorrhoids Impaired fasting glucose Morbid obesity with BMI of 40.0-44.9, adult Vitamin D deficiency Mixed hyperlipidemia Benign essential hypertension Sleep apnea Anxiety and depression Hypertension Surgical History History of lithotripsy History of hemorrhoidectomy (05/08/23) History of endometrial ablation History of tubal ligation Family History Sister Cervical cancer Mother Hypertension Father History of stroke Diabetes Social History Household Members: Family Housing: Apartment Are you a primary care management assistant to a significant other at home: No Do you presently have visiting nurse or other home services: No Alcohol intake: current Alcohol intake frequency: a few times a month Patient Tobacco Use Status: Current someday Tobacco user Tobacco use type: Cigarette Cigarette Packs Per Day: 0.25 Cigarettes Per Day: 4 e-Cigarette/Vaping Use: Never Used Second Hand Smoke Exposure: Yes Advance Directives Date on File: 12/11/24 service: No Current occupational status: disabled Current occupational exposures/hazards: No Gender identity: Female Cognitive needs: No Hearing needs: No Vision needs: Yes Female Reproductive History Menstrual Age of Menarche: 15 control method: permanent sterilization Permanent Sterilization: BTL Total pregnancies: 5 Full term: 4 Number of Living Children: 4 Date of last pap smear: 02/12/22 (neg pap and hpv) History of abnormal pap smear: Yes (04/22 ascus) Date of Mammogram: 08/18/24 (Birad 1) Review of Systems Const All systems reviewed & are unremarkable except as noted in HPI and below Reports as per HPI Eyes Reports no additional complaints ENT Reports no additional complaints Card Reports no additional complaints Resp Reports no additional complaints GI Reports as per HPI and Reports no additional complaints Reports as per HPI Musc Reports no additional complaints Skin/Breast Reports as per HPI Neuro Reports no additional complaints Psych Reports no additional complaints Endo Reports no additional complaints Gucci/Lymph Reports no additional complaints Aller/Immun Reports no additional complaints Physical Exam Vital Signs: Last Vital Signs BP 144/74 H 06/01/25 15:14 BMI result Body Mass Index 39.8 Const General: cooperative, healthy appearing, no acute distress, well developed and alert Orientation/consciousness: patient oriented x3 HEENT Head: Yes normal to inspection Eyes General: appearance normal, both eyes and all related structures Neck Neck: Yes normal visual inspection Thyroid: Thyroid normal Chest Chest palpation & inspection: normal inspection of the chest and other (no puckering, dimpling, peau de orange, retraction, discharge, masses) Breast/axilla inspection: normal inspection of the breasts Breast/axilla palpation: normal palpation of the breasts Resp Effort & Inspection: normal respiratory effort GI Inspection: Yes normal to inspection Palpation (GI): Soft to palpation Rectal Exam - Female: deferred General: Yes bladder normal to palpation External Female Exam: normal external appearance and normal appearance of the urethra Speculum Exam - Vagina: normal appearance of the vagina, normal palpation and normal vaginal discharge Speculum Exam - Cervix: normal appearance of the cervix and normal palpation Bimanual exam- vagina & uterus: normal bimanual exam, normal palpation, uterine size normal, bladder normal to palpation, normal palpation and non-tender Bimanual Exam- Adnexa, other: no masses Skin General skin exam: no rashes or lesions noted Rashes: no rashes Neuro General: patient oriented x3 Cognition (Neuro): normal cognition Extrem General: Yes normal to inspection Psych Attitude: cooperative Thought process: Normal thought process present Assessment & Plan Assessment & Plan (1) Pelvic pain: Code(s): R10.2 - Pelvic and perineal pain Category: Medical Plan: Workup for pelvic pain to include urine, GC chlamydia, BV panel, pelvic ultrasound, follow up pending results. The patient expressed understanding and agreement with the plan of care. All of her questions and concerns were addressed to the best of my ability. Total time I personally spent on visit and management today: ?20 minutes. Time spent included review of pertinent office notes in the electronic health record; review of laboratory and imaging results; review of personal family medical history; performing physical exam; discussing diagnosis and plan of care with the patient; documenting the encounter in the EMR. (2) Encounter for well woman exam with routine gynecological exam: Code(s): Z01.419 - Encounter for gynecological examination (general) (routine) without abnormal findings Plan Discussed: Current recommendations for pap smears per ASCCP guidelines. Breast awareness, periodic self breast exams and yearly mammogram. Maintain a healthy lifestyle, well balanced diet including Calcium 1,200 mg and Vitamin D 600 IU daily, and routine exercise. Use of condoms for STI prevention if indicated. Contact the office with any postmenopausal bleeding. Patient verbalizes understanding and agrees to the plan of care. She was given opportunity to ask questions and all questions were answered to the best of my ability. 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 This note is constructed using voice recognition software. While every effort has been made to ensure accuracy, scales inspector errors may have been included. Orders: Orders Bacterial Vaginosis Panel Today R10.2 - Pelvic and perineal pain, Z20.2 - Contact with and (suspected) exposure to infections with a predominantly sexual mode of transmission CT NG by PCR Vag/Cerv Today R10.2 - Pelvic and perineal pain, Z20.2 - Contact with and (suspected) exposure to infections with a predominantly sexual mode of transmission US pelvic and transvaginal Today R10.2 - Pelvic and perineal pain Coding Level of Care Code Est Pt Level 2 (94678) Est Pt Prev Care 40-64y(12248) Diagnoses Pelvic pain R10.2 Encounter for well woman exam with routine gynecological exam Z01.419
[2025-06-01 15:14] VITALS: BP 144/74; BMI 39.8
== END 2025-06-02 09:18 | disposition home or self-care (01) ==
LOC: HO.HWS 15:11
PROVIDERS: PCP Internal Medicine; Visit Provider Advanced Practice Midwife
DX: Z01.419 Encounter for gynecological examination (general) (routine) without abnormal findings (principal); R10.2 Pelvic and perineal pain
CPT/HCPCS: 99212; 99396; 99459

== ENCOUNTER 2025-06-01 15:11 | Outpatient (REF) | payer OTHER, SELFPAY | END 2025-06-01 15:12 | disposition home or self-care (01) | LOC: HO.LAB 15:11 | PROVIDERS: PCP Internal Medicine; Visit Provider Advanced Practice Midwife | DX: Z01.419 Encounter for gynecological examination (general) (routine) without abnormal findings (principal); R10.2 Pelvic and perineal pain | CPT/HCPCS: 99212; 99396 ==

== ENCOUNTER 2025-06-01 15:47 | Outpatient (REF) | payer OTHER, SELFPAY ==
[2025-06-02 11:06] LABS: Bacterial Vaginosis PCR NEGATIVE (Negative); Candida Group PCR NOT DETECTED (Not Detect); Candida glab krusei PCR NOT DETECTED (Not Detect); Trichomonas vaginalis PCR NOT DETECTED (Not Detect)
[2025-06-02 11:39] LABS: CT PCR NOT DETECTED (Not Detect.); NG PCR NOT DETECTED (Not Detect.)
== END 2025-06-01 15:48 | disposition home or self-care (01) ==
LOC: HO.LNP 15:47
PROVIDERS: Visit Provider Advanced Practice Midwife
DX: Z20.2 Contact with and (suspected) exposure to infections with a predominantly sexual mode of transmission (principal); R10.2 Pelvic and perineal pain; Z11.3 Encounter for screening for infections with a predominantly sexual mode of transmission; Z11.2 Encounter for screening for other bacterial diseases; Z11.8 Encounter for screening for other infectious and parasitic diseases
CPT/HCPCS: 81515; 87491; 87591

== ENCOUNTER 2025-07-04 08:50 | Outpatient (REF) | payer OTHER, SELFPAY | END 2025-07-04 08:51 | disposition home or self-care (01) | LOC: HO.LAB 08:50 | PROVIDERS: PCP Internal Medicine; Visit Provider Internal Medicine Nephrology | DX: N18.32 Chronic kidney disease, stage 3b (principal) | CPT/HCPCS: 36415; 80051; 82565; 82570; 84156; 84520 ==

== ENCOUNTER 2025-07-05 15:16 | Outpatient (AMB) | payer OTHER, SELFPAY ==
[2025-07-05 15:23] VITALS: BP 134/70; BMI 40.4
--- NOTE | 2025-07-05 15:23 | HO.NEPHOV_ITS ---
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 She denies any dysuria. She has been on ARB. She had a CT scan which showed a 10 mm UPJ stone with moderate hydronephrosis. Serum creatinine was elevated at 2.57. She was seen by Urology and underwent cystoscopy with left stent placement on12/29. She was treated with empiric antibiotics, urine culture growing group b strep, and was discharged on PO antibiotics upon discharge. Her Creatinine trended down to 1.89. Losartan had been on hold during hospitalization and was discontinued upon discharge. She continues to have proteinuria. She is here in follow up [facility] Medical History (Updated 06/01/25 @ 15:50 by Caroline Devlin CNM) Pelvic pain Urinary incontinence Chronic kidney disease, stage III (moderate) Bleeding hemorrhoids Impaired fasting glucose Morbid obesity with BMI of 40.0-44.9, adult Vitamin D deficiency Mixed hyperlipidemia Benign essential hypertension Sleep apnea Anxiety and depression Hypertension Surgical History History of lithotripsy History of hemorrhoidectomy (05/08/23) History of endometrial ablation History of tubal ligation Family History Sister Cervical cancer Mother Hypertension Father History of stroke Diabetes Social History Household Members: Family Housing: Apartment Are you a primary critical care specialist to a significant other at home: No Do you presently have visiting nurse or other home services: No Alcohol intake: current Alcohol intake frequency: a few times a month Patient Tobacco Use Status: Current someday Tobacco user Tobacco use type: Cigarette Cigarette Packs Per Day: 0.25 Cigarettes Per Day: 4 e-Cigarette/Vaping Use: Never Used Second Hand Smoke Exposure: Yes Advance Directives Date on File: 12/11/24 service: No Current occupational status: disabled Current occupational exposures/hazards: No Gender identity: Female Cognitive needs: No Hearing needs: No Vision needs: Yes Female Reproductive History Menstrual Age of Menarche: 15 Review of Systems Const All systems reviewed & are unremarkable except as noted in HPI and below Physical Exam Vital Signs: Last Vital Signs BP 134/70 07/05/25 15:23 BMI result Body Mass Index 40.4 Const General: comfortable and no acute distress Orientation/consciousness: patient oriented x3 HEENT Head: Yes normocephalic Mouth: Normal oral and palatal mucosa present Eyes EOM: EOMs intact bilaterally Neck Neck: Yes supple Resp Auscultation: clear to auscultation bilaterally Cardio Jugular venous distension: no JVD Rate: regular rate GI Palpation (GI): Soft to palpation Auscultation: normal bowel sounds General: Yes no CVA tenderness Back/Spine/Pelvis Back: no CVA tenderness Skin General skin exam: no rashes or lesions noted Neuro General: patient oriented x3 and moves all extremities Extrem General: Yes no pedal edema Results Reviewed Nephrology Results: Hgb, (12.0-16.0) 10.2 g/dl L 05/23/25 WBC, (4.8-10.8) 7.4 X10*3/uL 05/23/25 Plt Count, (160-400) 216 X10*3/uL 05/23/25 Sodium, (135-145) 142 mmol/L 07/04/25 Potassium, (3.3-5.1) 3.6 mmol/L 07/04/25 Chloride, (96-108) 115 mmol/L H 07/04/25 Carbon Dioxide, (22-29) 22 mmol/L 07/04/25 BUN, (9-16) 46 mg/dL H 07/04/25 Creatinine, (0.5-1.4) 1.89 mg/dL H 07/04/25 Calcium, (8.4-10.2) 9.3 mg/dL 05/23/25 Urine Protein, (Neg-Trace) 300 (3+) mg/dL H 05/23/25 Urine Creatinine 71.42 mg/dL 07/04/25 Protein/Creatinin Ratio, (<0.2) 1.51 H 07/04/25 Renal US 02/14/25 Assessment & Plan Assessment & Plan (1) Morbid obesity with BMI of 40.0-44.9, adult: Code(s): E66.01 - Morbid (severe) obesity due to excess calories; Z68.41 - Body mass index [BMI] 40.0-44.9, adult Category: Medical (2) Proteinuria: Code(s): R80.9 - Proteinuria, unspecified Category: Medical Qualifiers: Proteinuria type: other Qualified Code(s): R80.8 - Other proteinuria (3) CKD stage 3b, GFR 30-44 ml/min: Code(s): N18.32 - Chronic kidney disease, stage 3b Category: Medical (4) Renal calculi: Code(s): N20.0 - Calculus of kidney Category: Medical (5) Chronic kidney disease, stage III (moderate): Code(s): N18.30 - Chronic kidney disease, stage 3 unspecified Category: Medical Qualifiers: Chronic kidney disease stage 3 subtype: stage 3b (GFR 30-44) Qualified Code(s): N18.32 - Chronic kidney disease, stage 3b Plan Had RAMOS on CKD. Has proteinuria- W/U in progress( ? FSGS); Needs renal biopsy( ordered) Had been on ARB which has been on hold - plan to start with time; Needs weight loss(referred) On Amlodipine/Carvedilol ;Needs Urology follow up. Shall start Jardiance with time Continue rest of current management for now; Shall closely follow up Orders: Orders Anti DNA DS Antibody Today N18.32 - Chronic kidney disease, stage 3b, R80.8 - Other proteinuria Complement C3 Today N18.32 - Chronic kidney disease, stage 3b, R80.8 - Other proteinuria Phospholipase A2 Receptor Pnl Today N18.32 - Chronic kidney disease, stage 3b, R80.8 - Other proteinuria Immunofixation, Random Urine Today N18.32 - Chronic kidney disease, stage 3b, R80.8 - Other proteinuria CT biopsy renal LT Today N18.32 - Chronic kidney disease, stage 3b, R80.8 - Other proteinuria Hepatitis B Surface Antigen Today N18.32 - Chronic kidney disease, stage 3b, R80.8 - Other proteinuria Hepatitis B Core Antibody Today N18.32 - Chronic kidney disease, stage 3b, R80.8 - Other proteinuria Complete Blood Count Auto Diff Today N18.32 - Chronic kidney disease, stage 3b, R80.8 - Other proteinuria Prothrombin Time INR Today N18.32 - Chronic kidney disease, stage 3b, R80.8 - Other proteinuria Myeloperoxidase Antibody Today N18.32 - Chronic kidney disease, stage 3b, R80.8 - Other proteinuria Proteinase 3 PR3 Antibodies Today N18.32 - Chronic kidney disease, stage 3b, R80.8 - Other proteinuria Complement C4 Today N18.32 - Chronic kidney disease, stage 3b, R80.8 - Other proteinuria Immunofixation Pnl, Serum Today N18.32 - Chronic kidney disease, stage 3b, R80.8 - Other proteinuria Anti Glomerular Basement Memb Today N18.32 - Chronic kidney disease, stage 3b, R80.8 - Other proteinuria Referrals Medical Weight Management Referral E66.01 - Morbid (severe) obesity due to excess calories, N18.32 - Chronic kidney disease, stage 3b, R80.8 - Other proteinuria, Z68.41 - Body mass index [BMI] 40.0-44.9, adult Coding Level of Care Code Est Pt Level 4 (78283) Diagnoses Morbid obesity with BMI of 40.0-44.9, adult E66.01; Z68.41 Other proteinuria R80.8 Proteinuria type: other CKD stage 3b, GFR 30-44 ml/min N18.32 Renal calculi N20.0 Stage 3b chronic kidney disease N18.32 Chronic kidney disease stage 3 subtype: stage 3b (GFR 30-44)
== END 2025-07-05 15:48 | disposition home or self-care (01) ==
LOC: HO.HKA 15:16
PROVIDERS: PCP Internal Medicine; Visit Provider Internal Medicine Nephrology
DX: E66.01 Morbid (severe) obesity due to excess calories (principal); Z68.41 Body mass index [BMI] 40.0-44.9, adult; R80.8 Other proteinuria; N18.32 Chronic kidney disease, stage 3b; N20.0 Calculus of kidney
CPT/HCPCS: 99214

== ENCOUNTER → 2025-07-05 15:16 | Outpatient (BNVA) | payer OTHER, SELFPAY | PROVIDERS: PCP Internal Medicine; Visit Provider Internal Medicine Nephrology | DX: N20.0 Calculus of kidney (principal); R80.8 Other proteinuria; N18.32 Chronic kidney disease, stage 3b; E66.01 Morbid (severe) obesity due to excess calories; Z68.41 Body mass index [BMI] 40.0-44.9, adult | CPT/HCPCS: 99212 ==

== ENCOUNTER 2025-08-15 08:55 | Day surgery (SDC) | payer OTHER, SELFPAY ==
[2025-08-15] VITALS (12 sets, daily range): BP systolic 122–179; BP diastolic 52–97; PULSE 55–75; RESP 11–19; TEMP 36.4–36.6; O2SAT 92–100; BMI 41.6
--- NOTE | ~2025-08-15 | CT_ITS ---
PROCEDURE: CT GUIDED BIOPSY, LEFT KIDNEY CLINICAL INFORMATION: Proteinuria. COMPARISON: CT abdomen and pelvis without IV contrast 12/29/2024. TECHNIQUE: Following explaining CT fluoroscopy guided left renal biopsy procedure, benefits and risk, a written consent was obtained. Patient was placed supine on CT fluoroscopy table and preliminary CT imaging was obtained. An optimal axial slice was selected and markers placed along the left posterior abdomen and repeat imaging was performed. An optimal marker was selected and marked on the skin. The area marked the skin was cleaned and draped in usual sterile manner. 1% lidocaine was injected at the puncture site. Conscious sedation was used given during exam. Through a small skin incision a 18-gauge long guiding needle was advanced from the skin into the lower pole cortex left kidney. Coaxially a 3/4 pass biopsy was performed through the lower pole. Post biopsy Gelfoam was inserted to achieve hemostasis. Repeat CT imaging was performed through the posterior abdomen. Sterile dressing applied post procedure. Patient tolerated procedure extremely well. Patient was monitored by IR nurse and IR physician during exam with conscious sedation given. This CT examination was performed using dose optimization techniques as appropriate, variously including the following: *Automated exposure control *Adjustment of mA and/or kV according to patient size (this includes techniques or standardized protocols for targeted exams where dose is matched to indication/reason for exam; i.e. extremities or head) *Use of iterative reconstruction technique FINDINGS: On preliminary CT imaging there is mild lobulated contour of the right kidney. The lung bases are clear. Liver, spleen, pancreas and adrenal glands are unremarkable. No radiopaque gallstones seen. There is a punctate 2 mm nonobstructive radiopaque calculi upper pole left kidney. Lobulated left kidney cortex is noted. CT fluoroscopy guided lower pole cortex left renal core biopsy performed without immediate complications. CT/CT biopsy renal LT IMPRESSION: Successful CT fluoroscopy guided left renal cortex core biopsy performed. Electronically signed by: Christian Burton MD 08/15/2025 02:24 PM [facility]
[2025-08-15 09:43] LABS: MANUAL DIFF FLAG NO
[2025-08-15 09:45] LABS: Hematocrit 29.8 % (37.0-47.0); Hemoglobin 9.5 g/dl (12.0-16.0); Imm Gran Abs Auto 0.03 X10*3/uL (0.00-0.03); Imm Gran Pct Auto 0.4 % (0.0-0.4); Lymphocytes Absolute Auto 1.7 X10*3/uL (1.2-4.9); Mean Corpuscular HGB Conc 31.9 g/dl (31.0-35.0); Mean Corpuscular Hemoglobin 28.4 pg (27.0-33.0); Mean Corpuscular Volume 89.2 fL (80.0-98.0); NRBC Abs Auto 0.000 X10*3/uL (0.0-0.012); NRBC Pct Auto 0.0 /100WBC (0.0-0.2); Platelet Count 197 X10*3/uL (160-400); Red Blood Count 3.34 X10*6/uL (4.20-5.50); White Blood Count 7.4 X10*3/uL (4.8-10.8)
[2025-08-15 09:58] LABS: Anion Gap 11 (12-20); Blood Urea Nitrogen 46 mg/dL (9-16); Calcium 8.6 mg/dL (8.4-10.2); Carbon Dioxide 21 mmol/L (22-29); Chloride 114 mmol/L (96-108); Creatinine Clr Calc Pharmacy 39.9; Estimated Glomerular Filt Rate 24; Potassium 4.0 mmol/L (3.3-5.1); Sodium 142 mmol/L (135-145)
[2025-08-15 10:16] LABS: INTERNATIONAL NORM RATIO 0.9 (0.9-1.1); Prothrombin Time 10.6 SEC (10.9-12.4)
== END 2025-08-15 13:21 | disposition home or self-care (01) ==
PROVIDERS: Radiology Diagnostic Radiology; PCP Internal Medicine; Visit Provider Internal Medicine Nephrology
DX: I12.9 Hypertensive chronic kidney disease with stage 1 through stage 4 chronic kidney disease, or unspecified chronic kidney disease (principal); N18.32 Chronic kidney disease, stage 3b; R80.8 Other proteinuria; F17.210 Nicotine dependence, cigarettes, uncomplicated
CPT/HCPCS: 36415; 50200; 77012; 80048; 85025; 85610; 86850; 86900; 86901; 99152; J2003; J2250; J3010

== ENCOUNTER → 2025-08-15 10:34 | Outpatient (BNV) | payer OTHER, SELFPAY | PROVIDERS: PCP Internal Medicine; Visit Provider Radiology Diagnostic Radiology | DX: R80.8 Other proteinuria (principal) | CPT/HCPCS: 50200; 77012 ==

== ENCOUNTER 2025-08-24 14:12 | Outpatient (REF) | payer OTHER, SELFPAY | END 2025-08-24 14:13 | disposition home or self-care (01) | LOC: HO.MAMMO 14:12 | PROVIDERS: PCP Internal Medicine; Visit Provider Internal Medicine | DX: Z12.31 Encounter for screening mammogram for malignant neoplasm of breast (principal) | CPT/HCPCS: 77063; 77067 ==

== ENCOUNTER → 2025-08-24 14:30 | Outpatient (BNV) | payer OTHER, SELFPAY | PROVIDERS: PCP Internal Medicine; Visit Provider Internal Medicine | DX: Z12.31 Encounter for screening mammogram for malignant neoplasm of breast (principal) | CPT/HCPCS: 77063; 77067 ==

== ENCOUNTER 2025-09-06 11:10 | Outpatient (AMB) | payer OTHER, SELFPAY ==
--- NOTE | 2025-09-06 11:38 | HO.NEPHOV_ITS ---
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 She had a renal bipsy which showed segmental sclerosis. She was referred for weight management. She continues to have proteinuria. She is here in follow up [facility] Medical History Pelvic pain Urinary incontinence Chronic kidney disease, stage III (moderate) Bleeding hemorrhoids Impaired fasting glucose Morbid obesity with BMI of 40.0-44.9, adult Vitamin D deficiency Mixed hyperlipidemia Benign essential hypertension Sleep apnea Anxiety and depression Hypertension Surgical History History of lithotripsy History of hemorrhoidectomy (05/08/23) History of endometrial ablation History of tubal ligation Family History Sister Cervical cancer Mother Hypertension Father History of stroke Diabetes Social History Household Members: Family Housing: Apartment Are you a primary patient care manager to a significant other at home: No Do you presently have visiting nurse or other home services: No Alcohol intake: current Alcohol intake frequency: holidays/special occasions only Patient Tobacco Use Status: Current someday Tobacco user Tobacco use type: Cigarette Cigarette Packs Per Day: 0.25 Cigarettes Per Day: 4 e-Cigarette/Vaping Use: Never Used Second Hand Smoke Exposure: Yes Advance Directives Date on File: 12/11/24 service: No Current occupational status: disabled Current occupational exposures/hazards: No Gender identity: Female Cognitive needs: No Hearing needs: No Vision needs: Yes Female Reproductive History Menstrual Age of Menarche: 15 Review of Systems Const All systems reviewed & are unremarkable except as noted in HPI and below Physical Exam Const General: comfortable and no acute distress Orientation/consciousness: patient oriented x3 HEENT Head: Yes normocephalic Mouth: Normal oral and palatal mucosa present Eyes EOM: EOMs intact bilaterally Neck Neck: Yes supple Resp Auscultation: clear to auscultation bilaterally Cardio Jugular venous distension: no JVD Rate: regular rate GI Palpation (GI): Soft to palpation Auscultation: normal bowel sounds General: Yes no CVA tenderness Back/Spine/Pelvis Back: no CVA tenderness Skin General skin exam: no rashes or lesions noted Neuro General: patient oriented x3 and moves all extremities Extrem General: Yes no pedal edema Results Reviewed Nephrology Results: Hgb, (12.0-16.0) 9.5 g/dl L 08/15/25 WBC, (4.8-10.8) 7.4 X10*3/uL 08/15/25 Plt Count, (160-400) 197 X10*3/uL 08/15/25 Sodium, (135-145) 142 mmol/L 08/15/25 Potassium, (3.3-5.1) 4.0 mmol/L 08/15/25 Chloride, (96-108) 114 mmol/L H 08/15/25 Carbon Dioxide, (22-29) 21 mmol/L L 08/15/25 BUN, (9-16) 46 mg/dL H 08/15/25 Creatinine, (0.5-1.4) 2.09 mg/dL H 08/15/25 Calcium, (8.4-10.2) 8.6 mg/dL Δ 08/15/25 Urine Creatinine 71.42 mg/dL 07/04/25 Protein/Creatinin Ratio, (<0.2) 1.51 H 07/04/25 Renal US 02/14/25 Assessment & Plan Assessment & Plan (1) Benign essential hypertension: Code(s): I10 - Essential (primary) hypertension Category: Medical (2) CKD stage 3b, GFR 30-44 ml/min: Code(s): N18.32 - Chronic kidney disease, stage 3b Category: Medical (3) Renal calculi: Code(s): N20.0 - Calculus of kidney Category: Medical Plan Has CKD- renal function stable. Has proteinuria-( secondary FSGS); S/P renal biopsy Needs weight loss. Started lisinopril 2.5 mg daily and jardiance 10 mg daily C/W Amlodipine/Carvedilol ;Needs Urology follow up Continue rest of current management for now; Shall closely follow up Orders: Orders Protein Creatinine Ratio, Ur 3 Weeks I10 - Essential (primary) hypertension, N18.32 - Chronic kidney disease, stage 3b, N20.0 - Calculus of kidney Creatinine 3 Weeks I10 - Essential (primary) hypertension, N18.32 - Chronic kidney disease, stage 3b, N20.0 - Calculus of kidney Electrolytes 3 Weeks I10 - Essential (primary) hypertension, N18.32 - Chronic kidney disease, stage 3b, N20.0 - Calculus of kidney Blood Urea Nitrogen 3 Weeks I10 - Essential (primary) hypertension, N18.32 - Chronic kidney disease, stage 3b, N20.0 - Calculus of kidney Medications: New lisinopril 2.5 mg PO DAILY 90 tabs 3RF empagliflozin (Jardiance) 10 mg PO DAILY 30 tabs 3RF Coding Level of Care Code Est Pt Level 4 (51374) Diagnoses Benign essential hypertension I10 CKD stage 3b, GFR 30-44 ml/min N18.32 Renal calculi N20.0
[2025-09-06 11:40] VITALS: BP 132/70; BMI 41.9
== END 2025-09-06 11:55 | disposition home or self-care (01) ==
LOC: HO.HKA 11:10
PROVIDERS: PCP Internal Medicine; Visit Provider Internal Medicine Nephrology
DX: I10 Essential (primary) hypertension (principal); N18.32 Chronic kidney disease, stage 3b; N20.0 Calculus of kidney
CPT/HCPCS: 99214

== ENCOUNTER → 2025-09-06 11:10 | Outpatient (BNVA) | payer OTHER, SELFPAY | PROVIDERS: PCP Internal Medicine; Visit Provider Internal Medicine Nephrology | DX: I12.9 Hypertensive chronic kidney disease with stage 1 through stage 4 chronic kidney disease, or unspecified chronic kidney disease (principal); N18.32 Chronic kidney disease, stage 3b; N20.0 Calculus of kidney; F17.210 Nicotine dependence, cigarettes, uncomplicated | CPT/HCPCS: 99212 ==

== ENCOUNTER 2025-09-15 15:23 | Outpatient (AMB) | payer OTHER, SELFPAY ==
[2025-09-15 15:28] VITALS: BP 140/92; PULSE 76; O2SAT 95; BMI 41.7
--- NOTE | 2025-09-15 15:28 | A.OFFPC_ITS ---
Vital Signs 09/15/25 15:28 Height 5 ft 7 in Weight 266 lb 4 oz BMI 41.7 BP 140/92 H Blood Pressure Location Lt brachial Position Sitting Pulse 76 Pulse Source Pulse Oximeter Pulse Oximetry (%) 95 Oxygen Delivery Method Room Air Intake Visit Reasons: CKD Fourdrinier Tender Required: No Accompanied by: Self / Same As Patient Allergies No Known Allergies Allergy (Verified 09/15/25 15:52) Medication List - Last Reconciled 09/15/25 by Taran Hood MD amlodipine 10 mg PO DAILY 90 days blood pressure monitor (Blood Pressure Kit) As directed carvedilol 6.25 mg PO BID empagliflozin (Jardiance) 10 mg PO DAILY incontinence pad, liner, disp (Prevail Panty Liner pads) As directed [INCONTINENCE PADS As directed] lisinopril 2.5 mg PO DAILY Tobacco use date assessed: 09/15/25 Dental Screening Dental Screen Date: 09/15/25 Did you have a dental visit in the last 12 months?: No Did you have a dental problem in the last 6 months where you did not have access to dental care?: No Was dental information given to patient?: No HPI CKD HPI Details - The patient is a 55 year old female pr esenting for follow-up on uncontrolled hypertension and declining kidney function. - Her kidney function has been declining , with a previous GFR in the 30s, which dropped to 19, recovered to the high 20s, and is now at 24 based on labs done last month prior to her recent medication changes. - She was seen by Dr. Florentino last week a nd was started on Lisinopril and Jardiance to help manage her blood pressure and protect her kidneys. - She does not have a history of diabete s. - She reports taking her medication ever y day. - She reports significant fatigue, which is believed to be related to her kidney problems. Patient currently denies any headaches or dizziness Denies any chest pains, no increased SOB No nausea/vomiting, no abdominal pain No change in bowel habits noted [facility] Medical History (Updated 09/17/25 @ 04:24 by Taran Hood MD) Chronic kidney disease, stage 4 (severe) Pelvic pain Urinary incontinence Chronic kidney disease, stage III (moderate) Bleeding hemorrhoids Impaired fasting glucose Morbid obesity with BMI of 40.0-44.9, adult Vitamin D deficiency Mixed hyperlipidemia Benign essential hypertension Sleep apnea Anxiety and depression Hypertension Surgical History History of lithotripsy History of hemorrhoidectomy (05/08/23) History of endometrial ablation History of tubal ligation Family History Sister Cervical cancer Mother Hypertension Father History of stroke Diabetes Social History Household Members: Family Housing: Apartment Are you a primary field care advocate to a significant other at home: No Do you presently have visiting nurse or other home services: No Alcohol intake: current Alcohol intake frequency: holidays/special occasions only Patient Tobacco Use Status: Current someday Tobacco user Tobacco use type: Cigarette Cigarette Packs Per Day: 0.25 Cigarettes Per Day: 4 e-Cigarette/Vaping Use: Never Used Second Hand Smoke Exposure: Yes Advance Directives Date on File: 12/11/24 service: No Current occupational status: disabled Current occupational exposures/hazards: No Gender identity: Female Cognitive needs: No Hearing needs: No Vision needs: Yes Female Reproductive History Menstrual Age of Menarche: 15 Questionnaire PHQ-9 Over the last 2 weeks, how often have you been bothered by any of the following problems? 1. Little interest or pleasure in doing things: not at all 2. Feeling down, depressed, or hopeless: not at all 3. Trouble falling or staying asleep, or sleeping too much: nearly every day 4. Feeling tired or having little energy: nearly every day 5. Poor appetite or overeating: not at all 6. Feeling bad about yourself - or that you are a failure or have let yourself or your family down: nearly every day 7. Trouble concentrating on things, such as reading the newspaper or watching television: several days 8. Moving or speaking so slowly that other people could have noticed. Or the opposite - being so fidgety or restless that you have been moving around a lot more than usual: several days 9. Thoughts that you would be better off or of hurting yourself in some way: not at all Total score: 11 Depression Screening Interpretation: Positive Depression Screening Follow-up: Follow-up Visit Requested Depression Screening Done: Yes 69538 - PHQ-9 Billing: Yes Source: Developed by Drs. Lucas Hi, Zahira Keith, Derrick Abarca and colleagues, with an educational dwayne from [employer]. Thrive Questionnaire Date Thrive assessed: 09/15/25 I am a: Patient What is your living situation today?: I have a steady place to live Within the past 12 months, did the food you bought not last and you didn't have the money to get more?: Never true Within the past 12 months, did you worry whether your food would run out before you got money to buy more?: Never true Do you have trouble paying for medicines?: No Do you have trouble getting transportation to medical appointments?: No Do you have trouble paying your heating and electricity bill?: No Do you have trouble taking care of your child, family member or friend?: No Do you have trouble with day-to-day activities such as bathing, preparing meals, shopping, managing finances, etc.?: No Are you currently unemployed and looking for a job?: No Are you interested in more education?: No Please select the resources that you would like help with: None Currently or been in a relationship where the following occur: No concerns reported THRIVE Score: 0 AUDIT C Alcohol Use Questionnaire (AUDIT-C) 1. How often do you have a drink containing alcohol?: 2-3 times a week 2. How many drinks containing alcohol do you have on a typical day when you are drinking?: 1 or 2 3. How often do you have six or more drinks on one occasion?: Never Total Score: 3 Score Reviewed/Action Taken: Yes MILEY-7 AMB Questionnaire MILEY-7 Date MILEY - 7 assessed: 09/15/25 Feeling nervous, anxious, or on edge: 0 = Not at all Not being able to stop or control worryin = Not at all Worrying too much about different things: 0 = Not at all Trouble relaxin = Not at all Being so restless that it is hard to sit still: 0 = Not at all Becoming easily annoyed or irritable: 0 = Not at all Feeling afraid as if something awful might happen: 0 = Not at all Total MILEY-7 score (0-4 normal; 5-9 mild; 10-14 moderate; 15-21 severe): 0 Source: Developed by Drs. Lucas Hi, Zahira Keith, Derrick Abarca and colleagues, with an educational dwayne from [employer]. Review of Systems Const Denies chills, Reports fatigue, Denies fever(s) and Denies headache(s) ENT Denies dysphagia, Denies dizziness, Denies otalgia, Denies headache(s), Denies neck pain, Denies odynophagia and Denies sore throat Card Denies chest pain, Denies rapid heart rate, Denies irregular heart rhythm, Denies palpitations and Denies dyspnea Resp Denies chest congestion, Denies cough and Denies dyspnea GI Denies abdominal pain, Denies constipation, Denies dysphagia, Denies heartburn, Denies diarrhea, Denies nausea, Denies odynophagia and Denies vomiting Denies difficulty voiding, Denies dysuria and Denies urinary incontinence Musc Denies back pain, Denies arthralgias and Denies neck pain Skin/Breast Denies rash Neuro Denies dizziness, Denies headache(s) and Denies paresthesias Psych Denies anxiety and Denies depression Endo Reports fatigue and Denies palpitations Gucci/Lymph Denies easy bruising Physical exam (Primary Care) Vital Signs: Last Vital Signs Pulse 76 09/15/25 15:28 BP 140/92 H 09/15/25 15:28 Pulse Ox 95 09/15/25 15:28 Oxygen Delivery Method Room Air 09/15/25 15:28 BMI result Body Mass Index 41.7 Tobacco/Smoking Status: Tobacco use Status Tobacco use date assessed 09/15/25 09/15/25 15:35 Patient Tobacco Use Status Current someday Tobacco 09/15/25 15:35 Tobacco use type Cigarette 09/15/25 15:35 e-Cigarette/Vaping Use Never Used 09/15/25 15:35 PHQ-9: PHQ-9 Score PHQ-9: Total score 11 09/15/25 15:55 Depression Screening Interpretation: Positive Depression Screening Follow-up: Follow-up Visit Requested Thrive Assessment: Date of Thrive Assessment Date Thrive assessed 09/15/25 09/15/25 15:35 Currently or been in a relationship where the following occur: No concerns reported Const General: no acute distress and alert HENMT Ears: TM's normal bilaterally and EAC's normal Throat: Yes posterior oropharynx normal and Yes tonsils normal (no TP conge stion) Neck Neck: Yes supple and No lymphadenopathy Thyroid: Thyroid normal Resp Auscultation: clear to auscultation bilaterally, no rales and no wheezes Cardio Rate: regular rate Rhythm: regular rhythm Heart sounds: no murmurs GI Palpation (GI): Soft to palpation and nontender Auscultation: normal bowel sounds General: Yes no CVA tenderness Back/Spine/Pelvis Back: no CVA tenderness Thoracic/Lumbar Spine: No lumbar spinal tenderness Skin Rashes: no rashes Extrem General: Yes no clubbing, cyanosis or edema Results Reviewed Results Reviewed: Laboratory Tests 12/30/24 12/31/24 08/15/25 05:04 07:29 09:38 WBC 8.4 7.4 Hgb 9.8 L 9.5 L Hct 29.5 L 29.8 L Plt Count 201 197 Sodium 143 142 Potassium 4.1 4.0 Creatinine 2.03 H 2.09 H Estimated GFR 25 24 Random Glucose 100 Calcium 8.8 Coding Level of Care Code Est Pt Level 4 (24410) Diagnoses Chronic kidney disease, stage 4 (severe) N18.4 Ureterolithiasis N20.1 Benign essential hypertension I10 Mixed hyperlipidemia E78.2 Impaired fasting glucose R73.01 Vitamin D deficiency E55.9 Morbid obesity with BMI of 40.0-44.9, adult E66.01; Z68.41 Additional Codes PHQ-9 - 86591 - PHQ-9 Billing: Yes ([id number]) Assessment & Plan Assessment & Plan (1) Chronic kidney disease, stage 4 (severe): Code(s): N18.4 - Chronic kidney disease, stage 4 (severe) Category: Medical Plan: Have cautioned patient that her renal function over the past few months appear to have further declined somewhat and she is now categorically in CKD stage 4 She has been started recently by nephrology on low dose Lisinopril and Jardiance to try to help stabilize her renal function Have again emphasized to patient that it is even more important now to try to keep her blood pressure and blood sugar controlled as tightly as she can to help preserve her kidney function She is also reminded again to avoid any NSAIDs completely - these include OTC Advil, Motrin (Ibuprofen), Aleve (generic Naproxen), as well as Aspirin, and that the only medication she can safely take for pain would be Tylenol or Acetaminophen Follow up with nephrology as scheduled (2) Ureterolithiasis: Code(s): N20.1 - Calculus of ureter Category: Medical Plan: (+) 10 mm left UPJ stone was seen on abdominal CT when patient presented to the ER earlier this year for left flank pain and recurrent nausea She has a stent inserted by urology, with gradual resolution/passage of her left UPJ stone, and her stent was removed in early January 2025 Patient states that she is currently asymptomatic and has not had any recurrence of her flank pain or other related symptoms since her discharge from [facility] Follow up with urology as scheduled (3) Benign essential hypertension: Code(s): I10 - Essential (primary) hypertension Category: Medical Plan: Reinforced low sodium diet - goal is systolic BP of 120 mm or less, in light of her advancing CKD Continue Amlodipine 10 mg QD and Carvedilol 6.25 mg BID; Losartan was discontinued due to her RAMOS and significant decline in her GFR during her hospital admission a few months ago BUT patient was started on low dose Lisinopril 2.5 mg QD and Jardiance 10 mg QD recently to try to help stabilize her renal function decline Patient is reminded again to continue monitoring her blood pressure regularly Follow up with nephrology as scheduled (4) Mixed hyperlipidemia: Code(s): E78.2 - Mixed hyperlipidemia Category: Medical Plan: Reinforced low-cholesterol diet Will recheck her lab and fasting lipids in 3 months for follow-up (5) Impaired fasting glucose: Code(s): R73.01 - Impaired fasting glucose Category: Medical Plan: Reinforced low calorie/low carb diet Will recheck her FBS and HgbA1c also in 3 months (6) Vitamin D deficiency: Code(s): E55.9 - Vitamin D deficiency, unspecified Category: Medical Plan: Her Vitamin D level was still low when last checked in May 2025 Will start patient back on Vitamin D3 2000 units QD (7) Morbid obesity with BMI of 40.0-44.9, adult: Code(s): E66.01 - Morbid (severe) obesity due to excess calories; Z68.41 - Body mass index [BMI] 40.0-44.9, adult Category: Medical Plan: Reinforced diet/exercise as tolerated/lose weight Plan Follow up in 3 months Orders: Orders Complete Blood Count Auto Diff 3 Months D64.9 - Anemia, unspecified Comprehensive [place]. Panel Fast 3 Months E78.00 - Pure hypercholesterolemia, unspecified Lipid Panel 3 Months E78.00 - Pure hypercholesterolemia, unspecified TSH reflex Free T4 3 Months E78.00 - Pure hypercholesterolemia, unspecified UA CC w/rflx Micro + Cult 3 Months R30.0 - Dysuria Vitamin D 25-OH Total 3 Months E55.9 - Vitamin D deficiency, unspecified Hemoglobin A1c 3 Months R73.01 - Impaired fasting glucose Medications: Refilled cholecalciferol (vitamin D3) 50 mcg PO DAILY 90 caps 3RF 90 days E55.9 - Vitamin D deficiency, unspecified
--- OUTSIDE RECORDS SUMMARY | 2025-09-15 19:22 | XMS_ITS | Data Portability ---
Author Organization [facility] Address [address] [place] [address] Care Team Providers Care Accounts Receivable Specialist Name Role Phone HIM CCA OTHER Assessment Encounter Date Assessment Date Assessment LastModified by Organization Details LastModified Time 08/03/2024 08/03/2024 I provided real -time medical direction via phone for this encounter and was available for additional phone-based assistance as needed. I have reviewed and agree with the Assessment and Plan as documented by the Inspector Golf Ball. Patient given the opportunity to ask questions. [...] t Available Vitals Date Recorded Oxygen saturation Respiratory rate Heart rate Systolic And Diastolic Provider Name and Address Organization Details Last Updated DateTime 08/03/2024 97 % 18 /min 82 /min 164/79 mm[Hg] Not Available [facility] - production 17:16:08 Social History None recorded. Functional Status None recorded. Mental Status None recorded. Family History Nothing Reported. Medical History No medical history recorded. Gynecological HistoryNo gynecological history recorded. Obstetrics History GPAL:G 0 P 0 0 0 0 Past Encounters Encounter ID Performer Location Encounter Start Date Encounter Closed Date Diagnosis/Indication Diagnosis SNOMED-CT Code Diagnosis ICD10 Code Diagnosis IMO Codes Diagnosis Note [id number] Chanelle Mauricio MD [facility] - [facility] [address] [place] [id number] 08/03/2024 17:04:39 08/04/2024 22:26:49 Essential hypertension [id number] I10 Health Concerns Section Related Observation LastModified by Organization Detai ls LastModified Time None Recorded Concern Status LastModified by Organization Details LastModified Time None Recorded Advance Directives Directive None Recorded Payers Insurance Date Sequence Insurance Name Policy Number Policy August Covered Member ID August Member ID Guarantor Name 08/03/2024 1 [facility] - DOS ON OR AFTER 2023 - DUAL ELIGIBLE - PENITENTIARY OPTIONS AND ONE CARE (MEDICARE REPLACEMENT/ADV ANTAGE - HMO) Faustina Ansari [id number] Faustina Ansari Notes Date Note Type Note [...] of breath. Member is a 54 YO, Kittitian speaking female, with hx of HTN, Generalized Anxiety, fatty liver, OA, SUNSHINE (not on Cpap), Hydronephrosis with renal and ureteral calculous obstruction and anemia. .................... .................... .................... .................... .................... .................... .................... . [facility] Nurse Triage Notes (Rafael Clark): Chief Complaints: Weakness/Lethargy PMH: Hypertension Comments: Reviewed HPI .................... .................... .................... .................... .................... .................... .................... . Inspector Golf Ball Note From Karen Bates: Sent to a [...] . Disposition: Fulfilled Chanelle Mauricio MD [address] [facility],[address], [place], [address], [facility] 08/03/2024 21:26:08 OBGyn Episode No OBEpisode recorded.
== END 2025-09-15 16:00 | disposition home or self-care (01) ==
LOC: HO.HMCH 15:24
PROVIDERS: PCP Internal Medicine; Visit Provider Internal Medicine
DX: I12.9 Hypertensive chronic kidney disease with stage 1 through stage 4 chronic kidney disease, or unspecified chronic kidney disease (principal); N18.4 Chronic kidney disease, stage 4 (severe); N20.1 Calculus of ureter; E78.2 Mixed hyperlipidemia; R73.01 Impaired fasting glucose; E55.9 Vitamin D deficiency, unspecified; E66.01 Morbid (severe) obesity due to excess calories; Z68.41 Body mass index [BMI] 40.0-44.9, adult

== ENCOUNTER → 2025-09-15 15:23 | Outpatient (BNVA) | payer OTHER, SELFPAY | PROVIDERS: PCP Internal Medicine; Visit Provider Internal Medicine | DX: I12.9 Hypertensive chronic kidney disease with stage 1 through stage 4 chronic kidney disease, or unspecified chronic kidney disease (principal); N18.4 Chronic kidney disease, stage 4 (severe); N20.1 Calculus of ureter; E78.2 Mixed hyperlipidemia; R73.01 Impaired fasting glucose; E55.9 Vitamin D deficiency, unspecified; E66.01 Morbid (severe) obesity due to excess calories; Z68.41 Body mass index [BMI] 40.0-44.9, adult | CPT/HCPCS: 96127; 99212 ==